=== PATIENT | female | born 1935 | race Caucasian/White ===

== ENCOUNTER 2024-12-30 14:04 | Inpatient (IN) | payer OTHER, SELFPAY ==
[2024-12-30] VITALS (7 sets, daily range): BP systolic 140–163; BP diastolic 77–96; BMI 19.6
[2024-12-30 08:02] LABS: % Basophils 0.4 % (0-2); % Eosinophils 0.1 % (0-6); % Immature Granulocytes 0.4 % (0-0.5); % Lymphocytes 15.6 % (20.5-51.1); % Monocytes 7.9 % (1.7-9.3); % Neutrophils 75.6 % (42.2-75.2); Absolute Lymphocytes 1.2 10^3/uL (1.2-3.4); Absolute Monocytes 0.6 10^3/uL (0.1-0.6); Absolute Neutrophils 5.7 10^3/uL (1.4-6.5); Hematocrit 27.8 % (37.0-47.0); Hemoglobin 8.5 g/dL (12.0-16.0); Mean Corp Hgb Conc. 30.6 g/dL (33.0-37.0); Mean Corpuscular Hgb 23.8 pg (27.0-31.0); Mean Corpuscular Volume 77.9 fL (81.0-99.0); Mean Platelet Volume 9.6 fL (7.4-10.4); Nucleated Red Blood Cells % 0 %; Platelet Count 291 10^3/uL (130-400); Red Blood Cell Count 3.57 10^6/uL (4.20-5.40); Red Cell Dist. Width 15.2 % (11.5-14.5); White Blood Cell Count 7.5 10^3/uL (4.8-10.8)
[2024-12-30 08:14] LABS: ALT (SGPT) 45 U/L (0-35); AST (SGOT) 52 U/L (14-36); Albumin 4.1 g/dl (3.5-5.0); Alkaline Phosphatase 123 U/L (38-126); Blood Urea Nitrogen 19 mg/dl (7-17); Calcium 8.8 mg/dl (8.4-10.2); Carbon Dioxide 25 mmol/L (22-30); Chloride 100 mmol/L (98-107); Glucose 231 mg/dl (70-99); Potassium 4.3 mmol/L (3.5-5.1); Sodium 137 mmol/L (135-145); Total Bilirubin 0.7 mg/dl (0.2-1.3); Total Protein 7.4 g/dl (6.3-8.2); eGFR > 60.00
[2024-12-30 08:24] LABS: NT-proBNP 16800 pg/ml; Troponin I 0.022 ng/ml
--- NOTE | 2024-12-30 10:55 | ED.GENMED ---
History of Present Illness
General
Chief Complaint: Chest Pain
Time Seen by Provider: 12/30/24 10:55
History of Present Illness
History of Present Illness:
TIME OF INITIAL ENCOUNTER: 11 AM
HPI: Patient presents with chest pressure that started last night and lasted until she got here to the ER about 5 hours ago. She has been having intermittent shortness of breath as well. She denies history of congestive heart failure. She used to
live in [place] and received care at [facility] however currently lives in [place]. Family reports no increased weight. She does take Lasix for swollen legs but not for CHF.
EXAM:
GENERAL: Appears generally weak and debilitated
HEENT: Moist oral mucosa
CARDIOVASCULAR: 2 out of 6 systolic murmur in the left upper sternal border, normal heart rate, regular rhythm, No chest wall tenderness, frequent ectopy noted
PULMONARY: No respiratory distress, slightly increased work of breathing, some bibasilar rales
ABDOMEN: Soft with no peritoneal signs, no tenderness
BACK: Thoracic kyphosis
NEUROLOGIC: Generally weak strength all extremities, no coordination deficits
PSYCHIATRIC: Appropriate mental status, normal insight and judgement
EXTREMITIES: Nontender, 2+ bilateral edema, moves all extremities equally
SKIN: No rash, no lesions
NUMBER AND COMPLEXITY OF PROBLEMS ADDRESSED AT THE ENCOUNTER
� Chronic conditions affecting care: IDDM, high blood pressure, high cholesterol
� Acute Exacerbation and/or Progression of Chronic Illness: This is an acute problem
� Differential Diagnosis includes: CHF, ACS, noncardiac chest wall pain, doubt PE as she has abnormal lung sounds
AMOUNT AND/OR COMPLEXITY OF DATA TO BE REVIEWED AND ANALYZED
� I performed an independent evaluation of and my interpretation is:
EKG: Sinus 90, left axis deviation, frequent PVCs, nonspecific ST abnormality
CT:
X-rays: Chest x-ray suggest central vascular congestion
Laboratory Studies: White count 7.5, hemoglobin 8.5 with no old to compare, BNP 16,800, troponin 0.022
Other:
� Review of other/old records: No old records available for review
� Clinical information was obtained by an independent historian: I spoke to daughter at bedside
� Prescriptions/Medications Considered but not given:
� Further testing considered but not performed:
RISK OF COMPLICATIONS AND/OR MORBIDITY OR MORTALITY OF PATIENT MANAGEMENT
� Social determinants of health affecting care: Lives at home
� Discussion with other providers: Dr. Irvin for admission
� Escalation of care including admission/observation vs risk of discharge considered: Troponins have been flat. However BNP is markedly elevated and exam and chest x-ray suggestive of heart failure. She has no history of heart
failure. Given her advanced age we will plan keeping in the hospital.
ANY OTHER UPDATES:
Phy Exam
Physical Exam
Physical Exam:
See HPI
Scores
Heart Score for Chest Pain Patients
STEMI patient?: Not applicable
Course
Orders/Labs/Results
Orders:
Orders
12/30/24 07:20
Electrocardiogram (*1) Urgent
Reason for Study: Chest Pain
EKG- Treatment ONCE
12/30/24 07:38
BNP [NT-proBNP] Urgent
Complete Blood Count/With Diff Urgent
Comprehensive Metabolic Panel Urgent
Folate Urgent
Comment: ADD
Iron Urgent
Comment: ADD
Total Iron Binding Urgent
Comment: ADD
Troponin I Urgent
Vitamin B12 Urgent
Comment: ADD
12/30/24 10:57
CR Chest - 2 Views Urgent
Comment:
Reason For Exam: sob, BNP 16,800
12/30/24 11:46
Troponin I Urgent
12/30/24 12:19
Furosemide [Lasix] 40 mg IV NOW STA
12/30/24 13:21
Add On- LAB Stat
Tests Added?: iron, b12, TIBC,folate
12/30/24 13:24
Admit/Transfer Patient As Directed
Co-Sign Provider:
Level of Care: Inpatient admission
Assign to:: Telemetry
Physician / Group: luis f
Diagnosis: new onset CHF
Reason for Telemetry: Acute Heart Failure
Date to Stop Telemetry: 01/02/25
Time to Stop Telemetry: 11:00
Reason for Hospitalization: new onset CHF
Expected length of stay greater than two midnights?: Yes
ELOS- Estimated Length of Stay in days: 3
I certify the patient meets the requirements for IP care: Yes
PRN Pain Medication Management As Directed
May give lesser potent ordered pain med per pt: Yes
preference::
Protocol:: Medication orders for pain may be administered in a
manner that supports deferring to patient preference
when the pt is:
- Requesting an ordered lesser potent pain medication.
Least to most potent pain medications are defined
as: acetaminophen < NSAID < tramadol < opioids
(morphine, oxycodone, hydromorphone).
- Requesting a lesser dose of the same medication IF
ORDERED.
- Requesting a less intrusive route of administration
if both routes are prescribed by the provider (PO <
IV).
12/30/24 13:26
Code Status As Directed
Resuscitation Status: Full Code
12/30/24 14:06
COVID-19 Antigen Stat
Source: Nasal Swab
Influenza A+B Rapid Molecular Stat
MIRLANDE Source: Nasal Swab
Specimen Description:
01/02/25 11:00
DC Protocol for Telemetry ONCE
Abnormal Lab Results
12/30/24
07:38
RBC 3.57 L 10^6/uL
(4.20-5.40)
Hgb 8.5 L g/dL
(12.0-16.0)
Hct 27.8 L %
(37.0-47.0)
MCV 77.9 L fL
(81.0-99.0)
MCH 23.8 L pg
(27.0-31.0)
MCHC 30.6 L g/dL
(33.0-37.0)
RDW 15.2 H %
(11.5-14.5)
Neutrophils % 75.6 H %
(42.2-75.2)
Lymphocytes % 15.6 L %
(20.5-51.1)
BUN 19 H mg/dl
(7-17)
Glucose 231 H mg/dl
(70-99)
AST 52 H U/L
(14-36)
ALT 45 H U/L
(0-35)
12/30/24 07:38
12/30/24 07:38
Vital Signs
Initial and Last Documented VS:
Initial Vital Signs
Temp Pulse Resp BP Pulse Ox
37.1 C 88 16 144/91 98
12/30/24 07:16 12/30/24 07:16 12/30/24 07:16 12/30/24 07:16 12/30/24 07:16
Last Documented Vital Signs
Temp Pulse Resp BP Pulse Ox
37.1 C 101 25 163/77 98
12/30/24 07:16 12/30/24 14:02 12/30/24 13:30 12/30/24 14:02 12/30/24 07:16
*Critical Care Note
Total Time (30-74mins, 75-104mins- exclusive of procedures): Not Applicable
ED Attending Note
-
Portions of this chart may have been created with voice recognition software.� Occasional wrong word or��sound alike� substitutions may have occurred due to the inherent limitations of voice recognition software.
Discharge Plan
Departure
Patient Disposition: Admit
Date of Disposition: 12/30/24
Time of Disposition: 12:20
Presentation/result/management discussed w/ accepting MD/DO: Hospitalist
Discharge Problem:
Congestive heart failure
Interventions
Interventions:
*Risk Screen - Suicide Last Done: 12/30/24 07:16
*Neglect/Abuse Screening Last Done: 12/30/24 07:16
--- NOTE | 2024-12-30 12:57 | HPS.HSE ---
Family Physician
-
Family Physician: Michael Morejon
Chief Complaint
-
sob
LE edema
History of Present Illness
89-year-old with past medical history for type 2 diabetes, hypertension, hyperlipidemia, heart murmur, hernia, prolapsed bladder presented to us with short of breath associated with chest heaviness for past few days. Patient stated orthopnea.
Denies short of breath with exertion. Patient stated midsternal chest heaviness which is nonradiating and nonexertional. Patient stated some dry cough. Patient denied headache, dizzy or syncope. Patient denied fever, chills. Patient denied
abdominal pain, nausea, vomiting or diarrhea. Patient denied dysuria,hematuria. patient was noted to have left LE wound. she also has bruising on her leg and LE.
Chest x-ray with pulmonary edema, elevated BNP. Patient received a dose of Lasix in ER admitting for further management
Medical History
Past Medical History
Past Medical History: Reports Other
Additional Past Medical History:
Heart murmur
Hyperlipidemia
Hypertension
Hernia
Post prolapsed bladder
Past Surgical History: Reports Other
Additional Past Surgical History:
Bladder pessary
Left hip surgery
Social History
Tobacco: Non-smoker
Alcohol: None
Living: Alone
Family History
Family History: Not pertinent
Allergies / Home Medications
Allergies reflects when Allergies were last updated in [employer].
Home Medications with original date entered in [employer]
Allergy/Medication List:
Allergies
Allergy/AdvReac Type Severity Reaction Status Date / Time
Sulfa (Sulfonamide Allergy Unknown Unknown Verified 12/30/24 07:16
Antibiotics)
Home Medications
dapagliflozin propanediol 10 mg tablet (Farxiga) 10 mg PO DAILY 12/30/24
enalapril maleate 10 mg tablet 10 mg PO DAILY 12/30/24
furosemide 20 mg tablet (Lasix) 20 mg PO DAILY 12/30/24
gabapentin 100 mg capsule 100 mg PO DAILY 12/30/24
gabapentin 100 mg tablet 200 mg PO HS 12/30/24
glimepiride 4 mg tablet 4 mg PO DAILY 12/30/24
insulin glargine 100 unit/mL (3 mL) subcutaneous pen (Lantus Solostar U-100 Insulin) 10 unit SC DAILY 12/30/24
lovastatin 40 mg tablet 40 mg PO QPM 12/30/24
meloxicam 7.5 mg tablet 7.5 mg PO DAILY 12/30/24
metformin 500 mg tablet 500 mg PO BID 12/30/24
therapeutic multivitamin 1 tab PO DAILY 12/30/24
Review of Systems
-
Constitutional: Reports No Symptoms
EENT: Reports No Symptoms
Respiratory: Reports No Symptoms and Trouble Breathing
Cardiac: Reports Chest Pain
Abdomen/GI: Reports No Symptoms
: Reports No Symptoms
Musculoskeletal: Reports Edema (Bilateral lower extremities edema)
Skin: Reports No Symptoms and Other (Left camara wound, lower extremity and UE extremity bruises)
Neurological: Reports No Symptoms
Endocrine: Reports No Symptoms
Hematologic/Lymphatic: Reports No Symptoms
Psych: Reports No Symptoms
Physical Exam
Vital Signs
Vital Signs
Temp Pulse Resp BP Pulse Ox
98.7 F 88 16 144/91 98
12/30/24 07:16 12/30/24 07:16 12/30/24 07:16 12/30/24 07:16 12/30/24 07:16
Physical Exam
General: Well Developed, Well Nourished and No Apparent Distress
HEENT: NormoCephalic, Moist mucous membranes and Atraumatic
Respiratory: Rales
Cardiac: S1/S2, Regular Rhythm and Murmur; No Rub
GI: Soft, Non Tender, Non Distended and Normal Bowel Sounds; No Organomegaly
Rectal: Deferred by Provider
Musculoskeletal: No Clubbing, No Cyanosis and No Edema
Skin: Rash and Other (Bruises, left camara wound)
Neuro: AO x 3 and Nonfocal/grossly intact
Psych: Calm
Laboratory Results
-
12/30/24 07:38
12/30/24 07:38
Laboratory Results
Total Bilirubin 0.7 mg/dl (0.2-1.3) 12/30/24 07:38
AST 52 U/L (14-36) H 12/30/24 07:38
ALT 45 U/L (0-35) H 12/30/24 07:38
Alkaline Phosphatase 123 U/L (38-126) 12/30/24 07:38
Troponin I 0.020 ng/ml 12/30/24 11:46
Data Reviewed
-
Diagnostic Radiology: Report Reviewed by me
Lab Data: Labs Reviewed by me
Impression/Plan
-
# Chest pain and short of breath likely from known new onset CHF
-BNP 16, 800
-Chest x-ray with mild cardiomegaly with central pulmonary vascular distention
-IV Lasix continued
-Strict JOSHUA
-Daily weight
-Fluid restriction
-Continue to trend Trope
-Obtain echocardiogram
-cardiology consult
# Anemia likely chronic
-Will obtain iron panel
-Patient denied bleeding
# Hepatic congestion
-AST 52, ALT 45
Denies abdominal pain
-Continue monitor
# Type 2 diabetes
-Sliding scale
-Lantus 5 units at bedtime
-Farxiga continued
-hold glimepiride, metformin
# Peripheral neuropathy
-Gabapentin continued
# Hypertension
-Enalapril continue with hold parameters
#left LE wound
-wound care consulted
# Hyperlipidemia
Statin continued
# DVT prophylaxis
-Lovenox
# CODE STATUS
Full code-
[2024-12-30] MEDS: LASIX 40 MG IV ×2 (14:02→21:43)
--- NOTE | 2024-12-30 14:29 | CON.CAR ---
Consultation
Consultation Request
Date/Time Consultation Requested: 12/30/2024
Date/Time Consultation Performed: 12/30/2024
Requesting Provider: Sammi Roth NP
Performing Provider: Dr. Patel
Reason for Consultation: CHF
Medical History
-
Chief Complaint: SOB
History of Present Illness:
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 The patient states that she has a
chronic heart murmur and lower extremity swelling and a heart murmur for which she takes Lasix. 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
Past Medical History
Past Medical History: HTN, Hypercholesterolemia and IDDM
Past Surgical History: Orthopedic (Left hip) and Urological (Bladder pessary)
Social History
Tobacco: Non-Smoker
Alcohol: None
Employment: Retired
Family History
Family History: Reviewed & Not Pertinent
Allergies / Home Medications
Allergy/AdvReac Type Severity Reaction Status Date / Time
Sulfa (Sulfonamide Allergy Unknown Unknown Verified 12/30/24 07:16
Antibiotics)
�Medication �Instructions �Recorded �Confirmed �Type
dapagliflozin propanediol 10 mg 10 mg PO DAILY 12/30/24 12/30/24 History
tablet (Farxiga)
enalapril maleate 10 mg tablet 10 mg PO DAILY 12/30/24 12/30/24 History
furosemide 20 mg tablet (Lasix) 20 mg PO DAILY 12/30/24 12/30/24 History
gabapentin 100 mg capsule 100 mg PO DAILY 12/30/24 12/30/24 History
gabapentin 100 mg tablet 200 mg PO HS 12/30/24 12/30/24 History
glimepiride 4 mg tablet 4 mg PO DAILY 12/30/24 12/30/24 History
insulin glargine 100 unit/mL (3 10 unit SC DAILY 12/30/24 12/30/24 History
mL) subcutaneous pen (Lantus
Solostar U-100 Insulin)
lovastatin 40 mg tablet 40 mg PO QPM 12/30/24 12/30/24 History
meloxicam 7.5 mg tablet 7.5 mg PO DAILY 12/30/24 12/30/24 History
metformin 500 mg tablet 500 mg PO BID 12/30/24 12/30/24 History
therapeutic multivitamin 1 tab PO DAILY 12/30/24 12/30/24 History
Review of Systems
-
All other systems: Negative unless noted
Musculoskeletal: Joint Pain
Physical Exam
Vital Signs
Temp Pulse Resp BP Pulse Ox
98.7 F 101 25 163/77 98
12/30/24 07:16 12/30/24 14:02 12/30/24 13:30 12/30/24 14:02 12/30/24 07:16
Lab Results
12/30/24 07:38
12/30/24 07:38
Troponin I 0.020 ng/ml 12/30/24 11:46
Lqu-L-Hvjgwdhzupx Pept 35512 pg/ml 12/30/24 07:38
Physical Exam
General: No Apparent Distress and Comfortable
HEENT: Normocephalic
Respiratory: Rhonchi
Cardiac: S1/S2, Regular Rhythm, Murmur (3/6 systolic) and Peripheral Edema (2+ with mild erythema)
Breast: Deferred by me
GI: Soft and Non Tender
Rectal: Deferred by Provider
Musculoskeletal: Edema (2+ with mild erythema)
Skin: Warm
Neuro: AO x 3
Psych: Calm
Impression / Plan
-
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 The patient states that she has a
chronic heart murmur and lower extremity swelling and a heart murmur for which she takes Lasix. 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
Her cardiac BNP was elevated at 16,800 and she was found to have a hemoglobin of 8.5. She takes Lasix 20 mg daily at home. She has a 3/6 systolic murmur on examination.
Acute CHF (type unknown):
-The patient is clearly volume overloaded on examination and has a notable murmur.
-Recommend diuresis with Lasix 40 mg IV twice daily.
-Monitor daily weights and I/Os.
-monitoring analyst.
-Echocardiogram on Wednesday.
Heart murmur:
-3/6 systolic murmur.
-Echocardiogram Wednesday.
-Diuresis with Lasix as above.
Hypertension:
-Monitor blood pressure with diuresis.
-Continue enalapril.
Hyperlipidemia:
-On statin at home.
Diabetes:
-Check hemoglobin A1c
-Management as per primary team.
Data Reviewed
-
EKG: Tracing Personally Visualized and interpreted (Sinus rhythm with occasional PACs and PVCs, nonspecific ST/T abnormality)
Labs: Labs Reviewed by me
[2024-12-30 14:33] LABS: Iron 50 ug/dl (37-170)
[2024-12-30 14:40] LABS: COVID-19 Antigen Negative (Negative)
--- NOTE | 2024-12-30 14:50 | W.PN.UPDATE ---
Update Note
Progress Note Update
Attending addendum
Patient seen independently
89-year-old woman with past medical history of:
type 2 diabetes,
hypertension,
hyperlipidemia,
heart murmur,
hernia,
prolapsed bladder
comes in with short of breath associated with chest heaviness for past few days. C/o orthopnea, but denies short of breath with exertion. Midsternal chest heaviness is nonradiating and nonexertional. + dry cough. She denied headache, dizzy or
syncope, fever, chills, abdominal pain, nausea, vomiting or diarrhea, dysuria,hematuria. She has a left LE wound and bruising on her leg and LE. Chest x-ray in ED showed with pulmonary edema, elevated BNP. Patient received a dose of Lasix in ER.
CXR:
1. Mild cardiomegaly.
2. Elevated pulmonary venous pressures with central pulmonary vascular distention.
3. Mild elevation of the right hemidiaphragm.
4. Mild scarring/subsegmental atelectasis in the mid and lower lungs.
5. Moderate to large paraesophageal hiatal hernia.
6. 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
7. Moderate left convex curvature of the lower thoracic spine.
Past Medical History
Heart murmur
Hyperlipidemia
Hypertension
Hernia
Post prolapsed bladder
Bladder pessary
Left hip surgery
Physical Exam
General: Well Developed, Well Nourished and No Apparent Distress
HEENT: NormoCephalic, Moist mucous membranes and Atraumatic
Respiratory: Rales
Cardiac: S1/S2, Regular Rhythm and Murmur; No Rub
GI: Soft, Non Tender, Non Distended and Normal Bowel Sounds; No Organomegaly
Psych: Calm
Impression/Plan
1. Chest pain and short of breath likely from known new onset CHF -BNP 16, 800
-IV Lasix
-Strict JOSHUA
-Daily weight
-Fluid restriction
-trend Trope
-echocardiogram
-cardiology consult
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
Anemia likely chronic
Hepatic congestion
Type 2 diabetes
Peripheral neuropathy
Hypertension
Left LE wound
Hyperlipidemia
DVT prophylaxis -Lovenox
CODE STATUS Full code
[2024-12-30 15:07] LABS: Folate > 20.0 ng/ml (2.76-20); Vitamin B12 421 pg/ml (239-931)
[2024-12-30 15:19] LABS: Percent Saturation 12 % (20-50); Total Iron Binding Capacity 391 ug/dl (265-497)
--- NOTE | 2024-12-30 18:00 | PTCARENOTE ---
Pt recieved from ER. pt transfered to bed. vss afebrile no co pain. pt incon of large amount of urine. pt cleansed and external urinary device applied. pt oriented to unit. pt called in her diner and breakfast
[2024-12-30 18:35] LABS: Glucose - Point of Care 251 mg/dl (70-99)
--- NOTE | 2024-12-30 20:30 | PTCARENOTE ---
Assumed care of patient from previous RN. Patient recently arrived from ED. Patient is settled in room, alert and oriented, [place]. No complaints at this time. VSS. Satting well on room air. Patient stating she feels she needs to have a BM. Placed on
bedpan without relief. Patient stood at bedside, steady on feet - patient states she uses a walker at baseline independently to ambulate. Standing scale weight obtained and patient placed on BSC - had large BM. Dinner arrived late to floor, patient
ate late dinner and AccuCheck obtained for bedtime was high at 319. ROXY Sanchez notified, one time dose 4 units NovoLog ordered and provided to patient. Call rosas in reach, patient understands use, will continue to monitor.
[2024-12-30] MEDS: NOVOLOG FLEXPEN-LOW RESISTANCE SC (20:40)
[2024-12-30] MEDS: NEURONTIN 200 MG PO (21:43)
[2024-12-30] MEDS: LIPITOR 10 MG PO (21:45)
[2024-12-30 22:16] LABS: Glucose - Point of Care 319 mg/dl (70-99)
[2024-12-30 23:20] LABS: Troponin I 0.028 ng/ml
[2024-12-30] MEDS: NOVOLOG FLEXPEN 4 UNITS SC (23:25)
[2024-12-30] MEDS: LOVENOX 40 MG SC (23:45)
[2024-12-31] VITALS (7 sets, daily range): BP systolic 88–136; BP diastolic 51–75; PULSE 70; O2SAT 98; BMI 18.6
[2024-12-31 04:30] LABS: % Basophils 0.4 % (0-2); % Immature Granulocytes 0.4 % (0-0.5); % Lymphocytes 18.7 % (20.5-51.1); % Monocytes 9.5 % (1.7-9.3); Absolute Lymphocytes 1.4 10^3/uL (1.2-3.4); Absolute Monocytes 0.7 10^3/uL (0.1-0.6); Absolute Neutrophils 5.2 10^3/uL (1.4-6.5); Hemoglobin 9.5 g/dL (12.0-16.0); Mean Corp Hgb Conc. 31.7 g/dL (33.0-37.0); Mean Corpuscular Hgb 24.1 pg (27.0-31.0); Mean Corpuscular Volume 76.1 fL (81.0-99.0); Mean Platelet Volume 9.8 fL (7.4-10.4); Nucleated Red Blood Cells % 0 %; Platelet Count 289 10^3/uL (130-400); Red Blood Cell Count 3.94 10^6/uL (4.20-5.40); White Blood Cell Count 7.3 10^3/uL (4.8-10.8)
[2024-12-31 04:59] LABS: ALT (SGPT) 36 U/L (0-35); AST (SGOT) 32 U/L (14-36); Alkaline Phosphatase 129 U/L (38-126); Blood Urea Nitrogen 23 mg/dl (7-17); Calcium 8.8 mg/dl (8.4-10.2); Carbon Dioxide 30 mmol/L (22-30); Chloride 97 mmol/L (98-107); Direct Bilirubin 0.5 mg/dl (0.0-0.4); Estimated Creatinine Clearance 29 ml/min; Glucose 146 mg/dl (70-99); HDL Cholesterol 60 mg/dl; LDL Cholesterol, Calculated 42 mg/dl; Magnesium 1.6 mg/dl (1.6-2.3); Potassium 3.4 mmol/L (3.5-5.1); Sodium 138 mmol/L (135-145); Total Bilirubin 0.6 mg/dl (0.2-1.3); Total Cholesterol 116 mg/dl (50-199); Total Protein 7.4 g/dl (6.3-8.2); Triglyceride 73 mg/dl (10-149); Very Low Density Lipoprotein 14 mg/dl (0-30); eGFR 54.53
[2024-12-31 05:03] LABS: Troponin I 0.034 ng/ml
[2024-12-31 08:07] LABS: Glucose - Point of Care 215 mg/dl (70-99)
[2024-12-31 08:41] LABS: Glycohemoglobin (HgbA1c) 11.8 % (4.0-5.6)
[2024-12-31] MEDS: NOVOLOG FLEXPEN-LOW RESISTANCE 2 UNITS SC ×2 (09:59→18:07)
[2024-12-31] MEDS: LANTUS 0.05 UNITS SC (10:05)
[2024-12-31] MEDS: NEURONTIN 100 MG PO (10:07)
[2024-12-31] MEDS: VASOTEC 10 MG PO (10:07)
[2024-12-31] MEDS: MOBIC 7.5 MG PO (10:07)
[2024-12-31] MEDS: FARXIGA 10 MG PO (10:07)
[2024-12-31] MEDS: LASIX 40 MG IV ×2 (10:08→16:57)
[2024-12-31 10:46] LABS: Troponin I 0.032 ng/ml
[2024-12-31] MEDS: AMARYL 4 MG PO (11:13)
[2024-12-31] MEDS: GLUCOPHAGE 500 MG PO ×2 (11:13→21:07)
[2024-12-31] MEDS: MAGNESIUM SULFATE 102 GRAMS IV (11:13)
[2024-12-31] MEDS: KCL 40 MEQ PO (11:13)
[2024-12-31] MEDS: TOPROL XL 25 MG PO (11:14)
--- NOTE | 2024-12-31 11:36 | W.PN.CD ---
Today's Communication / Plan
-
-Continue diuresis with Lasix 40 mg IV twice daily.
-Echocardiogram tomorrow.
-Will start Toprol-XL 25 mg daily.
-Diabetes poorly controlled with a hemoglobin A1c of 11.8%.
Impression / Plan
-
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 The patient states that she has a
chronic heart murmur and lower extremity swelling and a heart murmur for which she takes Lasix. 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
Her cardiac BNP was elevated at 16,800 and she was found to have a hemoglobin of 8.5. She takes Lasix 20 mg daily at home. She has a 3/6 systolic murmur on examination.
Acute CHF (type unknown):
-The patient is volume overloaded on examination and has a notable murmur.
-Cardiac BNP 16,800.
-Continue diuresis with Lasix 40 mg IV twice daily.
-Monitor daily weights and I/Os.
-electronic device monitor.
-Echocardiogram tomorrow.
Heart murmur:
-3/6 systolic murmur.
-Echocardiogram tomorrow.
-Continue diuresis with Lasix.
PVCs/mild sinus tachycardia:
-Will start Toprol-XL 25 mg daily.
Hypertension:
-Mildly elevated yesterday
-Continue current dose of enalapril.
-Continue Lasix as above.
-Will start Toprol-XL as above.
Hyperlipidemia:
-Continue atorvastatin.
Diabetes:
-Poorly controlled; hemoglobin A1c 11.8.
-Continue management as per primary team.
Physical Exam
Vital Signs/Labs
Vital Signs
Temp Pulse Resp BP Pulse Ox
99.1 F 100 16 136/75 95
12/31/24 07:30 12/31/24 07:30 12/31/24 07:30 12/31/24 07:30 12/31/24 07:30
12/30/24 12/31/24 01/01/25
06:59 06:59 06:59
Actual Weight 44.588 kg
12/31/24 04:16
12/31/24 04:16
Magnesium 1.6 mg/dl (1.6-2.3) 12/31/24 04:16
Triglycerides 73 mg/dl (10-149) 12/31/24 04:16
LDL Cholesterol, Calc 42 mg/dl 12/31/24 04:16
VLDL Cholesterol, Calc 14 mg/dl (0-30) 12/31/24 04:16
HDL Cholesterol 60 mg/dl 12/31/24 04:16
12/30/24
07:38
Cbs-K-Ydjueheckei Pept [id number]
LAB Results
12/30/24 12/30/24 12/30/24
07:38 11:46 22:41
Troponin I 0.022 0.020 0.028
12/31/24 12/31/24
04:16 09:49
Troponin I 0.034 0.032
Physical Exam
Constitutional: No acute distress and Comfortable
EENT: Anicteric
Cardiovascular: Rhythm & rate is regular (Frequent PVCs), Pedal edema present (Trace-1+), Systolic murmur present (3/6) and S1S2 is normal
Respiratory: Respiratory effort normal and Rhonchi Present
GI: Soft and Non tender
Neuro/Psych: AO x 3
Other: Skin (Warm, dry, intact)
Data Reviewed
-
Date of Service: December 31, 2024
EKG: Tracing Personally Visualized and interpreted (Telemetry: Sinus rhythm with frequent PVCs)
Labs: Labs Reviewed by me
[2024-12-31 11:52] LABS: Glucose - Point of Care 253 mg/dl (70-99)
[2024-12-31] MEDS: NOVOLOG FLEXPEN-LOW RESISTANCE 3 UNITS SC (13:12)
--- NOTE | 2024-12-31 14:53 | W.PN.HOSP.TC ---
Today's Communication/Plan
-
Diuresis
Echo
Watch sugars
Assessment / Plan
Assessment / Plan
89-year-old female presented with shortness of breath
Awake and alert
Cardiovascular system S1-S2 appreciated
Rales bilaterally
Abdomen soft and nontender
Lower extremity edema
Redness and a wound on the left calf
# Acute CHF
proBNP 16,800
Continue Lasix 40 mg IV twice daily
Telemonitoring
Intake output charting /daily weights/CHF education
Patient seems to be on Lasix 20 mg daily as outpatient
Continue Lisinopril, Metoprolol started.
Cardiology evaluation
Echo Wednesday
# Hypokalemia-replace
# Anemia- OP GI eval and work up with PCP discussed with daughter
# Left lower extremity cellulitis with an infected wound-add antibiotics. Pulses palpable. Wound care consultation
# Hypertension
-Continue enalapril, metoprolol started
# Diabetes-continue metformin 500 mg BID/Lantus insulin 5 units HS (Instead of 10 PHARMACY GRADUATE INTERN started 1 week ago) /Glimepiride 4 mg OD/Farxiga 10 mg OD/Accu-Cheks&SSI
Hemoglobin A1c 11.8 indicates poor control - Daughter updated.
# Diabetic neuropathy-continue gabapentin
# Hyperlipidemia-continue atorvastatin
# Slightly elevated transaminases and alk gwac-gaojui-stunej secondary to hepatic congestion
# DVT prophylaxis-Lovenox
# Full code
Discussed with nursing
Spoken to daughter and updated.
Anticipated Discharge: 24 - 48 hours
Subjective/Interval History
-
Date of Service: December 31, 2024
Objective Data
-
Labs:
Laboratory Results
12/31/24
04:16
WBC 7.3
Hgb 9.5 L
Hct 30.0 L
Plt Count 289
Sodium 138
Potassium 3.4 L
Chloride 97 L
Carbon Dioxide 30
BUN 23 H
Creatinine 1.0
Glucose 146 H
Calcium 8.8
Total Bilirubin 0.6
AST 32
ALT 36 H
Alkaline Phosphatase 129 H
Vital Signs:
Vital Signs
Temp Pulse Resp BP Pulse Ox
97.4 F 69 16 124/68 100
12/31/24 11:30 12/31/24 11:30 12/31/24 11:30 12/31/24 11:30 12/31/24 11:30
I&O
12/30/24 12/31/24 01/01/25
06:59 06:59 06:59
Intake Total 80 / 80
Output Total 2250 / 2250
Balance -2169 / -2169
[2024-12-31] MEDS: LOVENOX 40 MG SC (16:57)
[2024-12-31] MEDS: LIPITOR 10 MG PO (16:58)
[2024-12-31 17:06] LABS: Glucose - Point of Care 234 mg/dl (70-99)
[2024-12-31] MEDS: VIBRAMYCIN 100 MG PO (21:07)
[2024-12-31] MEDS: NEURONTIN 200 MG PO (21:08)
[2024-12-31 21:26] LABS: Glucose - Point of Care 276 mg/dl (70-99)
[2025-01-01] VITALS (8 sets, daily range): BP systolic 78–108; BP diastolic 44–76; BMI 19.6
[2025-01-01 06:27] LABS: % Basophils 0.4 % (0-2); % Eosinophils 0.1 % (0-6); % Immature Granulocytes 0.3 % (0-0.5); % Lymphocytes 23.3 % (20.5-51.1); % Monocytes 9.9 % (1.7-9.3); Absolute Lymphocytes 1.6 10^3/uL (1.2-3.4); Absolute Monocytes 0.7 10^3/uL (0.1-0.6); Absolute Neutrophils 4.5 10^3/uL (1.4-6.5); Hematocrit 27.1 % (37.0-47.0); Hemoglobin 8.5 g/dL (12.0-16.0); Mean Corp Hgb Conc. 31.4 g/dL (33.0-37.0); Mean Corpuscular Hgb 24.1 pg (27.0-31.0); Mean Corpuscular Volume 76.8 fL (81.0-99.0); Mean Platelet Volume 10.3 fL (7.4-10.4); Nucleated Red Blood Cells % 0 %; Platelet Count 280 10^3/uL (130-400); Red Blood Cell Count 3.53 10^6/uL (4.20-5.40); Red Cell Dist. Width 15.2 % (11.5-14.5); White Blood Cell Count 6.9 10^3/uL (4.8-10.8)
[2025-01-01 06:50] LABS: Blood Urea Nitrogen 38 mg/dl (7-17); Calcium 8.4 mg/dl (8.4-10.2); Carbon Dioxide 30 mmol/L (22-30); Chloride 92 mmol/L (98-107); Estimated Creatinine Clearance 21 ml/min; Glucose 158 mg/dl (70-99); Potassium 4.2 mmol/L (3.5-5.1); Sodium 132 mmol/L (135-145)
[2025-01-01 07:51] LABS: Glucose - Point of Care 230 mg/dl (70-99)
--- NOTE | 2025-01-01 08:04 | W.PN.CD ---
Today's Communication / Plan
-
ALEJANDRA after diuresis: hold lasix and ACEi today
if Cr improved tomorrow, transition to lasix 40mg PO daily
Echocardiogram today
Impression / Plan
-
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 The patient states that she has a
chronic heart murmur and lower extremity swelling and a heart murmur for which she takes Lasix. 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
Her cardiac BNP was elevated at 16,800 and she was found to have a hemoglobin of 8.5. She takes Lasix 20 mg daily at home. She has a 3/6 systolic murmur on examination.
Acute CHF (type unknown):
-ALEJANDRA after diuresis: hold lasix today
-if Cr improved tomorrow, transition to lasix 40mg PO daily
-Echocardiogram today
ALEJANDRA
-stop IV lasix
-hold enalapril
Heart murmur:
-3/6 systolic murmur.
-Echocardiogram
PVCs/triplets:
-no sxs
-started Toprol-XL 25 mg daily this admission
Hypertension:
-improved s/p diuresis
-hold enalapril given ALEJANDRA; cont Toprol XL
Hyperlipidemia:
-Continue atorvastatin.
Diabetes:
-Poorly controlled; hemoglobin A1c 11.8.
-Continue management as per primary team.
Physical Exam
Vital Signs/Labs
Vital Signs
Temp Pulse Resp BP Pulse Ox
98.4 F 60 20 108/76 96
01/01/25 03:25 01/01/25 07:51 01/01/25 07:51 02/03/25 03:25 01/01/25 07:51
12/31/24 01/01/25 01/02/25
06:59 06:59 06:59
Actual Weight 44.588 kg
01/01/25 05:40
01/01/25 05:40
Magnesium 2.0 mg/dl (1.6-2.3) 01/01/25 05:40
Triglycerides 73 mg/dl (10-149) 12/31/24 04:16
LDL Cholesterol, Calc 42 mg/dl 12/31/24 04:16
VLDL Cholesterol, Calc 14 mg/dl (0-30) 12/31/24 04:16
HDL Cholesterol 60 mg/dl 12/31/24 04:16
12/30/24
07:38
Sbi-F-Nryivbuobur Pept 50101
LAB Results
12/30/24 12/30/24 12/30/24
07:38 11:46 22:41
Troponin I 0.022 0.020 0.028
12/31/24 12/31/24
04:16 09:49
Troponin I 0.034 0.032
Physical Exam
Constitutional: No acute distress
EENT: Moist mucous membranes
Cardiovascular: Rhythm & rate is regular, JVD pressure is normal, Pedal edema present (trace) and Systolic murmur present
Respiratory: Respiratory effort normal and Lungs clear to auscul.
Neuro/Psych: AO x 3
Data Reviewed
-
Date of Service: January 01, 2025
EKG: Other (Tele: SR with PVC's, triplets)
Labs: Labs Reviewed by me
--- NOTE | 2025-01-01 08:36 | WOUNDNOTE ---
L 2ND TOE (DORSAL)
--- NOTE | 2025-01-01 08:38 | WOUNDNOTE ---
[facility] RN note: Patient admitted with CHF. Patient lives alone.
See H&P for complete history.
PMH: DM, HTN, heart murmur, hernia, prolapsed bladder, LLE wound, hip surgery, neuropathy.
Wound Location and type/assessment: Patient admitted with: L dorsal 2nd toe dry abrasion d/t hammer toe, neuropathy, LLE deep dermal skin tear from trauma. Patient stated she just started seeing a farmhand for her L 2nd toe wound. Heels slow to
alex red. +Pedal pulses.
Appetite: good. Patient very thin.
Pressure redistribution devices in place: [employer] Accumax. Patient turns self in bed.
Plan: LLE dressing changed. Rani care given. Protective heel foam dressings changed. Heels off bed with air chair cushion. Instructed patient pressure injury prevention measures.
Will confirm orders with Dr. Jara and discussed with WESLEY Porter.
Care plan to be updated and will follow as needed.
Note to case management requested for discharge: VN if goes home.
Recommend follow up at [facility].
--- NOTE | 2025-01-01 08:43 | WOUNDNOTE ---
[facility] RN note: Patient admitted with CHF. Patient lives alone.
See H&P for complete history.
PMH: DM, HTN, heart murmur, hernia, prolapsed bladder, LLE wound, hip surgery, neuropathy.
Wound Location and type/assessment: Patient admitted with: L dorsal 2nd toe dry abrasion d/t hammer toe, neuropathy, LLE deep dermal skin tear from trauma. Patient stated she just started seeing a fundraising specialist for her L 2nd toe wound. Heels slow to
alex red. +Pedal pulses. MASD perineum, labia.
Appetite: good. Patient very thin.
Pressure redistribution devices in place: [employer] Accumax. Patient turns self in bed.
Plan: LLE dressing changed. Rani care given. Protective heel foam dressings changed. Heels off bed with air chair cushion. Instructed patient pressure injury prevention measures.
Will confirm orders with Dr. Jara and discussed with WESLEY Porter and SHAWNA Marquis.
Care plan to be updated and will follow as needed.
Note to case management requested for discharge: VN if goes home.
Recommend follow up at [facility].
[2025-01-01] MEDS: LANTUS 0.05 UNITS SC ×2 (08:59→21:48)
[2025-01-01] MEDS: LASIX IV (09:00)
[2025-01-01] MEDS: TOPROL XL 25 MG PO (09:00)
[2025-01-01] MEDS: AMARYL 4 MG PO (09:00)
[2025-01-01] MEDS: MOBIC 7.5 MG PO (09:01)
[2025-01-01] MEDS: FEOSOL 325 MG PO (09:01)
[2025-01-01] MEDS: GLUCOPHAGE 500 MG PO ×2 (09:01→21:49)
[2025-01-01] MEDS: VIBRAMYCIN 100 MG PO ×2 (09:01→21:49)
[2025-01-01] MEDS: VASOTEC PO (09:01)
[2025-01-01] MEDS: NEURONTIN 100 MG PO (09:01)
[2025-01-01] MEDS: FARXIGA 10 MG PO (09:01)
[2025-01-01] MEDS: NOVOLOG FLEXPEN-LOW RESISTANCE 2 UNITS SC (09:02)
[2025-01-01 11:59] LABS: Glucose - Point of Care 281 mg/dl (70-99)
[2025-01-01] MEDS: NOVOLOG FLEXPEN-LOW RESISTANCE 3 UNITS SC (14:28)
[2025-01-01 14:39] LABS: ALT (SGPT) 25 U/L (0-35); AST (SGOT) 21 U/L (14-36); Albumin 3.6 g/dl (3.5-5.0); Alkaline Phosphatase 107 U/L (38-126); Direct Bilirubin 0.3 mg/dl (0.0-0.4); Total Bilirubin 0.6 mg/dl (0.2-1.3); Total Protein 6.8 g/dl (6.3-8.2)
--- NOTE | 2025-01-01 15:29 | W.PN.HOSP.TC ---
Today's Communication/Plan
-
If creat imptoves SNF tomorrow
Assessment / Plan
Assessment / Plan
89-year-old female presented with shortness of breath
Awake and alert
Cardiovascular system S1-S2 appreciated
Rales bilaterally
Abdomen soft and nontender
Lower extremity edema
Redness and a wound on the left calf, edema better
# Acute CHF
proBNP 16,800
Lasix 40 mg IV twice daily, placed on hold
Creatinine up. Likely over diuresed
Telemonitoring
Intake output charting /daily weights/CHF education
Patient seems to be on Lasix 20 mg daily as outpatient
Hold lisinopril, Metoprolol to be continued for now
Cardiology evaluation
Echo done results pending
# Hypotension-likely prerenal from overdiuresis. Will give a dose of midodrine and watch
# Hypokalemia-replaced
# Hyponatremia likely hypovolemic
# Acute kidney injury-hold Mobic, lisinopril, Lasix
# Anemia- OP GI eval and work up with PCP discussed with daughter
# Left lower extremity cellulitis with an infected wound-add antibiotics. Pulses palpable. Wound care consultation
# Hypertension -hold enalapril, metoprolol started this admission. Continue for now
# Diabetes-continue metformin 500 mg BID/Lantus insulin 5 units BID (Instead of 10 HS PELTS SKINNER started 1 week ago) /Glimepiride 4 mg OD/Farxiga 10 mg OD/Accu-Cheks&SSI
Hemoglobin A1c 11.8 indicates poor control - Daughter updated.
# Diabetic neuropathy-continue gabapentin
# Hyperlipidemia-continue atorvastatin
# Slightly elevated transaminases and alk [id number]-vxhyyh secondary to hepatic congestion- Improved.
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
# Severe discogenic DJD lumbar spine
# DVT prophylaxis-Lovenox
# Full code
Discussed with nursing
Spoken to daughter and updated yesterday.
Anticipated Discharge: Within 24 hours
Subjective/Interval History
-
Date of Service: January 01, 2025
Objective Data
-
Labs:
Laboratory Results
01/01/25
05:40
WBC 6.9
Hgb 8.5 L
Hct 27.1 L
Plt Count 280
Sodium 132 L
Potassium 4.2
Chloride 92 L
Carbon Dioxide 30
BUN 38 H
Creatinine 1.3 H
Glucose 158 H
Calcium 8.4
Total Bilirubin 0.6
AST 21
ALT 25
Alkaline Phosphatase 107
Vital Signs:
Vital Signs
Temp Pulse Resp BP Pulse Ox
97.4 F 75 20 100/48 96
01/01/25 11:00 01/01/25 11:00 01/01/25 11:00 01/01/25 12:09 01/01/25 11:00
I&O
12/31/24 01/01/25 01/02/25
06:59 06:59 06:59
Intake Total 80 / 80 650 / 650
Output Total 2250 / 2250 500 / 500
Balance -2170 / -2170 150 / 150
[2025-01-01] MEDS: ProAmatine 5 MG PO (16:02)
[2025-01-01] MEDS: PROTONIX 40 MG PO (16:02)
--- NOTE | 2025-01-01 16:31 | PTCARENOTE ---
Pt sitting up in chair notified by PCT of 1500 BP being low. Manual BP taken, 78/48. Pt is asymptomatic. Put back into bed with assist x2. notified, midodrine given. Repeat BP 96/51.
[2025-01-01 16:54] LABS: Glucose - Point of Care 92 mg/dl (70-99)
--- NOTE | 2025-01-01 17:01 | CM ---
Alert awake oriented patient who lives with her dgt Court in a 1 story home with 2 steps to enter and bed bathroom on first floor. She is independent in all activities of daily living.Offered VN she requested VN Savannah Martin liaison notified.
No adaptive devices
VN current / no SNF
Pharmacy [facility]
PCP Page
PLAN Home with VN
[2025-01-01] MEDS: NOVOLOG FLEXPEN-LOW RESISTANCE SC (17:18)
[2025-01-01] MEDS: LIPITOR 10 MG PO (17:51)
[2025-01-01] MEDS: LOVENOX 40 MG SC (17:51)
[2025-01-01 21:43] LABS: Glucose - Point of Care 247 mg/dl (70-99)
[2025-01-01] MEDS: ANTIFUNGAL CLEAR 1 APPLIC TOPICAL (21:48)
[2025-01-01] MEDS: NEURONTIN 200 MG PO (21:49)
[2025-01-02] VITALS (7 sets, daily range): BP systolic 101–131; BP diastolic 57–77; PULSE 70; O2SAT 98; BMI 19.3
[2025-01-02 06:03] LABS: % Basophils 0.6 % (0-2); % Eosinophils 0.5 % (0-6); % Immature Granulocytes 0.2 % (0-0.5); % Lymphocytes 27.8 % (20.5-51.1); % Monocytes 11.7 % (1.7-9.3); % Neutrophils 59.2 % (42.2-75.2); Absolute Lymphocytes 1.8 10^3/uL (1.2-3.4); Absolute Monocytes 0.8 10^3/uL (0.1-0.6); Absolute Neutrophils 3.8 10^3/uL (1.4-6.5); Hematocrit 26.9 % (37.0-47.0); Hemoglobin 8.2 g/dL (12.0-16.0); Mean Corp Hgb Conc. 30.5 g/dL (33.0-37.0); Mean Corpuscular Hgb 23.8 pg (27.0-31.0); Mean Platelet Volume 9.9 fL (7.4-10.4); Nucleated Red Blood Cells % 0 %; Platelet Count 282 10^3/uL (130-400); Red Blood Cell Count 3.45 10^6/uL (4.20-5.40); Red Cell Dist. Width 15.1 % (11.5-14.5); White Blood Cell Count 6.4 10^3/uL (4.8-10.8)
[2025-01-02 06:16] LABS: Blood Urea Nitrogen 50 mg/dl (7-17); Calcium 8.5 mg/dl (8.4-10.2); Carbon Dioxide 31 mmol/L (22-30); Chloride 95 mmol/L (98-107); Estimated Creatinine Clearance 23 ml/min; Glucose 51 mg/dl (70-99); Sodium 132 mmol/L (135-145)
--- NOTE | 2025-01-02 06:23 | PTCARENOTE ---
Blood sugar 51, orange juice given will recheck sugar at 0635. pt AAOX3
[2025-01-02 06:39] LABS: Glucose - Point of Care 85 mg/dl (70-99)
--- NOTE | 2025-01-02 06:41 | PTCARENOTE ---
0635 Blood Glucose 85
[2025-01-02] MEDS: NOVOLOG FLEXPEN-LOW RESISTANCE SC ×2 (07:46→16:31)
[2025-01-02 08:00] LABS: Glucose - Point of Care 132 mg/dl (70-99)
[2025-01-02] MEDS: GLUCOPHAGE 500 MG PO ×2 (08:01→21:55)
[2025-01-02] MEDS: LANTUS 0.05 UNITS SC (08:01)
[2025-01-02] MEDS: VIBRAMYCIN 100 MG PO ×2 (08:01→21:55)
[2025-01-02] MEDS: PROTONIX 40 MG PO (08:01)
[2025-01-02] MEDS: TOPROL XL 25 MG PO (08:02)
[2025-01-02] MEDS: AMARYL 4 MG PO (08:02)
[2025-01-02] MEDS: FARXIGA 10 MG PO (08:02)
[2025-01-02] MEDS: NEURONTIN 100 MG PO (08:02)
[2025-01-02] MEDS: FEOSOL 325 MG PO (08:02)
[2025-01-02] MEDS: ANTIFUNGAL CLEAR 1 APPLIC TOPICAL ×2 (08:02→21:55)
--- NOTE | 2025-01-02 08:58 | W.PN.CD ---
Today's Communication / Plan
-
continue to monitor renal function
consider adding back DARRYL vs ARB
She is typically on Lasix 20mg daily hopefully can resume tomorrow
Impression / Plan
-
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 The patient states that she has a
chronic heart murmur and lower extremity swelling and a heart murmur for which she takes Lasix. 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
Her cardiac BNP was elevated at 16,800 and she was found to have a hemoglobin of 8.5. She takes Lasix 20 mg daily at home. She has a 3/6 systolic murmur on examination.
Acute HFmrEF:
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
-optimize GDMT when able
-OP evaluation for CAD with stress to allow for renal recovery given ALEJANDRA
-on Farxiga
-Will hold on MRA/DARRYL/ARB/ARNI given bump in Cr and relative Hypotension, but can likely be added as op
--ALEJANDRA after diuresis: hold lasix today, continues to lose weight without diuresis.
ALEJANDRA
-stop IV lasix
-hold enalapril
Moderate MR
-monitor overtime
MIld AR:
-monitor over time.
PVCs/triplets:
-no sxs
-started Toprol-XL 25 mg daily this admission
Hypertension:
-improved s/p diuresis
-hold enalapril given ALEJANDRA; cont Toprol XL
Hyperlipidemia:
-Continue atorvastatin.
Diabetes:
-Poorly controlled; hemoglobin A1c 11.8.
-Continue management as per primary team.
Subjective:
She is feeling better, sob improved, no cp
TTE: 01/01/25:
CONCLUSIONS
Left ventricle is mildly dilated. Mild/moderately reduced left ventricular
systolic function. Estimated LVEF 40-45%.
Basal to mid inferolateral hypokinesis.
Stage II diastolic dysfunction suggestive of abnormal relaxation and increased
filling pressures.
Moderate mitral regurgitation.
Mild aortic regurgitation.
Mild/moderate tricuspid regurgitation. PASP 40 mmHg.
No prior study available for comparison.
Physical Exam
Vital Signs/Labs
Vital Signs
Temp Pulse Resp BP Pulse Ox
97.6 F 75 16 111/64 98
01/02/25 08:00 01/02/25 08:02 01/02/25 07:24 01/02/25 08:02 01/02/25 07:24
01/01/25 01/02/25 01/03/25
06:59 06:59 06:59
Actual Weight 47.083 kg 46.312 kg
01/02/25 05:25
01/02/25 05:25
Magnesium 2.0 mg/dl (1.6-2.3) 01/01/25 05:40
Triglycerides 73 mg/dl (10-149) 12/31/24 04:16
LDL Cholesterol, Calc 42 mg/dl 12/31/24 04:16
VLDL Cholesterol, Calc 14 mg/dl (0-30) 12/31/24 04:16
HDL Cholesterol 60 mg/dl 12/31/24 04:16
12/30/24
07:38
Ona-B-Kzjzkxijicd Pept [id number]
LAB Results
12/30/24 12/30/24 12/31/24
11:46 22:41 04:16
Troponin I 0.020 0.028 0.034
12/31/24
09:49
Troponin I 0.032
Physical Exam
Constitutional: No acute distress
Cardiovascular: Rhythm & rate is regular, Pedal edema is absent, JVD pressure is normal, Systolic murmur absent and Diastolic murmur absent
Respiratory: Respiratory effort normal, Lungs clear to auscul., Wheeze Absent, Crackles Absent and Rhonchi Absent
Neuro/Psych: AO x 3
Data Reviewed
-
Date of Service: January 02, 2025
EKG: Other (tele sinus with pvcs)
--- NOTE | 2025-01-02 10:51 | VNURNOTE ---
Atomizer Assembler met with patient to discuss [facility] nurse/therapy, visits, schedule and homebound status. Patient is agreeable and understands that visits at home will be 2-3 x per week to assess and teach medical management.
[facility] brochure provided with contact information. Patient is aware that [facility] will contact them for start of care in 1-2 days after discharge from .
[facility] referral completed in [facility].
[2025-01-02 11:26] LABS: Glucose - Point of Care 159 mg/dl (70-99)
--- NOTE | 2025-01-02 12:56 | W.PN.HOSP.TC ---
Today's Communication/Plan
-
patient did not want to go to rehab initially but now she wants to go to rehab. Case management to arrange. Patient might be able to go tomorrow as long as her creatinine is stable.
Change Lantus to daily
Follow creatinine
Hold Lasix
Assessment / Plan
Assessment / Plan
89-year-old female presented with shortness of breath
Awake and alert
Cardiovascular system S1-S2 appreciated
Rales bilaterally
Abdomen soft and nontender
Lower extremity edema
Redness and a wound on the left calf, edema better
# Acute CHF
proBNP 16,800
Lasix 40 mg IV twice daily, placed on hold
Creatinine up. Likely over diuresed
Telemonitoring
Intake output charting /daily weights/CHF education
Patient on Lasix 20 mg daily as outpatient
Hold lisinopril, Metoprolol to be continued for now
Cardiology evaluation
Echo done results pending
# Hypotension-likely prerenal from overdiuresis. Will give a dose of midodrine and watch
# Hypokalemia-replaced
# Hyponatremia likely hypovolemic
# Acute kidney injury-hold Mobic, lisinopril, Lasix
# Anemia- OP GI eval and work up with PCP discussed with daughter
# Left lower extremity cellulitis with an infected wound-add antibiotics. Pulses palpable. Wound care consultation
# Hypertension -hold enalapril, metoprolol started this admission. Continue for now
# Diabetes-continue metformin 500 mg BID/Lantus insulin 5 units daily (Instead of 10 HS ENVIRONMENTAL WEB CRAWLER started 1 week ago) /Glimepiride 4 mg OD/Farxiga 10 mg OD/Accu-Cheks&SSI
Hemoglobin A1c 11.8 indicates poor control - Daughter updated.
# Diabetic neuropathy-continue gabapentin
# Hyperlipidemia-continue atorvastatin
# Slightly elevated transaminases and alk goxv-mvdvss-xhlgeo secondary to hepatic congestion- Improved.
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
# Severe discogenic DJD lumbar spine
# DVT prophylaxis-Lovenox
# Full code
Discussed with nursing
Spoken to daughter and updated patient did not want to go to rehab initially but now she wants to go to rehab. Case management to arrange. Patient might be able to go tomorrow as long as her creatinine is stable.
Anticipated Discharge: Within 24 hours
Subjective/Interval History
-
Date of Service: January 02, 2025
Objective Data
-
Labs:
Laboratory Results
01/02/25
05:25
WBC 6.4
Hgb 8.2 L
Hct 26.9 L
Plt Count 282
Sodium 132 L
Potassium 4.0
Chloride 95 L
Carbon Dioxide 31 H
BUN 50 H
Creatinine 1.3 H
Glucose 51 L*
Calcium 8.5
Vital Signs:
Vital Signs
Temp Pulse Resp BP Pulse Ox
97.6 F 75 19 101/58 97
01/02/25 10:34 01/02/25 10:34 01/02/25 10:34 01/02/25 10:34 01/02/25 10:34
I&O
01/01/25 01/02/25 01/03/25
06:59 06:59 06:59
Intake Total 650 / 650 1480 / 1480
Output Total 500 / 500
Balance 150 / 150 1480 / 1480
[2025-01-02] MEDS: NOVOLOG FLEXPEN-LOW RESISTANCE 1 UNITS SC (13:01)
[2025-01-02 16:30] LABS: Glucose - Point of Care 113 mg/dl (70-99)
--- NOTE | 2025-01-02 16:48 | CM ---
PT indicated SNF.
Spoke with pt and family at bedside.
Pt has [employer] . Reviewed SNF accepted by [employer].
Family picked [facility] and no others.
Referral placed for [facility] .
Will need auth
PLAN To SNf after SNF located and auth obtained.l
[2025-01-02] MEDS: LOVENOX 30 MG SC (17:16)
[2025-01-02] MEDS: LIPITOR 10 MG PO (17:17)
[2025-01-02 21:52] LABS: Glucose - Point of Care 106 mg/dl (70-99)
[2025-01-02] MEDS: NEURONTIN 200 MG PO (21:55)
[2025-01-03] MEDS: MELATONIN 3 MG PO (00:43)
[2025-01-03 03:55] VITALS: BP 127/59
[2025-01-03 05:06] LABS: Glucose - Point of Care 71 mg/dl (70-99)
[2025-01-03 06:00] VITALS: BMI 19.5
[2025-01-03 06:44] LABS: % Basophils 0.6 % (0-2); % Eosinophils 0.8 % (0-6); % Immature Granulocytes 0.4 % (0-0.5); % Lymphocytes 30.8 % (20.5-51.1); % Monocytes 11.6 % (1.7-9.3); % Neutrophils 55.8 % (42.2-75.2); Absolute Lymphocytes 1.5 10^3/uL (1.2-3.4); Absolute Monocytes 0.6 10^3/uL (0.1-0.6); Absolute Neutrophils 2.7 10^3/uL (1.4-6.5); Hematocrit 27.6 % (37.0-47.0); Hemoglobin 8.4 g/dL (12.0-16.0); Mean Corp Hgb Conc. 30.4 g/dL (33.0-37.0); Mean Corpuscular Hgb 23.8 pg (27.0-31.0); Mean Corpuscular Volume 78.2 fL (81.0-99.0); Nucleated Red Blood Cells % 0 %; Platelet Count 292 10^3/uL (130-400); Red Blood Cell Count 3.53 10^6/uL (4.20-5.40); Red Cell Dist. Width 15.1 % (11.5-14.5); White Blood Cell Count 4.8 10^3/uL (4.8-10.8)
[2025-01-03 07:01] VITALS: BP 121/58
[2025-01-03 07:11] LABS: Blood Urea Nitrogen 41 mg/dl (7-17); Calcium 8.8 mg/dl (8.4-10.2); Carbon Dioxide 28 mmol/L (22-30); Chloride 93 mmol/L (98-107); Estimated Creatinine Clearance 29 ml/min; Glucose 87 mg/dl (70-99); Sodium 130 mmol/L (135-145); eGFR 54.53
[2025-01-03 07:18] LABS: Potassium 4.1 mmol/L (3.5-5.1)
[2025-01-03 07:58] LABS: Glucose - Point of Care 85 mg/dl (70-99)
--- NOTE | 2025-01-03 08:02 | W.PN.CD ---
Today's Communication / Plan
-
-Echocardiogram yesterday revealed an LVEF of 40-45% with basal to mid inferolateral hypokinesis and moderate mitral regurgitation; patient likely has underlying CAD, given risk factors and uncontrolled diabetes.
-Conservative cardiac management overall; patient does not want any aggressive measures (invasive angiography could lead to worsening renal dysfunction).
-Will place on aspirin.
-No MRA/ACEi/ARB/ARNI given bump in Cr and hypotension; can reevaluate as outpatient.
-Will place on Lasix 20 mg (a higher dose will likely precipitate worsening renal dysfunction and hypotension).
-Creatinine now normalized with discontinuation of IV Lasix and enalapril.
-Outpatient follow-up with cardiology.
Impression / Plan
-
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 The patient states that she has a
chronic heart murmur and lower extremity swelling and a heart murmur for which she takes Lasix. 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
Her cardiac BNP was elevated at 16,800 and she was found to have a hemoglobin of 8.5. She takes Lasix 20 mg daily at home. She has a 3/6 systolic murmur on examination.
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
-Echocardiogram yesterday revealed an LVEF of 40-45% with basal to mid inferolateral hypokinesis and moderate mitral regurgitation; patient likely has underlying CAD, given risk factors and uncontrolled diabetes.
-Conservative cardiac management overall; patient does not want any aggressive measures (invasive angiography could lead to worsening renal dysfunction).
-No MRA/ACEi/ARB/ARNI given bump in Cr and ypotension; can reevaluate as outpatient.
-Will place on Lasix 20 mg (a higher dose will likely precipitate worsening renal dysfunction and hypotension).
-Continue Farxiga.
-Will place on aspirin.
ALEJANDRA:
-Creatinine now normalized with discontinuation of IV Lasix and enalapril.
Moderate MR:
-Conservative management.
MIld AR:
-Conservative management.
PVCs/triplets:
-Relatively stable; continue Toprol-XL 25 mg daily.
Hypertension:
-Blood pressure was low yesterday;. IV Lasix discontinued.
Hyperlipidemia:
-Continue atorvastatin.
Diabetes:
-Poorly controlled; hemoglobin A1c 11.8.
-Continue management as per primary team.
Subjective:
No cardiac complaints this a.m. Patient is ready to be discharged to SNF.
TTE: 01/01/25:
CONCLUSIONS
Left ventricle is mildly dilated. Mild/moderately reduced left ventricular
systolic function. Estimated LVEF 40-45%.
Basal to mid inferolateral hypokinesis.
Stage II diastolic dysfunction suggestive of abnormal relaxation and increased
filling pressures.
Moderate mitral regurgitation.
Mild aortic regurgitation.
Mild/moderate tricuspid regurgitation. PASP 40 mmHg.
No prior study available for comparison.
Physical Exam
Vital Signs/Labs
Vital Signs
Temp Pulse Resp BP Pulse Ox
97 F 61 18 127/59 98
01/03/25 03:55 01/03/25 03:55 01/03/25 03:55 01/03/25 03:55 01/03/25 03:55
01/02/25 01/03/25 01/04/25
06:59 06:59 06:59
Actual Weight 46.312 kg 46.675 kg
01/03/25 05:51
01/03/25 05:51
Magnesium 2.0 mg/dl (1.6-2.3) 01/01/25 05:40
Triglycerides 73 mg/dl (10-149) 12/31/24 04:16
LDL Cholesterol, Calc 42 mg/dl 12/31/24 04:16
VLDL Cholesterol, Calc 14 mg/dl (0-30) 12/31/24 04:16
HDL Cholesterol 60 mg/dl 12/31/24 04:16
12/30/24
07:38
Ppt-W-Ipkzorytwip Pept [id number]
LAB Results
12/31/24
09:49
Troponin I 0.032
Physical Exam
Constitutional: No acute distress and Comfortable
EENT: Anicteric
Cardiovascular: Rhythm & rate is regular, Pedal edema is absent, Systolic murmur present (/) and S1S2 is normal
Respiratory: Respiratory effort normal and Lungs clear to auscul.
GI: Soft
Neuro/Psych: AO x 3
Other: Skin (Warm, dry)
Data Reviewed
-
Date of Service: January 03, 2025
EKG: Tracing Personally Visualized and interpreted (Telemetry: Sinus rhythm, PVCs)
Echo: Report Reviewed by me (EF 40-45%, moderate MR, mild AR)
Medical Tests (PFT, Pathology etc): Discussed with Patient
Labs: Labs Reviewed by me
[2025-01-03] MEDS: NOVOLOG FLEXPEN-LOW RESISTANCE SC (09:02)
[2025-01-03] MEDS: AMARYL 4 MG PO (09:05)
[2025-01-03] MEDS: FARXIGA 10 MG PO (09:05)
[2025-01-03] MEDS: FEOSOL 325 MG PO (09:05)
[2025-01-03] MEDS: ASPIRIN 325 MG PO (09:05)
[2025-01-03] MEDS: PROTONIX 40 MG PO (09:05)
[2025-01-03] MEDS: NEURONTIN 100 MG PO (09:05)
[2025-01-03] MEDS: VIBRAMYCIN 100 MG PO ×2 (09:05→21:35)
[2025-01-03] MEDS: LASIX 20 MG PO (09:05)
[2025-01-03] MEDS: GLUCOPHAGE 500 MG PO ×2 (09:09→21:35)
[2025-01-03] MEDS: TOPROL XL PO (09:09)
[2025-01-03] MEDS: ANTIFUNGAL CLEAR 1 APPLIC TOPICAL ×2 (09:09→21:35)
[2025-01-03] MEDS: LANTUS 0.05 UNITS SC (09:42)
[2025-01-03 11:29] VITALS: BP 115/58
[2025-01-03 12:02] LABS: Glucose - Point of Care 152 mg/dl (70-99)
--- NOTE | 2025-01-03 12:12 | W.PN.HOSP.TC ---
Today's Communication/Plan
-
Trend BMP
Monitor sodium closely
Lasix has been restarted per cardiology
SNF on discharge
Assessment / Plan
Assessment / Plan
89-year-old female presented with shortness of breath
Awake and alert
Cardiovascular system S1-S2 appreciated
Rales bilaterally
Abdomen soft and nontender
Lower extremity edema
Redness and a wound on the left calf, edema better
#Acute HFmrEF
proBNP 16,800
Lasix 40 mg IV twice daily, placed on hold
Creatinine up. Likely over diuresed
Telemonitoring
Intake output charting /daily weights/CHF education
Patient on Lasix 20 mg daily as outpatient which has been restarted per cardiology.
Hold lisinopril, Metoprolol to be continued for now
Cardiology evaluation
Echo EF of 40 to 45% with hypokinesis of the inferior lateral wall and mitral regurgitation.
# Hypotension-likely prerenal from overdiuresis. Blood pressure stabilized.
# Hypokalemia-replaced
# Hyponatremia likely hypervolemic. Sodium at 130. Monitor closely.
# Acute kidney injury-hold Mobic, lisinopril. Creatinine down trended.
# Anemia- OP GI eval and work up with PCP discussed with daughter
# Left lower extremity cellulitis with an infected wound-add antibiotics. Pulses palpable. Wound care consultation. Continue with doxycycline.
# Hypertension -hold enalapril, metoprolol started this admission. Continue for now
# Diabetes-continue metformin 500 mg BID/Lantus insulin 5 units daily (Instead of 10 HS CHANGE MANAGEMENT COORDINATOR started 1 week ago) /Glimepiride 4 mg OD/Farxiga 10 mg OD/Accu-Cheks&SSI
Hemoglobin A1c 11.8 indicates poor control - Daughter updated.
# Diabetic neuropathy-continue gabapentin
# Hyperlipidemia-continue atorvastatin
# Slightly elevated transaminases and alk yovw-wmlzxn-vcsoaq secondary to hepatic congestion- Improved.
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
# Severe discogenic DJD lumbar spine
# DVT prophylaxis-Lovenox
# Full code
PT/OT. Plan for rehab.
Anticipated Discharge: 24 - 48 hours
Subjective/Interval History
-
Date of Service: January 03, 2025
Denies chest pain
Denies shortness of breath
Objective Data
-
Labs:
Laboratory Results
01/03/25
05:51
WBC 4.8
Hgb 8.4 L
Hct 27.6 L
Plt Count 292
Sodium 130 L
Potassium 4.1
Chloride 93 L
Carbon Dioxide 28
BUN 41 H
Creatinine 1.0
Glucose 87
Calcium 8.8
Vital Signs:
Vital Signs
Temp Pulse Resp BP Pulse Ox
97.6 F 65 18 115/58 100
01/03/25 11:29 01/03/25 11:29 01/03/25 11:29 01/03/25 11:29 01/03/25 11:29
I&O
01/02/25 01/03/25 01/04/25
06:59 06:59 06:59
Intake Total 1480 / 1480 1440 / 1440
Balance 1480 / 1480 1440 / 1440
[2025-01-03] MEDS: NOVOLOG FLEXPEN-LOW RESISTANCE 1 UNITS SC ×2 (13:21→17:18)
[2025-01-03 15:10] VITALS: BP 98/51
[2025-01-03 16:29] LABS: Glucose - Point of Care 193 mg/dl (70-99)
[2025-01-03] MEDS: LIPITOR 10 MG PO (17:18)
[2025-01-03] MEDS: LOVENOX 30 MG SC (17:18)
--- NOTE | 2025-01-03 17:43 | CM ---
PT indicated SNF.
Spoke with Terrance at [facility]. Pt has a bed tomorrow after auth
Pt has [employer] .[facility]clinical faxed . Ref # [id number].
[facility] [phone]
fax [phone]
PLAN To [facility] after auth
[2025-01-03 21:26] LABS: Glucose - Point of Care 256 mg/dl (70-99)
[2025-01-03] MEDS: NEURONTIN 200 MG PO (21:36)
[2025-01-03 23:26] VITALS: BP 114/54
[2025-01-04 05:45] LABS: % Basophils 0.7 % (0-2); % Eosinophils 0.3 % (0-6); % Immature Granulocytes 0.4 % (0-0.5); % Lymphocytes 24.3 % (20.5-51.1); % Monocytes 9.8 % (1.7-9.3); % Neutrophils 64.5 % (42.2-75.2); Absolute Basophils 0.1 10^3/uL (0-0.2); Absolute Lymphocytes 1.7 10^3/uL (1.2-3.4); Absolute Monocytes 0.7 10^3/uL (0.1-0.6); Absolute Neutrophils 4.5 10^3/uL (1.4-6.5); Hematocrit 27.9 % (37.0-47.0); Hemoglobin 8.9 g/dL (12.0-16.0); Mean Corp Hgb Conc. 31.9 g/dL (33.0-37.0); Mean Corpuscular Hgb 24.1 pg (27.0-31.0); Mean Corpuscular Volume 75.4 fL (81.0-99.0); Mean Platelet Volume 9.8 fL (7.4-10.4); Nucleated Red Blood Cells % 0 %; Platelet Count 312 10^3/uL (130-400); White Blood Cell Count 6.9 10^3/uL (4.8-10.8)
[2025-01-04 06:00] VITALS: BMI 19.1
[2025-01-04 06:13] LABS: Blood Urea Nitrogen 38 mg/dl (7-17); Calcium 8.6 mg/dl (8.4-10.2); Carbon Dioxide 25 mmol/L (22-30); Chloride 95 mmol/L (98-107); Estimated Creatinine Clearance 32 ml/min; Glucose 79 mg/dl (70-99); Potassium 4.2 mmol/L (3.5-5.1); Sodium 133 mmol/L (135-145); eGFR > 60.00
[2025-01-04 07:05] VITALS: BP 127/76
[2025-01-04 07:44] LABS: Glucose - Point of Care 66 mg/dl (70-99)
[2025-01-04] MEDS: NOVOLOG FLEXPEN-LOW RESISTANCE SC ×2 (07:54→08:55)
[2025-01-04 08:09] LABS: Glucose - Point of Care 67 mg/dl (70-99)
[2025-01-04 08:54] LABS: Glucose - Point of Care 116 mg/dl (70-99)
[2025-01-04] MEDS: AMARYL 4 MG PO (08:54)
[2025-01-04] MEDS: LANTUS SC (08:54)
[2025-01-04] MEDS: LOW STRENGTH ASPIRIN 81 MG PO (08:54)
[2025-01-04] MEDS: TOPROL XL 25 MG PO (08:54)
[2025-01-04] MEDS: FEOSOL 325 MG PO (08:54)
[2025-01-04] MEDS: NOVOLOG FLEXPEN-LOW RESISTANCE 1 UNITS SC (08:55)
[2025-01-04] MEDS: PROTONIX 40 MG PO (08:55)
[2025-01-04] MEDS: NEURONTIN 100 MG PO (08:55)
[2025-01-04] MEDS: FARXIGA 10 MG PO (08:55)
[2025-01-04] MEDS: VIBRAMYCIN 100 MG PO (08:55)
[2025-01-04] MEDS: GLUCOPHAGE 500 MG PO (08:55)
[2025-01-04] MEDS: LASIX 20 MG PO (08:55)
[2025-01-04] MEDS: ANTIFUNGAL CLEAR 1 APPLIC TOPICAL (08:56)
--- NOTE | 2025-01-04 10:25 | CM ---
Juwan Snow from [facility] approved auth for skilled SNF Ref # [id number] from 01/04/25 to 01/08/25 .
Above info given to Terrance at [facility].
IMM review .
Contact dgt of al which she agreed with ellie today.
[facility]
report [phone]
fax [phone]
PLAN To [facility]
--- NOTE | 2025-01-04 10:34 | W.PN.HOSP.TC ---
Today's Communication/Plan
-
P.o. Lasix
P.o. antibiotic
DC to SNF
Outpatient cardiology follow-up
Assessment / Plan
Assessment / Plan
89-year-old female presented with shortness of breath
Awake and alert
Cardiovascular system S1-S2 appreciated
Rales bilaterally
Abdomen soft and nontender
Lower extremity edema
Redness and a wound on the left calf, edema better
#Acute HFmrEF
proBNP 16,800
Lasix 40 mg IV twice daily, transition to p.o.
Creatinine up. Likely over diuresed
Telemonitoring
Intake output charting /daily weights/CHF education
Patient on Lasix 20 mg daily as outpatient which has been restarted per cardiology.
Hold lisinopril, Metoprolol to be continued for now
Cardiology evaluation. Can follow-up with cardiology about restarting DARRYL or ARB as outpatient if creatinine continues to remain stable.
Echo EF of 40 to 45% with hypokinesis of the inferior lateral wall and mitral regurgitation.
# Hypotension-likely prerenal from overdiuresis. Blood pressure stabilized.
# Hypokalemia-replaced
# Hyponatremia likely hypervolemic. Sodium improved to 133.
# Acute kidney injury-DC Mobic, lisinopril. Creatinine down trended.
# Anemia- OP GI eval and work up with PCP discussed with daughter
# Left lower extremity cellulitis with an infected wound-add antibiotics. Pulses palpable. Wound care consultation. Continue with doxycycline. Complete 7-day course. Improving.
# Hypertension -hold enalapril, metoprolol started this admission. Continue for now
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
Hemoglobin A1c 11.8 indicates poor control - Daughter updated.
# Diabetic neuropathy-continue gabapentin
# Hyperlipidemia-continue atorvastatin
# Slightly elevated transaminases and alk [id number] secondary to hepatic congestion- Improved.
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
# Severe discogenic DJD lumbar spine
# DVT prophylaxis-Lovenox
# Full code
PT/OT. Plan for rehab. DC to SNF today.
More than 30 minutes spent in discharge including
Final examination of the patient
Summarizing hospital stay
Instructions for continuing care to all relevant caregivers
Preparation of discharge records, prescriptions, and referral forms
Total time spent (in minutes): 50
Anticipated Discharge: Today
Subjective/Interval History
-
Date of Service: January 04, 2025
Denies any chest pain or shortness of breath
Tolerating diet
Objective Data
-
Labs:
Laboratory Results
01/04/25
05:11
WBC 6.9
Hgb 8.9 L
Hct 27.9 L
Plt Count 312
Sodium 133 L
Potassium 4.2
Chloride 95 L
Carbon Dioxide 25
BUN 38 H
Creatinine 0.9
Glucose 79
Calcium 8.6
Vital Signs:
Vital Signs
Temp Pulse Resp BP Pulse Ox
97.4 F 79 17 127/76 97
01/04/25 07:05 01/04/25 07:05 01/04/25 07:05 01/04/25 07:05 01/04/25 07:05
I&O
01/03/25 01/04/25 01/05/25
06:59 06:59 06:59
Intake Total 1440 / 1440 540 / 540
Balance 1440 / 1440 540 / 540
--- NOTE | 2025-01-04 10:41 | W.DCSUMMARY ---
Discharge Summary
Discharge Data
Date of Admission: 12/30/24
Date of Discharge: 01/04/25
-
Pending Results: No
Hospital Course
89-year-old female past medical history of anemia, hypertension, uncontrolled diabetes, neuropathy, hyperlipidemia, paraesophageal hernia, presenting with complaints of shortness of breath. Patient was found to have lower extremity edema. Patient
was eval by cardiology. Patient was also found to be anemic and received total of 2 units of PRBC. Patient was found to be in acute heart failure exacerbation. Echocardiogram showed EF of 40 to 45%. Basal to mid inferior lateral hypokinesis.
Stage II diastolic dysfunction. Moderate mitral regurgitation. Mild aortic regurgitation. Moderate tricuspid regurgitation. IV Lasix was started. Patient with significant urinary output. Bump in creatinine noted. IV Lasix was discontinued.
Patient also with left lower extremity cellulitis and was started on doxycycline to transition to p.o. on discharge. Patient was also started on metoprolol and aspirin per cardiology. Patient was eval by PT and OT and be discharged to skilled
nursing facility. Patient and patient daughter recommended follow-up outpatient with gastroenterology for anemia.
Discharge Plan
-
Patient Disposition: Longterm/SNF
Discharge Diagnosis/Procedures: Acute HFmrEF
Hypotension
Hypokalemia
Hyponatremia likely due to hypervolemia
Acute kidney injury
Anemia
Left lower extremity cellulitis
Mild transaminitis secondary hepatic congestion
Condition: Fair
Diet: 2 Gram Sodium, Diabetic, Carb Controlled and Restrict fluids to 48 oz
Activity: With assistance and As tolerated
Driving Restrictions: Not until seen by your Dr
Blood Work: CBC and CMP in 1 week with primary doctor
Activity Restrictions/Additional Instructions:
Recommend to follow-up with gastroenterology for anemia.
Wound Care Instructions
LLE wound-clean with saline or soap and water, honey gel to yellow fibrin, adaptic, silicone border foam, change daily and prn drainage (add alginate prior to foam as needed for large amount of drainage).
Rani/labia MASD-antifungal ointment twice a day.
Pressure redistributing chair cushion (i.e. Air chair cushion).
Elevate heels off bed with pillow/s.
Follow up with senior software project manager.
Follow up at wound care center call for an appointment.
Instructions: *PCP/Other Director Special Education Heart Failure Instructions
Referrals:
Mark Hilliard MD [Active] - None
Joanie Denny CRNP [Specified Professional Personl] - 01/19/25 2:20 pm
Michael Morejon DO [Family Provider] - in less than 1 week
Prescriptions:
New
ferrous sulfate [FeroSul] 325 mg (65 mg iron) Tablet
325 mg PO DAILY Qty: 30 0RF
doxycycline hyclate 100 mg Capsule
100 mg PO Q12 3 Days Qty: 6 0RF
pantoprazole 40 mg Tablet,Delayed Release (Dr/Ec)
40 mg PO DAILY 30 Days Qty: 30 0RF
aspirin 81 mg Tablet,Chewable
81 mg PO DAILY Qty: 30 0RF
metoprolol succinate 25 mg Tablet Extended Release 24 Hr
25 mg PO DAILY 30 Days Qty: 30 0RF
Continued
metformin 500 mg Tablet
500 mg PO BID
lovastatin 40 mg Tablet
40 mg PO QPM
therapeutic multivitamin Tablet
1 tab PO DAILY
glimepiride 4 mg Tablet
4 mg PO DAILY
furosemide [Lasix] 20 mg Tablet
20 mg PO DAILY
gabapentin 100 mg Capsule
100 mg PO DAILY
gabapentin 100 mg Tablet
200 mg PO HS
dapagliflozin propanediol [Farxiga] 10 mg Tablet
10 mg PO DAILY
Changed
insulin glargine [Lantus Solostar U-100 Insulin] 100 unit/mL (3 mL) Insulin Pen
5 unit SC DAILY Qty: 0 0RF
Discontinued
enalapril maleate 10 mg Tablet
10 mg PO DAILY
meloxicam [Mobic] 7.5 mg Tablet
7.5 mg PO DAILY
Discharge Orders:
Discharge Patient (As Directed); Ordered 01/04/25
Ordered By: Bernardo Post
Discharge Date and Time
Print Language: UPPER SORBIAN
[2025-01-04] MEDS: DULCOLAX 10 MG PO (10:55)
[2025-01-04] MEDS: LANTUS 0.05 UNITS SC (11:26)
[2025-01-04 11:43] LABS: Glucose - Point of Care 201 mg/dl (70-99)
[2025-01-04] MEDS: NOVOLOG FLEXPEN-LOW RESISTANCE 2 UNITS SC (11:54)
== END 2025-01-04 13:50 | DRG 291 ==
LOC: 3 WEST ACU 14:04
PROVIDERS: Hospitalist; Nurse Practitioner Gerontology; Registered Nurse; ADMITTING PHYSICIAN Internal Medicine; ATTENDING PHYSICIAN Hospitalist; CONSULT PHYSICIAN Internal Medicine; EMERGENCY PHYSICIAN Emergency Medicine; FAMILY PHYSICIAN Family Medicine
DX: I11.0 Hypertensive heart disease with heart failure (principal); I50.21 Acute systolic (congestive) heart failure; E87.1 Hypo-osmolality and hyponatremia; N17.9 Acute kidney failure, unspecified; L03.116 Cellulitis of left lower limb; D64.9 Anemia, unspecified; K76.1 Chronic passive congestion of liver; E11.40 Type 2 diabetes mellitus with diabetic neuropathy, unspecified; I95.9 Hypotension, unspecified; E87.6 Hypokalemia; E78.00 Pure hypercholesterolemia, unspecified; Z11.52 Encounter for screening for COVID-19
CPT/HCPCS: 71046; 80048; 80053; 80061; 82248; 82607; 82746; 82962; 83036; 83540; 83550; 83735; 83880; 84443; 84484; 85025; 87502; 87811; 93005; 93306; 96374; 97163; 97166; 97530; 99285

== ENCOUNTER → 2025-01-11 10:00 | Outpatient (REF) | payer OTHER, SELFPAY ==
[2025-01-11 12:11] LABS: % Basophils 0.6 % (0-2); % Eosinophils 0.7 % (0-6); % Immature Granulocytes 0.4 % (0-0.5); % Lymphocytes 17.3 % (20.5-51.1); % Monocytes 6.3 % (1.7-9.3); % Neutrophils 74.7 % (42.2-75.2); Absolute Eosinophils 0.1 10^3/uL (0-0.7); Absolute Lymphocytes 1.2 10^3/uL (1.2-3.4); Absolute Monocytes 0.4 10^3/uL (0.1-0.6); Absolute Neutrophils 5.1 10^3/uL (1.4-6.5); Hematocrit 27.2 % (37.0-47.0); Hemoglobin 8.2 g/dL (12.0-16.0); Mean Corp Hgb Conc. 30.1 g/dL (33.0-37.0); Mean Corpuscular Volume 79.5 fL (81.0-99.0); Mean Platelet Volume 10.7 fL (7.4-10.4); Nucleated Red Blood Cells % 0 %; Platelet Count 297 10^3/uL (130-400); Red Blood Cell Count 3.42 10^6/uL (4.20-5.40); Red Cell Dist. Width 15.8 % (11.5-14.5); White Blood Cell Count 6.9 10^3/uL (4.8-10.8)
[2025-01-11 12:17] LABS: ALT (SGPT) 13 U/L (0-35); AST (SGOT) 17 U/L (14-36); Albumin 3.2 g/dl (3.5-5.0); Alkaline Phosphatase 97 U/L (38-126); Blood Urea Nitrogen 30 mg/dl (7-17); Calcium 8.6 mg/dl (8.4-10.2); Carbon Dioxide 28 mmol/L (22-30); Chloride 102 mmol/L (98-107); Glucose 227 mg/dl (70-99); Potassium 4.2 mmol/L (3.5-5.1); Sodium 138 mmol/L (135-145); Total Bilirubin 0.2 mg/dl (0.2-1.3); Total Protein 6.2 g/dl (6.3-8.2); Uric Acid 5.6 mg/dl (2.5-6.2); eGFR > 60.00
== END ==
LOC: OLABN 10:00
PROVIDERS: ATTENDING PHYSICIAN Student in an Organized Health Care Education/Training Program
DX: E87.6 Hypokalemia (principal); M10.9 Gout, unspecified; D64.9 Anemia, unspecified
CPT/HCPCS: 36415; 80053; 84550; 85025

== ENCOUNTER 2025-01-31 11:53 | Emergency (ER) | payer OTHER, SELFPAY ==
[2025-01-31] VITALS (10 sets, daily range): BP systolic 113–151; BP diastolic 64–86; BMI 22.3
[2025-01-31 12:12] LABS: % Basophils 0.6 % (0-2); % Eosinophils 0.2 % (0-6); % Immature Granulocytes 0.5 % (0-0.5); % Lymphocytes 12.4 % (20.5-51.1); % Monocytes 5.7 % (1.7-9.3); % Neutrophils 80.6 % (42.2-75.2); Absolute Basophils 0.1 10^3/uL (0-0.2); Absolute Lymphocytes 1.1 10^3/uL (1.2-3.4); Absolute Monocytes 0.5 10^3/uL (0.1-0.6); Hemoglobin 8.8 g/dL (12.0-16.0); Mean Corp Hgb Conc. 30.3 g/dL (33.0-37.0); Mean Corpuscular Hgb 24.5 pg (27.0-31.0); Mean Corpuscular Volume 80.8 fL (81.0-99.0); Mean Platelet Volume 9.8 fL (7.4-10.4); Nucleated Red Blood Cells % 0 %; Platelet Count 234 10^3/uL (130-400); Red Blood Cell Count 3.59 10^6/uL (4.20-5.40); White Blood Cell Count 8.7 10^3/uL (4.8-10.8)
[2025-01-31 12:16] LABS: Glucose - Point of Care 69 mg/dl (70-99)
--- NOTE | 2025-01-31 12:23 | EDRN ---
Pt given orange juice and a box lunch, daughter at bedside.
[2025-01-31 12:24] LABS: ALT (SGPT) 23 U/L (0-35); AST (SGOT) 29 U/L (14-36); Albumin 3.6 g/dl (3.5-5.0); Alkaline Phosphatase 85 U/L (38-126); Blood Urea Nitrogen 35 mg/dl (7-17); Calcium 9.2 mg/dl (8.4-10.2); Carbon Dioxide 26 mmol/L (22-30); Chloride 107 mmol/L (98-107); Estimated Creatinine Clearance 26 ml/min; Glucose 69 mg/dl (70-99); Potassium 4.2 mmol/L (3.5-5.1); Sodium 141 mmol/L (135-145); Total Bilirubin 0.3 mg/dl (0.2-1.3); Total Protein 6.8 g/dl (6.3-8.2); eGFR 48.63
--- NOTE | 2025-01-31 13:10 | PHANOTE ---
rec note- spoke to daughter who has multiple medication list that do not match are records, called snf at [phone] she was recently discharges from to get medication list that daughter claims she continue at home, which has meds that
we discontinue here before she went to snf, ecw has discharge list from our [facility] plus new start valsartan 40mg daily.
--- NOTE | 2025-01-31 13:13 | ED.GENMED ---
History of Present Illness
General
Chief Complaint: Blood Sugar Problem
Source: patient
Exam Limitations: none
Time Seen by Provider: 01/31/25 12:27
History of Present Illness
History of Present Illness:
89-year-old female now insulin dependent DM presents from a [facility] with chief complaint of weakness and dizziness. Her blood sugar was checked and found to be in the low 40s. She had oral glucose tablets and ate a cupcake and the sugar
increased to 83. Was brought here after. Still notes some fatigue. No chest pain or SOB. No other complaints.
Phy Exam
Physical Exam
Physical Exam:
General: Well appearing female NAD
HEENT: NC/AT
Heart: RRR, no murmurs
Lungs: CTA bilaterally
Abd: soft, nontender
Ext: no cyanosis
Skin: warm, no rash
Course
Orders/Labs/Results
Orders:
Orders
01/31/25 12:05
Complete Blood Count/With Diff Urgent
Comprehensive Metabolic Panel Urgent
Abnormal Lab Results
01/31/25 01/31/25 01/31/25
12:05 12:13 13:51
RBC 3.59 L 10^6/uL
(4.20-5.40)
Hgb 8.8 L g/dL
(12.0-16.0)
Hct 29.0 L %
(37.0-47.0)
MCV 80.8 L fL
(81.0-99.0)
MCH 24.5 L pg
(27.0-31.0)
MCHC 30.3 L g/dL
(33.0-37.0)
RDW 18.0 H %
(11.5-14.5)
Absolute Neuts (auto) 7.0 H 10^3/uL
(1.4-6.5)
Absolute Lymphs (auto) 1.1 L 10^3/uL
(1.2-3.4)
Neutrophils % 80.6 H %
(42.2-75.2)
Lymphocytes % 12.4 L %
(20.5-51.1)
BUN 35 H mg/dl
(7-17)
Creatinine 1.1 H mg/dL
(0.6-1.0)
Glucose 69 L mg/dl
(70-99)
POC Glucose 69 L mg/dl 123 H mg/dl
(70-99) (70-99)
01/31/25 12:05
01/31/25 12:05
Vital Signs
Initial and Last Documented VS:
Initial Vital Signs
Pulse Resp BP Pulse Ox
62 20 123/70 98
01/31/25 11:55 01/31/25 11:55 01/31/25 11:55 01/31/25 11:55
Last Documented Vital Signs
Temp Pulse Resp BP Pulse Ox
97.8 F 65 16 135/79 96
01/31/25 12:01 01/31/25 14:00 01/31/25 14:00 01/31/25 14:00 01/31/25 14:00
MDM/Problems Addressed
Differential Diagnosis Includes:
After speaking with the patient and daughter. Daughter states that her insulin long-acting dose in the morning was recently increased from 10 units to 13 units. She was discharged at 5 units. She is on metformin and glyburide this dose has not
changed. She took both of these this morning.
Most recent blood sugar checks 69 but has recently eaten lunch will recheck.
Consider decreasing Lantus dose in the morning to prevent hypoglycemic episodes in the future.
*Critical Care Note
Total Time (30-74mins, 75-104mins- exclusive of procedures): Not Applicable
Update Note
Update Note:
Patient ate lunch blood sugar now 123 feeling better. Advised patient to take 8 units of Lantus insulin in the morning instead of her 13. She will follow-up with family doctor for recheck. No indication. Daughter agrees with plan
ED Attending Note
-
Portions of this chart may have been created with voice recognition software.� Occasional wrong word or��sound alike� substitutions may have occurred due to the inherent limitations of voice recognition software.
Discharge Plan
Departure
Patient Disposition: Home (Routine Discharge)
Date of Disposition: 01/31/25
Time of Disposition: 15:37
Patient with high blood pressure during this ER visit?: No
Discharge Problem:
Hypoglycemia
Prescriptions:
No Action
metformin 500 mg Tablet
500 mg PO BID
therapeutic multivitamin Tablet
1 tab PO DAILY
glimepiride 4 mg Tablet
4 mg PO DAILY
furosemide [Lasix] 20 mg Tablet
20 mg PO DAILY
gabapentin 100 mg Capsule
100 mg PO DAILY
gabapentin 100 mg Tablet
200 mg PO HS
dapagliflozin propanediol [Farxiga] 10 mg Tablet
10 mg PO DAILY
ferrous sulfate [FeroSul] 325 mg (65 mg iron) Tablet
325 mg PO DAILY Qty: 30 0RF
pantoprazole 40 mg Tablet,Delayed Release (Dr/Ec)
40 mg PO DAILY 30 Days Qty: 30 0RF
aspirin 81 mg Tablet,Chewable
81 mg PO DAILY Qty: 30 0RF
metoprolol succinate 25 mg Tablet Extended Release 24 Hr
25 mg PO DAILY 30 Days Qty: 30 0RF
insulin glargine [Lantus Solostar U-100 Insulin] 100 unit/mL (3 mL) insulin pen
13 unit SC DAILY
clindamycin HCl 300 mg Capsule
300 mg PO BID
Rx Instructions:
start 01/30/25 for 7 days
valsartan 40 mg Tablet
40 mg PO BID
rosuvastatin [Crestor] 5 mg Tablet
5 mg PO DAILY
melatonin 5 mg Tablet
5 mg PO HS
Referrals:
Michael Moerjon DO [Family Provider] -
Activity Restrictions/Additional Instructions:
Decrease morning insulin dose to 8 units instead of 13. Please follow-up with family doctor. Continue to monitor your blood sugar. Return if needed otherwise
Interventions
Interventions:
*Risk Screen - Suicide Last Done: 01/31/25 11:57
*General Assessment Last Done: 01/31/25 11:57
*Neglect/Abuse Screening Last Done: 01/31/25 11:57
*ED- Fall Risk Assessment Last Done: 01/31/25 11:57
*ED COVID-19 Vaccine History Last Done: 01/31/25 11:57
ED- Neurological Assessment Last Done: 01/31/25 11:59
Discharge Date and Time
Print Language: PORTUGUESE
[2025-01-31 13:54] LABS: Glucose - Point of Care 123 mg/dl (70-99)
== END 2025-01-31 15:46 | disposition home or self-care (01) ==
LOC: EMR 11:53
PROVIDERS: EMERGENCY PHYSICIAN Emergency Medicine; FAMILY PHYSICIAN Family Medicine
DX: E11.649 Type 2 diabetes mellitus with hypoglycemia without coma (principal); Z79.4 Long term (current) use of insulin
CPT/HCPCS: 99283; 80053; 82962; 85025

== ENCOUNTER 2025-03-08 19:44 | Inpatient (IN) | payer OTHER, SELFPAY ==
[2025-03-08] VITALS (17 sets, daily range): BP systolic 74–124; BP diastolic 46–72; BMI 20.4; BMI 19.4
[2025-03-08 14:39] LABS: Glucose - Point of Care 347 mg/dl (70-99)
[2025-03-08 15:32] LABS: ALT (SGPT) 35 U/L (0-35); AST (SGOT) 40 U/L (14-36); Albumin 3.7 g/dl (3.5-5.0); Alkaline Phosphatase 155 U/L (38-126); Blood Urea Nitrogen 111 mg/dl (7-17); Calcium 9.9 mg/dl (8.4-10.2); Carbon Dioxide 20 mmol/L (22-30); Chloride 98 mmol/L (98-107); Estimated Creatinine Clearance 12 ml/min; Glucose 352 mg/dl (70-99); Potassium 5.8 mmol/L (3.5-5.1); Sodium 132 mmol/L (135-145); Total Bilirubin 0.7 mg/dl (0.2-1.3); Total Protein 6.9 g/dl (6.3-8.2); eGFR 20.07
[2025-03-08 16:17] LABS: Troponin I 0.013 ng/ml
[2025-03-08 16:32] LABS: % Basophils 0.7 % (0-2); % Eosinophils 0.1 % (0-6); % Immature Granulocytes 1.8 % (0-0.5); % Monocytes 5.5 % (1.7-9.3); % Neutrophils 83.9 % (42.2-75.2); Absolute Basophils 0.1 10^3/uL (0-0.2); Absolute Immature Granulocytes 0.3 10^3/uL (0-0.05); Absolute Lymphocytes 1.2 10^3/uL (1.2-3.4); Absolute Monocytes 0.8 10^3/uL (0.1-0.6); Absolute Neutrophils 12.7 10^3/uL (1.4-6.5); Hematocrit 37.3 % (37.0-47.0); Hemoglobin 11.8 g/dL (12.0-16.0); Mean Corp Hgb Conc. 31.6 g/dL (33.0-37.0); Mean Corpuscular Hgb 24.5 pg (27.0-31.0); Mean Corpuscular Volume 77.4 fL (81.0-99.0); Mean Platelet Volume 9.2 fL (7.4-10.4); Nucleated Red Blood Cells % 0.2 %; Platelet Count 224 10^3/uL (130-400); Red Blood Cell Count 4.82 10^6/uL (4.20-5.40); Red Cell Dist. Width 20.4 % (11.5-14.5); White Blood Cell Count 15.2 10^3/uL (4.8-10.8)
[2025-03-08] MEDS: NSS 250 IV (16:37)
--- NOTE | 2025-03-08 16:41 | ED.GENMED ---
History of Present Illness
General
Chief Complaint: Weakness
Source: patient, records and family
Exam Limitations: none
Time Seen by Provider: 03/08/25 16:22
Nursing documentation reviewed up to this point in time: agreed with
History of Present Illness
History of Present Illness:
89-year-old female with past medical history of hypertension, hyperlipidemia, GERD, diabetes, CHF who presents to the emergency department with her daughter for evaluation of change in mental status. Daughter reports that patient normally is awake
and alert; she lives independently and ambulates with a rollator. Patient has had gradual worsening of mentation over the past week. The past few days she has been essentially bedbound and lethargic, confused. Brought to the ER for evaluation at
the instruction of PCP. Patient cannot meaningfully participate in history as she is confused/disoriented. Daughter has not noted any coughing, fevers, vomiting. Patient has chronic loose stools. she has chronic swelling in the legs recently
has had some redness of the right leg. She had a minor fall last week in the tub no serious injuries apparent. Only recent medication adjustments are some adjustments to insulin dosing�dosing was decreased due to hypoglycemia about 2 weeks ago.
Review of Systems
Review of Systems
Unable to obtain full review of systems at this time due to: other (Change in mental status)
All Other Systems: Not applicable
Phy Exam
Physical Exam
Physical Exam:
General: Patient is very lethargic but arousable to physical touch; she is oriented x 2
Head: Normocephalic, atraumatic
Eyes: Conjunctiva normal, pupils equal round and reactive to light bilaterally
Throat: Airway intact, handling secretions
Neck: Trachea midline, no JVD
Lungs: Clear to auscultation bilaterally, no wheezing, rales, rhonchi
Heart: Regular rate and rhythm, no murmurs, gallops, or rubs
Abd: Soft, non distended, no apparent tenderness
Back: No signs of trauma to the back or flank and no apparent tenderness in the thoracic or lumbar spine
Neuro: Lethargic but cranial nerves grossly intact, moving all extremities equally with no focal deficit
Skin: Patient has unstageable sacral wound with some surrounding erythema; she has minor shallow ulcerations on bilateral legs most notably left anterior camara and right lateral calf; skin of her right lower extremity is erythematous, warm to the
touch and she has edema in the right leg
Extremities: Patient has bilateral lower extremity edema somewhat worse on the right with skin changes as above; extremities are warm and well-perfused; extremities are atraumatic and she allows for passive range of motion and all large joints
without apparent pain
Scores
Heart Failure Risk
Heart Failure Risk Score: Not Applicable
Heart Score for Chest Pain Patients
STEMI patient?: Not applicable
Withdrawal Assessment of Alcohol
Withdrawal Assessment Completed?: Not applicable
Sepsis
Sepsis Screening
Sepsis Assessment: Severe Sepsis
Sepsis Screening: ARF-Creatinine >2.0
Sepsis Screen
Sepsis Screen: Severe Sepsis
Date: 03/08/25
Time: 18:02
Course
Orders/Labs/Results
Orders:
Orders
03/08/25 14:41
Electrocardiogram (*1) Urgent
Reason for Study: Fatigue / Weakness
CT Head W/o Iv Contrast Urgent
Comment:
Reason For Exam: weakness
EKG- Treatment ONCE
03/08/25 15:06
Comprehensive Metabolic Panel Urgent
Creatine Phosphokinase Urgent
Comment: ADD ON
03/08/25 15:08
Electrocardiogram (*1) Urgent
Reason for Study: Fatigue / Weakness
EKG- Treatment ONCE
03/08/25 15:46
Complete Blood Count/With Diff Urgent
Troponin I Urgent
03/08/25 16:22
Add On- LAB Urgent
Tests Added?: CPK
03/08/25 16:23
CR Chest Portable - 1 View Urgent
Comment:
Reason For Exam: weakness
Reason Study Needs to be Portable: Unable to Transport
03/08/25 16:24
0.9% Sodium Chloride 250 ml [Nss] 250 ml IV BOLUS
03/08/25 16:38
US Periph Venous LOWER Ext RT Urgent
Comment:
Reason For Exam: RLE redness, swelling
03/08/25 16:40
Piperacillin/Tazo 3.375 Gram [Zosyn] 3.375 gram in 50 ml IV NOW
03/08/25 16:41
Vancomycin 1 Gram/200 ml [Vancocin] 1 gram in 200 ml IV NOW
03/08/25 16:48
Lactate Level [Lactic Acid] Urgent
Urinalysis Reflex To Culture Urgent
Date Specimen was Collected: 03/08/25
Time Specimen was Collected: 16:47
Urine Microscopic Reflex Cult Urgent
Blood Culture Q30M
MIRLANDE Source: Blood/Venous
Specimen Description:
Blood Culture Q30M
MIRLANDE Source: Blood/Venous
Specimen Description:
Urine Culture Urgent
MIRLANDE Source: U
Specimen Description:
Date Specimen was Collected: 03/08/25
Time Specimen was Collected: 16:47
Abnormal Lab Results
03/08/25 03/08/25 03/08/25
14:37 15:06 15:46
WBC 15.2 H 10^3/uL
(4.8-10.8)
Hgb 11.8 L g/dL
(12.0-16.0)
MCV 77.4 L fL
(81.0-99.0)
MCH 24.5 L pg
(27.0-31.0)
MCHC 31.6 L g/dL
(33.0-37.0)
RDW 20.4 H %
(11.5-14.5)
Abs Immat Gran (auto) 0.3 H 10^3/uL
(0-0.05)
Absolute Neuts (auto) 12.7 H 10^3/uL
(1.4-6.5)
Absolute Monos (auto) 0.8 H 10^3/uL
(0.1-0.6)
Immature Gran % 1.8 H %
(0-0.5)
Neutrophils % 83.9 H %
(42.2-75.2)
Lymphocytes % 8.0 L %
(20.5-51.1)
Sodium 132 L mmol/L
(135-145)
Potassium 5.8 H mmol/L
(3.5-5.1)
Carbon Dioxide 20 L mmol/L
(22-30)
BUN 111 H* mg/dl
(7-17)
Creatinine 2.3 H mg/dL
(0.6-1.0)
Glucose 352 H mg/dl
(70-99)
AST 40 H U/L
(14-36)
Alkaline Phosphatase 155 H U/L
(38-126)
Creatine Kinase 350 H U/L
(30-135)
Ur Occult Blood Reflex
Urine Nitrite (Reflex)
Leukocyte Esterase Rfl
Urine RBC
Urine WBC (Reflex)
Urine Bacteria (Reflex)
Urine Glucose
Urine Albumin (Reflex)
POC Glucose 347 H mg/dl
(70-99)
03/08/25
16:48
WBC
Hgb
MCV
MCH
MCHC
RDW
Abs Immat Gran (auto)
Absolute Neuts (auto)
Absolute Monos (auto)
Immature Gran %
Neutrophils %
Lymphocytes %
Sodium
Potassium
Carbon Dioxide
BUN
Creatinine
Glucose
AST
Alkaline Phosphatase
Creatine Kinase
Ur Occult Blood Reflex 4+ A
(Negative)
Urine Nitrite (Reflex) Positive A
(Negative)
Leukocyte Esterase Rfl 3+ A
(Negative)
Urine RBC 3-6 A /HPF
(0-2)
Urine WBC (Reflex) >100 A /HPF
(0-5)
Urine Bacteria (Reflex) Many A
(Negative)
Urine Glucose 4+ A
(Negative)
Urine Albumin (Reflex) 1+ A
(Neg - Trace)
POC Glucose
03/08/25 15:46
03/08/25 15:06
Vital Signs
Initial and Last Documented VS:
Initial Vital Signs
Temp Pulse Resp BP Pulse Ox
36.7 C 81 16 119/72 98
03/08/25 14:36 03/08/25 14:36 03/08/25 14:36 03/08/25 14:36 03/08/25 14:36
Last Documented Vital Signs
Temp Pulse Resp BP Pulse Ox
36.7 C 69 15 113/63 97
03/08/25 14:36 03/08/25 17:45 03/08/25 17:45 03/08/25 17:00 03/08/25 17:45
MDM/Problems Addressed
Differential Diagnosis Includes:
Differential diagnosis for lethargy is wide and includes but not limited to: Infection such as UTI, pneumonia, viral syndrome; hypoglycemia; anemia; uremia/electrolyte derangement/dehydration, stroke, brain bleed
MDM/Problems Addressed:
89-year-old female presents for evaluation of change in mental status as described above. Vitals and exam as above. Lab work sent in triage including a CBC which shows leukocytosis to 15. CMP shows acute kidney injury with a BUN of 111 and a
creatinine of 2.3; mild hyperkalemia with a potassium of 5.8. Hyperglycemic with a glucose of 352. Troponin undetectable. Added CPK given report of fall last week. Added urinalysis. CT head in triage negative. Chest x-ray reviewed by me no
acute disease. Added right lower extremity ultrasound to rule out DVT. Plan to provide IV fluids. Cover with antibiotics�at the very least she appears to have a right lower extremity cellulitis which may have triggered off this clinical picture
likely combination of infection and uremia are primary causes of mental status change. Anticipate admission.
Urinalysis is positive for infection. Antibiotics were already given as above. Will admit for continued management�case discussed with hospitalist, ultrasound pending to rule out DVT.
Chronic conditions affecting care:
CHF
*Radiology
Radiology exam reviewed: preliminary read by ED provider and radiology read reviewed
*Pulse Oximetry
Patient hypoxic: no
*EKG
Interpreted by ED Provider?: Yes
Heart Rate: 79
Rate: normal
Rhythm: sinus
[place]: left axis deviation
Interval: normal interval
QRS Pattern: wide non-specific and left vent hypertrophy
Ischemia: other (Lateral T wave abnormalities)
*Critical Care Note
Total Time (30-74mins, 75-104mins- exclusive of procedures): Not Applicable
Data Reviewed
Review of Other/Old Records Reveals: Labs and Records
Source: patient, records and family
Patient Management
Discussion with other providers: Hospitalist (Discussed with hospitalist)
Escalation/DeEscalation of care consider admission/obs:
Admission indicated
ED Attending Note
-
Portions of this chart may have been created with voice recognition software.� Occasional wrong word or��sound alike� substitutions may have occurred due to the inherent limitations of voice recognition software.
Discharge Plan
Departure
Patient Disposition: Admit
Date of Disposition: 03/08/25
Time of Disposition: 18:03
Admit to doctor: Gavino
Presentation/result/management discussed w/ accepting MD/DO: Hospitalist
Discharge Problem:
Acute UTI, ALEJANDRA (acute kidney injury), Sepsis, Cellulitis, Hyperkalemia
Prescriptions:
No Action
metformin 500 mg Tablet
500 mg PO BID
therapeutic multivitamin Tablet
1 tab PO DAILY
furosemide [Lasix] 20 mg Tablet
20 mg PO DAILY
gabapentin 100 mg Capsule
100 mg PO DAILY
gabapentin 100 mg Tablet
200 mg PO HS
dapagliflozin propanediol [Farxiga] 10 mg Tablet
10 mg PO DAILY
aspirin 81 mg Tablet,Chewable
81 mg PO DAILY Qty: 30 0RF
metoprolol succinate 25 mg Tablet Extended Release 24 Hr
25 mg PO DAILY 30 Days Qty: 30 0RF
insulin glargine [Lantus Solostar U-100 Insulin] 100 unit/mL (3 mL) insulin pen
8 unit SC DAILY
valsartan 40 mg Tablet
40 mg PO BID
melatonin 5 mg Tablet
5 mg PO HSPRN PRN (Reason: sleep)
acetaminophen [Tylenol] 325 mg Tablet
650 mg PO Q6HPRN PRN (Reason: mild pain)
lovastatin 40 mg Tablet
40 mg PO QPM
ferrous sulfate [FeroSul] 325 mg (65 mg iron) tablet
325 mg PO NOON
Referrals:
Michael Morejon DO [Family Provider] -
Interventions
Interventions:
*Risk Screen - Suicide Last Done: 03/08/25 14:40
*General Assessment Last Done: 03/08/25 15:29
*Neglect/Abuse Screening Last Done: 03/08/25 14:40
*ED- Fall Risk Assessment Last Done: 03/08/25 15:29
*ED COVID-19 Vaccine History Last Done: 03/08/25 15:29
ED- Cardiac Assessment Last Done: 03/08/25 15:29
ED- Neurological Assessment Last Done: 03/08/25 15:29
ED- Pulmonary Assessment Last Done: 03/08/25 15:29
Discharge Date and Time
Print Language: LATVIAN
[2025-03-08 16:57] LABS: Creatine Phosphokinase 350 U/L (30-135)
[2025-03-08] MEDS: ZOSYN 50 IV (17:09)
[2025-03-08 17:14] LABS: Urine Albumin 1+ (Neg - Trace); Urine Bilirubin Negative (Negative); Urine Character Cloudy (Clear); Urine Color Yellow; Urine Glucose 4+ (Negative); Urine Ketone Negative (Negative); Urine Leukocyte 3+ (Negative); Urine Nitrite Positive (Negative); Urine Occult Blood 4+ (Negative); Urine Urobilinogen Negative (Neg - 1+)
[2025-03-08 17:23] LABS: Urine Squamous Cell 0-2 /LPF (Few); Urine White Cell >100 /HPF (0-5)
[2025-03-08 17:24] LABS: Urine Bacteria Many (Negative)
[2025-03-08 17:26] LABS: Lactic Acid 1.1 mmol/L (0.7-2.0)
[2025-03-08] MEDS: VANCOCIN 200 IV (17:32)
--- NOTE | 2025-03-08 18:08 | HPS.HSE ---
Family Physician
-
Family Physician: Michael Morejon
Chief Complaint
-
lethargic
History of Present Illness
89-year-old female with past medical history of hypertension, hyperlipidemia, GERD, diabetes, CHF who presents to the emergency department with her daughter for evaluation of change in mental status for past four days. Daughter reports that
patient normally is awake and alert; she lives independently and ambulates with a rollator. Patient has had gradual worsening of mentation for past four days. The past few days she has been essentially bedbound and lethargic, confused. as per
daughter for past two days, she said her chest hurts and indigestion. when the the daughter take her to the bathroom, she was saying her body hurts. denied fever, chills. she was not noted in respiratory distress. patient has chronic diarrhea. she
was drinking and taking her pills but was not eating food enough.
at present patient is lethargic and not able to provide meaningful story. positive UA. patient received a dose of Zosyn, vanco. blood culture sent from ER. admitting for further management.
Medical History
Past Medical History
Past Medical History: Reports Other
Additional Past Medical History:
Heart murmur
Hyperlipidemia
Hypertension
Hernia
Post prolapsed bladder
Past Surgical History: Reports Other
Additional Past Surgical History:
Bladder pessary
Left hip surgery
Social History
Tobacco: Non-smoker
Alcohol: None
Drug: None
Personal: Single
Living: Alone
Family History
Family History: Not pertinent
Allergies / Home Medications
Allergies reflects when Allergies were last updated in [facility].
Home Medications with original date entered in [facility]
Allergy/Medication List:
Allergies
Allergy/AdvReac Type Severity Reaction Status Date / Time
Sulfa (Sulfonamide Allergy Unknown Unknown Verified 03/08/25 14:40
Antibiotics)
Home Medications
dapagliflozin propanediol 10 mg tablet (Farxiga) 10 mg PO DAILY heart failure/diabetes 12/30/24
furosemide 20 mg tablet (Lasix) 20 mg PO DAILY Fluid Retention/Swelling 12/30/24
gabapentin 100 mg capsule 100 mg PO DAILY Pain 12/30/24
gabapentin 100 mg tablet 200 mg PO HS Pain 12/30/24
metformin 500 mg tablet 500 mg PO BID Diabetes 12/30/24
therapeutic multivitamin 1 tab PO DAILY Supplement 12/30/24
aspirin 81 mg chewable tablet 81 mg PO DAILY Heart disease/condition #30 tabs 01/04/25
metoprolol succinate 25 mg tablet,extended release 24 hr 25 mg PO DAILY 30 days #30 tabs 01/04/25
insulin glargine 100 unit/mL (3 mL) subcutaneous pen (Lantus Solostar U-100 Insulin) 8 unit SC DAILY Diabetes 01/31/25
melatonin 5 mg tablet 5 mg PO HSPRN PRN sleep 01/31/25
valsartan 40 mg tablet 40 mg PO BID 01/31/25
acetaminophen 325 mg tablet (Tylenol) 650 mg PO Q6HPRN PRN mild pain 03/08/25
ferrous sulfate 325 mg (65 mg iron) tablet (FeroSul) 325 mg PO NOON 03/08/25
lovastatin 40 mg tablet 40 mg PO QPM 03/08/25
Review of Systems
-
Unable to obtain full review of systems at this time due to: Acuity
Physical Exam
Vital Signs
Vital Signs
Temp Pulse Resp BP Pulse Ox
98.0 F 69 15 113/63 97
03/08/25 14:36 03/08/25 17:45 03/08/25 17:45 03/08/25 17:00 03/08/25 17:45
Physical Exam
General: Well Developed, Well Nourished and No Apparent Distress
HEENT: NormoCephalic, Moist mucous membranes and Atraumatic
Respiratory: Clear
Cardiac: S1/S2 and Regular Rhythm; No Murmur or Rub
GI: Soft, Non Tender, Non Distended and Normal Bowel Sounds; No Organomegaly
Rectal: Deferred by Provider
Musculoskeletal: No Clubbing, No Cyanosis and No Edema
Skin: Other (b/l Le redness and swollen)
Neuro: AO x 3 and Nonfocal/grossly intact
Psych: Calm
Laboratory Results
-
03/08/25 15:46
03/08/25 15:06
Laboratory Results
Lactic Acid 1.1 mmol/L (0.7-2.0) 03/08/25 16:48
Total Bilirubin 0.7 mg/dl (0.2-1.3) 03/08/25 15:06
AST 40 U/L (14-36) H 03/08/25 15:06
ALT 35 U/L (0-35) 03/08/25 15:06
Alkaline Phosphatase 155 U/L (38-126) H 03/08/25 15:06
Troponin I 0.013 ng/ml 03/08/25 15:46
Data Reviewed
-
Lab Data: Labs Reviewed by me
Impression/Plan
-
# Encephalopathy secondary to urinary tract infection
# Right lower extremity cellulitis
- Vanco and cefepime continued
- Right lower extremities ultrasound pending
- CT head with no acute finding
- Chest x-ray with no acute findings
- WBC 15.0
- Blood and urine culture sent from ER
-hold all oral Meds, until patient is fully awake
-speech consulted
-PT/OT consulted
# Anemia iron def
- Hemoglobin stable
- No active bleeding
- Continue to monitor
-on ferrous sulfate as outpatient.
# Pseudohyponatremia
# Hyperkalemia
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
- Sodium 132, potassium 5.8, creatinine 2.3
- Patient received fluids in ER
- BMP in a.m.
# Type 2 diabetes with hyperglycemia
- Blood sugar elevated in 300s
-sliding scale
# Elevated CPK
- Received fluids in ER
- Monitor CPK in a.m.
#HFmrEF
-not in acute exacerbation
-Intake output charting /daily weights
-Echo EF of 40 to 45% with hypokinesis of the inferior lateral wall and mitral regurgitation.
-hold diuretics
# Hypertension -hold enalapril, metoprolol as patient is lethargic
# Diabetic neuropathy-hold gabapentin
# Hyperlipidemia-hold atorvastatin
# Severe discogenic DJD lumbar spine
# DVT prophylaxis-heparin sq
# Full code
[2025-03-08 18:18] LABS: Glucose - Point of Care 333 mg/dl (70-99)
--- NOTE | 2025-03-08 18:22 | EDRN ---
Patient extremely lethargic and difficult to arouse. Will briefly open eyes chcf to verbal and tactile stimulation. patient failed swallow study. MD MCDOWELL and admissions DISPATCHER ELECTRIC POWER at bedside to reassess. Ultrasound at bedside.
--- NOTE | 2025-03-08 18:28 | W.PN.UPDATE ---
Update Note
Progress Note Update
This is an addendum to H&P written by SCRAP KETTLE TENDER Sammi Roth
I saw and examined the patient.
The SCRAP KETTLE TENDER's note was reviewed and I agree with the note.
Comment:
Ms. Court Wagner is a 89 yo woman with hx essential HTN, HLD, GERD, DM CHF who presents to the ER by daughter for lethargy over past several days. Patient normally lives independently but over past few days has been with daughter given her
somnolence and weakness.
Triage VS: T 36.7, P 81, RR 16, BP 119/72, SpO2 98%
On exam patient is somnolent but wakes up to sternal rub and able to tell me she is in [facility]. Lung clear; Cv: S1, S2, RRR; abdomen benign. RLE is more swollen than left with erythema extending along foot up to camara
LABS: Na 132, K+ 5.8, CO2 20, BUN 111, Cr 2.3, Glucose 352, lactate 1.1, T. Bili 0.7, AST 40, ALT 35, Alk Phos 155, Trop 0.013
UA with > 100 WBC
MAR: IV Vanc/Zosyn
Sepsis 2/2 RLE Cellulitis, possible UTI
-admit to telemetry
-F/U urine and blood cultures
-IV Vanc/Cefepime
-F/U LE US, renal US
Acute renal failure
Metabolic Acidosis
Hyperkalemia
-patient with minimal PO intake per daughter
-give additional IVF, sodium bicarb overnight
-repeat labs at 9PM to monitor K
-renal consult if no improvement with IVF
-add on urine studies
-renal US
-hold SECURITY RESEARCHER Valsartan
TME 2/2 sepsis and acute renal failure
-treatment as above
-NPO until ST Eval
-hold SECURITY RESEARCHER Gabapentin given renal failure and sedation
-PT/OT
Essential HTN
-SECURITY RESEARCHER Metoprolol
IDDM
Hyperglyemia
-8 units insulin now
-1/2 dose SECURITY RESEARCHER lantus - 4 units daily
-hold SECURITY RESEARCHER Farxiga and Metformin
-ISS low
DVT PPx Hep subQ
76 minute spent on patient care
[2025-03-08] MEDS: NSS 500 IV ×2 (19:15→20:44)
[2025-03-08] MEDS: NOVOLIN R 0.08 UNITS SC (19:17)
[2025-03-08 19:20] LABS: Glucose - Point of Care 347 mg/dl (70-99)
[2025-03-08] MEDS: SODIUM BICARBONATE 1150 MEQ IV (19:23)
[2025-03-08 19:25] LABS: Urine Sodium 57 mmol/L (30-90)
[2025-03-08 20:37] LABS: Glucose - Point of Care 256 mg/dl (70-99)
[2025-03-08] MEDS: FLUSH (NSS) 1 FLUSH IV (20:45)
--- NOTE | 2025-03-08 22:02 | PHA.VAN.IN ---
Assessment
- Assessment
Renal Function: Appears elevated from baseline (01/31/25 BASELINE SCR: 1.1)
Concomitant Antimicrobials: CEFEPIME
- Previous Dosing Experience
Previous Regimen: NONE
Plan
- Plan
Initial / Loading Dose: 1GM
Maintenance Regimen: DOSING BY RANDOM LEVELS
Monitoring: RANDOM VANCOMYCIN LEVEL 03/09/25 AM
Pharmacokinetics Vancomycin I
- -
Patient Age: 89
Patient Sex: Female
Vancomycin Day #: 1
Indication: Skin And Soft Tissue (CELLULITIS; SEPSIS;UTI)
Requesting Provider: YAKELIN
Height / Weight:
Height 5 ft
Actual Weight 47.3 kg
- Vital Signs / Lab Results
Temp Pulse Resp BP Pulse Ox
98.0 F 69 20 81/46 96
03/08/25 14:36 03/08/25 20:36 03/08/25 20:36 03/08/25 20:36 03/08/25 20:00
Lab Results - Hematology
03/08/25 03/08/25
15:06 15:46
WBC Cancelled 15.2 H
Lab Results - Chemistry
03/08/25
15:06
BUN 111 H*
Creatinine 2.3 H
Estimated Creat Clear 12
Albumin 3.7
03/08/25
16:48
Lactic Acid 1.1
Lab Results - Urine
03/08/25
16:48
Urine Nitrite (Reflex) Positive A
Leukocyte Esterase Rfl 3+ A
Urine WBC (Reflex) >100 A
Ur Squamous Epith Cells 0-2
Urine Bacteria (Reflex) Many A
[2025-03-08] MEDS: MAXIPIME 1000 MG IV (23:34)
[2025-03-08] MEDS: STERILE WATER FOR INJECTION 10 ML IV (23:34)
[2025-03-08] MEDS: HEPARIN 5000 UNITS SC (23:34)
--- NOTE | 2025-03-08 23:42 | PTCARENOTE ---
Patient transported to IMU by stretcher, received report over the phone and at the bedside. Pt arousable to verbal and opens eyes to name, otherwise pt is extremely lethargic and minimally responsive. Pt NSR on the monitor. BP extremely hypotensive
70/44 MAP 53. This RN spoke to Dr. Mancia over the phone, order for another 500ml NSS bolus infused. Pts BP did not respond. ROXY Treviño made aware and ordered levo gtt to maintain a MAP >65. Pt hypothermic with a rectal temperature of 95.0. Vaibhav
chonggelsa ordered and applied and warm blankets. Pt on RA SpO2 97%. Pt has multiple pressure injuries, wounds, and skin tears. Wound care consult ordered. After pt was settled this RN spoke to daughter Court who states that she found her 'lying in
the bathtub'. Pt daughter also states that this is not her baseline. Pt incontinent of urine. Bladder scanned pt for 360ml urine. IVF infusing.
--- NOTE | 2025-03-08 23:53 | W.PN.UPDATE ---
Update Note
Progress Note Update
SBP 80's. Will give another 500cc bolus (1.75 L total now). If patient remains hypotensive post bolus, will need to start pressors - discussing with overnight DINING ROOM HOST
[2025-03-09] VITALS (72 sets, daily range): BP systolic 70–135; BP diastolic 44–79; PULSE 84–85; O2SAT 94–95; BMI 19.5
[2025-03-09] MEDS: NSS 500 IV (00:06)
[2025-03-09] MEDS: LEVOPHED 250 IV (00:16)
[2025-03-09 00:21] LABS: Blood Urea Nitrogen 100 mg/dl (7-17); Calcium 8.9 mg/dl (8.4-10.2); Carbon Dioxide 29 mmol/L (22-30); Chloride 101 mmol/L (98-107); Estimated Creatinine Clearance 13 ml/min; Glucose 106 mg/dl (70-99); Sodium 135 mmol/L (135-145); eGFR 22.38
[2025-03-09 02:23] LABS: Glucose - Point of Care 92 mg/dl (70-99)
[2025-03-09 05:00] LABS: Hematocrit 30.3 % (37.0-47.0); Hemoglobin 9.6 g/dL (12.0-16.0); Mean Corp Hgb Conc. 31.7 g/dL (33.0-37.0); Mean Corpuscular Hgb 24.6 pg (27.0-31.0); Mean Corpuscular Volume 77.5 fL (81.0-99.0); Mean Platelet Volume 9.8 fL (7.4-10.4); Platelet Count 216 10^3/uL (130-400); Red Blood Cell Count 3.91 10^6/uL (4.20-5.40); Red Cell Dist. Width 19.9 % (11.5-14.5); White Blood Cell Count 12.9 10^3/uL (4.8-10.8)
[2025-03-09 05:35] LABS: Vancomycin Random 14.7 ug/ml
[2025-03-09 05:47] LABS: ALT (SGPT) 26 U/L (0-35); AST (SGOT) 28 U/L (14-36); Albumin 2.7 g/dl (3.5-5.0); Alkaline Phosphatase 123 U/L (38-126); Blood Urea Nitrogen 89 mg/dl (7-17); Calcium 8.7 mg/dl (8.4-10.2); Carbon Dioxide 31 mmol/L (22-30); Chloride 100 mmol/L (98-107); Creatine Phosphokinase 191 U/L (30-135); Estimated Creatinine Clearance 15 ml/min; Glucose 107 mg/dl (70-99); Potassium 3.9 mmol/L (3.5-5.1); Sodium 135 mmol/L (135-145); Total Bilirubin 0.4 mg/dl (0.2-1.3); Total Protein 5.4 g/dl (6.3-8.2); eGFR 25.24
[2025-03-09] MEDS: NSS 1000 IV ×2 (06:08→17:24)
[2025-03-09 06:18] LABS: Glucose - Point of Care 116 mg/dl (70-99)
[2025-03-09] MEDS: TOPROL XL PO (08:46)
[2025-03-09] MEDS: HEPARIN 5000 UNITS SC ×2 (08:46→20:39)
--- NOTE | 2025-03-09 09:13 | W.CON.NEPH ---
Consultation
-
Date/Time Consultation Requested: 03/09/2025 8 AM
Date/Time Consultation Performed: 03/09/2025 9 AM
Requesting Provider: Dr. Mancia
Performing Provider: Dr. Germain
Reason for Consultation: ALEJANDRA
Medical History
-
Chief Complaint: ALEJANDRA
History of Present Illness:
This is a 89-year-old female who lives by herself but does have regular contact with her daughter. She has diabetes which is typically controlled on insulin therapy, hypertension controlled on multidrug regimen, hyperlipidemia controlled with
statin therapy. For several days at least 3 possibly more patient has been otherwise fairly immobile and confused. Reportedly the daughter found the patient in the tub. She was brought to the emergency room where she was clearly confused. She
was hypotensive requiring initiation of Levophed. Initial blood work had shown ALEJANDRA with a creatinine of 2.3 from baseline of 0.8, hyperkalemia, hyponatremia as well as significant azotemia at 111. She was felt to be septic likely from either
cellulitis and/or urinary tract infection. We are asked to assist in management of her renal issues
Past Medical History
Heart murmur
Hyperlipidemia
Hypertension
Hernia
Post prolapsed bladder
Diabetes mellitus type 2
Bladder pessary
Left hip surgery
Social History
Tobacco: Non-Smoker
Alcohol: None
Family History
Family History: Not Pertinent
Allergies / Home Medications
Allergy/AdvReac Type Severity Reaction Status Date / Time
Sulfa (Sulfonamide Allergy Unknown Verified 03/08/25 18:49
Antibiotics)
�Medication �Instructions �Recorded �Confirmed �Type
dapagliflozin propanediol 10 mg 10 mg PO DAILY heart 12/30/24 03/08/25 History
tablet (Farxiga) failure/diabetes
furosemide 20 mg tablet (Lasix) 20 mg PO DAILY Fluid 12/30/24 03/08/25 History
Retention/Swelling
gabapentin 100 mg capsule 100 mg PO DAILY Pain 12/30/24 03/08/25 History
gabapentin 100 mg tablet 200 mg PO HS Pain 12/30/24 03/08/25 History
metformin 500 mg tablet 500 mg PO BID Diabetes 12/30/24 03/08/25 History
therapeutic multivitamin 1 tab PO DAILY Supplement 12/30/24 03/08/25 History
aspirin 81 mg chewable tablet 81 mg PO DAILY Heart 01/04/25 03/08/25 Rx
disease/condition #30 tabs
metoprolol succinate 25 mg 25 mg PO DAILY 30 days #30 tabs 01/04/25 03/08/25 Rx
tablet,extended release 24 hr
insulin glargine 100 unit/mL (3 8 unit SC DAILY Diabetes 01/31/25 03/08/25 History
mL) subcutaneous pen (Lantus
Solostar U-100 Insulin)
melatonin 5 mg tablet 5 mg PO HSPRN PRN sleep 01/31/25 03/08/25 History
valsartan 40 mg tablet 40 mg PO BID Blood Pressure 01/31/25 03/08/25 History
acetaminophen 325 mg tablet 650 mg PO Q6HPRN PRN mild pain 03/08/25 03/08/25 History
(Tylenol)
ferrous sulfate 325 mg (65 mg 325 mg PO NOON Supplement 03/08/25 03/08/25 History
iron) tablet (FeroSul)
lovastatin 40 mg tablet 40 mg PO QPM High Cholesterol 03/08/25 03/08/25 History
Review of Systems
-
Unable to obtained given confusion
Physical Exam
Vital Signs
Vital Signs
Temp Pulse Resp BP Pulse Ox
98.9 F 92 24 130/65 95
03/09/25 08:00 03/09/25 08:30 03/09/25 08:30 03/09/25 08:30 03/09/25 08:30
Lab Results
WBC 12.9 10^3/uL (4.8-10.8) H 03/09/25 04:40
RBC 3.91 10^6/uL (4.20-5.40) L 03/09/25 04:40
Hgb 9.6 g/dL (12.0-16.0) L 03/09/25 04:40
Hct 30.3 % (37.0-47.0) L 03/09/25 04:40
Plt Count 216 10^3/uL (130-400) 03/09/25 04:40
Sodium 135 mmol/L (135-145) 03/09/25 04:40
Potassium 3.9 mmol/L (3.5-5.1) 03/09/25 04:40
Chloride 100 mmol/L (98-107) 03/09/25 04:40
Carbon Dioxide 31 mmol/L (22-30) H 03/09/25 04:40
BUN 89 mg/dl (7-17) H 03/09/25 04:40
Creatinine 1.9 mg/dL (0.6-1.0) H 03/09/25 04:40
eGFR 25.24 03/09/25 04:40
Glucose 107 mg/dl (70-99) H 03/09/25 04:40
Calcium 8.7 mg/dl (8.4-10.2) 03/09/25 04:40
Albumin 2.7 g/dl (3.5-5.0) L 03/09/25 04:40
Laboratory Tests
01/11/25 03/08/25
05:20 16:48
Creatinine 0.8
Urine Creatinine 28.100
Urine Sodium 57
Physical Exam
Patient is awake alert oriented and in no distress. Mood and affect were unable to be assessed, insight and judgment were poor. Pupils are equal round and reactive to light, extraocular movements are intact, sclera were anicteric. Hearing was
normal, ears and nose are intact. Oropharynx was dry. Neck was supple with trachea midline and no thyromegaly. Heart was regular rate and rhythm without rubs. Lower extremities with 1+ right lower leg edema. Lungs were clear to auscultation
bilaterally and with normal excursion. Abdomen was soft, nontender, with normal active bowel sounds, and no hepatosplenomegaly. Skin was with the right lower leg rash and with normal turgor.
Data Reviewed
-
Radiology: Image Personally Visualized and interpreted (Chest x-ray on 03/08/2025 by my reading no acute disease)
Ultrasound: Report Reviewed by me (Renal ultrasound 03/08/25 symmetric kidneys, no hydronephrosis)
Labs: Labs Reviewed by me
Old Records: Reviewed
Assessment/Plan
-
Assessment
ALEJANDRA
Cellulitis
UTI
Hypotension
Sepsis
Diabetes mellitus type 2
azotemia
Hyperkalemia
.
Plan
Continue antibiotics for cellulitis/UTI
Follow creatinine
Continue saline at 100 cc/h given body weight
Wean Levophed as required
Bladder scan, may likely require Torrez catheter
Critical care time spent 31 minutes
--- NOTE | 2025-03-09 09:27 | W.PN.HOSP.TC ---
Addendum entered and electronically signed by Alberto Matos MD 03/09/25 13:03:
left second toe pressure injury stage 1, POA
Original Note:
Today's Communication/Plan
-
see plan
Assessment / Plan
Assessment / Plan
Gen: NAD, AAOx3.
Eyes: EOMI, PERRLA, no scleral icterus.
Neck: supple.
CV: RRR, +S1/S2, no m/r/g.
Resp: CTAB, no rales, wheezes, or rhonchi.
Abd: +BS, soft, NT, ND
Skin: No rashes.
Neuro: CN 2-12 intact, non-focal.
Psych: Normal mood and affect.
RLE U/S: No evidence of deep venous thrombosis of the right lower extremity.
Renal U/S: Small likely simple right renal cyst. No findings to suggest renal collecting system dilatation bilaterally. Confirmation of bilateral ureteral jets. Small volume layering urinary bladder debris.
Septic shock due to RLE Cellulitis, possible UTI:
-Acute metabolic encephalopathy due to sepsis and acute kidney injury
-cont IV Vanc/Cefepime
-cont Levophed (wean as tolerated, currently at 2)
-IVFs as per renal (discussed with Dr. Germain)
-follow Cxs
ALEJANDRA:
-with metabolic acidosis, hyperkalemia, and mild rhabdomyolysis
-K an HCO3- now normal after IVFs with HCO3-
-Cr improving
Other problems:
Essential HTN: cont BB (will need to hold if Levophed is not weaned off soon)
DM2: cont Lantus/SSI/accuchecks
FULL/Heparin
Total critical care time spent = 42 minutes
Anticipated Discharge: > 48 hours
Subjective/Interval History
-
Date of Service: March 09, 2025
Objective Data
-
Labs:
Laboratory Results
03/08/25 03/08/25 03/08/25
21:21 23:07 23:41
WBC
Hgb
Hct
Plt Count
Sodium Cancelled Cancelled 135
Potassium Cancelled Cancelled 4.0 D
Chloride Cancelled Cancelled 101
Carbon Dioxide Cancelled Cancelled 29
BUN Cancelled Cancelled 100 H
Creatinine Cancelled Cancelled 2.1 H
Glucose Cancelled Cancelled 106 H
Calcium Cancelled Cancelled 8.9
Total Bilirubin
AST
ALT
Alkaline Phosphatase
03/09/25
04:40
WBC 12.9 H
Hgb 9.6 L
Hct 30.3 L
Plt Count 216
Sodium 135
Potassium 3.9
Chloride 100
Carbon Dioxide 31 H
BUN 89 H
Creatinine 1.9 H
Glucose 107 H
Calcium 8.7
Total Bilirubin 0.4
AST 28
ALT 26
Alkaline Phosphatase 123
Vital Signs:
Vital Signs
Temp Pulse Resp BP Pulse Ox
98.9 F 92 24 130/65 95
03/09/25 08:00 03/09/25 08:30 03/09/25 08:30 03/09/25 08:30 03/09/25 08:30
I&O
03/08/25 03/09/25 03/10/25
06:59 06:59 06:59
Intake Total 1150 / 1150
Output Total 700 / 700
Balance 450 / 450
[2025-03-09] MEDS: LANTUS 0.04 UNITS SC (09:46)
--- NOTE | 2025-03-09 09:58 | PHA.VAN.FU ---
Vancomycin Assessment / Plan
- Assessment
Renal Function: SCR Decreasing (2.1->1.9)
WBC's are: Trending Down (15.2->12.9)
In the past 24 hrs, patient has been: Afebrile
Concomitant Antimicrobials: Cefipime
- Assessment - Therapeutic Drug Monitoring
Random Level: 14.7 ~11hrs after 1000mg loading dose 03/08/25 1732
- Dosing Plan
Dosing by Level: Re-dose today
Dosing Comments: Vanco 500mg x1
- Monitoring Plan
Random Level: 03/10 0600
- Follow Up
Pharmacy will continue to follow.
Vancomycin Follow UP
- -
Patient Age: 89
Patient Sex: Female
Vancomycin Day #: 2
Indication: Skin And Soft Tissue (CELLULITIS; SEPSIS;UTI)
Requesting Provider: YAKELIN
Pertinent Antimicrobial Allergies:
Sulfonamide Antibiotics - Unknown manifestations
Height / Weight:
Height 5 ft
Actual Weight 45.4 kg
Pertinent Past Medical History: T2DM
- Vital Signs / Lab Results
Temp Pulse Resp BP Pulse Ox
98.7 F 92 24 130/65 94
03/09/25 09:51 03/09/25 08:30 03/09/25 08:30 03/09/25 08:30 03/09/25 09:50
Lab Results - Hematology
03/08/25 03/08/25 03/09/25
15:06 15:46 04:40
WBC Cancelled 15.2 H 12.9 H
Lab Results - Chemistry
03/08/25 03/08/25 03/08/25
15:06 21:21 23:07
BUN 111 H* Cancelled Cancelled
Creatinine 2.3 H Cancelled Cancelled
Estimated Creat Clear 12 Cancelled Cancelled
Albumin 3.7
03/08/25 03/09/25
23:41 04:40
BUN 100 H 89 H
Creatinine 2.1 H 1.9 H
Estimated Creat Clear 13 15
Albumin 2.7 L
03/08/25
16:48
Lactic Acid 1.1
Lab Results - Urine
03/08/25
16:48
Urine Nitrite (Reflex) Positive A
Leukocyte Esterase Rfl 3+ A
Ur Squamous Epith Cells 0-2
Therapeutic Drug Monitoring
Random Vancomycin 14.7 ug/ml 03/09/25 04:40
[2025-03-09 10:18] LABS: Glycohemoglobin (HgbA1c) 10.1 % (4.0-5.6)
[2025-03-09 12:18] LABS: Glucose - Point of Care 113 mg/dl (70-99)
--- NOTE | 2025-03-09 12:49 | PN.CDI ---
CDI
- -
CDI:
Physician Documentation Request
Admit Date: 03/08/25 19:44
Dear Doctor Shawna,
Please review the following and provide your response in the progress notes.
Clinical Indicators:
Pt admitted with Sepsis 2/2 UTI/RLE cellulitis
Documented per nursing wound care assessment 03/08, ' present on admission left second toe pressure injury stage 1 ...silicone border placed...present on admission right heel stage 1 pressure injury ...silicone border placed ...'
Physician documentation of the type and location of wounds is required for compliant documentation. Based on the above clinical findings and your assessment, please provide the following in your progress note:
1. Location of the ulcer/wound, including laterality.( for EACH wounds )
2. Type (etiology) of ulcer/wound:
- Pressure (decubitus) ulcer
- Non-pressure ulcer
- Other ( please specify)
Use of terms such as suspected, likely, concern for, or probable (associated with a specific diagnosis that is being evaluated, monitored, or treated as if it exists) are acceptable and can be coded in the inpatient setting, when documented at the
time of discharge.
Thank you,
Mallika Johnston RN
CDI Specialist
[facility]
Please use your independent medical judgment in providing your response.
*Source: National Pressure Ulcer Advisory Panel (NPUAP)
[2025-03-09] MEDS: STERILE WATER FOR INJECTION 10 ML IV ×2 (12:51→23:21)
[2025-03-09] MEDS: MAXIPIME 1000 MG IV ×2 (12:51→23:21)
[2025-03-09] MEDS: VANCOCIN HCL 500 MG 100 IV (12:51)
--- NOTE | 2025-03-09 15:52 | CM ---
Patient with Dx Septic shock due to RLE Cellulitis, possible UTI. Room air. Receiving IVF, IV Abx. NPO. Seen by wound care nurse. Per nursing; lethargic. PT/OT recommend skilled rehab.
Met with patient and spoke with daughter Court;
Patient provided some information however was drowsy and kept falling asleep- IA completed with daughter.
the patient was residing alone in a 1 story house with 2 BRITTON.
The patient was independent in ADLs and ambulation using her rollator.
She fell at home last 03/02 and cut her arms from watch she was wearing.
The daughter shares that the patient has been declining since Nov 2023 when she had a hip fracture.
Dtr says the patient has been sleepy since 03/05.
DME - rollator, quad cane, shower chair
VN -recent [facility]
SNF - [facility]
PCP - Michael Morejon
Pharmacy - [facility]
Daughter is adamant that patient will not go to SNF for rehab.
Daughter plans on taking the patient to her house to stay with her permanently. Dtr and son in law live in 1 story house with no steps.
Plan offer VN when closer to d/c.
Plan home to daughter's house.
--- NOTE | 2025-03-09 16:29 | WOUNDNOTE ---
RIGHT POSTERIOR LEG
--- NOTE | 2025-03-09 16:29 | WOUNDNOTE ---
RIGHT LEG BLISTER
--- NOTE | 2025-03-09 16:30 | WOUNDNOTE ---
LEFT POSTERIOR LEG WOUND
--- NOTE | 2025-03-09 16:33 | WOUNDNOTE ---
LEFT SECOND TOE
--- NOTE | 2025-03-09 16:34 | WOUNDNOTE ---
LEFT MEDIAL LEG
--- NOTE | 2025-03-09 16:45 | WOUNDNOTE ---
[facility] RN note: Patient admitted with sepsis
See H&P for complete history.
PMH: Per physician note, hypertension, hyperlipidemia, GERD, diabetes, CHF
Wound Location and type/assessment: Patient admitted s/p fall into tub. Please see worklist and pictures for full descriptions and measurements. Patient's daughter noticed a change of mental status a few days prior to fall. She thinks patient was
in tub from 8pm and found around 4:40 pm the next day. The patient was fully clothed at time of fall into shower. Per daughter patient reported discomfort to sacral area prior to fall due to frequent urinary incontinence. At time of assessment,
sacral wound appears with some dark, ecchymotic areas as well as well as some areas of MASD. This assembly instructions writer informed daughter that darkened areas may worsen as wound appears to be evolving. The patient also has an infected appearing wound to left
second toe. Per daughter, patient sees recording clerk for this wound. At time of assessment the wound had purulent drainage which the daughter said was new. Patient also has full thickness wounds to left lateral leg, left posterior thigh, and right
posterior leg. Daughter has been applying Honey gel to these wounds. Patient has stage 1 PI to heels. Skin tears to left arm. She turns in bed with assistance. A pickens is in place for moisture management.
Appetite: Per daughter, appetite has been poor for many months. BMI is 19.
Pressure redistribution devices in place: Patient is on a Centrella Max Air with turning schedule. Heels off-loaded with pillows under calves.
Plan: Casie ordered to clean left second toe. TT regarding toe and a podiatry consult was ordered. Sacral wound care was completed as ordered with Xeroform and silicone foam. Honey gel is appropriate to use to on all full thickness leg
wounds. Left arm skin tears were cleaned and a xeroform and dry dressing was applied. Will confirm orders with hospitalist and update nurse. Updated care plan and will follow as needed.
Note to case management of equipment requested for discharge:
Recommend follow up at wound care center upon discharge.
--- NOTE | 2025-03-09 16:47 | W.PN.UPDATE ---
Update Note
Progress Note Update
left second toe has an open wound with purulent drainage. Consulted podiatry. already on abx. weaning down pressors
[2025-03-09 18:03] LABS: Glucose - Point of Care 100 mg/dl (70-99)
--- NOTE | 2025-03-09 18:31 | PTCARENOTE ---
Assumed care of pt this am and she is lethargic but arouses to voice and tactile. She answers to her name and can tell me she is at [facility]. She follows commands and can lift each extremity off bed. NSR, pulse ox > thanm92% throughout
the day. Received pt with Levophed infusing at 3mcg and weaned off by 1030 am. Pt did get OOb with 2 assist and BTB with 2 Assist but needed constant cues to perform task. Incontinent of urine upon standing and bladder scan > 488. Torrez catheter
placed per verbal order from Leisure Studies Professor. Torrez placed without difficulty. 2 daughters are at bedside and pt does recognize each daughter but pt unable to remain awake for any length of time. When pt was alert, ice chips given and pt tolerated with
no signs of aspiration. Diet ordered and family instructed to feed only if pt is alert and to notify staff . Pt with multiple wounds and WOC RN provided follow up care and instruction. Pt tolerating turns and has verbalized no complaints of pain
--- NOTE | 2025-03-09 18:53 | W.CS.POD ---
Consult Summary - Podiatry
-
89 yo female who has been admitted with septic shock and hypotension and mental status changes , as per her daughter patient lives alone , has h/o Diabetes and sees a barn hand in [place]. Her daughter states that she had this hammer toe to LT
2nd toe for very long time and she has been putting Medihoney and shoe modification. Currently she is improved from her septic symptoms.
Rt lower leg with superficial bruises noted, resolving redness, LT 2nd toe dorsal aspect with small dry wound, no active drainage noted.
Reviewed PMH, meds and allergies
B/L pedalpulses are palpable both Dp and PT
Rt lower leg with resolving erythema, no open ulcerations, presence of superficial bruises , mild edema to both lower legs
LT 2nd dorsal toe with small superficial ulceration, no active purulence, no expose bone, no local erythema noted
Xrays negative for any bone changes
A/p: Rt lower leg cellultis - resolving
LT 2nd toe diabetic ulcer
Plan: PT evaluated
Cont IV abx for RT lower leg cellultis
LT 2nd toe - will order mupirocin oint and leave it open to air
No surgical intervention by podiatry
PT can follow up with her barn hand after discharge
[2025-03-09] MEDS: LIPITOR 10 MG PO (19:20)
[2025-03-09] MEDS: BACTROBAN 2% OINTMENT 1 APPLIC TOPICAL (20:38)
[2025-03-09] MEDS: DAKIN'S SOLUTION 0.125% 1/4 STRENGTH 30 ML TOPICAL (20:39)
[2025-03-09 21:53] LABS: Glucose - Point of Care 239 mg/dl (70-99)
[2025-03-10] VITALS (48 sets, daily range): BP systolic 93–146; BP diastolic 50–99; BMI 19.8
--- NOTE | 2025-03-10 | PTCARENOTE ---
Pt received at beginning of shift resting in bed with family at bedside. Denies pain or discomfort. VSS. Hypothermic 92. Vaibhav hugger placed back on pt with 97 degree goal. Vaibhav hugger then off at approx 2230 with temp 97.4 orally. POX RA 95%. SR/PVC
on CM rate 70's. IVF's infusing as ordered. Transported to xr for left foot xr. Back to room and made comfortable. Torrez draining yellow urine. Rest of assessment as documented. Maintained on Q2hr turns. Call rosas remains within reach. Will continue
to monitor.
[2025-03-10 04:12] LABS: Hematocrit 27.6 % (37.0-47.0); Hemoglobin 8.7 g/dL (12.0-16.0); Mean Corp Hgb Conc. 31.5 g/dL (33.0-37.0); Mean Corpuscular Hgb 24.9 pg (27.0-31.0); Mean Corpuscular Volume 79.1 fL (81.0-99.0); Mean Platelet Volume 9.6 fL (7.4-10.4); Platelet Count 188 10^3/uL (130-400); Red Blood Cell Count 3.49 10^6/uL (4.20-5.40); Red Cell Dist. Width 20.1 % (11.5-14.5); White Blood Cell Count 8.1 10^3/uL (4.8-10.8)
[2025-03-10 04:37] LABS: ALT (SGPT) 25 U/L (0-35); AST (SGOT) 30 U/L (14-36); Albumin 2.6 g/dl (3.5-5.0); Alkaline Phosphatase 118 U/L (38-126); Blood Urea Nitrogen 62 mg/dl (7-17); Carbon Dioxide 27 mmol/L (22-30); Chloride 104 mmol/L (98-107); Estimated Creatinine Clearance 22 ml/min; Glucose 136 mg/dl (70-99); Potassium 3.6 mmol/L (3.5-5.1); Sodium 140 mmol/L (135-145); Total Bilirubin 0.5 mg/dl (0.2-1.3); Total Protein 5.5 g/dl (6.3-8.2)
[2025-03-10 04:39] LABS: Vancomycin Random 13.7 ug/ml
[2025-03-10] MEDS: NSS 1000 IV (05:04)
[2025-03-10] MEDS: NOVOLOG FLEXPEN-LOW RESISTANCE SC (09:02)
[2025-03-10] MEDS: BACTROBAN 2% OINTMENT 1 APPLIC TOPICAL ×2 (09:02→19:35)
[2025-03-10] MEDS: HEPARIN 5000 UNITS SC ×2 (09:03→19:35)
[2025-03-10] MEDS: TOPROL XL 25 MG PO (09:03)
[2025-03-10] MEDS: DAKIN'S SOLUTION 0.125% 1/4 STRENGTH 30 ML TOPICAL ×2 (09:04→19:36)
--- NOTE | 2025-03-10 09:04 | PHA.VAN.FU ---
Vancomycin Assessment / Plan
- Assessment
Renal Function: SCR Decreasing
WBC's are: Trending Down
In the past 24 hrs, patient has been: Hypothermic
Concomitant Antimicrobials: CEFEPIME
- Assessment - Therapeutic Drug Monitoring
Random Level: 13.7 DRAWN ~15 HRS AFTER PREVIOUS DOSE 03/09 VANCO 500MG @1251
- Dosing Plan
Dosing by Level: Re-dose today (VANCO 750MG X1)
- Monitoring Plan
Random Level: 03/11 @0600
- Follow Up
Pharmacy will continue to follow.
Vancomycin Follow UP
- -
Patient Age: 89
Patient Sex: Female
Vancomycin Day #: 3
Indication: Skin And Soft Tissue (CELLULITIS; SEPSIS;UTI)
Requesting Provider: YAKELIN
Pertinent Antimicrobial Allergies:
Sulfonamide Antibiotics - Unknown manifestations
Height / Weight:
Height 5 ft
Actual Weight 46 kg
Pertinent Past Medical History: T2DM
- Vital Signs / Lab Results
Temp Pulse Resp BP Pulse Ox
94.5 F L 77 14 121/72 99
03/10/25 07:00 03/10/25 04:30 03/10/25 04:30 03/10/25 04:30 03/10/25 03:45
Lab Results - Hematology
03/08/25 03/08/25 03/09/25
15:06 15:46 04:40
WBC Cancelled 15.2 H 12.9 H
03/10/25
03:50
WBC 8.1
Lab Results - Chemistry
03/08/25 03/08/25 03/08/25
15:06 21:21 23:07
BUN 111 H* Cancelled Cancelled
Creatinine 2.3 H Cancelled Cancelled
Estimated Creat Clear 12 Cancelled Cancelled
Albumin 3.7
03/08/25 03/09/25 03/10/25
23:41 04:40 03:50
BUN 100 H 89 H 62 H
Creatinine 2.1 H 1.9 H 1.3 H
Estimated Creat Clear 13 15 22
Albumin 2.7 L 2.6 L
03/08/25
16:48
Lactic Acid 1.1
Microbiology Results
03/08/25 16:48 Urine Culture - Final
Urine Escherichia coli
03/09/25 04:40 MRSA Screen - Final
Nose No Methicillin Resistant Staphylococcus aureus isolated.
03/08/25 16:48 Blood Culture - Preliminary
Blood/Venous No Growth in 24 hours- Final report to follow
03/08/25 16:48 Blood Culture - Preliminary
Blood/Venous No Growth in 24 hours- Final report to follow
Therapeutic Drug Monitoring
Random Vancomycin 13.7 ug/ml 03/10/25 03:50
[2025-03-10] MEDS: LANTUS 0.04 UNITS SC (09:06)
[2025-03-10 09:12] LABS: Glucose - Point of Care 126 mg/dl (70-99)
[2025-03-10] MEDS: VANCOCIN 150 IV (09:25)
--- NOTE | 2025-03-10 10:51 | W.PN.HOSP.TC ---
Today's Communication/Plan
-
IV AB
IVF
Torrez
PT OT
Follow labs
Assessment / Plan
Assessment / Plan
89-year-old with septic shock
Left X Ray- No acute osseous abnormality, specifically no radiographic evidence of acute osteomyelitis.Moderate degenerative changes of the first metatarsophalangeal joint.
CVS: S1-S2 normal, SM at apex
Chest: CTA B/L
Abdomen: Soft, NT / Bowel sounds present
Extremities: Skin- Redness right calf, ulcers right calf, left second toe
Stage 3 Sacral decub with DTI also
# Septic shock likely secondary to right lower extremity cellulitis, possible UTI
TME secondary to sepsis and ALEJANDRA
Continue IV vancomycin and cefepime
Urine Cx with E Coli
Off Pressors
Follow cultures
Podiatry consulted for purulent drainage from the toe- NO surgical intervention
# Acute kidney injury with metabolic acidosis, hypokalemia and mild rhabdomyolysis
Creatinine improving with IV fluids with bicarb
Hold metformin, Lasix, Farxiga and valsartan
Torrez in place
Nephrology consulted
# Anemia--check iron studies. Outpatient GI workup was recommended in December 2024
# Chronic HFMrEF-hold valsartan, Lasix. Beta-blockers as tolerated. Hold Farxiga
Echo 01/01/2025-LV mildly dilated. Mild to moderate reduced LV systolic function. EF 40 to 45%. Basal to mid inferolateral hypokinesis. Stage II diastolic dysfunction suggestive of abnormal relaxation and increased filling pressures. Moderate MR.
Mild AI. Mild to moderate TR. PASP 40 mmHg.
# Essential hypertension beta-marisela as tolerated. Hold valsartan.
# Hyperlipidemia-continue statin
# Diabetes-HBA1C 10.1
Hold metformin and Farxiga
Lantus 8 units as outpatient, sliding scale and Accu-Cheks
On 4 Units now
# Diabetic neuropathy-Neurontin as tolerated
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
# Severe discogenic DJD lumbar spine
# Hypoalbuminemia
# DVT Prophylaxis- SC Heparin
# Full CODE
D/W RN at bed side
D/W Renal
Anticipated Discharge: 24 - 48 hours
Subjective/Interval History
-
Date of Service: March 10, 2025
Objective Data
-
Labs:
Laboratory Results
03/10/25
03:50
WBC 8.1
Hgb 8.7 L
Hct 27.6 L
Plt Count 188
Sodium 140
Potassium 3.6
Chloride 104
Carbon Dioxide 27
BUN 62 H
Creatinine 1.3 H
Glucose 136 H
Calcium 8.0 L
Total Bilirubin 0.5
AST 30
ALT 25
Alkaline Phosphatase 118
Vital Signs:
Vital Signs
Temp Pulse Resp BP Pulse Ox
97.6 F 92 18 139/81 95
03/10/25 09:06 03/10/25 10:00 03/10/25 10:00 03/10/25 10:00 03/10/25 10:05
I&O
03/09/25 03/10/25 03/11/25
06:59 06:59 06:59
Intake Total 1150 / 1150 2490 / 2490
Output Total 700 / 700 1350 / 1350
Balance 450 / 450 1140 / 1140
[2025-03-10 11:20] LABS: Iron 30 ug/dl (37-170)
[2025-03-10 11:29] LABS: Percent Saturation 10 % (20-50); Total Iron Binding Capacity 282 ug/dl (265-497)
[2025-03-10] MEDS: MAXIPIME 1000 MG IV (11:42)
[2025-03-10] MEDS: STERILE WATER FOR INJECTION 10 ML IV (11:43)
--- NOTE | 2025-03-10 11:47 | W.PN.NEPH.PH ---
Today's Communication / Plan
-
Flomax
Assessment/Plan
-
Assessment
ALEJANDRA
Cellulitis
UTI
Hypotension
Sepsis
Diabetes mellitus type 2
azotemia
Hyperkalemia
.
Plan
Continue antibiotics for cellulitis/UTI
Follow BMP
IV fluids
Maintain Torrez
Start Flomax possible voiding trial tomorrow
-
-
Date of Service: March 10, 2025
CC / HPI / ROS
-
Chief Complaint:
ALEJANDRA
History of Present Illness:
ALEJANDRA/Cr down to 1.3
[address] for retention
Hemoglobin lower at 8.7
BP stable
Review of Systems:
No chest pain or shortness of breath
Labs
-
Labs:
WBC 8.1 10^3/uL (4.8-10.8) 03/10/25 03:50
RBC 3.49 10^6/uL (4.20-5.40) L 03/10/25 03:50
Hgb 8.7 g/dL (12.0-16.0) L 03/10/25 03:50
Hct 27.6 % (37.0-47.0) L 03/10/25 03:50
Plt Count 188 10^3/uL (130-400) 03/10/25 03:50
Sodium 140 mmol/L (135-145) 03/10/25 03:50
Potassium 3.6 mmol/L (3.5-5.1) 03/10/25 03:50
Chloride 104 mmol/L (98-107) 03/10/25 03:50
Carbon Dioxide 27 mmol/L (22-30) 03/10/25 03:50
BUN 62 mg/dl (7-17) H 03/10/25 03:50
Creatinine 1.3 mg/dL (0.6-1.0) H 03/10/25 03:50
eGFR 39.80 03/10/25 03:50
Glucose 136 mg/dl (70-99) H 03/10/25 03:50
Calcium 8.0 mg/dl (8.4-10.2) L 03/10/25 03:50
Albumin 2.6 g/dl (3.5-5.0) L 03/10/25 03:50
Physical Exam
-
Vital Signs:
Vital Signs
Temp Pulse Resp BP Pulse Ox
97.6 F 92 18 139/81 95
03/10/25 09:06 03/10/25 10:00 03/10/25 10:00 03/10/25 10:00 03/10/25 10:05
Cardiovascular:: Regular rate and rhythm
Respiratory:: Bilateral: Coarse
Lung Excursion:: Normal
Abdomen:: Nontender and Soft
Bowel Sounds:: Normal
Extremity Edema:: None: Bilateral:
[2025-03-10 12:28] LABS: Glucose - Point of Care 389 mg/dl (70-99)
[2025-03-10] MEDS: NOVOLOG FLEXPEN-LOW RESISTANCE 5 UNITS SC (12:40)
[2025-03-10] MEDS: FLOMAX 0.4 MG PO (12:40)
[2025-03-10] MEDS: NOVOLOG FLEXPEN-LOW RESISTANCE 4 UNITS SC (16:45)
[2025-03-10 16:56] LABS: Glucose - Point of Care 339 mg/dl (70-99)
[2025-03-10] MEDS: LIPITOR 10 MG PO (18:27)
--- NOTE | 2025-03-10 18:39 | PTCARENOTE ---
Temp in AM ~ 94.5; Vaibhav alicea placed on Pt for a couple hours. Rechecked Pt to have temp of 97.6. Vaibhav alicea removed. Pt much more alert as day progressed. Appetite and mentation greatly improved. Will continue to monitor and assess.
--- NOTE | 2025-03-10 20:17 | PTCARENOTE ---
Pt resting comfortably on assessment. AAOX3. Admits to pain to bottom. On assessment sacral dressing with drainage. Dressing changed and pt place on right side lying position. Currently resting more comfortably. Call rosas remains within reach. Will
continue to monitor.
[2025-03-10 21:47] LABS: Glucose - Point of Care 343 mg/dl (70-99)
[2025-03-11] VITALS (17 sets, daily range): BP systolic 113–158; BP diastolic 65–101; BMI 19.7
[2025-03-11] MEDS: MAXIPIME 1000 MG IV (00:04)
[2025-03-11] MEDS: STERILE WATER FOR INJECTION 10 ML IV ×2 (00:05→12:17)
[2025-03-11 03:53] LABS: Hematocrit 26.4 % (37.0-47.0); Hemoglobin 8.2 g/dL (12.0-16.0); Mean Corp Hgb Conc. 31.1 g/dL (33.0-37.0); Mean Corpuscular Hgb 24.6 pg (27.0-31.0); Mean Corpuscular Volume 79.3 fL (81.0-99.0); Mean Platelet Volume 9.8 fL (7.4-10.4); Platelet Count 182 10^3/uL (130-400); Red Blood Cell Count 3.33 10^6/uL (4.20-5.40); Red Cell Dist. Width 19.8 % (11.5-14.5); White Blood Cell Count 7.5 10^3/uL (4.8-10.8)
[2025-03-11 04:13] LABS: ALT (SGPT) 23 U/L (0-35); AST (SGOT) 26 U/L (14-36); Albumin 2.5 g/dl (3.5-5.0); Alkaline Phosphatase 117 U/L (38-126); Blood Urea Nitrogen 40 mg/dl (7-17); Carbon Dioxide 27 mmol/L (22-30); Chloride 106 mmol/L (98-107); Estimated Creatinine Clearance 26 ml/min; Glucose 235 mg/dl (70-99); Potassium 3.7 mmol/L (3.5-5.1); Sodium 140 mmol/L (135-145); Total Bilirubin 0.5 mg/dl (0.2-1.3); Total Protein 5.3 g/dl (6.3-8.2); eGFR 48.63
[2025-03-11 04:16] LABS: Vancomycin Random 16.9 ug/ml
[2025-03-11] MEDS: TYLENOL 1000 MG PO (05:17)
--- NOTE | 2025-03-11 08:16 | PHA.VAN.FU ---
Vancomycin Assessment / Plan
- Assessment
Renal Function: SCR Decreasing
WBC's are: Stable
In the past 24 hrs, patient has been: Afebrile
Concomitant Antimicrobials: CEFEPIME
- Assessment - Therapeutic Drug Monitoring
Random Level: 16.9 DRAWN ~18 HR AFTER PREVIOUS DOSE 03/10 @0925 VANCO 750MG
- Dosing Plan
Dosing by Level: Re-dose today (VANCO 750MG X1, CONSIDER SCHEDULING DOSE SCR CONTINUES TO TREND DOWN)
- Follow Up
Pharmacy will continue to follow.
Vancomycin Follow UP
- -
Patient Age: 89
Patient Sex: Female
Vancomycin Day #: 4
Indication: Skin And Soft Tissue (CELLULITIS; SEPSIS;UTI)
Requesting Provider: YAKELIN
Pertinent Antimicrobial Allergies:
Sulfonamide Antibiotics - Unknown manifestations
Height / Weight:
Height 5 ft
Actual Weight 45.7 kg
Pertinent Past Medical History: T2DM
- Vital Signs / Lab Results
Temp Pulse Resp BP Pulse Ox
97.7 F 89 18 151/80 96
03/11/25 03:00 03/11/25 07:00 03/11/25 07:00 03/11/25 05:00 03/11/25 07:00
Lab Results - Hematology
03/08/25 03/08/25 03/09/25
15:06 15:46 04:40
WBC Cancelled 15.2 H 12.9 H
03/10/25 03/11/25
03:50 03:13
WBC 8.1 7.5
Lab Results - Chemistry
03/08/25 03/08/25 03/08/25
15:06 21:21 23:07
BUN 111 H* Cancelled Cancelled
Creatinine 2.3 H Cancelled Cancelled
Estimated Creat Clear 12 Cancelled Cancelled
Albumin 3.7
03/08/25 03/09/25 03/10/25
23:41 04:40 03:50
BUN 100 H 89 H 62 H
Creatinine 2.1 H 1.9 H 1.3 H
Estimated Creat Clear 13 15 22
Albumin 2.7 L 2.6 L
03/11/25
03:13
BUN 40 H
Creatinine 1.1 H
Estimated Creat Clear 26
Albumin 2.5 L
03/08/25
16:48
Lactic Acid 1.1
Microbiology Results
03/08/25 16:48 Blood Culture - Preliminary
Blood/Venous No Growth in 48 hours- Final report to follow
03/08/25 16:48 Blood Culture - Preliminary
Blood/Venous No Growth in 48 hours- Final report to follow
03/08/25 16:48 Urine Culture - Final
Urine Escherichia coli
03/09/25 04:40 MRSA Screen - Final
Nose No Methicillin Resistant Staphylococcus aureus isolated.
Therapeutic Drug Monitoring
Random Vancomycin 16.9 ug/ml 03/11/25 03:13
[2025-03-11] MEDS: VANCOCIN 150 IV (08:31)
[2025-03-11] MEDS: TOPROL XL 25 MG PO (09:03)
[2025-03-11] MEDS: DAKIN'S SOLUTION 0.125% 1/4 STRENGTH 473 ML TOPICAL (09:04)
[2025-03-11] MEDS: FLOMAX 0.4 MG PO (09:04)
[2025-03-11] MEDS: HEPARIN 5000 UNITS SC ×2 (09:04→20:10)
[2025-03-11] MEDS: BACTROBAN 2% OINTMENT 1 APPLIC TOPICAL ×2 (09:05→20:12)
[2025-03-11] MEDS: LANTUS 0.04 UNITS SC ×2 (09:08→10:34)
[2025-03-11] MEDS: NOVOLOG FLEXPEN-LOW RESISTANCE 2 UNITS SC ×3 (09:08→17:13)
[2025-03-11 09:19] LABS: Glucose - Point of Care 208 mg/dl (70-99)
--- NOTE | 2025-03-11 09:52 | W.PN.NEPH.PH ---
Today's Communication / Plan
-
voiding trial
Assessment/Plan
-
Assessment
ALEJANDRA
Cellulitis
UTI
Hypotension
Sepsis
Diabetes mellitus type 2
azotemia
Hyperkalemia
.
Plan
Continue antibiotics for cellulitis/UTI
Follow BMP
no IVF
continue flomax
voiding trial
-
-
Date of Service: March 11, 2025
CC / HPI / ROS
-
Chief Complaint:
ALEJANDRA
History of Present Illness:
ALEJANDRA/Cr down to 1.1
[address] for retention
Hemoglobin lower at 8.2
BP stable
Review of Systems:
No chest pain or shortness of breath
Labs
-
Labs:
WBC 7.5 10^3/uL (4.8-10.8) 03/11/25 03:13
RBC 3.33 10^6/uL (4.20-5.40) L 03/11/25 03:13
Hgb 8.2 g/dL (12.0-16.0) L 03/11/25 03:13
Hct 26.4 % (37.0-47.0) L 03/11/25 03:13
Plt Count 182 10^3/uL (130-400) 03/11/25 03:13
Sodium 140 mmol/L (135-145) 03/11/25 03:13
Potassium 3.7 mmol/L (3.5-5.1) 03/11/25 03:13
Chloride 106 mmol/L (98-107) 03/11/25 03:13
Carbon Dioxide 27 mmol/L (22-30) 03/11/25 03:13
BUN 40 mg/dl (7-17) H 03/11/25 03:13
Creatinine 1.1 mg/dL (0.6-1.0) H 03/11/25 03:13
eGFR 48.63 03/11/25 03:13
Glucose 235 mg/dl (70-99) H 03/11/25 03:13
Calcium 8.0 mg/dl (8.4-10.2) L 03/11/25 03:13
Albumin 2.5 g/dl (3.5-5.0) L 03/11/25 03:13
Physical Exam
-
Vital Signs:
Vital Signs
Temp Pulse Resp BP Pulse Ox
97.7 F 89 18 151/80 96
03/11/25 03:00 03/11/25 07:00 03/11/25 07:00 03/11/25 05:00 03/11/25 07:00
Cardiovascular:: Regular rate and rhythm
Respiratory:: Bilateral: CTA
Lung Excursion:: Normal
Abdomen:: Nontender and Soft
Bowel Sounds:: Normal
Extremity Edema:: +1: Bilateral:
--- NOTE | 2025-03-11 10:02 | W.PN.HOSP.TC ---
Today's Communication/Plan
-
transfer to tele
Stop vancomycin and cefepime and change antibiotics to ceftriaxone
Restart metformin
Increase Lantus
Torrez removed
Follow labs
IV iron
Assessment / Plan
Assessment / Plan
89-year-old with septic shock
Left X Ray- No acute osseous abnormality, specifically no radiographic evidence of acute osteomyelitis.Moderate degenerative changes of the first metatarsophalangeal joint.
CVS: S1-S2 normal, SM at apex
Chest: CTA B/L
Abdomen: Soft, NT / Bowel sounds present
Extremities: Skin- Redness right calf, ulcers right calf, left second toe
Stage 3 Sacral decub with DTI also
# Septic shock likely secondary to right lower extremity cellulitis, possible UTI
TME secondary to sepsis and ALEJANDRA
Stop cefepime and vancomycin and change antibiotics to ceftriaxone
Urine Cx with E Coli
Off Pressors
Follow cultures
Podiatry consulted for purulent drainage from the toe- NO surgical intervention toe ulcer mostly looks dry
# Acute kidney injury with metabolic acidosis, hypokalemia and mild rhabdomyolysis
Creatinine improving with IV fluids with bicarb
Hold Lasix, Farxiga and valsartan
Torrez in place-can be removed today
Nephrology consulted and following
# Anemia-iron deficiency. Start IV iron outpatient GI workup was recommended in December 2024
# Chronic HFMrEF-hold valsartan, Lasix. Beta-blockers as tolerated. Hold Farxiga
Echo 01/01/2025-LV mildly dilated. Mild to moderate reduced LV systolic function. EF 40 to 45%. Basal to mid inferolateral hypokinesis. Stage II diastolic dysfunction suggestive of abnormal relaxation and increased filling pressures. Moderate MR.
Mild AI. Mild to moderate TR. PASP 40 mmHg.
# Essential hypertension beta-marisela as tolerated. Hold valsartan.
# Hyperlipidemia-continue statin
# Diabetes-HBA1C 10.1
Hold Farxiga
Lantus 8 units as outpatient, sliding scale and Accu-Cheks
Increased Lantus to 8 units with additional 4 units this morning. Metformin restarted
# Diabetic neuropathy-Neurontin as tolerated
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
# Severe discogenic DJD lumbar spine
# Hypoalbuminemia
# DVT Prophylaxis- SC Heparin
# Full CODE
D/W RN at bed side
D/W Renal
Called daughter Court and updated. She does not want mom to go to rehab she wants to take mom home when she is ready.
Anticipated Discharge: 24 - 48 hours
Subjective/Interval History
-
Date of Service: March 11, 2025
Objective Data
-
Labs:
Laboratory Results
03/11/25
03:13
WBC 7.5
Hgb 8.2 L
Hct 26.4 L
Plt Count 182
Sodium 140
Potassium 3.7
Chloride 106
Carbon Dioxide 27
BUN 40 H
Creatinine 1.1 H
Glucose 235 H
Calcium 8.0 L
Total Bilirubin 0.5
AST 26
ALT 23
Alkaline Phosphatase 117
Vital Signs:
Vital Signs
Temp Pulse Resp BP Pulse Ox
97.7 F 89 18 151/80 96
03/11/25 03:00 03/11/25 07:00 03/11/25 07:00 03/11/25 05:00 03/11/25 07:00
I&O
03/10/25 03/11/25 03/12/25
06:59 06:59 06:59
Intake Total 2490 / 2490 200 / 200
Output Total 1350 / 1350 1150 / 1150
Balance 1140 / 1140 -950 / -950
[2025-03-11] MEDS: GLUCOPHAGE 500 MG PO ×2 (10:34→17:05)
[2025-03-11] MEDS: STERILE WATER FOR INJECTION IV ×2 (12:17→20:52)
[2025-03-11] MEDS: ROCEPHIN 1000 MG IV (12:18)
[2025-03-11 13:12] LABS: Glucose - Point of Care 218 mg/dl (70-99)
[2025-03-11] MEDS: FERRLECIT 110 MG IV (13:33)
[2025-03-11] MEDS: ROXICODONE 5 MG PO (17:05)
[2025-03-11] MEDS: LIPITOR 10 MG PO (17:05)
[2025-03-11 17:13] LABS: Glucose - Point of Care 203 mg/dl (70-99)
[2025-03-11] MEDS: NEURONTIN 200 MG PO (20:10)
[2025-03-11] MEDS: PEPCID 10 MG PO (20:10)
[2025-03-11] MEDS: DAKIN'S SOLUTION 0.125% 1/4 STRENGTH 1 ML TOPICAL (20:11)
[2025-03-11 22:09] LABS: Glucose - Point of Care 84 mg/dl (70-99)
[2025-03-12] VITALS (17 sets, daily range): BP systolic 101–146; BP diastolic 57–85; PULSE 72–87; O2SAT 97
[2025-03-12 04:39] LABS: Glucose - Point of Care 80 mg/dl (70-99)
[2025-03-12 05:04] LABS: Hematocrit 25.3 % (37.0-47.0); Hemoglobin 8.1 g/dL (12.0-16.0); Mean Corpuscular Hgb 25.5 pg (27.0-31.0); Mean Corpuscular Volume 79.6 fL (81.0-99.0); Mean Platelet Volume 9.6 fL (7.4-10.4); Platelet Count 168 10^3/uL (130-400); Red Blood Cell Count 3.18 10^6/uL (4.20-5.40); Red Cell Dist. Width 19.8 % (11.5-14.5); White Blood Cell Count 7.7 10^3/uL (4.8-10.8)
[2025-03-12 05:35] LABS: Blood Urea Nitrogen 26 mg/dl (7-17); Carbon Dioxide 29 mmol/L (22-30); Chloride 107 mmol/L (98-107); Estimated Creatinine Clearance 28 ml/min; Glucose 48 mg/dl (70-99); Potassium 3.4 mmol/L (3.5-5.1); Sodium 140 mmol/L (135-145); eGFR 54.53
[2025-03-12 05:49] LABS: Glucose - Point of Care 51 mg/dl (70-99)
[2025-03-12] MEDS: DEXTROSE 50% SYRINGE 12.5 GRAMS IV (05:56)
[2025-03-12 06:05] LABS: Glucose - Point of Care 60 mg/dl (70-99)
[2025-03-12 06:27] LABS: Glucose - Point of Care 156 mg/dl (70-99)
[2025-03-12 08:26] LABS: Glucose - Point of Care 119 mg/dl (70-99)
[2025-03-12] MEDS: NOVOLOG FLEXPEN-LOW RESISTANCE SC (08:46)
[2025-03-12] MEDS: KCL 20 MEQ PO (08:47)
[2025-03-12] MEDS: HEPARIN 5000 UNITS SC ×2 (08:48→20:08)
[2025-03-12] MEDS: TOPROL XL 25 MG PO (08:48)
[2025-03-12] MEDS: FLOMAX 0.4 MG PO (08:48)
[2025-03-12] MEDS: NEURONTIN 100 MG PO (08:48)
[2025-03-12] MEDS: BACTROBAN 2% OINTMENT 1 APPLIC TOPICAL ×2 (08:49→20:08)
[2025-03-12] MEDS: DAKIN'S SOLUTION 0.125% 1/4 STRENGTH 473 ML TOPICAL (08:49)
--- NOTE | 2025-03-12 08:49 | W.PN.HOSP.TC ---
Today's Communication/Plan
-
Encourage out of bed
Elijah bandage to right lower extremity
Restart Lasix when okay with nephrology
Hold valsartan as blood pressure still on the low side
Decrease the dose of Lantus insulin
If continues to improve plan for discharge tomorrow
Assessment / Plan
Assessment / Plan
89-year-old with septic shock
Left X Ray- No acute osseous abnormality, specifically no radiographic evidence of acute osteomyelitis.Moderate degenerative changes of the first metatarsophalangeal joint.
CVS: S1-S2 normal, SM at apex
Chest: CTA B/L
Abdomen: Soft, NT / Bowel sounds present
Extremities: Skin- Redness right calf better, ulcers right calf, left second toe
Stage 3 Sacral decub with DTI also
# Septic shock likely secondary to right lower extremity cellulitis, possible UTI
TME secondary to sepsis and ALEJANDRA- back to baseline
Cefepime and vancomycin changed to ceftriaxone
Urine Cx with E Coli
Off Pressors
Follow cultures
Podiatry consulted for purulent drainage from the toe- NO surgical intervention toe ulcer mostly looks dry
# Acute kidney injury with metabolic acidosis, hypokalemia and mild rhabdomyolysis
Creatinine improving
Hold Lasix, Farxiga and valsartan
Torrez removed
Mild retention and incontinence noted
Creatinine improved
Restart Lasix if okay with nephrology
Nephrology consulted and following
# Anemia-iron deficiency. continue IV iron outpatient GI workup was recommended in December 2024
# Chronic HFMrEF-hold valsartan, Lasix. Beta-blockers as tolerated. Hold Farxiga
Echo 01/01/2025-LV mildly dilated. Mild to moderate reduced LV systolic function. EF 40 to 45%. Basal to mid inferolateral hypokinesis. Stage II diastolic dysfunction suggestive of abnormal relaxation and increased filling pressures. Moderate MR.
Mild AI. Mild to moderate TR. PASP 40 mmHg.
# Essential hypertension beta-marisela as tolerated. Hold valsartan.
# Hyperlipidemia-continue statin
# Diabetes-HBA1C 10.1
Hold Farxiga
Overnight hypoglycemia noted
Lantus 8 units as outpatient, sliding scale and Accu-Cheks
Decreased Lantus to 5 units , Metformin to be continued
# Diabetic neuropathy-Neurontin as tolerated
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
# Severe discogenic DJD lumbar spine
# Hypoalbuminemia
# DVT Prophylaxis- SC Heparin
# Full CODE
D/W RN at bed side
03/11/2025-called daughter Court and updated. She does not want mom to go to rehab she wants to take mom home when she is ready.
Anticipated Discharge: Within 24 hours
Subjective/Interval History
-
Date of Service: March 12, 2025
Objective Data
-
Labs:
Laboratory Results
03/12/25
04:52
WBC 7.7
Hgb 8.1 L
Hct 25.3 L
Plt Count 168
Sodium 140
Potassium 3.4 L
Chloride 107
Carbon Dioxide 29
BUN 26 H
Creatinine 1.0
Glucose 48 L*
Calcium 8.0 L
Vital Signs:
Vital Signs
Temp Pulse Resp BP Pulse Ox
98.4 F 73 15 101/57 96
03/12/25 07:57 03/12/25 06:00 03/12/25 06:00 03/12/25 06:00 03/12/25 06:00
I&O
03/11/25 03/12/25 03/13/25
06:59 06:59 06:59
Intake Total 200 / 200
Output Total 2049 / 2049 700 / 700
Balance -1850 / -1850 -700 / -700
--- NOTE | 2025-03-12 09:45 | PTCARENOTE ---
Patient ordered 40meq of Kdur as a one-time dose for K+ 3.[address] Jara. Patient requested tabs be split in half. She was able to take the first half without difficultly but proceeded to go into a harsh coughing episode with the second half. She
was able to get the second half down after a few minutes and with applesauce to assist. Dr Jara on unit and made aware; ok to hold the second 20meq tablet at this time. MAR cell edited to reflect 20meq given. Patient able to take rest of
scheduled morning meds without difficulty; she did request they be put whole in applesauce.
[2025-03-12] MEDS: LANTUS 0.05 UNITS SC (10:18)
[2025-03-12] MEDS: GLUCOPHAGE 500 MG PO ×2 (10:18→17:55)
--- NOTE | 2025-03-12 10:36 | W.PN.NEPH.PH ---
Today's Communication / Plan
-
Tolerating voiding trial creatinine 1. Will sign off
Assessment/Plan
-
Assessment
ALEJANDRA
Cellulitis
UTI
Hypotension
Sepsis
Diabetes mellitus type 2
azotemia
Hyperkalemia
.
Plan
Continue antibiotics for cellulitis/UTI
Follow BMP
no IVF
continue flomax
voiding trial tolerating.
Creatinine is 1. Will sign off please call if needed
-
-
Date of Service: March 12, 2025
CC / HPI / ROS
-
Chief Complaint:
ALEJANDRA
History of Present Illness:
ALEJANDRA/Cr down to 1.1
[address] catheter in place for retention
Hemoglobin lower at 8.2
BP stable
Review of Systems:
No chest pain or shortness of breath
Labs
-
Labs:
WBC 7.7 10^3/uL (4.8-10.8) 03/12/25 04:52
RBC 3.18 10^6/uL (4.20-5.40) L 03/12/25 04:52
Hgb 8.1 g/dL (12.0-16.0) L 03/12/25 04:52
Hct 25.3 % (37.0-47.0) L 03/12/25 04:52
Plt Count 168 10^3/uL (130-400) 03/12/25 04:52
Sodium 140 mmol/L (135-145) 03/12/25 04:52
Potassium 3.4 mmol/L (3.5-5.1) L 03/12/25 04:52
Chloride 107 mmol/L (98-107) 03/12/25 04:52
Carbon Dioxide 29 mmol/L (22-30) 03/12/25 04:52
BUN 26 mg/dl (7-17) H 03/12/25 04:52
Creatinine 1.0 mg/dL (0.6-1.0) 03/12/25 04:52
eGFR 54.53 03/12/25 04:52
Glucose 48 mg/dl (70-99) L* 03/12/25 04:52
Calcium 8.0 mg/dl (8.4-10.2) L 03/12/25 04:52
Albumin 2.5 g/dl (3.5-5.0) L 03/11/25 03:13
Physical Exam
-
Vital Signs:
Vital Signs
Temp Pulse Resp BP Pulse Ox
98.2 F 82 21 126/68 97
03/12/25 09:00 03/12/25 08:00 03/12/25 08:00 03/12/25 08:00 03/12/25 08:00
Cardiovascular:: Regular rate and rhythm
Respiratory:: Bilateral: CTA
Lung Excursion:: Normal
Abdomen:: Nontender and Soft
Bowel Sounds:: Normal
Extremity Edema:: +1: Bilateral:
[2025-03-12 10:48] LABS: Glucose - Point of Care 253 mg/dl (70-99)
--- NOTE | 2025-03-12 10:48 | VNURNOTE ---
Addendum entered by Elsy Dhaliwal RN 03/12/25 11:45:
Clinicals, Rx faxed to Michael at [facility]. They can deliver to home next day. Daughter Court called and updated.
Original Note:
Home Health Liaison spoke with patient's daughter Court to discuss [facility] VN nurse/therapy, visits, schedule and homebound status. She still plans on taking patient home to daughter's house. Daughter is familiar with [facility] services and
agreeable and understands that visits at home will be 2-3 x per week to assess and teach medical management. Daughter has learned wound care before and is willing to learn again when VN unavailable. Offered hospital bed set up, daughter declined
stating she is bringing patient's bed to her house. There will be a first floor set up. Daughter did request a wc. D[facility] for [facility] of care in 1-2 days after discharge from .
[facility] completed in [facility].
--- NOTE | 2025-03-12 11:40 | W.PN.UPDATE ---
Update Note
Progress Note Update
Patient is in need of a wheelchair due to ambulatory dysfunction. Patient is unable to self propel. A walker has been considered but is clinically ineffective due to patient's condition. pt and family want her to go home and not to rehab.
[2025-03-12 12:19] LABS: Vitamin D, 25-OH*** 15.2 ng/mL (30-80)
[2025-03-12] MEDS: ROCEPHIN 1000 MG IV (12:24)
[2025-03-12] MEDS: STERILE WATER FOR INJECTION 10 ML IV (12:25)
[2025-03-12] MEDS: NOVOLOG FLEXPEN-LOW RESISTANCE 1 UNITS SC (12:25)
[2025-03-12 12:35] LABS: Glucose - Point of Care 198 mg/dl (70-99)
[2025-03-12] MEDS: FERRLECIT 110 MG IV (15:21)
[2025-03-12 17:05] LABS: Glucose - Point of Care 277 mg/dl (70-99)
--- NOTE | 2025-03-12 17:25 | CM ---
Patient with Dx Septic shock due to RLE Cellulitis, possible UTI. Room air. Receiving IV Iron, IV Abx. Seen by wound care nurse. Per nursing; forgetful. PT recommends skilled rehab v home PT. OT recommends skilled rehab.
Patient accepted by MG Saldivar and she ordered w/c for patient through [facility].
Spoke with daughter Court;
she feels she can manage caring for her mother at home without additional help of a hired caregiver.
Provided update that MD mentions possible d/c tomorrow.
Daughter is aware that [facility] is setup and w/c has been ordered.
Daughter will be able to provide transport home when discharged.
Plan home with VN, with w/c ordered, to daughter's house.
[2025-03-12] MEDS: NOVOLOG FLEXPEN-LOW RESISTANCE 3 UNITS SC (17:54)
[2025-03-12] MEDS: LIPITOR 10 MG PO (17:55)
[2025-03-12] MEDS: PEPCID 10 MG PO (20:08)
[2025-03-12] MEDS: NEURONTIN 200 MG PO (20:08)
[2025-03-12] MEDS: DAKIN'S SOLUTION 0.125% 1/4 STRENGTH 10 ML TOPICAL (20:08)
[2025-03-12 21:15] LABS: Glucose - Point of Care 225 mg/dl (70-99)
--- NOTE | 2025-03-12 22:49 | PTCARENOTE ---
Caring for patient overnight. aaox2, forgetful at times. NSR on monitor, remains on RA. Incontinent. Bed alarm on. VSS. Compression on RLE. Accu check 225 at night. Will recheck at 0300. No other issues at this time. Will monitor.
[2025-03-12] MEDS: TYLENOL 650 MG PO (23:30)
[2025-03-13] VITALS (10 sets, daily range): BP systolic 117–148; BP diastolic 61–105; BMI 20.5
[2025-03-13 03:44] LABS: Glucose - Point of Care 142 mg/dl (70-99)
[2025-03-13 04:09] LABS: Hematocrit 26.3 % (37.0-47.0); Hemoglobin 8.2 g/dL (12.0-16.0); Mean Corp Hgb Conc. 31.2 g/dL (33.0-37.0); Mean Corpuscular Hgb 24.9 pg (27.0-31.0); Mean Corpuscular Volume 79.9 fL (81.0-99.0); Mean Platelet Volume 9.3 fL (7.4-10.4); Platelet Count 188 10^3/uL (130-400); Red Blood Cell Count 3.29 10^6/uL (4.20-5.40); Red Cell Dist. Width 19.3 % (11.5-14.5); White Blood Cell Count 6.8 10^3/uL (4.8-10.8)
[2025-03-13 05:03] LABS: Blood Urea Nitrogen 22 mg/dl (7-17); Calcium 8.2 mg/dl (8.4-10.2); Carbon Dioxide 26 mmol/L (22-30); Chloride 105 mmol/L (98-107); Estimated Creatinine Clearance 32 ml/min; Glucose 146 mg/dl (70-99); Potassium 4.2 mmol/L (3.5-5.1); Sodium 135 mmol/L (135-145); eGFR > 60.00
[2025-03-13] MEDS: DAKIN'S SOLUTION 0.125% 1/4 STRENGTH 473 ML TOPICAL (08:58)
[2025-03-13] MEDS: NOVOLOG FLEXPEN-LOW RESISTANCE SC (08:58)
[2025-03-13] MEDS: BACTROBAN 2% OINTMENT 1 APPLIC TOPICAL (08:59)
[2025-03-13] MEDS: GLUCOPHAGE 500 MG PO ×2 (09:00→17:16)
[2025-03-13] MEDS: NEURONTIN 100 MG PO (09:00)
[2025-03-13] MEDS: FLOMAX 0.4 MG PO (09:00)
[2025-03-13] MEDS: TOPROL XL 25 MG PO (09:00)
[2025-03-13] MEDS: LASIX 20 MG PO (09:00)
[2025-03-13] MEDS: HEPARIN 5000 UNITS SC (09:00)
[2025-03-13] MEDS: LANTUS 0.06 UNITS SC (09:02)
[2025-03-13 09:09] LABS: Glucose - Point of Care 115 mg/dl (70-99)
--- NOTE | 2025-03-13 10:02 | W.PN.HOSP.TC ---
Addendum entered and electronically signed by Josefa Jara MD 03/13/25 10:21:
Spoke to patient's daughter and updated regarding med changes, mild we will normotension, need to offload her back and also encourage out of bed as much as possible. She wants to take the patient home and has made arrangements.
Also discussed about med changes anemia and further workup for anemia is desired as outpatient.
More than 30 minutes spent in discharge including
Final examination of the patient
Summarizing hospital stay
Instructions for continuing care to all relevant caregivers
Preparation of discharge records, prescriptions, and referral forms
Total time spent (in minutes): 40 min
Original Note:
Today's Communication/Plan
-
Case management arranging wheelchair for the patient
Lasix restarted
Assessment / Plan
Assessment / Plan
89-year-old with septic shock
Left X Ray- No acute osseous abnormality, specifically no radiographic evidence of acute osteomyelitis.Moderate degenerative changes of the first metatarsophalangeal joint.
CVS: S1-S2 normal, SM at apex
Chest: CTA B/L
Abdomen: Soft, NT / Bowel sounds present
Extremities: Skin- Redness right calf better, ulcers right calf, left second toe
Stage 3 Sacral decub with DTI also
# Septic shock likely secondary to right lower extremity cellulitis, possible UTI
TME secondary to sepsis and ALEJANDRA- back to baseline
Cefepime and vancomycin changed to ceftriaxone, change to Feftin at discharge
Urine Cx with E Coli-Banuelos sensitive.
Off Pressors
Podiatry consulted for drainage from the toe- NO surgical intervention toe ulcer mostly looks dry
# Acute kidney injury with metabolic acidosis, hypokalemia and mild rhabdomyolysis
Creatinine improved
Restart Lasix 20 Q48H, Farxiga and valsartan ( 40 daily)
Torrez removed
Mild retention and incontinence noted, less than 300 mL with normal creatinine
Creatinine improved
# Anemia-iron deficiency. continue IV iron outpatient GI workup was recommended in December 2024. Will recommend outpatient GI workup again
# Chronic HFMrEF-hold valsartan, Lasix. Beta-blockers as tolerated. Hold Farxiga
Echo 01/01/2025-LV mildly dilated. Mild to moderate reduced LV systolic function. EF 40 to 45%. Basal to mid inferolateral hypokinesis. Stage II diastolic dysfunction suggestive of abnormal relaxation and increased filling pressures. Moderate MR.
Mild AI. Mild to moderate TR. PASP 40 mmHg.
# Essential hypertension beta-marisela as tolerated. Hold valsartan.
# Hyperlipidemia-continue statin
# Diabetes-HBA1C 10.1
Restart Farxiga in 1 week
Overnight hypoglycemia noted
Lantus 8 units as outpatient, sliding scale and Accu-Cheks
Decreased Lantus to 5 units , Metformin to be continued
7 units of Lantus at discharge
# Diabetic neuropathy-Neurontin as tolerated
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
# Severe discogenic DJD lumbar spine
# Hypoalbuminemia
# DVT Prophylaxis- SC Heparin
# Full CODE
D/W RN at bed side
03/11/2025-called daughter Court and updated. She does not want mom to go to rehab she wants to take mom home when she is ready.
Called daughter Court again today and left message for call back
Anticipated Discharge: Today
Subjective/Interval History
-
Date of Service: March 13, 2025
Objective Data
-
Labs:
Laboratory Results
03/13/25
03:54
WBC 6.8
Hgb 8.2 L
Hct 26.3 L
Plt Count 188
Sodium 135
Potassium 4.2
Chloride 105
Carbon Dioxide 26
BUN 22 H
Creatinine 0.9
Glucose 146 H
Calcium 8.2 L
Vital Signs:
Vital Signs
Temp Pulse Resp BP Pulse Ox
97.4 F 75 13 134/72 98
03/13/25 07:30 03/13/25 06:00 03/13/25 06:00 03/13/25 06:00 03/12/25 22:05
I&O
03/12/25 03/13/25 03/14/25
06:59 06:59 06:59
Output Total 700 / 700
Balance -700 / -700
--- NOTE | 2025-03-13 10:22 | W.DS.TRANS ---
Addendum entered and electronically signed by Josefa Jara MD 03/13/25 14:52:
Dictation- [id number]
Original Note:
DC Summary - Administration Specialist
-
Discharge Instructions:
Discharge Diagnosis/Procedures Septic shock secondary to cellulitis and UTI
Acute kidney injury
Anemia
Chronic heart failure
Hypertension
Hyperlipidemia
Diabetes
Diabetic neuropathy
Paraesophageal hernia
Vitamin D Defeciency
Diet Restrict fluids to 64 oz,2 Gram Sodium,Diabetic,
Carb Controlled
Activity As tolerated,With assistance
Driving Restrictions No driving
Blood Work BMP 6 days, CBC 6 days
Other Services VN,PT,OT
Specialty Instructions Weigh Daily
Instructions:
Stand-Alone Forms:
Changes to Home Medications: Yes
Discharge Medications:
DC Medications w/original date entered in [facility]
dapagliflozin propanediol 10 mg tablet (Farxiga) 10 mg PO DAILY heart failure/diabetes 12/30/24
gabapentin 100 mg capsule 100 mg PO DAILY Pain 12/30/24
gabapentin 100 mg tablet 200 mg PO HS Pain 12/30/24
metformin 500 mg tablet 500 mg PO BID Diabetes 12/30/24
therapeutic multivitamin 1 tab PO DAILY Supplement 12/30/24
aspirin 81 mg chewable tablet 81 mg PO DAILY Heart disease/condition #30 tabs 01/04/25
melatonin 5 mg tablet 5 mg PO HSPRN PRN sleep 01/31/25
acetaminophen 325 mg tablet (Tylenol) 650 mg PO Q6HPRN PRN mild pain 03/08/25
ferrous sulfate 325 mg (65 mg iron) tablet (FeroSul) 325 mg PO NOON Supplement 03/08/25
lovastatin 40 mg tablet 40 mg PO QPM High Cholesterol 03/08/25
cefuroxime axetil 500 mg tablet 500 mg PO BID uti #6 tabs 03/13/25
cholecalciferol (vitamin D3) 50 mcg (2,000 unit) capsule (Vitamin D3) 50 mcg PO DAILY Defeciency #30 caps 03/13/25
famotidine 20 mg tablet 20 mg PO HS Gastrointestinal issue #30 tabs 03/13/25
furosemide 20 mg tablet (Lasix) 20 mg PO Q48H Fluid Retention/Swelling #0 tabs 03/13/25
insulin glargine 100 unit/mL (3 mL) subcutaneous pen (Lantus Solostar U-100 Insulin) 7 unit (0.07 mL) SC DAILY Diabetes #0 mL 03/13/25
metoprolol succinate 25 mg tablet,extended release 24 hr 25 mg PO DAILY Heart disease/condition 30 days #30 tabs 03/13/25
mupirocin 2 % topical ointment 1 applic topical BID Skin issues #15 grams 03/13/25
tamsulosin 0.4 mg capsule 0.4 mg PO HS Urinary issue #30 caps 03/13/25
valsartan 40 mg tablet 40 mg PO HS Blood Pressure #0 tabs 03/13/25
Miralax 17 g PO daily
Colace 100 mg PO BID
Home Medication Changes
Valsartan decreased to daily
Flomax, mupirocin are new
Lantus dose decreased
Lasix changed to every other day
Pepcid is new
Ceftin, vitamin D are new
Colace, Miralax new
Pending Results: No
[2025-03-13] MEDS: DRISDOL (VITAMIN D2) 50000 UNITS PO (10:52)
--- NOTE | 2025-03-13 10:54 | VNURNOTE ---
[facility] liaison confirmed with Michael at [facility] that wc to be delivered to daughter's home today.
[2025-03-13] MEDS: STERILE WATER FOR INJECTION 10 ML IV (11:19)
[2025-03-13] MEDS: ROCEPHIN 1000 MG IV (11:19)
--- NOTE | 2025-03-13 11:41 | PTCARENOTE ---
Patient incontinent saturated covidian pad; PVR 414. TT sent to Dr Jara; she consulted urology. Also reviewed with her note from PT yesterday; forwarded it to DAVID Norton as per Dr Jara request.
[2025-03-13] MEDS: NOVOLOG FLEXPEN-LOW RESISTANCE 1 UNITS SC ×2 (12:06→17:16)
[2025-03-13 12:15] LABS: Glucose - Point of Care 199 mg/dl (70-99)
--- NOTE | 2025-03-13 12:21 | PTCARENOTE ---
Patient incontinent of large amount of urine on covidian and on floor, then voided 200ml in commode. PVR 229. Per Dr Jara patient is to see urology before discharge; she entered order and contact physician.
--- NOTE | 2025-03-13 15:18 | PTCARENOTE ---
Addendum entered by Sugey Toure RN 03/13/25 16:27:
Received TT from Dr Mike that he will be here after 16:00; Dr Jara updated.
Original Note:
TT sent to Dr Mike to see when he will round on patient; TT still says 'delivered.' Dr Jara made aware patient not seen yet; instructed to wait.
[2025-03-13] MEDS: FERRLECIT 110 MG IV (15:22)
--- NOTE | 2025-03-13 16:23 | CM ---
Patient with Dx Septic shock due to RLE Cellulitis, UTI. Room air. Seen by wound care nurse. Per nursing; forgetful. PT recommends skilled rehab v home PT. OT recommends skilled rehab.
Met with patient and spoke with daughter Court; both agree to d/c home today with VN. Daughter is aware of w/c delivery today. IMM completed. Daughter will provide transport home today.
Plan home today with VN, with w/c.
--- NOTE | 2025-03-13 17:10 | PTCARENOTE ---
Patient seen by Dr Mike; Dr Jara notified and ok to discharge. This nurse contacted daughter who will be in to transport home.
[2025-03-13] MEDS: LIPITOR 10 MG PO (17:16)
[2025-03-13 17:25] LABS: Glucose - Point of Care 173 mg/dl (70-99)
--- NOTE | 2025-03-13 17:45 | W.PN.URO.CBU ---
Today's Communication / Plan
-
at risk for uti but if place pickens also at risk woll observe
Assessment / Plan
-
pt at risk for uti
Diagnosis
-
Date of Service: March 13, 2025
-
Patient Diagnosis:
partial retention
Post Op Day:
Subjective
-
asx does have chronic incontinence recent retention void 200 cc has 200cc pvr feels baseline
Objective
-
Vital Signs
Temp Pulse Resp BP Pulse Ox
97.6 F 69 15 130/72 95
03/13/25 15:45 03/13/25 16:00 03/13/25 16:00 03/13/25 16:00 03/13/25 08:51
Intake and Output
03/12/25 03/13/25 03/14/25
06:59 06:59 06:59
Output Total 700 / 700 200 / 200
Balance -700 / -700 -200 / -200
Output:
Urine, [place] 300 / 300
Urine, Voided 400 / 400 200 / 200
Other:
Number of approximated SMALL 1
amounts of urine
Number of approximated MODERATE 1
amounts of urine
How many times incontinent 1 1
SMALL amount urine
How many times incontinent 1
MODERATE amount urine
How many times incontinent 1
SATURATED amount urine
Laboratory Results
03/13/25 03:54
03/13/25 03:54
Review of Systems
-
: Incontinence
Physical Exam
-
General - well developed, well nourished, no acute distress
Chest - clear bilaterally
Abdomen - soft, non-tender, positive bowel sounds, no CVAT, no incisional pain or distention
Genitalia - normal
Rectal - normal
Skin - warm & dry with no rash
Neuro - AOx3, no motor deficits
Extremities - no clubbing, no cyanosis, no edema
Incision - clean, dry
Dressing - clean, dry, intact
Care Review
Data Reviewed
Discussed with: Hospitalist and Nursing
== END 2025-03-13 18:46 | disposition home health service (06) | DRG 871 ==
LOC: IMU 19:44
PROVIDERS: Internal Medicine; Registered Nurse; ADMITTING PHYSICIAN Student in an Organized Health Care Education/Training Program; ATTENDING PHYSICIAN Hospitalist; CONSULT PHYSICIAN Podiatrist Foot & Ankle Surgery; EMERGENCY PHYSICIAN Emergency Medicine; FAMILY PHYSICIAN Family Medicine; OTHER PHYSICIAN Specialist
DX: A41.9 Sepsis, unspecified organism (principal); G93.41 Metabolic encephalopathy; L89.153 Pressure ulcer of sacral region, stage 3; R65.21 Severe sepsis with septic shock; L03.115 Cellulitis of right lower limb; N39.0 Urinary tract infection, site not specified; N17.9 Acute kidney failure, unspecified; I13.0 Hypertensive heart and chronic kidney disease with heart failure and stage 1 through stage 4 chronic kidney disease, or unspecified chronic kidney disease; I50.20 Unspecified systolic (congestive) heart failure; E87.20 Acidosis, unspecified; M62.82 Rhabdomyolysis; D50.9 Iron deficiency anemia, unspecified; E87.5 Hyperkalemia; N18.32 Chronic kidney disease, stage 3b; E11.22 Type 2 diabetes mellitus with diabetic chronic kidney disease; E11.65 Type 2 diabetes mellitus with hyperglycemia; M47.816 Spondylosis without myelopathy or radiculopathy, lumbar region; L89.891 Pressure ulcer of other site, stage 1; E78.00 Pure hypercholesterolemia, unspecified; K44.9 Diaphragmatic hernia without obstruction or gangrene; E55.9 Vitamin D deficiency, unspecified; E11.621 Type 2 diabetes mellitus with foot ulcer
CPT/HCPCS: 70450; 71045; 72220; 73620; 76770; 80048; 80053; 80202; 81003; 81015; 82306; 82550; 82570; 82728; 82962; 83036; 83540; 83550; 83605; 84300; 84484; 85025; 85027; 87040; 87070; 87077; 87086; 87186; 93005; 93971; 96365; 96367; 97163; 97167; 97530; 97535; 99285; J2916

== ENCOUNTER → 2025-03-27 08:08 | Outpatient (REF) | payer OTHER, SELFPAY | LOC: WOUND 08:08 | PROVIDERS: ATTENDING PHYSICIAN Surgery; FAMILY PHYSICIAN Family Medicine | DX: L89.152 Pressure ulcer of sacral region, stage 2 (principal); L97.212 Non-pressure chronic ulcer of right calf with fat layer exposed; L97.222 Non-pressure chronic ulcer of left calf with fat layer exposed; S41.112A Laceration without foreign body of left upper arm, initial encounter; I87.2 Venous insufficiency (chronic) (peripheral); I73.9 Peripheral vascular disease, unspecified; E11.65 Type 2 diabetes mellitus with hyperglycemia; Z79.4 Long term (current) use of insulin; I50.9 Heart failure, unspecified; X58.XXXA Exposure to other specified factors, initial encounter | CPT/HCPCS: 11042; 99204 ==

== ENCOUNTER → 2025-04-03 11:04 | Outpatient (REF) | payer OTHER, SELFPAY | LOC: WOUND 11:04 | PROVIDERS: ATTENDING PHYSICIAN Surgery; FAMILY PHYSICIAN Family Medicine | DX: L89.152 Pressure ulcer of sacral region, stage 2 (principal); L97.212 Non-pressure chronic ulcer of right calf with fat layer exposed; S41.112A Laceration without foreign body of left upper arm, initial encounter; I87.2 Venous insufficiency (chronic) (peripheral); I73.9 Peripheral vascular disease, unspecified; E11.65 Type 2 diabetes mellitus with hyperglycemia; Z79.4 Long term (current) use of insulin; I50.9 Heart failure, unspecified | CPT/HCPCS: 11042 ==

== ENCOUNTER → 2025-04-06 09:25 | Outpatient (REF) | payer OTHER, SELFPAY | LOC: HWRCS 09:25 | PROVIDERS: ATTENDING PHYSICIAN Internal Medicine; FAMILY PHYSICIAN Family Medicine | DX: I50.21 Acute systolic (congestive) heart failure (principal) | CPT/HCPCS: 93306 ==

== ENCOUNTER → 2025-04-10 09:13 | Outpatient (REF) | payer OTHER, SELFPAY | LOC: RAD 09:13 | PROVIDERS: ATTENDING PHYSICIAN Surgery; FAMILY PHYSICIAN Family Medicine | DX: L89.152 Pressure ulcer of sacral region, stage 2 (principal); I73.9 Peripheral vascular disease, unspecified | CPT/HCPCS: 93922 ==

== ENCOUNTER → 2025-04-10 10:43 | Outpatient (REF) | payer OTHER, SELFPAY | LOC: WOUND 10:43 | PROVIDERS: ATTENDING PHYSICIAN Surgery; FAMILY PHYSICIAN Family Medicine | DX: L89.152 Pressure ulcer of sacral region, stage 2 (principal); L97.212 Non-pressure chronic ulcer of right calf with fat layer exposed; S41.112A Laceration without foreign body of left upper arm, initial encounter; I87.2 Venous insufficiency (chronic) (peripheral); I73.9 Peripheral vascular disease, unspecified; E11.65 Type 2 diabetes mellitus with hyperglycemia; I50.9 Heart failure, unspecified; Z79.4 Long term (current) use of insulin; X58.XXXA Exposure to other specified factors, initial encounter | CPT/HCPCS: 11042; 97597 ==

== ENCOUNTER → 2025-04-17 08:44 | Outpatient (REF) | payer OTHER, SELFPAY | LOC: RST 08:44 | PROVIDERS: ATTENDING PHYSICIAN Family Medicine | DX: R13.10 Dysphagia, unspecified (principal) | CPT/HCPCS: 74230; 92611 ==

== ENCOUNTER → 2025-04-17 10:10 | Outpatient (REF) | payer OTHER, SELFPAY | LOC: WOUND 10:10 | PROVIDERS: ATTENDING PHYSICIAN Surgery; FAMILY PHYSICIAN Family Medicine | DX: L89.152 Pressure ulcer of sacral region, stage 2 (principal); L97.212 Non-pressure chronic ulcer of right calf with fat layer exposed; S41.112A Laceration without foreign body of left upper arm, initial encounter; I87.2 Venous insufficiency (chronic) (peripheral); I73.9 Peripheral vascular disease, unspecified; E11.65 Type 2 diabetes mellitus with hyperglycemia; Z79.4 Long term (current) use of insulin; I50.9 Heart failure, unspecified | CPT/HCPCS: 11042 ==

== ENCOUNTER → 2025-04-27 10:03 | Outpatient (REF) | payer OTHER, SELFPAY | LOC: WOUND 10:03 | PROVIDERS: ATTENDING PHYSICIAN Surgery; FAMILY PHYSICIAN Family Medicine | DX: L89.152 Pressure ulcer of sacral region, stage 2 (principal); L97.212 Non-pressure chronic ulcer of right calf with fat layer exposed; S41.112A Laceration without foreign body of left upper arm, initial encounter; I87.2 Venous insufficiency (chronic) (peripheral); I73.9 Peripheral vascular disease, unspecified; E11.65 Type 2 diabetes mellitus with hyperglycemia; Z79.4 Long term (current) use of insulin; I50.9 Heart failure, unspecified | CPT/HCPCS: 11042 ==

== ENCOUNTER → 2025-05-11 10:32 | Outpatient (REF) | payer OTHER, SELFPAY | LOC: WOUND 10:32 | PROVIDERS: ATTENDING PHYSICIAN Surgery; FAMILY PHYSICIAN Family Medicine | DX: L97.212 Non-pressure chronic ulcer of right calf with fat layer exposed (principal); I87.2 Venous insufficiency (chronic) (peripheral); I73.9 Peripheral vascular disease, unspecified; E11.65 Type 2 diabetes mellitus with hyperglycemia; I50.9 Heart failure, unspecified; Z79.4 Long term (current) use of insulin | CPT/HCPCS: 11042 ==

== ENCOUNTER → 2025-06-04 10:28 | Outpatient (REF) | payer OTHER, SELFPAY | LOC: WOUND 10:28 | PROVIDERS: ATTENDING PHYSICIAN Surgery; FAMILY PHYSICIAN Family Medicine | DX: L97.212 Non-pressure chronic ulcer of right calf with fat layer exposed (principal); I87.2 Venous insufficiency (chronic) (peripheral); I73.9 Peripheral vascular disease, unspecified; E11.65 Type 2 diabetes mellitus with hyperglycemia; Z79.4 Long term (current) use of insulin; I50.9 Heart failure, unspecified | CPT/HCPCS: 99213 ==

== ENCOUNTER 2025-08-24 13:28 | Inpatient (IN) | payer OTHER, SELFPAY ==
[2025-08-24] VITALS (29 sets, daily range): BP systolic 80–138; BP diastolic 47–98; BMI 21.3; BMI 18.3; BMI 21.2
[2025-08-24 09:37] LABS: Glucose - Point of Care 171 mg/dl (70-99)
--- NOTE | 2025-08-24 09:44 | ED.GENMED ---
History of Present Illness
<ROXY Castle - Last Filed: 08/24/25 16:37>
General
Chief Complaint: Change in Mental Status
Source: ambulance crew
Exam Limitations: none
Time Seen by Provider: 08/24/25 09:37
Nursing documentation reviewed up to this point in time: agreed with
History of Present Illness
History of Present Illness:
Patient is a 89-year-old female past medical history of diabetes, anemia CHF chronic kidney failure recently started on insulin 2 weeks ago, heart failure, hypertension hyperlipidemia brought by EMS for evaluation. Patient was found by daughter
unresponsive today. Medics arrived blood sugar was 223. They gave 250 cc of D10 patient however did not become more alert and she was found to be hypotensive of blood pressure' in the 40s.' She was given a 250 cc bolus of fluids.
Patient presents here tired she did open her eyes upon command and was able to state her name.
Patient's blood sugar 117. She is found to be hypothermic however with a temperature 93 rectally
Daughter at bedside reports patient was recently placed on a new insulin this week and within the past week it has also been raised from 3 units 3 times daily to 5 units 3 times daily she is unaware of the name of the insulin at this time. She does
report however that patient has been very weak for the past 7 days and that she was recently endocrinology and they were told that she was anemic.
Phy Exam
<ROXY Castle - Last Filed: 08/24/25 16:37>
General Physical Exam
General Presentation: no apparent distress
General age: appears stated age
General Skin: warm and dry
General Habitus: elderly
General Mental: alert (able to state name )
General Hydration: dry mucous membranes
Cardiovascular Exam
Cardiovascular Exam: regular rate/rhythm, no murmur and normal peripheral pulses
Pulmonary Exam
Pulmonary Exam: lungs clear and no respiratory distress
Neurological Exam
Neurological Exam: alert
Musculoskeletal Exam
Musculoskeletal Exam: full ROM
Skin Exam
Skin Exam: normal color and warm/dry
Psychiatric Exam
Psychiatric Exam: normal mood/affect
Course
<ROXY Castle - Last Filed: 08/24/25 16:37>
Orders/Labs/Results
Orders:
Orders
08/24/25 Breakfast
2000 calorie (17 carb) Diabetic
At Your Request: Full Participation
Does patient need a safe tray?: No
08/24/25 09:38
Cardiac Monitoring- Treatment ONCE
IV Insert/Care/Rem.- Treatment PRN
08/24/25 09:39
Electrocardiogram (*1) Stat
Reason for Study: Abdominal Pain
EKG- Treatment ONCE
08/24/25 10:00
Dextrose 5%/0.9%Sodchl 1000 ml [D5/0.9% Sodium Chloride] 1,000 ml IV 250 mls/hr
08/24/25 10:37
Urinalysis Reflex To Culture Urgent
Date Specimen was Collected: 08/24/25
Time Specimen was Collected: 10:36
Urine Microscopic Reflex Cult Urgent
Urine Culture Urgent
MIRLANDE Source: U
Specimen Description:
Date Specimen was Collected: 08/24/25
Time Specimen was Collected: 10:36
08/24/25 11:04
Complete Blood Count/With Diff Urgent
Comprehensive Metabolic Panel Urgent
TSH Reflex To Free T4 Urgent
08/24/25 11:12
CefTRIAXone [Rocephin] 1,000 mg IV NOW STA
08/24/25 11:43
DIETARY IP CONSULT Routine
Reason for Consult: change in mental status
Speech Screening from Naya Routine
08/24/25 12:57
Admit/Transfer Patient As Directed
Co-Sign Provider:
Level of Care: Inpatient admission
Assign to:: ICU
Physician / Group: paulette mon
Diagnosis: septic shock
Reason for Hospitalization: septic shock
Expected length of stay greater than two midnights?: Yes
ELOS- Estimated Length of Stay in days: 3
I certify the patient meets the requirements for IP care: Yes
PRN Pain Medication Management As Directed
May give lesser potent ordered pain med per pt: Yes
preference::
Protocol:: Medication orders for pain may be administered in a
manner that supports deferring to patient preference
when the pt is:
- Requesting an ordered lesser potent pain medication.
Least to most potent pain medications are defined
as: acetaminophen < NSAID < tramadol < opioids
(morphine, oxycodone, hydromorphone).
- Requesting a lesser dose of the same medication IF
ORDERED.
- Requesting a less intrusive route of administration
if both routes are prescribed by the provider (PO <
IV).
08/24/25 12:58
Code Status As Directed
Resuscitation Status: Full Code
08/24/25 13:17
Blood Culture Q30M
MIRLANDE Source: Blood/Venous
Specimen Description:
Blood Culture Q30M
MIRLANDE Source: Blood/Venous
Specimen Description:
08/24/25 13:30
NORepinephrine 4 MG/250 ML [Levophed] 4 mg in 250 ml IV PER PROTOCOL
Initial dose in mcg/min, then titrate:: 2
Titrate to keep:: SBP > 90 mmHg
Titrate by mcg/min:: 1-2 mcg/min
Frequency of titrations (minutes):: 5
Maximum dose in ICU in mcg/min:: 30
Maximum dose in IMU in mcg/min:: 8
Maximum dose in IVU in mcg/min:: 4
Begin to taper infusion when:: Remained at goal for 4hrs
Taper by mcg/min:: 1-2 mcg/min
Frequency of taper (minutes) if patient maintains goal:: 30
Taper to off?: Yes
If infusion off & no longer maintaining goal:: Contact Provider
08/24/25 14:16
Acetaminophen [Tylenol/Feverall] 650 mg RECTAL Q4HPRN PRN
Acetaminophen [Tylenol] 650 mg PO Q4HPRN PRN
CefTRIAXone [Rocephin] 1,000 mg IV Q24H
Dextrose 50%-Water [Dextrose 50% Syringe] 12.5 grams IV [id number] PRN
Glucagon [GlucaGen] 1 mg IM PRN PRN
Lactated Ringers [Lr] 1,000 ml IV 80 mls/hr
08/24/25 14:16
SENIOR EXECUTIVE COMPENSATION ANALYST Oncology Consult Routine
Consulting Provider: Lore Willard
Was physician already notified: Yes
Car Inspector Consult Routine
Consulting Provider: Dejuan Nava
Was physician already notified: Yes
Activity As Directed
Activity Level: As Tolerated
Bedside Glucose Monitoring As Directed
Frequency: AC&HS
Additional Instructions:: Change to q6h if pt on TPN, tube feeding or not eating
Intake/ Output As Directed
Frequency: Per unit guidelines
Vital Signs As Directed
Frequency: Per unit guidelines
Weight As Directed
Frequency: Daily
Ot Eval And Treat Routine
Pt Eval And Treat Routine
Activity Level: As Tolerated
DX Deep Vein Thrombosis Video Routine
08/24/25 15:01
Lactic Acid Q4H
Comment: repeat q4 hours x 4 or until less than 2 mmol/L
08/24/25 16:30
Insulin Aspart Corrective Low [Novolog Flexpen-Low Resistance] See Protocol SC AC
08/24/25 18:00
lovastatin 40 mg PO QPM
08/24/25 20:00
Heparin 5,000 units SC Q12
08/24/25 22:00
Famotidine [Pepcid] 10 mg PO HS
Tamsulosin [Flomax] 0.4 mg PO HS
gabapentin 200 mg PO HS
08/25/25 06:00
Complete Blood Count/No Diff IN AM
Glycohemoglobin (HgbA1c) IN AM
08/25/25 08:00
Aspirin Chewable [Low Strength Aspirin] 81 mg PO DAILY
Gabapentin [Neurontin] 100 mg PO DAILY
08/25/25 12:00
Ferrous Sulfate [Feosol] 325 mg PO NOON
08/26/25 06:00
Complete Blood Count/No Diff IN AM
08/27/25 06:00
Complete Blood Count/No Diff IN AM
08/28/25 06:00
Complete Blood Count/No Diff IN AM
Abnormal Lab Results
08/24/25 08/24/25 08/24/25
:36 10:22 10:37
WBC
RBC
Hgb
Hct
MCH
MCHC
RDW
Abs Immat Gran (auto)
Absolute Neuts (auto)
Absolute Lymphs (auto)
Immature Gran %
Neutrophils %
Lymphocytes %
Sodium
Chloride
Carbon Dioxide
BUN
Creatinine
Glucose
Calcium
Total Bilirubin
Total Protein
Albumin
Ur Occult Blood Reflex 4+ A
(Negative)
Urine Nitrite (Reflex) Positive A
(Negative)
Leukocyte Esterase Rfl 3+ A
(Negative)
Urine WBC (Reflex) 60-70 A /HPF
(0-5)
Urine Bacteria (Reflex) Few A
(Negative)
Urine Glucose 2+ A
(Negative)
Urine Albumin (Reflex) 3+ A
(Neg - Trace)
POC Glucose 171 H mg/dl 134 H mg/dl
(70-99) (70-99)
08/24/25 08/24/25 08/24/25
11:04 11:27 12:36
WBC 12.9 H 10^3/uL
(4.8-10.8)
RBC 3.04 L 10^6/uL
(4.20-5.40)
Hgb 8.1 L g/dL
(12.0-16.0)
Hct 25.3 L %
(37.0-47.0)
MCH 26.6 L pg
(27.0-31.0)
MCHC 32.0 L g/dL
(33.0-37.0)
RDW 16.0 H %
(11.5-14.5)
Abs Immat Gran (auto) 0.1 H 10^3/uL
(0-0.05)
Absolute Neuts (auto) 11.5 H 10^3/uL
(1.4-6.5)
Absolute Lymphs (auto) 0.8 L 10^3/uL
(1.2-3.4)
Immature Gran % 0.7 H %
(0-0.5)
Neutrophils % 89.2 H %
(42.2-75.2)
Lymphocytes % 6.4 L %
(20.5-51.1)
Sodium 134 L mmol/L
(135-145)
Chloride 110 H mmol/L
(98-107)
Carbon Dioxide 18 L mmol/L
(22-30)
BUN 54 H mg/dl
(7-17)
Creatinine 1.6 H mg/dL
(0.6-1.0)
Glucose 118 H mg/dl
(70-99)
Calcium 7.7 L mg/dl
(8.4-10.2)
Total Bilirubin < 0.1 L mg/dl
(0.2-1.3)
Total Protein 5.5 L g/dl
(6.3-8.2)
Albumin 2.7 L g/dl
(3.5-5.0)
Ur Occult Blood Reflex
Urine Nitrite (Reflex)
Leukocyte Esterase Rfl
Urine WBC (Reflex)
Urine Bacteria (Reflex)
Urine Glucose
Urine Albumin (Reflex)
POC Glucose 144 H mg/dl 238 H mg/dl
(70-99) (70-99)
08/24/25 11:04
08/24/25 11:04
Vital Signs
Initial and Last Documented VS:
Initial Vital Signs
Temp Pulse Resp BP Pulse Ox
93.3 F L 66 18 93/57 98
08/24/25 09:43 08/24/25 09:43 08/24/25 09:43 08/24/25 09:43 08/24/25 09:43
Last Documented Vital Signs
Temp Pulse Resp BP Pulse Ox
97.7 F 72 19 99/53 97
08/24/25 15:47 08/24/25 14:31 08/24/25 14:31 08/24/25 14:00 08/24/25 14:31
Supervisor [employer] consulted with Physician
Supervisor [employer] consulted with physician?: Yes (Sotero )
Buraklt;Hasmukh Harley, DO - Last Filed: 08/24/25 09:57>
Orders/Labs/Results
Orders:
Orders
08/24/25 Breakfast
2000 calorie (17 carb) Diabetic
At Your Request: Full Participation
Does patient need a safe tray?: No
08/24/25 09:38
Cardiac Monitoring- Treatment ONCE
IV Insert/Care/Rem.- Treatment PRN
08/24/25 09:39
Electrocardiogram (*1) Stat
Reason for Study: Abdominal Pain
EKG- Treatment ONCE
08/24/25 10:00
Dextrose 5%/0.9%Sodchl 1000 ml [D5/0.9% Sodium Chloride] 1,000 ml IV 250 mls/hr
08/24/25 10:37
Urinalysis Reflex To Culture Urgent
Date Specimen was Collected: 08/24/25
Time Specimen was Collected: 10:36
Urine Microscopic Reflex Cult Urgent
Urine Culture Urgent
MIRLANDE Source: U
Specimen Description:
Date Specimen was Collected: 08/24/25
Time Specimen was Collected: 10:36
08/24/25 11:04
Complete Blood Count/With Diff Urgent
Comprehensive Metabolic Panel Urgent
TSH Reflex To Free T4 Urgent
08/24/25 11:12
CefTRIAXone [Rocephin] 1,000 mg IV NOW STA
08/24/25 11:43
DIETARY IP CONSULT Routine
Reason for Consult: change in mental status
Speech Screening from Naya Routine
08/24/25 12:57
Admit/Transfer Patient As Directed
Co-Sign Provider:
Level of Care: Inpatient admission
Assign to:: ICU
Physician / Group: paulette mon
Diagnosis: septic shock
Reason for Hospitalization: septic shock
Expected length of stay greater than two midnights?: Yes
ELOS- Estimated Length of Stay in days: 3
I certify the patient meets the requirements for IP care: Yes
PRN Pain Medication Management As Directed
May give lesser potent ordered pain med per pt: Yes
preference::
Protocol:: Medication orders for pain may be administered in a
manner that supports deferring to patient preference
when the pt is:
- Requesting an ordered lesser potent pain medication.
Least to most potent pain medications are defined
as: acetaminophen < NSAID < tramadol < opioids
(morphine, oxycodone, hydromorphone).
- Requesting a lesser dose of the same medication IF
ORDERED.
- Requesting a less intrusive route of administration
if both routes are prescribed by the provider (PO <
IV).
08/24/25 12:58
Code Status As Directed
Resuscitation Status: Full Code
08/24/25 13:17
Blood Culture Q30M
MIRLANDE Source: Blood/Venous
Specimen Description:
Blood Culture Q30M
MIRLANDE Source: Blood/Venous
Specimen Description:
08/24/25 13:30
NORepinephrine 4 MG/250 ML [Levophed] 4 mg in 250 ml IV PER PROTOCOL
Initial dose in mcg/min, then titrate:: 2
Titrate to keep:: SBP > 90 mmHg
Titrate by mcg/min:: 1-2 mcg/min
Frequency of titrations (minutes):: 5
Maximum dose in ICU in mcg/min:: 30
Maximum dose in IMU in mcg/min:: 8
Maximum dose in IVU in mcg/min:: 4
Begin to taper infusion when:: Remained at goal for 4hrs
Taper by mcg/min:: 1-2 mcg/min
Frequency of taper (minutes) if patient maintains goal:: 30
Taper to off?: Yes
If infusion off & no longer maintaining goal:: Contact Provider
08/24/25 14:16
Acetaminophen [Tylenol/Feverall] 650 mg RECTAL Q4HPRN PRN
Acetaminophen [Tylenol] 650 mg PO Q4HPRN PRN
CefTRIAXone [Rocephin] 1,000 mg IV Q24H
Dextrose 50%-Water [Dextrose 50% Syringe] 12.5 grams IV [id number] PRN
Glucagon [GlucaGen] 1 mg IM PRN PRN
Lactated Ringers [Lr] 1,000 ml IV 80 mls/hr
08/24/25 14:16
SENIOR EXECUTIVE COMPENSATION ANALYST Oncology Consult Routine
Consulting Provider: Lore Willard
Was physician already notified: Yes
Car Inspector Consult Routine
Consulting Provider: Dejuan Nava
Was physician already notified: Yes
Activity As Directed
Activity Level: As Tolerated
Bedside Glucose Monitoring As Directed
Frequency: AC&HS
Additional Instructions:: Change to q6h if pt on TPN, tube feeding or not eating
Intake/ Output As Directed
Frequency: Per unit guidelines
Vital Signs As Directed
Frequency: Per unit guidelines
Weight As Directed
Frequency: Daily
Ot Eval And Treat Routine
Pt Eval And Treat Routine
Activity Level: As Tolerated
DX Deep Vein Thrombosis Video Routine
08/24/25 15:01
Lactic Acid Q4H
Comment: repeat q4 hours x 4 or until less than 2 mmol/L
08/24/25 16:30
Insulin Aspart Corrective Low [Novolog Flexpen-Low Resistance] See Protocol SC AC
08/24/25 18:00
lovastatin 40 mg PO QPM
08/24/25 20:00
Heparin 5,000 units SC Q12
08/24/25 22:00
Famotidine [Pepcid] 10 mg PO HS
Tamsulosin [Flomax] 0.4 mg PO HS
gabapentin 200 mg PO HS
08/25/25 06:00
Complete Blood Count/No Diff IN AM
Glycohemoglobin (HgbA1c) IN AM
08/25/25 08:00
Aspirin Chewable [Low Strength Aspirin] 81 mg PO DAILY
Gabapentin [Neurontin] 100 mg PO DAILY
08/25/25 12:00
Ferrous Sulfate [Feosol] 325 mg PO NOON
08/26/25 06:00
Complete Blood Count/No Diff IN AM
08/27/25 06:00
Complete Blood Count/No Diff IN AM
08/28/25 06:00
Complete Blood Count/No Diff IN AM
Abnormal Lab Results
08/24/25 08/24/25 08/24/25
09:36 10:22 10:37
WBC
RBC
Hgb
Hct
MCH
MCHC
RDW
Abs Immat Gran (auto)
Absolute Neuts (auto)
Absolute Lymphs (auto)
Immature Gran %
Neutrophils %
Lymphocytes %
Sodium
Chloride
Carbon Dioxide
BUN
Creatinine
Glucose
Calcium
Total Bilirubin
Total Protein
Albumin
Ur Occult Blood Reflex 4+ A
(Negative)
Urine Nitrite (Reflex) Positive A
(Negative)
Leukocyte Esterase Rfl 3+ A
(Negative)
Urine WBC (Reflex) 60-70 A /HPF
(0-5)
Urine Bacteria (Reflex) Few A
(Negative)
Urine Glucose 2+ A
(Negative)
Urine Albumin (Reflex) 3+ A
(Neg - Trace)
POC Glucose 171 H mg/dl 134 H mg/dl
(70-99) (70-99)
08/24/25 08/24/25 08/24/25
11:04 11:27 12:36
WBC 12.9 H 10^3/uL
(4.8-10.8)
RBC 3.04 L 10^6/uL
(4.20-5.40)
Hgb 8.1 L g/dL
(12.0-16.0)
Hct 25.3 L %
(37.0-47.0)
MCH 26.6 L pg
(27.0-31.0)
MCHC 32.0 L g/dL
(33.0-37.0)
RDW 16.0 H %
(11.5-14.5)
Abs Immat Gran (auto) 0.1 H 10^3/uL
(0-0.05)
Absolute Neuts (auto) 11.5 H 10^3/uL
(1.4-6.5)
Absolute Lymphs (auto) 0.8 L 10^3/uL
(1.2-3.4)
Immature Gran % 0.7 H %
(0-0.5)
Neutrophils % 89.2 H %
(42.2-75.2)
Lymphocytes % 6.4 L %
(20.5-51.1)
Sodium 134 L mmol/L
(135-145)
Chloride 110 H mmol/L
(98-107)
Carbon Dioxide 18 L mmol/L
(22-30)
BUN 54 H mg/dl
(7-17)
Creatinine 1.6 H mg/dL
(0.6-1.0)
Glucose 118 H mg/dl
(70-99)
Calcium 7.7 L mg/dl
(8.4-10.2)
Total Bilirubin < 0.1 L mg/dl
(0.2-1.3)
Total Protein 5.5 L g/dl
(6.3-8.2)
Albumin 2.7 L g/dl
(3.5-5.0)
Ur Occult Blood Reflex
Urine Nitrite (Reflex)
Leukocyte Esterase Rfl
Urine WBC (Reflex)
Urine Bacteria (Reflex)
Urine Glucose
Urine Albumin (Reflex)
POC Glucose 144 H mg/dl 238 H mg/dl
(70-99) (70-99)
08/24/25 11:04
08/24/25 11:04
Vital Signs
Initial and Last Documented VS:
Initial Vital Signs
Temp Pulse Resp BP Pulse Ox
93.3 F L 66 18 93/57 98
08/24/25 09:43 08/24/25 09:43 08/24/25 09:43 08/24/25 09:43 08/24/25 09:43
Last Documented Vital Signs
Temp Pulse Resp BP Pulse Ox
97.7 F 72 19 99/53 97
08/24/25 15:47 08/24/25 14:31 08/24/25 14:31 08/24/25 14:00 08/24/25 14:31
<ROXY Castle - Last Filed: 08/24/25 16:37>
MDM/Problems Addressed
Differential Diagnosis Includes:
not limited to: hypoglycemia, hypotension , infection
MDM/Problems Addressed:
As documented patient is an 89-year-old female found unresponsive at home. Patient was recently started on insulin a week ago and within this past week her insulin was increased. Patient was found to be hypoglycemic with blood sugar in the 20s and
hypotensive as well. She was given D5 fluids prior to arrival. Patient arrived lethargic however able to state her name. Sugar has been in the 100s here. Blood pressure has been in the 80s. Case discussed with ED physician who evaluated
patient. D5 half-normal saline infusing. Patient was found to be hypothermic with a temperature of 93 and Vaibhav hugger was applied. Daughter reports for the past 1 week patient has been very weak and not herself. She was found to have a UTI here
and IV antibiotics initiated. White count was elevated at 12.9 hemoglobin baseline 8.1. As per daughter she does have chronic kidney disease creatinine today is 1.6 previously and Nette of 0.9.
Chronic conditions affecting care:
diabetic ,recently started on insulin and doses increased
<ROXY Castle - Last Filed: 08/24/25 16:37>
*Radiology
Radiology exam reviewed: radiology read reviewed
*Pulse Oximetry
SaO2: 95
Oxygen Mode of Delivery: Room air
Patient hypoxic: no
*EKG
Interpreted by ED Provider?: Yes
Interpretation: abnormal
Heart Rate: 69
Rate: normal
Rhythm: sinus
Ischemia: non-specific ST changes
*Critical Care Note
Total Time (30-74mins, 75-104mins- exclusive of procedures): Not Applicable
ED Attending Note
<ROXY Castle - Last Filed: 08/24/25 16:37>
-
Portions of this chart may have been created with voice recognition software.� Occasional wrong word or��sound alike� substitutions may have occurred due to the inherent limitations of voice recognition software.
<Hasmukh Harley DO - Last Filed: 08/24/25 09:57>
ED Attending Note
Patient seen and examined by attending physician: Yes
I performed the substantive portion of visit, reviewed & personally made and approve the management plan that is documented in note by myself or GAYATRI.: Yes
ED Attending Note:
I agree with Laura's note
Pt found unresponsive at home. Found hypoglycemic by medics. Mental status improved withi IV dextrose. Pt has recently had medication changes for diabetes.
General: Sleeping but arousable oriented to person and place
Vitals: unremarkable
Head: Atraumatic
Eyes: Pupils equal, EOMI
Throat: Airway intact, no exudates, dry mucosa
Neck: Trachea midline
Abd: Soft, Nontender, No pulsatile mass
Neuro: Nonfocal
Skin: Warm, dry, no rash
Extremities: pulses equal b/l, no edema
Patient presents with hyperglycemia. She is hypothermic as well likely due to the hypoglycemia. She was given second IV dextrose by medics. We moraima start D5 normal saline here. Check labs as well as urine for infection.
Discharge Plan
Departure
Patient Disposition: Admit
Date of Disposition: 08/24/25
Time of Disposition: 11:58
Admit to: Med/Surg
Admit to doctor: hospitalist
Presentation/result/management discussed w/ accepting MD/DO: Hospitalist
Patient with high blood pressure during this ER visit?: No
Condition: Fair
Covid-19: Not Applicable
Discharge Problem:
Hypoglycemia, Hypothermia, Anemia
Interventions
Interventions:
*General Assessment Last Done: 08/24/25 10:07
*Neglect/Abuse Screening Last Done: 08/24/25 10:07
*ED- Fall Risk Assessment Last Done: 08/24/25 09:43
*ED COVID-19 Vaccine History Last Done: 08/24/25 09:43
*Nursing Disposition Last Done: 08/24/25 14:29
ED- Pulmonary Assessment Last Done: 08/24/25 11:24
ED- Neurological Assessment Last Done: 08/24/25 11:14
ED- Cardiac Assessment Last Done: 08/24/25 11:24
ED Swallowing Screen Last Done: 08/24/25 11:42
Discharge Date and Time
Discharge Date/Time: 08/24/25 14:15
[2025-08-24] MEDS: D5/0.9% SODIUM CHLORIDE 1000 IV (09:51)
[2025-08-24 10:25] LABS: Glucose - Point of Care 134 mg/dl (70-99)
[2025-08-24 10:49] LABS: Urine Character Cloudy (Clear)
[2025-08-24 10:55] LABS: Urine Red Blood Cell 0-2 /HPF (0-2); Urine White Cell 60-70 /HPF (0-5)
[2025-08-24 11:11] LABS: Hematocrit 25.3 % (37.0-47.0); Hemoglobin 8.1 g/dL (12.0-16.0); Mean Corp Hgb Conc. 32.0 g/dL (33.0-37.0); Mean Corpuscular Volume 83.2 fL (81.0-99.0); Nucleated Red Blood Cells % 0 %; Platelet Count 342 10^3/uL (130-400); Red Cell Dist. Width 16.0 % (11.5-14.5)
[2025-08-24] MEDS: ROCEPHIN 1000 MG IV (11:17)
[2025-08-24 11:28] LABS: Glucose - Point of Care 144 mg/dl (70-99)
[2025-08-24 11:31] LABS: ALT (SGPT) 14 U/L (0-35); AST (SGOT) 17 U/L (14-36); Albumin 2.7 g/dl (3.5-5.0); Alkaline Phosphatase 66 U/L (38-126); Blood Urea Nitrogen 54 mg/dl (7-17); Calcium 7.7 mg/dl (8.4-10.2); Carbon Dioxide 18 mmol/L (22-30); Chloride 110 mmol/L (98-107); Estimated Creatinine Clearance 15 ml/min; Glucose 118 mg/dl (70-99); Potassium 5.0 mmol/L (3.5-5.1); Sodium 134 mmol/L (135-145); Total Protein 5.5 g/dl (6.3-8.2); eGFR 30.83
--- NOTE | 2025-08-24 12:21 | HPS.HSE ---
Addendum entered and electronically signed by ROXY Short 08/24/25 15:31:
Pessary removed by TOWEL ROLLING MACHINE OPERATOR. TOWEL ROLLING MACHINE OPERATOR Would like to do vaginal/speculum exam when she is more at her baseline. consider uro metal wire coating operator consult when she is more stable
Original Note:
Family Physician
-
Family Physician: NOT KNOW UNKNOWN - PT DOES
Chief Complaint
-
unresponsive.
History of Present Illness
89-year-old female past medical history of diabetes, anemia CHF chronic kidney failure recently started on insulin 2 weeks ago, heart failure, hypertension hyperlipidemia presented to us with lethargy. patient was found unresponsive at
home.patient was noted to have elevated blood sugar during her routine blood work as outpatient. Her steel plate printer increased her insulin from 3 units to 5 units yesterday and Lantus 11 units to 13 units. She usually does not take her regular
insulin at home and she is does not eat very well. she only takes her insulin, when she is eating regular food. Yesterday her daughter gave her increased dose of insulin 3 times a day as well as Lantus. patient ate 3 meals yesterday as well. As
per daughter, she is sleeping more than usual for past 1 week. She seemed more confused as well. Patient denies any headache, dizziness or syncope. Patient denies fever, chills, cough, congestion. Patient denies chest pain or short of breath.
Patient denies pain, nausea, vomiting. Patient denies dysuria, hematuria.
At home she was noted hypoglycemic, hypotensive. She was noted hypothermic here.
Admitting with septic shock likely secondary to UTI. Patient received a dose of ceftriaxone, D5 normal saline. Admitting for further management
Medical History
Past Medical History
Past Medical History: Reports Other
Additional Past Medical History:
Heart murmur
Hyperlipidemia
Hypertension
Hernia
Post prolapsed bladder
Past Surgical History: Reports Other
Additional Past Surgical History:
Bladder pessary
Left hip surgery
Social History
Tobacco: Non-smoker
Alcohol: None
Drug: None
Personal: Single
Living: With Family
Family History
Family History: Not pertinent
Allergies / Home Medications
Allergies reflects when Allergies were last updated in [facility].
Home Medications with original date entered in [facility]
Allergy/Medication List:
Allergies
Allergy/AdvReac Type Severity Reaction Status Date / Time
Sulfa (Sulfonamide Allergy Unknown Verified 03/08/25 18:49
Antibiotics)
Home Medications
gabapentin 100 mg capsule 100 mg PO DAILY Pain 12/30/24
gabapentin 100 mg tablet 200 mg PO HS Pain 12/30/24
therapeutic multivitamin 1 tab PO DAILY Supplement 12/30/24
aspirin 81 mg chewable tablet 81 mg PO DAILY Heart disease/condition #30 tabs 01/04/25
melatonin 5 mg tablet 5 mg PO HSPRN PRN sleep 01/31/25
acetaminophen 325 mg tablet (Tylenol) 650 mg PO Q6HPRN PRN mild pain 03/08/25
ferrous sulfate 325 mg (65 mg iron) tablet (FeroSul) 325 mg PO NOON Supplement 03/08/25
lovastatin 40 mg tablet 40 mg PO QPM High Cholesterol 03/08/25
cholecalciferol (vitamin D3) 50 mcg (2,000 unit) capsule (Vitamin D3) 50 mcg PO DAILY Defeciency #30 caps 03/13/25
famotidine 20 mg tablet 20 mg PO HS Gastrointestinal issue #30 tabs 03/13/25
furosemide 20 mg tablet (Lasix) 20 mg PO Q48H Fluid Retention/Swelling #0 tabs 03/13/25
metoprolol succinate 25 mg tablet,extended release 24 hr 25 mg PO DAILY Heart disease/condition 30 days #30 tabs 03/13/25
tamsulosin 0.4 mg capsule 0.4 mg PO HS Urinary issue #30 caps 03/13/25
valsartan 40 mg tablet 40 mg PO HS Blood Pressure #0 tabs 03/13/25
insulin glargine 100 unit/mL (3 mL) subcutaneous pen (Lantus Solostar U-100 Insulin) 13 unit SC HS Diabetes 08/24/25
insulin lispro 100 unit/mL subcutaneous pen (Humalog KwikPen (U-100) Insulin) 5 sliding scale dose SC AC 08/24/25
metformin 1,000 mg tablet 1,000 mg PO BID 08/24/25
Review of Systems
-
Constitutional: Reports No Symptoms
EENT: Reports No Symptoms
Respiratory: Reports No Symptoms
Cardiac: Reports No Symptoms
Abdomen/GI: Reports No Symptoms
: Reports No Symptoms
Musculoskeletal: Reports No Symptoms
Skin: Reports No Symptoms
Neurological: Reports No Symptoms
Endocrine: Reports No Symptoms
Hematologic/Lymphatic: Reports No Symptoms
Psych: Reports No Symptoms
Physical Exam
Vital Signs
Vital Signs
Temp Pulse Resp BP Pulse Ox
93.5 F L 65 17 86/51 95
08/24/25 11:13 08/24/25 11:13 08/24/25 11:13 08/24/25 11:13 08/24/25 12:06
Physical Exam
General: Well Developed, Well Nourished and No Apparent Distress
HEENT: NormoCephalic, Moist mucous membranes and Atraumatic
Respiratory: Clear
Cardiac: S1/S2 and Regular Rhythm; No Murmur or Rub
GI: Soft, Non Tender, Non Distended and Normal Bowel Sounds; No Organomegaly
Rectal: Deferred by Provider
Musculoskeletal: No Clubbing, No Cyanosis and No Edema
Skin: Rash and Other (wound on her secondary toe and noted redness on the saccrum. )
Neuro: Nonfocal/grossly intact
Laboratory Results
-
08/24/25 11:04
08/24/25 11:04
Laboratory Results
Total Bilirubin < 0.1 mg/dl (0.2-1.3) L 08/24/25 11:04
AST 17 U/L (14-36) 08/24/25 11:04
ALT 14 U/L (0-35) 08/24/25 11:04
Alkaline Phosphatase 66 U/L (38-126) 08/24/25 11:04
Data Reviewed
-
Lab Data: Labs Reviewed by me
Impression/Plan
-
# Unresponsive secondary to hypoglycemia
#type 2 Dm
- Blood sugar improved with fluids
-hold insulin
-sliding scale
-Hold metformin
-CHO diet
# Hypotension/hypothermia likely secondary to UTI
# Septic shock as evident by hypothermia/hypotension
-WBCs 12.9
- IV ceftriaxone continue
- Tylenol as needed for fever or pain
-obtain blood culture
-urine culture pending.
# Anemia of chronic disease
- Hemoglobin stable 8.1, no activity
- Continue to monitor
- Ferrous sulfate continue
# Acute kidney injury ckd stage 2b/metabolic acidosis likely dehydration
- Creatinine 1.6
- Fluids continued
- BMP in a.m.
#uterus pessary
-not checked in few years
-applied anthropologist consulted
# Chronic HFMrEF
Echo 01/01/2025-LV mildly dilated. Mild to moderate reduced LV systolic function. EF 40 to 45%. Basal to mid inferolateral hypokinesis. Stage II diastolic dysfunction suggestive of abnormal relaxation and increased filling pressures. Moderate MR.
Mild AI. Mild to moderate TR. PASP 40 mmHg.
-Hold Lasix
- Strict JOSHUA, daily weight
# Essential hypertension
- At present patient is hypotensive
- Hold metoprolol and valsartan
# Hyperlipidemia-continue statin
# Diabetic neuropathy-Neurontin as tolerated
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
# Severe discogenic DJD lumbar spine
# DVT Prophylaxis- SC Heparin
# Full CODE
[2025-08-24 12:39] LABS: Glucose - Point of Care 238 mg/dl (70-99)
--- NOTE | 2025-08-24 13:04 | W.PN.UPDATE ---
Update Note
Progress Note Update
I could not get any information due to lethargy
Information gathered by chart review and speaking with the ER staff.
This note serves as an addendum to the H&P by litigation coordinator GAYATRI�
Sammi YAKELIN�
HPI�
89F from Home wiht daughter , found unresponsive at home, BGs 20s , Sever hypotensive
Relevant VS
Temp Pulse Resp BP Pulse Ox
94.7 F L 72 27 94/57 98
08/24/25 12:35 08/24/25 12:30 08/24/25 12:30 08/24/25 12:20 08/24/25 12:20
Reviewed VS: Hypotensive. Hypothermic T @ 93
PE
Gen: lethargic , just able to sy her name , now improving wkefullness
Neck:
Lungs: CTA
Cor: RRR S1 S2
Abdomen:�soft and benign
ASSOCIATE PROGRAMMER: NFND
MS: B/L Brown edema
Relevant Data�
Abnormal Lab Results
08/24/25 08/24/25 08/24/25
09:36 10:22 10:37
WBC
RBC
Hgb
Hct
MCH
MCHC
RDW
Abs Immat Gran (auto)
Absolute Neuts (auto)
Absolute Lymphs (auto)
Immature Gran %
Neutrophils %
Lymphocytes %
Sodium
Chloride
Carbon Dioxide
BUN
Creatinine
Glucose
Calcium
Total Bilirubin
Total Protein
Albumin
Ur Occult Blood Reflex 4+ A
Urine Nitrite (Reflex) Positive A
Leukocyte Esterase Rfl 3+ A
Urine WBC (Reflex) 60-70 A
Urine Bacteria (Reflex) Few A
Urine Glucose 2+ A
Urine Albumin (Reflex) 3+ A
POC Glucose 171 H 134 H
08/24/25 08/24/25 08/24/25
11:04 11:27 12:36
WBC 12.9 H
RBC 3.04 L
Hgb 8.1 L
Hct 25.3 L
MCH 26.6 L
MCHC 32.0 L
RDW 16.0 H
Abs Immat Gran (auto) 0.1 H
Absolute Neuts (auto) 11.5 H
Absolute Lymphs (auto) 0.8 L
Immature Gran % 0.7 H
Neutrophils % 89.2 H
Lymphocytes % 6.4 L
Sodium 134 L
Chloride 110 H
Carbon Dioxide 18 L
BUN 54 H
Creatinine 1.6 H
Glucose 118 H
Calcium 7.7 L
Total Bilirubin < 0.1 L
Total Protein 5.5 L
Albumin 2.7 L
Ur Occult Blood Reflex
Urine Nitrite (Reflex)
Leukocyte Esterase Rfl
Urine WBC (Reflex)
Urine Bacteria (Reflex)
Urine Glucose
Urine Albumin (Reflex)
POC Glucose 144 H 238 H
EKG : SINUS RHYTHM WITH OCCASIONAL PREMATURE VENTRICULAR COMPLEXES
LOW VOLTAGE QRS
Poor R-wave progression ; consider anterior infarct, lead placement, or normal
variant
ABNORMAL ECG
WHEN COMPARED WITH ECG OF 08-Mar-2025 15:11,
PREMATURE VENTRICULAR COMPLEXES ARE NOW PRESENT
QRS VOLTAGE HAS DECREASED
NONSPECIFIC T WAVE ABNORMALITY, WORSE IN INFERIOR LEADS
T WAVE INVERSION NO LONGER EVIDENT IN LATERAL LEADS
01/01/2025 TTE
-LV mildly dilated.
- Mild to moderate reduced LV systolic function.
- EF 40 to 45%.
- Basal to mid inferolateral hypokinesis.
- Stage II diastolic dysfunction suggestive of abnormal relaxation and increased filling pressures.
- Moderate MR. Mild AI. Mild to moderate TR. PASP 40 mmHg.
Last hospitalist admission: DATE OF ADMISSION: 03/08/2025 -DATE OF DISCHARGE: 03/13/2025
DISCHARGE DIAGNOSES:
1. Septic shock secondary to cellulitis and urinary tract
infection.
2. Acute kidney injury.
3. Anemia.
4. Chronic heart failure.
5. Hypertension.
6. Hyperlipidemia.
7. Diabetes.
8. Diabetic neuropathy.
9. Paraesophageal hernia.
10. Vitamin D deficiency.
ASSESSMENT & PLAN
Present with symptomatic profound hypoglycemia
HX Diabetes-Last A1C 10.1
- Holding Farxiga in 1 week
- Hold Lantus
- Initiate ISS low
AMS - found unresponsive at home
- pw lethargy but able to say her name
- BGs 20s - symptomatic profound hypoglycemia
- recently started on insulin one week ago and within the past week insulin was increased
- D5 fluids prior to arrival. - --> BG was 100s
Sepsis with presumed shock - Hypotensive. Hypothermic T 93. WCC 12.9. Pending Lactate
UTI suggestive by significant abnormal UA
- s/p septic fluid NS volus 1 L
- Septic fluid - switch to LR IVF @ 80 /H
- agree with IV CFTZ
- strict IOs daily , daily wt
- f/u LA
ALEJANDRA due to to septic shock
- Fluid resuscitation with NS bolus f/ollow ny LR IVF
- trend Cr
- Daily IOs and daily wt
- Trend RFts
HX Pessary placement over 20 yrs by [facility] Ticket Seller for UVP
HX Frequent UTI
- GYNAE consult requested by Daughter at bed side
HX Chronic HFmEF
- B/L Brown edema
- hold valsartan, Lasix and Beta-blockers
- Hold Farxiga
- strict IOs daily , daily wt
Essential hypertension
- Holding beta-marisela and valsartan.
Hyperlipidemia
- c/w statin
HX Diabetic neuropathy-Neurontin as tolerated
HX Moderate to large paraesophageal hernia
HX Severe discogenic DJD lumbar spine
HX Hypoalbuminemia
Total Critical Care Time__45___ minutes.
I was immediately available to the patient and staff. I personally examined, reviewed labs, diagnostic images/reports, interpretations, treatment plans, discussed patient care with other providers and family or caregivers (if patient is unable to
make decisions), entered orders as appropriate and documented the medical record.
DVT Px: SQH
Code: Full code
ICU
[2025-08-24] MEDS: LEVOPHED 250 IV (13:35)
--- NOTE | 2025-08-24 14:11 | CON.INTV ---
Consultation
Consultation Request
Date/Time Consultation Requested: 08/24/25 13:00
Date/Time Consultation Performed: 08/24/25 13:30
Requesting Provider: Sammi Roth
Performing Provider: Lito Simmons DO (Resident); Dejuan Nava MD
Reason for Consultation: Septic Shock, ICU Management
Medical History
-
Chief Complaint: Altered Mental Status
History of Present Illness:
Court Wagner is an 89F w/ PMHx DM (recently started on AC lispro 2 weeks ago), anemia of chronic disease, CHF, CKD, HTN, and HLD who is presenting with altered mental status. Patient was found unresponsive this morning at home by her daughter.
Patient is currently somnolent and majority of the history is taken from the daughter. Daughter states that approximately 1 week ago she started to notice some personality changes in the patient. Patient did not appear ill, however she was 'not as
feisty' and seemed to be sleeping more often. Otherwise, last night the patient was in her usual state of health. This morning the patient did not wake up from bed, and the daughter tried to wake her but she could not. Upon EMS arrival, patient
was found to be hypoglycemic at 23 and hypotensive at 53 systolic. The daughter states that over the past couple of weeks the patient has not complained of headaches, dizziness, syncope, fevers, chills, cough, congestion, chest pain, SOB, abdominal
pain, nausea, vomiting, dysuria, or hematuria. She does note that the patient had been complaining of vaginal pain with wiping, and had noticed some blood on her pad on 1 occasion.
With regard to blood sugar control, daughter notes that the patient has been on Lantus for some time now, however 2 weeks she was started on 3 units of AC lispro 3 times a day and her Lantus was increased from 11 to 13 units nightly since her blood
sugars have been largely uncontrolled. Daughter notes that blood sugars tend to be worse at night reaching as high as 400, and right after meals reaching as high as 400. The patient wears a CGM, and the daughter has never noticed a blood sugar
below 86. 2 days ago, patient's AC lispro was changed by her furnace tender to 5 units at mealtime. Yesterday was the first day that she received 5 units on 3 different meals.
ED COURSE
BP on arrival 93/57, HR 66, RR 18, T93.3F, 98% R/A
Wound noted on the second toe of the right foot, redness on sacrum
WBC 12.9 K (PMN predominance), Hb 8.1
NA 134, K5, CL 110, CO2 18, BUN 54, creatinine 1.6 (baseline 0.9)
Ca 7.7, albumin 2.7
TSH normal, LFTs normal
UA 4+ blood, positive nitrates, LE 3+, 60-70 WBCs, few bacteria
BCx X2 pending, UCX pending
EKG SR with occasional PVCs, poor R wave progression, consider anterior infarct
In the ED, patient received a dose of Rocephin and was started on D5 normal saline
Past Medical History
Past Medical History: Other (DM (recently started on AC lispro 2 weeks ago), anemia of chronic disease, CHF, CKD, HTN, and HLD)
Past Surgical History: Other (Bladder pessary, left hip surgery)
Social History
Tobacco: Non-smoker
Alcohol: None
Drug: None
Living: With Family
Allergies / Home Medications
Allergies
Allergy/AdvReac Type Severity Reaction Status Date / Time
Sulfa (Sulfonamide Allergy Unknown Verified 03/08/25 18:49
Antibiotics)
Home Medications
�Medication �Instructions �Recorded �Confirmed �Last Taken �Type
gabapentin 100 mg capsule 100 mg PO DAILY Pain 12/30/24 08/24/25 08/23/25 History
gabapentin 100 mg tablet 200 mg PO HS Pain 12/30/24 08/24/25 08/23/25 History
therapeutic multivitamin 1 tab PO DAILY Supplement 12/30/24 08/24/25 08/23/25 History
aspirin 81 mg chewable tablet 81 mg PO DAILY Heart 0208/24/25 08/23/25 Rx
disease/condition #30 tabs
melatonin 5 mg tablet 5 mg PO HSPRN PRN sleep 01/31/25 08/24/25 Unknown History
acetaminophen 325 mg tablet 650 mg PO Q6HPRN PRN mild pain 03/08/25 08/24/25 08/23/25 History
(Tylenol)
ferrous sulfate 325 mg (65 mg 325 mg PO NOON Supplement 03/08/25 08/24/25 08/23/25 History
iron) tablet (FeroSul)
lovastatin 40 mg tablet 40 mg PO QPM High Cholesterol 03/08/25 08/24/25 08/23/25 History
cholecalciferol (vitamin D3) 50 50 mcg PO DAILY Defeciency #30 caps 03/13/25 08/24/25 08/23/25 Rx
mcg (2,000 unit) capsule (Vitamin
D3)
famotidine 20 mg tablet 20 mg PO HS Gastrointestinal issue 03/13/25 08/24/25 08/23/25 Rx
#30 tabs
furosemide 20 mg tablet (Lasix) 20 mg PO Q48H Fluid 03/13/25 08/24/25 03/07/25 Rx
Retention/Swelling #0 tabs
metoprolol succinate 25 mg 25 mg PO DAILY Heart 03/13/25 08/24/25 08/23/25 Rx
tablet,extended release 24 hr disease/condition 30 days #30 tabs
tamsulosin 0.4 mg capsule 0.4 mg PO HS Urinary issue #30 caps 03/13/25 08/24/25 08/23/25 Rx
valsartan 40 mg tablet 40 mg PO HS Blood Pressure #0 tabs 03/13/25 08/24/25 08/23/25 Rx
insulin glargine 100 unit/mL (3 13 unit SC HS Diabetes 08/24/25 08/24/25 08/23/25 History
mL) subcutaneous pen (Lantus
Solostar U-100 Insulin)
insulin lispro 100 unit/mL 5 sliding scale dose SC AC 08/24/25 08/24/25 08/23/25 History
subcutaneous pen (Humalog KwikPen
(U-100) Insulin)
metformin 1,000 mg tablet 1,000 mg PO BID 08/24/25 08/24/25 08/23/25 History
Review of Systems
-
Unable to Obtain full review of systems at this time due to: Acuity
History Source: Family
All other systems: Negative unless noted
Vitals / Labs / Diagnostic Testing
Vital Signs
Temp Pulse Resp BP Pulse Ox
95.9 F L 72 16 89/47 95
08/24/25 13:39 08/24/25 13:10 08/24/25 13:10 08/24/25 13:10 08/24/25 13:10
Lab Data
08/24/25 11:04
08/24/25 11:04
Diagnostic Testing:
Physical Exam
-
HEENT: Normocephalic, Anicteric and Other (Dry MM)
Cardiovascular: S1/S2, Regular Rhythm and Other (No lower extremity edema)
Respiratory: Non-Labored Respirations
Neurology: Other (Somnolent)
Assessment
-
Court Wagner is a 89F w/ PMHx of T2DM (recently started on AC lispro 2 weeks ago with interval increase in dosing), anemia of chronic disease, CHF, CKD, HTN, and HLD who is presenting with altered mental status and found to have a blood sugar of
23 and systolic blood pressure of 53 this morning by EMS in the field. Patient was started on D5 and given an additional 1L of LR w/ additional BP support with norepinephrine.
Assessment
Septic Shock 2/2 UTI vs. Skin Source vs. Pneumonia
Hypoglycemia
Altered Mental Status
Leukocytosis
Hypothermia
Acute Kidney Injury
Urinary Tract Infection
PLAN
Cardiovascular
Currently on 2U Levophed
Wean to MAP goal > 65
Given low weight, fluids already given are adequate for 30cc/kg resuscitation
Get serum lactate
Hold home BP meds (metoprolol and valsartan)
Hold home Lasix
Respiratory
Possible RLL pneumonia on imaging
Start Doxycycline 100mg IV q12h (would suit for double coverage with skin infections concerns)
Urine Legionella/Strep ordered
Sputum Cx ordered
GI
Patient more awake and alert in ICU
Would recommend swallow evaluation prior to initiation of diet
Renal/
Baseline Cr 0.9, 1.6 today
Repeat BMP @1800
Monitor I/Os
Agree with OFFICE COORDINATOR consult given history of bladder pessary and urine incontinence; could have infection from skin breakdown
ID
Doxycycline as above
Continue Rocephin
Monitor temps and WBCs
Get serum lactate
Heme
DVT prophylaxis SC Heparin
Monitor chronic anemia; transfuse for Hb < 7
Endocrine
Hold home insulin regimen/metformin
Start sliding scale insulin
[2025-08-24] MEDS: LR 1000 IV (14:30)
[2025-08-24] MEDS: D5/0.9% SODIUM CHLORIDE IV (14:34)
[2025-08-24 15:26] LABS: Magnesium 1.2 mg/dl (1.6-2.3)
[2025-08-24] MEDS: FLEXBUMIN 100 IV (15:41)
[2025-08-24 15:48] LABS: APTT 32.1 Sec (23.4-35.0); INR 1.05; PT 14.0 Sec (11.4-14.6)
[2025-08-24] MEDS: MAGNESIUM SULFATE 50 IV (16:17)
[2025-08-24] MEDS: VIBRAMYCIN 260 MG IV (16:41)
[2025-08-24 16:57] LABS: Glucose - Point of Care 177 mg/dl (70-99)
[2025-08-24] MEDS: NOVOLOG FLEXPEN-LOW RESISTANCE 1 UNITS SC (17:30)
--- NOTE | 2025-08-24 17:33 | W.PN.OBG.DWH ---
Today's Communication / Plan
-
pessary removed
anticipate vaginal exam when returns to baseline
barrier creams
recommend consult with urogyn
above reviewed with pt, daughter and Dr. Russell
full consult to follow
Assessment/Plan
-
sepsis
uti
cystocele
Objective Data
-
Laboratory Results
08/24/25 11:04
Vital Signs
Temp Pulse Resp BP Pulse Ox
97.7 F 88 21 121/98 75
08/24/25 15:47 08/24/25 17:15 08/24/25 17:15 08/24/25 16:15 08/24/25 16:45
pleasant elderly female
vulva bus atrophic
pessary with platform removed without difficulty
pessary cleaned and placed in specimen bag and labelled
[2025-08-24] MEDS: LIPITOR 10 MG PO (18:41)
[2025-08-24 19:07] LABS: Blood Urea Nitrogen 45 mg/dl (7-17); Calcium 7.7 mg/dl (8.4-10.2); Carbon Dioxide 18 mmol/L (22-30); Chloride 110 mmol/L (98-107); Estimated Creatinine Clearance 19 ml/min; Glucose 324 mg/dl (70-99); Potassium 5.0 mmol/L (3.5-5.1); Sodium 135 mmol/L (135-145); eGFR 36.19
[2025-08-24] MEDS: HEPARIN 5000 UNITS SC (19:53)
--- NOTE | 2025-08-24 20:00 | PTCARENOTE ---
Received pt. at 1900. Pt. currently in bed. Awake, alert, oriented to self and place. Denies pain/discomfort. Afebrile. Heart rhythm sinus. Blood pressure normotensive. Currently on room air. Lungs sound diminished. Incontinent of bowel and bladder.
Skin as documented. Discussed plan of care with patient. Vital signs stable at this time.
[2025-08-24 21:26] LABS: Glucose - Point of Care 350 mg/dl (70-99)
[2025-08-24] MEDS: TYLENOL 650 MG PO (21:37)
[2025-08-24] MEDS: NOVOLOG FLEXPEN 6 UNITS SC (21:37)
[2025-08-24] MEDS: NEURONTIN 200 MG PO (21:37)
[2025-08-24] MEDS: FLOMAX 0.4 MG PO (21:37)
[2025-08-24] MEDS: PEPCID 10 MG PO (21:38)
[2025-08-24] MEDS: MELATONIN 5 MG PO (22:36)
[2025-08-24] MEDS: CALCIUM GLUCONATE 100 IV (23:24)
[2025-08-24] MEDS: SODIUM BICARBONATE 1150 MEQ IV (23:40)
[2025-08-25] VITALS (27 sets, daily range): BP systolic 82–136; BP diastolic 47–90; PULSE 87–96; O2SAT 94; BMI 18.1
--- NOTE | 2025-08-25 | PTCARENOTE ---
Pt. assessment unchanged. IVF switched to bicarb gtt. Calcium repleted. PRN Tylenol given for pain, see MAR. Vital signs stable at this time.
[2025-08-25 00:53] LABS: Glucose - Point of Care 232 mg/dl (70-99)
--- NOTE | 2025-08-25 04:00 | PTCARENOTE ---
Pt. assessment remains unchanged. AM labs drawn. Vital signs stable at this time.
[2025-08-25 04:08] LABS: Hematocrit 23.5 % (37.0-47.0); Hemoglobin 7.8 g/dL (12.0-16.0); Mean Corp Hgb Conc. 33.2 g/dL (33.0-37.0); Mean Corpuscular Volume 83.6 fL (81.0-99.0); Platelet Count 325 10^3/uL (130-400); Red Cell Dist. Width 15.9 % (11.5-14.5)
[2025-08-25] MEDS: VIBRAMYCIN 260 MG IV ×2 (04:17→16:32)
[2025-08-25 04:29] LABS: ALT (SGPT) 13 U/L (0-35); AST (SGOT) 15 U/L (14-36); Albumin 2.9 g/dl (3.5-5.0); Alkaline Phosphatase 61 U/L (38-126); Blood Urea Nitrogen 43 mg/dl (7-17); Calcium 8.8 mg/dl (8.4-10.2); Carbon Dioxide 21 mmol/L (22-30); Chloride 114 mmol/L (98-107); Estimated Creatinine Clearance 20 ml/min; Glucose 82 mg/dl (70-99); Magnesium 1.9 mg/dl (1.6-2.3); Potassium 5.3 mmol/L (3.5-5.1); Sodium 139 mmol/L (135-145); Total Protein 5.3 g/dl (6.3-8.2); eGFR 39.55
[2025-08-25 04:56] LABS: Glucose - Point of Care 116 mg/dl (70-99)
[2025-08-25] MEDS: HEPARIN 5000 UNITS SC ×2 (07:54→20:12)
[2025-08-25] MEDS: LOW STRENGTH ASPIRIN 81 MG PO (07:56)
[2025-08-25] MEDS: NEURONTIN 100 MG PO (07:56)
[2025-08-25 08:15] LABS: Glucose - Point of Care 82 mg/dl (70-99)
[2025-08-25] MEDS: NOVOLOG FLEXPEN-LOW RESISTANCE SC ×2 (08:19→19:34)
--- NOTE | 2025-08-25 08:22 | W.PN.INTV ---
Today's Communication / Plan
Recommendations
Resume basal�bolus SQ insulin
Avoid hypoglycemia
Goal BG >100 and <180
Now normothermic; use Vaibhav hugger if needed
Continue antibiotics
Follow-up infectious workup
Consult urogynecology
If BP + blood glucose remained stable, then will transfer out of ICU to IMU. Pulmonary service will continue to briefly follow along.
Assessment
-
89-year-old F with PMHx of DM2, chronic HFmrEF, HTN, MR, AI, and PVD who p/w AMS, found unresponsive at home. Pt was in her usual state of health up until 1 week ago when she became less responsive and more sleepy. Her pre-meal insulin was changed
from 3 units to 5 units AC with her first dose being used yesterday. BG this AM was in mid-20s per CGM. Pt has been experiencing groin pain recently with blood seen upon wiping - she does have a pessary in place. Pt found to have abnormal
urinalysis and leukocytosis. Found to have hypothermia to 93.3F initially - vaibhav hugger placed. She is somnolent and responds to voice - she is ASA'CARSARMIUT. Given her low sugar, she was started on D5 NS, and also given ceftriaxone given abnormal
urinalysis. She initially required Levophed given hypotension and admitted to the ICU for further care. Director Surface Transportation services consulted for additional management/recommendations.
Impression:
#DM type II (uncontrolled) c/b hypoglycemia likely due to exogenous insulin
#Hypothermia likely due to above in the setting of sepsis - now normothermic
#Sepsis due to UTI; although she has retrocardiac opacity, she has no clinical symptoms consistent with pneumonia
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
#Complicated UTI
#ALEJANDRA
#Hypomagnesemia
#Chronic anemia
Plan:
- Now that BG is stable, ok to resume basal-bolus SQ insulin
- Continue to monitor BG AC, however if she is not consistently eating meals then would change to q4-6hr with goal BG >100 and <180mg/dL; HbA1c: 10.1 on 03/09/2025; 9.8 now
- Mental status now back to normal
- Avoid hypoglycemia
- Continue rocephin and continue doxy for empiric coverage
- Follow up infectious workup (blood cultures); Legionella + strep pneumoniae urine antigens negative; urine culture is negative; check sputum culture if she can produce a decent sample
- Trend WBC and monitor temperature curve
- Pessary removed by LACE WINDER
- Recommend consult with uro gynecology
- wound care consulted for left 2nd toe-digit and left forefoot wounds
- Renally dose all medications and avoid nephrotoxic agents
- Trend sCr and UOP
- Stop bicarb gtt, and check blood gas and trend serum HCO3
- Maintain normothermia, using Vaibhav hugger as needed
- Maintain SpO2 >90-94%
- Aspiration precautions, keeping HOB >30-45�
- prn nebulized bronchodilators - not currently bronchospastic
- Maintain MAP>65
- Replete electrolytes with K>4, Mg>2
- Trend H/H and transfuse if needed to keep Hb>7g/dL; keep plt>20k, unless there is concern for bleeding then keep plt>50k
- Encourage incentive spirometer use 10x per hour for at least 4 hrs a day
- stress ulcer ppx: N/A as not on pressors
- DVT ppx: HSQ
If BP + blood glucose remained stable, then will transfer out of ICU to IMU. Pulmonary service will continue to briefly follow along.
Total time spent today was 52 minutes for this encounter. Time includes reviewing laboratory test/imaging results, reviewing pertinent medical records, obtaining and reviewing medical history, performing an appropriate exam, ordering medications,
tests and procedures. Time also includes documentation of this encounter, coordinating patient care and communicating with other healthcare professionals. Total time does not include separately billed tests performed on this date of service.
Subjective Dataa
Subjective Data
Date of Service:
Date of Service: August 25, 2025
Chief Complaint: Director Surface Transportation Follow Up
Subjective:
Patient was seen and evaluated today at bedside. She is awake, alert. On room air breathing comfortably. Heart rate 91, BP 103/64 and saturating 94% on room air. Seems that her BP drops whenever she falls asleep. She has no complaints and she
says she feels better today, and that her appetite is back.
Review of Systems
General: Other (Negative unless mentioned above)
Objective Data
Data Reviewed
Vital Signs / I&O / Oxygen:
Vital Signs
Temp Pulse Resp BP Pulse Ox
96.8 F L 72 13 87/51 95
08/25/25 07:00 08/25/25 06:30 08/25/25 06:30 08/25/25 06:00 08/24/25 20:00
Intake and Output
08/24/25 08/25/25 08/26/25
06:59 06:59 06:59
Intake Total 1780 / 1860 240 / 240
Output Total 100 / 100
Balance 1780 / 1860 140 / 140
SaO2 95
Physical Exam
General: Respiratory Distress (negative), Comfortable, Chills (negative) and Sweats (negative)
HEENT: Normocephalic and Anicteric
Cardiovascular: S1-S2 and Peripheral Edema (trace LE edema b/l)
Respiratory: Wheeze (negative), Crackles (Bibasilar), Rhonchi (negative), Non-Labored Respirations and Stridor (negative)
GI: Soft, Non Distended, Non Tender and Normal Bowel Sounds
Neurology: Awake, Alert and Tremors (negative)
Skin: Warm, Dry, Bruising (Lower extremities predominantly in the anterior tibia region) and Other (Chronic wound on her left foot second digit on dorsal surface, as well as a dorsal surface of her forefoot region)
Labs/Micro/Reports
Lab Data
08/25/25 03:55
08/25/25 03:55
Laboratory Results
08/24/25
15:01
PT 14.0
INR 1.05
APTT 32.1
Microbiology
08/24/25 10:37 Urine Urine Culture - Final
08/24/25 10:37 Urine Legionella Urinary Antigen - Final
Negative for Legionella pneumophila Serogroup 1 antigen.
A negative result does not rule out the possiblity of
Legionella infection due to other serogroups or species of
Legionella. Clinical correlation is recommended.
08/24/25 10:37 Urine Streptococcus pneumoniae Antigen (M - Final
Negative for Streptococcus pneumoniae antigen.
A negative result does not exclude infection with
Streptococcus pneumoniae. Clinical correlation is
recommended.
--- NOTE | 2025-08-25 08:27 | W.PN.HOSP.TC ---
Today's Communication/Plan
-
See plan
Assessment / Plan
Assessment / Plan
Physical Exam
General: Not in acute distress
HEENT: Normocephalic
Cardiovascular: S1-S2. RRR.
Respiratory: Crackles bilaterally
GI: Soft, Non Distended, Non Tender and Normal Bowel Sounds
Extremities: Trace edema of the bilateral lower extremities
Neurology: Awake, Alert
Skin: Warm, Dry, Bruising (Lower extremities predominantly in the anterior tibia region) and Other (Chronic wound on her left foot second digit on dorsal surface, as well as a dorsal surface of her forefoot region)
Assessment/Plan
89-year-old female with past medical history of DM2, chronic HFmrEF, HTN, MR, AI, and PVD who presented with encephalopathy, found unresponsive at home. Patient was in her usual state of health up until 1 week prior to presentation, when she became
less responsive and more sleepy. Her pre-meal insulin was changed from 3 units to 5 units AC with her first dose being used on 08/23/25. Blood glucose on 08/24/25 morning was in mid-20s per CGM. Pt has been experiencing groin pain recently with
blood seen upon wiping - she does have a pessary in place. Patient was found to have abnormal urinalysis and leukocytosis. Found to have hypothermia to 93.3F initially - lakshmi hugger placed. She was somnolent and responds to voice . Given her low
sugar, she was started on D5 NS, and also given ceftriaxone given abnormal urinalysis. She initially required Levophed given hypotension and admitted to the ICU for further care.
#Sepsis due to UTI -- and possible pneumonia
#Complicated UTI
#Septic Shock
#History of UTI
-Initially needed Levophed, now weaned off
-Continue Rocephin and Doxycycline
-Follow up infectious workup (blood cultures) and if she can produce sample, then sputum culture as well
-Legionella + strep pneumoniae urine antigens negative
-Urine culture is negative
#Toxic Metabolic Encephalopathy Secondary to Infection and Hypoglycemia, as well as Hypothermia
-Now improved significantly after treatment
#Hypothermia -- suspected from exogenous Insulin and sepsis
-Was on Lakshmi Hugger
-Now resolved
#Acute Kidney Injury
#Metabolic Acidosis
-IV fluids were given -- need to be careful with more IV fluids given CHF
-Resolved with LR IV fluids and bicarb drip
-Monitor BMP
-Hold Valsartan and Lasix
#Chronic HFMrEF
-Echo 01/01/2025-LV mildly dilated. Mild to moderate reduced LV systolic function. EF 40 to 45%. Basal to mid inferolateral hypokinesis. Stage II diastolic dysfunction suggestive of abnormal relaxation and increased filling pressures. Moderate
MR. Mild AI. Mild to moderate TR. PASP 40 mmHg.
-Hold Lasix
-Strict I's and O's, Daily Weights
#Type II Diabetes Mellitus (uncontrolled) complicated by hypoglycemia likely due to exogenous insulin
#Hypoglycemia
-Resume subq Insulin now that glucose has improved
#Hard of Hearing
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
-Wound care consult
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
#Groin pain recently with blood seen on wiping
#History of Urinary Incontinence
-Pessary removed by LAYOUT TECHNICIAN; LAYOUT TECHNICIAN Would like to do vaginal/speculum exam when she is more at her baseline.
-Consultation with uro-gynecology outpatient
-Per unemployment benefits claims taker, patient was living in [facility] and was seen at [facility], where she was getting pessary cleaning every three months until the past two years. Despite pessary, patient continued to have urinary incontinence. She
was evaluated for [place] sling. She had consented to Botox, but had minimal improvement of her symptoms.
-Also per unemployment benefits claims taker, Daughter reports she is also incontinent of stool. She did have a urinary tract infection earlier this year.
-Urology following
#Hypomagnesemia
-Continue to monitor
#Chronic Anemia
#Essential hypertension
-Hold metoprolol and valsartan
#Hyperlipidemia
-Continue statin
#Diabetic neuropathy
-Neurontin as tolerated
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
-Continue Pepcid
#Severe discogenic DJD lumbar spine
DVT Prophylaxis: subq Heparin
Code Status: Full Code
Anticipated Discharge: > 48 hours
Subjective/Interval History
-
Date of Service: August 25, 2025
Patient was seen and examined. She was on Lakshmi Hugger. She was reporting chronic feet pain.
Objective Data
-
Labs:
Laboratory Results
08/25/25
03:55
WBC 7.4
Hgb 7.8 L
Hct 23.5 L
Plt Count 325
Sodium 139
Potassium 5.3 H
Chloride 114 H
Carbon Dioxide 21 L
BUN 43 H
Creatinine 1.3 H
Glucose 82
Calcium 8.8
Total Bilirubin < 0.1 L
AST 15
ALT 13
Alkaline Phosphatase 61
Vital Signs:
Vital Signs
Temp Pulse Resp BP Pulse Ox
95.5 F L 72 13 87/51 95
08/25/25 06:21 08/25/25 06:30 08/25/25 06:30 08/25/25 06:00 08/24/25 20:00
I&O
08/24/25 08/25/25 08/26/25
06:59 06:59 06:59
Intake Total 1779
Balance 1779
[2025-08-25 09:29] LABS: Glycohemoglobin (HgbA1c) 9.8 % (4.0-5.6)
--- NOTE | 2025-08-25 10:04 | PTCARENOTE ---
Complete assessment done and documented. Pt awake and alert, [place]HONE-PAI[place], follows simple commands. HR SR, BP stable at this time. IVF Bicarb 1 meq infusing at 80 ml/hr. Pt with multiple bruises on lower exts, feet elevated on pillow. Vaibhav huggar on
intermittently, keeping T greater that 97.0 R. Pt on R/A, lobes clear, O2 sat=95%. Pt with sm incontinent soft brown BM, pt put on commode and had sm amt of yellow urine, also some incontinent urine, Rani and sacral area excoriated from moisture.
Antifungal oint applied after cleaning areas. Pt sat up for breakfast, eating 100%.
--- NOTE | 2025-08-25 10:22 | CM ---
CM spoke with dtr/Court
Pt moved into her dtr's home earlier in the spring 2024 ([address] [place])
1SH with 1 small threshold step
Pt utilizes a WW for ambulation and dtr provides supervison due to fall risks
Dtr supervises all bathing and dressing tasks due to falls risks
Pt has a shower chair and commode
Pt utilizes a W/C while in the community and unable to self propel
Pt has a working dexcom and dtr administers and manages all medications and insulin
Pt is AxO an with occasional pleasant forgetfulness
Pt has hx with [facility], [facility], [facility], and outpt wound center (closed to service recently)
PCP- Michael Morejon/Eren
Rx- Patrice Willams
Per dtr, pt has new pt appt scheduled at local PCP office, [facility] within the next few months
PT/OT/wound consults placed and pending
CM will follow for dc planning
Admissions updated with new address with dtr's permission
[facility] info regarding home and community based services provided to dtr per her request
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
She will call [facility] to schedule intake
Discharge Disposition -home, follow for needs
[2025-08-25] MEDS: FLUSH (NSS) IV ×2 (12:15)
[2025-08-25] MEDS: FEOSOL 325 MG PO (13:00)
[2025-08-25] MEDS: STERILE WATER FOR INJECTION 10 ML IV (13:00)
[2025-08-25] MEDS: ROCEPHIN 1000 MG IV (13:00)
[2025-08-25 13:06] LABS: Blood Urea Nitrogen 37 mg/dl (7-17); Calcium 7.9 mg/dl (8.4-10.2); Carbon Dioxide 23 mmol/L (22-30); Chloride 109 mmol/L (98-107); Estimated Creatinine Clearance 22 ml/min; Glucose 315 mg/dl (70-99); Potassium 4.5 mmol/L (3.5-5.1); Sodium 136 mmol/L (135-145); eGFR 43.54
[2025-08-25] MEDS: NOVOLOG FLEXPEN-MODERATE RESISTANCE 7 UNITS SC ×2 (13:12→17:09)
[2025-08-25] MEDS: NOVOLIN N vial 0.12 UNITS SC (13:36)
--- NOTE | 2025-08-25 13:46 | PTCARENOTE ---
Accu check at 1218 was 342, accu check rechecked at [address] Nava was made aware. Insulin scale was increased from low dose to mod dose and given. Lantus was added to pt meds ac, and 12 units NPH given. BMP and venous Blood gas drawn.
Pt voided 200 ml urine blood tinged, and had a sm soft BM. Pt cleaned and more zinc oxide skin protectant applied. Pt then assisted OOB to chair with assistance and walker. Needs 1-2 person assist, tolerating OOB well eating lunch now.
[2025-08-25 13:47] LABS: Venous Blood Gas B.E. -2.9 mmol/L (-4 to +4); Venous Blood Gas O2 Sat % 97.8 %
--- NOTE | 2025-08-25 14:25 | W.PN.URO.CBU ---
Today's Communication / Plan
-
no gu changes
Assessment / Plan
-
complex uti in pt with iddm mixed tanmay on micro will defer to erich but suggest nhme po abd then suppression
Diagnosis
-
Date of Service: August 25, 2025
-
Patient Diagnosis:
complex uti prloapse but pvr is 268 sdespite potalpse and botox
Post Op Day:
Subjective
-
feelimg better
Objective
-
Vital Signs
Temp Pulse Resp BP Pulse Ox
97.2 F 92 21 101/49 97
08/25/25 12:00 08/25/25 13:30 08/25/25 13:30 08/25/25 12:40 08/25/25 13:30
Intake and Output
08/24/25 08/25/25 08/26/25
06:59 06:59 06:59
Intake Total 1780 / 1860 760 / 760
Output Total 300 / 300
Balance 1780 / 1860 460 / 460
Intake:
Oral fluids 300 / 300 440 / 440
IV fluids (Total) 1120 / 1200 320 / 320
Lr 1,000 ml @ 80 mls/hr IV . 640 / 640
[id number] WILLEM Rx#:[id number]
Sterile Water For Injection 480 / 560 320 / 320
1000 ml 1,000 ml @ 80 mls/hr IV
.[id number] WILLEM with Sodium
Bicarbonate 150 Meq Rx#:
[id number]
IV piggybacks 360 / 360
Output:
Urine, Voided 300 / 300
Other:
How many times incontinent 1
SMALL amount urine
How many times incontinent 1
MODERATE amount urine
How many times incontinent 1
SATURATED amount urine
Number of approximated MODERATE 1
amounts of urine
Number of approximated LARGE 1
amounts of urine
Laboratory Results
08/25/25 03:55
08/25/25 16:00
Review of Systems
-
: Incontinence
Physical Exam
-
General - well developed, well nourished, no acute distress
Chest - clear bilaterally
Abdomen - soft, non-tender, positive bowel sounds, no CVAT, no incisional pain or distention
Genitalia - normal
Rectal - norprolpase bladder
Skin - warm & dry with no rash
Neuro - AOx3, no motor deficits
Extremities - no clubbing, no cyanosis, no edema
Incision - clean, dry
Dressing - clean, dry, intact
Care Review
Data Reviewed
Discussed with: Nursing and Family
--- NOTE | 2025-08-25 14:31 | PTCARENOTE ---
Dr López in to see pt. Bladder scan done = 268. No pickens to placed at this time as per Dr Mike.
--- NOTE | 2025-08-25 16:49 | W.PN.OBG.DWH ---
Today's Communication / Plan
-
Continue vulvar care with topical zinc oxide
Keep pessary out
Urogyn evaluation as an outpatient to discuss alternative mgmt options for her incontinence/ pelvic floor issues.
Assessment/Plan
-
89yo with Urosepsis and Urinary/Fecal incontinence
-s/p Pessary removal yesterday. Happy that patient has not experienced vaginal bleeding.
-Changes to the labia likely related to chronic irritation and exposure to urine/fecal products. No concern for abscess in the area. Continue with barrier ointment and maintain good hygeine to the area.
-Given that she continue to have incontinence despite having the pessary in place and the fact that the patient does not seem able to maintain good pessary care, I do not think the device should be replaced. Rather I would recomend that she have a
d/w Urogyn as an outpatient to determine what better options are present to manage her symptoms- I called her daughter Court and discussed this with her
-Management of her Urosepsis and other medical conditions per [facility] team and Urology.
Subjective Data
-
Patient feeling better. Does not seem to notice a difference since pessary was removed. States she was never having any VB.
Objective Data
-
Laboratory Results
08/25/25 03:55
08/25/25 16:00
Vital Signs
Temp Pulse Resp BP Pulse Ox
97.2 F 90 21 127/80 96
08/25/25 12:00 08/25/25 16:19 08/25/25 16:19 08/25/25 16:19 08/25/25 16:19
Gen: nad, well appearing, thin
Pelvic: erythema along the entire length of the outer labia majora and slight ulceration along the medial aspect of the labia majora, with ttp. Patient not tolerant of me trying to spread the labia. Exam limited.
[2025-08-25 17:17] LABS: Glucose - Point of Care 305 mg/dl (70-99)
[2025-08-25] MEDS: LIPITOR 10 MG PO (17:19)
--- NOTE | 2025-08-25 17:25 | PTCARENOTE ---
Pt assisted back to bed with walker and 2 person assist, pt tolerated 4hrs in chair well. Pt cleaned for sm soft brown BM, and urine incontinence. Rani care done, zinc ointment applied for moisture excoriation. Pt turned and made comfortable, dinner
was called for before going back to bed. Accu check done was 305. BP has been stable while OOB and warming blanket remains off since the morning. Dr Nava updated, pt to receive his new dose of added lantus tonight, and pt to stay ICU status.
--- NOTE | 2025-08-25 18:18 | PTCARENOTE ---
Rani care done, pure wick placed to help decrease moisture and protect skin. New draw sheets applied. R temp dropping down again, 96.6. Vaibhav alicea paced over patient again.Tylenol 650 mg po given for pt c//o slight sore neck.
[2025-08-25] MEDS: TYLENOL 650 MG PO (18:25)
--- NOTE | 2025-08-25 20:00 | PTCARENOTE ---
Received pt resting in bed, AAOx2, unsure of time. HASTINGS, gen. weakness. WRANGELL B/L. Able to make needs known. SR on tele. BP 90-100s/40s-50s. No edema. Weak DPs. Hypothermic - lakshmi hugger in place. On RA. Lungs diminished. Spo2 97%. + bowel sounds. No
BM this shift. 2000cal diab diet. Incontinent bladder. Cleaned as needed. Pt. turning self in bed.
[2025-08-25] MEDS: NEURONTIN 200 MG PO (22:10)
[2025-08-25] MEDS: PEPCID 10 MG PO (22:10)
[2025-08-25] MEDS: FLOMAX 0.4 MG PO (22:10)
[2025-08-25 22:21] LABS: Glucose - Point of Care 44 mg/dl (70-99)
[2025-08-25 22:35] LABS: Glucose - Point of Care 60 mg/dl (70-99)
[2025-08-25 23:03] LABS: Glucose - Point of Care 120 mg/dl (70-99)
--- NOTE | 2025-08-25 23:20 | PTCARENOTE ---
Hypoglycemic on HS check (44). 4oz juice given, recheck = 60. Another 4oz juice given. Recheck = 120. Pt. asymptomatic throughout. ROXY Chang aware. HS lantus held. Will recheck Q2hx2 and 0300 per protocol. Otherwise, pt without changes. Bathed
with CHG. Now resting calmly.
[2025-08-26] VITALS (31 sets, daily range): BP systolic 96–159; BP diastolic 57–103; BMI 18.3
[2025-08-26 01:11] LABS: Glucose - Point of Care 89 mg/dl (70-99)
[2025-08-26 03:17] LABS: Glucose - Point of Care 99 mg/dl (70-99)
[2025-08-26] MEDS: VIBRAMYCIN 260 MG IV ×2 (03:47→16:22)
--- NOTE | 2025-08-26 03:52 | PTCARENOTE ---
Blood sugars remained stable on Q2H/0300 checks. Pt. sleeping without complaints when undisturbed. New INT Michelle W #20 placed. AM labs drawn. Vaibhav hugger on and off throughout the night to maintain temp >97 deg.
[2025-08-26 04:23] LABS: Blood Urea Nitrogen 36 mg/dl (7-17); Calcium 7.9 mg/dl (8.4-10.2); Carbon Dioxide 24 mmol/L (22-30); Chloride 113 mmol/L (98-107); Estimated Creatinine Clearance 22 ml/min; Glucose 83 mg/dl (70-99); Magnesium 1.5 mg/dl (1.6-2.3); Potassium 4.5 mmol/L (3.5-5.1); Sodium 138 mmol/L (135-145); eGFR 43.54
[2025-08-26 04:49] LABS: Hematocrit 21.0 % (37.0-47.0); Hemoglobin 6.7 g/dL (12.0-16.0); Mean Corp Hgb Conc. 31.9 g/dL (33.0-37.0); Mean Corpuscular Volume 82.7 fL (81.0-99.0); Nucleated Red Blood Cells % 0.3 %; Platelet Count 324 10^3/uL (130-400); Red Cell Dist. Width 15.9 % (11.5-14.5)
[2025-08-26] MEDS: MAGNESIUM SULFATE 50 IV (06:10)
--- NOTE | 2025-08-26 07:15 | PTCARENOTE ---
received patient from ocean transportation intermediary. patient is resting, is AAOx self and place, has had some confusion on time. She is extremely hard of hearing. She remains on room air, oxygen saturation 97%. sinus rhythm on monitor. patient is incontinent of
bowel and bladder. irving area skin is excoriated. Assessment as charted will review orders. bed alarm on.
[2025-08-26] MEDS: NEURONTIN 100 MG PO (07:37)
[2025-08-26] MEDS: LOW STRENGTH ASPIRIN 81 MG PO (07:37)
[2025-08-26] MEDS: HEPARIN 5000 UNITS SC (07:37)
[2025-08-26] MEDS: NOVOLOG FLEXPEN-MODERATE RESISTANCE 1 UNITS SC (07:59)
[2025-08-26 08:06] LABS: Glucose - Point of Care 184 mg/dl (70-99)
--- NOTE | 2025-08-26 08:27 | W.PN.INTV ---
Today's Communication / Plan
Recommendations
Continue basal�bolus SQ insulin, resuming lantus now that her BG are rising again
Avoid hypoglycemia
Goal BG >100 and <180
Now normothermic; use Vaibhav hugger if needed
Continue antibiotics
Follow-up infectious workup
Consult urogynecology - will be seen as an outpatient by Dr. Michael Sandoval
Patient is stable for transfer out of ICU to telemetry. No additional recommendations at this time. Local Combination Truck Driver/Pulmonary service will now sign off. Please reconsult if there are any additional questions/concerns, or if patient's respiratory
status deteriorates.
Assessment
-
89-year-old F with PMHx of DM2, chronic HFmrEF, HTN, MR, AI, and PVD who p/w AMS, found unresponsive at home. Pt was in her usual state of health up until 1 week ago when she became less responsive and more sleepy. Her pre-meal insulin was changed
from 3 units to 5 units AC with her first dose being used yesterday. BG this AM was in mid-20s per CGM. Pt has been experiencing groin pain recently with blood seen upon wiping - she does have a pessary in place. Pt found to have abnormal
urinalysis and leukocytosis. Found to have hypothermia to 93.3F initially - vaibhav hugger placed. She is somnolent and responds to voice - [place]. Given her low sugar, she was started on D5 NS, and also given ceftriaxone given abnormal
urinalysis. She initially required Levophed given hypotension and admitted to the ICU for further care. Local Combination Truck Driver services consulted for additional management/recommendations.
Impression:
#DM type II (uncontrolled) c/b hypoglycemia likely due to exogenous insulin
#Hypothermia likely due to above in the setting of sepsis - now normothermic
#Sepsis due to UTI; although she has retrocardiac opacity, she has no clinical symptoms consistent with pneumonia
#Chronic wound on left 2nd toe digit and left dorsal forefoot - not acutely infected
#Cystocele with pessary in place (was in place for 6 months as per Frame Sample And Pattern Supervisor)
#Hematuria vs vaginal bleeding (blood with small clots seen on pad)
#Acute anemia (suspected to be lab error vs dilutional given more than expected increase in Hb s/p transfusion)
#Complicated UTI
#ALEJANDRA
#Hypomagnesemia
#Chronic anemia
Plan:
- Now that BG is stable, ok to resume basal-bolus SQ insulin
- Continue to monitor BG AC, however if she is not consistently eating meals then would change to q4-6hr with goal BG >100 and <180mg/dL; HbA1c: 10.1 on 03/09/2025; 9.8 now
- Mental status now back to normal
- Avoid hypoglycemia
- Continue rocephin and doxy for empiric coverage
- Follow up infectious workup (blood cultures); Legionella + strep pneumoniae urine antigens negative; urine culture is negative; check sputum culture if she can produce a decent sample
- Trend WBC and monitor temperature curve
- Pessary removed by VOICE WRITING REPORTER
- Recommend consult with uro gynecology --> I reached out to Dr. Sandoval and he will arrange for outpatient follow up
- wound care consulted for left 2nd toe-digit and left forefoot wounds
- Renally dose all medications and avoid nephrotoxic agents
- Trend sCr and UOP
- Maintain normothermia, using Vaibhav hugger as needed
- Maintain SpO2 >90-94%
- Aspiration precautions, keeping HOB >30-45�
- prn nebulized bronchodilators - not currently bronchospastic
- Maintain MAP>65
- Replete electrolytes with K>4, Mg>2
- Trend H/H and transfuse if needed to keep Hb>7g/dL; keep plt>50k given blood with clots seen today on pad she is laying under - unclear if this is a urological etiology or gynecological
- She is s/p 1 U PRBC and her Hb improved from 6.7 to 9.4. Doubt the small amount of blood seen has caused her Hb to drop at all, and the 6.7 Hb value was likely an error
- Follow up TV US to eval for fibroids
- Follow up renal US as well
- Urology and Frame Sample And Pattern Supervisor both following - recs appreciated
- Encourage incentive spirometer use 10x per hour for at least 4 hrs a day
- stress ulcer ppx: N/A as not on pressors
- DVT ppx: SCDs for now given the bleeding seen this AM; if Hb remains stable by tomorrow with no evidence of bleeding, then would resume chemical DVT ppx
Patient is stable for transfer out of ICU to telemetry. No additional recommendations at this time. Local Combination Truck Driver/Pulmonary service will now sign off. Thank you for allowing us to be involved in the care of this patient. Please reconsult if there
are any additional questions/concerns, or if patient's respiratory status deteriorates.
Total time spent today was 37 minutes for this encounter. Time includes reviewing laboratory test/imaging results, reviewing pertinent medical records, obtaining and reviewing medical history, performing an appropriate exam, ordering medications,
tests and procedures. Time also includes documentation of this encounter, coordinating patient care and communicating with other healthcare professionals. Total time does not include separately billed tests performed on this date of service.
Subjective Dataa
Subjective Data
Date of Service:
Date of Service: August 26, 2025
Chief Complaint: Local Combination Truck Driver Follow Up and Pulmonary Follow Up
Subjective:
Pt seen today - more sleepy today but easily arousable to voice. HR 80, BP 118/76 with SpO2 95% on room air. She is having bloody discharge, suspected to be urine, as per RN. Unclear if she is having vaginal bleeding instead. Urology and Frame Sample And Pattern Supervisor both
notified and are aware. Pt has no lower abdominal pain, no vaginal discomfort, no SOB, chest pain, N/V/f/c.
Review of Systems
General: Other (negative unless mentioned above)
Objective Data
Data Reviewed
Vital Signs / I&O / Oxygen:
Vital Signs
Temp Pulse Resp BP Pulse Ox
97.9 F 87 18 115/67 97
08/26/25 09:41 08/26/25 09:41 08/26/25 09:41 08/26/25 09:41 08/26/25 09:41
Intake and Output
08/25/25 08/26/25 08/27/25
06:59 06:59 06:59
Intake Total 1780 / 1860 1700 / 1700 250 / 250
Output Total 600 / 600
Balance 1780 / 1860 1100 / 1100 250 / 250
SaO2 97
Physical Exam
General: Respiratory Distress (negative), Comfortable, Chills (negative) and Sweats (negative)
HEENT: Normocephalic and Anicteric
Cardiovascular: S1-S2 and Peripheral Edema (trace LE edema b/l)
Respiratory: Wheeze (negative), Crackles (Bibasilar), Rhonchi (negative), Non-Labored Respirations and Stridor (negative)
GI: Soft, Non Distended, Non Tender and Normal Bowel Sounds
Neurology: Tremors (negative) and Other (Drowsy today but easily arousable and answering my questions appropriately)
Skin: Warm, Dry, Bruising (Lower extremities predominantly in the anterior tibia region) and Other (Chronic wound on her left foot second digit on dorsal surface, as well as a dorsal surface of her forefoot region)
Labs/Micro/Reports
Lab Data
08/26/25 03:41
08/26/25 03:41
Microbiology
08/24/25 13:17 Blood/Venous Blood Culture - Preliminary
No Growth in 24 hours- Final report to follow
08/24/25 13:17 Blood/Venous Blood Culture - Preliminary
No Growth in 24 hours- Final report to follow
08/24/25 10:37 Urine Urine Culture - Final
08/24/25 10:37 Urine Legionella Urinary Antigen - Final
Negative for Legionella pneumophila Serogroup 1 antigen.
A negative result does not rule out the possiblity of
Legionella infection due to other serogroups or species of
Legionella. Clinical correlation is recommended.
08/24/25 10:37 Urine Streptococcus pneumoniae Antigen (M - Final
Negative for Streptococcus pneumoniae antigen.
A negative result does not exclude infection with
Streptococcus pneumoniae. Clinical correlation is
recommended.
--- NOTE | 2025-08-26 10:00 | PTCARENOTE ---
Patient completed unit of blood. Recheck at 1400.
--- NOTE | 2025-08-26 11:03 | W.PN.URO.CBU ---
Today's Communication / Plan
-
renal and bladder u/s ordewred plan per hospitalist
Assessment / Plan
-
complex uti in pt with iddm mixed tanmay on micro will defer to erich but suggest nhme po abd then suppression
Diagnosis
-
Date of Service: August 26, 2025
-
Patient Diagnosis:
Post Op Day:
Patient Diagnosis:
complex uti prloapse but pvr is 268 sdespite potalpse and botox
Post Op Day:
Subjective
-
improving ,min sxs
Objective
-
Vital Signs
Temp Pulse Resp BP Pulse Ox
97.9 F 87 18 115/67 97
08/26/25 09:41 08/26/25 09:41 08/26/25 09:41 08/26/25 09:41 08/26/25 09:41
Intake and Output
08/25/25 08/26/25 08/27/25
06:59 06:59 06:59
Intake Total 1780 / 1860 1700 / 1700 250 / 250
Output Total 600 / 600
Balance 1780 / 1860 1100 / 1100 250 / 250
Intake:
Oral fluids 300 / 300 1120 / 1120
IV fluids (Total) 1120 / 1200 320 / 320
Lr 1,000 ml @ 80 mls/hr IV . 640 / 640
[id number] WILLEM Rx#:[id number]
Sterile Water For Injection 480 / 560 320 / 320
1000 ml 1,000 ml @ 80 mls/hr IV
.[id number] WILLEM with Sodium
Bicarbonate 150 Meq Rx#:
[id number]
IV piggybacks 360 / 360 260 / 260
Blood Product Amount Infused ( 0 / 0 250 / 250
mL)
Packed Rbc Leukoreduced Unit 0 / 0 250 / 250
[id number]
Output:
Urine, Voided 600 / 600
Other:
How many times incontinent 1
SMALL amount urine
How many times incontinent 1
MODERATE amount urine
How many times incontinent 1
SATURATED amount urine
Number of approximated MODERATE 1
amounts of urine
Number of approximated LARGE 1
amounts of urine
Laboratory Results
08/26/25 03:41
08/26/25 03:41
Review of Systems
-
: Frequency
Physical Exam
-
General - well developed, well nourished, no acute distress
Chest - clear bilaterally
Abdomen - soft, non-tender, positive bowel sounds, no CVAT, no incisional pain or distention
Genitalia - normal
Rectal - normal
Skin - warm & dry with no rash
Neuro - AOx3, no motor deficits
Extremities - no clubbing, no cyanosis, no edema
Incision - clean, dry
Dressing - clean, dry, intact
Counseling
-
gu intervemtions
Care Review
Data Reviewed
Discussed with: Nursing
[2025-08-26 11:26] LABS: Glucose - Point of Care 332 mg/dl (70-99)
--- NOTE | 2025-08-26 11:29 | W.PN.HOSP.TC ---
Today's Communication/Plan
-
Discussed with line clearance foreman and ICU nurse and we all decided patient can be transferred to telemetry
Continue antibiotics
Blood clots in patient's bed trivedi -- vaginal or urinary source -- ultrasound studies pending -- rectal bleeding??
Recheck H&H this evening
Assessment / Plan
Assessment / Plan
Physical Exam
General: Not in acute distress
HEENT: Normocephalic
Cardiovascular: S1-S2. RRR.
Respiratory: Crackles bilaterally
GI: Soft, Non Distended, Non Tender and Normal Bowel Sounds
Extremities: Trace edema of the bilateral lower extremities
Neurology: Awake, Alert
Skin: Warm, Dry, Bruising (Lower extremities predominantly in the anterior tibia region) and Other (Chronic wound on her left foot second digit on dorsal surface, as well as a dorsal surface of her forefoot region)
Assessment/Plan
89-year-old female with past medical history of DM2, chronic HFmrEF, HTN, MR, AI, and PVD who presented with encephalopathy, found unresponsive at home. Patient was in her usual state of health up until 1 week prior to presentation, when she became
less responsive and more sleepy. Her pre-meal insulin was changed from 3 units to 5 units AC with her first dose being used on 08/23/25. Blood glucose on 08/24/25 morning was in mid-20s per CGM. Pt has been experiencing groin pain recently with
blood seen upon wiping - she does have a pessary in place. Patient was found to have abnormal urinalysis and leukocytosis. Found to have hypothermia to 93.3F initially - lakshmi hugger placed. She was somnolent and responds to voice . Given her low
sugar, she was started on D5 NS, and also given ceftriaxone given abnormal urinalysis. She initially required Levophed given hypotension and admitted to the ICU for further care.
#Sepsis due to UTI -- and possible pneumonia
#Complicated UTI
#Septic Shock
#History of UTI
-Initially needed Levophed, then weaned off
-Continue Rocephin and Doxycycline
-Follow up infectious workup (blood cultures) and if she can produce sample, then sputum culture as well
-Legionella + strep pneumoniae urine antigens negative
-Urine culture is negative
#Blood Clots with Hematuria/Vaginal Bleeding (Rectal Bleeding?) on 08/26/25
-It could be vaginal bleed (please see below) or hemorrhagic cystitis
-Per urology and COPY EDITOR, check renal/bladder ultrasound and pelvic/transvaginal ultrasound, respectively
#Acute Blood Loss Anemia 08/26/25 -- suspected secondary vaginal versus urinary versus rectal source
-Received 1 unit packed red blood cells transfusion for low Hgb: Hgb improved significantly from 6.7 to 9.4
#Cystocele with pessary in place (was in place for 6 months as per Bulldozer Mechanic)
#Groin pain recently with blood seen on wiping
#History of Urinary Incontinence
-Pessary removed by COPY EDITOR; COPY EDITOR Would like to do vaginal/speculum exam when she is more at her baseline.
-Consultation with uro-gynecology outpatient
-Per education reviewer, patient was living in [facility] and was seen at [facility], where she was getting pessary cleaning every three months until the past two years. Despite pessary, patient continued to have urinary incontinence. She
was evaluated for [place] sling. She had consented to Botox, but had minimal improvement of her symptoms.
-Also per education reviewer, Daughter reports she is also incontinent of stool. She did have a urinary tract infection earlier this year.
-Urology following
#Toxic Metabolic Encephalopathy Secondary to Infection and Hypoglycemia, as well as Hypothermia
-Now improved significantly after treatment
#Hypothermia -- suspected from exogenous Insulin and sepsis
-Was on Lakshmi Hugger
-Now resolved
#Acute Kidney Injury
#Metabolic Acidosis
-IV fluids were given -- need to be careful with more IV fluids given CHF
-Resolved with LR IV fluids and bicarb drip
-Monitor BMP
-Hold Valsartan and Lasix
#Chronic HFMrEF
-Echo 01/01/2025-LV mildly dilated. Mild to moderate reduced LV systolic function. EF 40 to 45%. Basal to mid inferolateral hypokinesis. Stage II diastolic dysfunction suggestive of abnormal relaxation and increased filling pressures. Moderate
MR. Mild AI. Mild to moderate TR. PASP 40 mmHg.
-Hold Lasix
-Strict I's and O's, Daily Weights
#Type II Diabetes Mellitus (uncontrolled) complicated by hypoglycemia likely due to exogenous insulin
#Hypoglycemia
-Resumed subq Insulin now that glucose has improved and even high into the 300s -- but keep in mind patient has had hypoglycemia
#Hard of Hearing
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
-Wound care consult
#Hypomagnesemia
-Replacements ordered
-Continue to monitor
#Chronic Anemia
#Essential hypertension
-Hold metoprolol and valsartan
#Hyperlipidemia
-Continue statin
#Diabetic neuropathy
-Neurontin as tolerated
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
-Continue Pepcid
#Severe discogenic DJD lumbar spine
DVT Prophylaxis: subq Heparin
Code Status: Full Code
Anticipated Discharge: > 48 hours
Subjective/Interval History
-
Date of Service: August 26, 2025
Patient was seen and examined. Per nurse, she was urinating dark red colored urine. Per nurse, her hypothermia resolved.
Objective Data
-
Labs:
Laboratory Results
08/26/25 08/26/25
03:41 14:00
WBC 6.0 Pending
Hgb 6.7 L* Pending
Hct 21.0 L Pending
Plt Count 324 Pending
Sodium 138
Potassium 4.5
Chloride 113 H
Carbon Dioxide 24
BUN 36 H
Creatinine 1.2 H
Glucose 83
Calcium 7.9 L
Vital Signs:
Vital Signs
Temp Pulse Resp BP Pulse Ox
97.9 F 80 17 107/65 94
08/26/25 09:41 08/26/25 11:00 08/26/25 11:00 08/26/25 11:00 08/26/25 11:00
I&O
08/25/25 08/26/25 08/27/25
06:59 06:59 06:59
Intake Total 1780 / 1860 1700 / 1700 250 / 250
Output Total 600 / 600
Balance 1780 / 1860 1100 / 1100 250 / 250
[2025-08-26] MEDS: NOVOLOG FLEXPEN-MODERATE RESISTANCE 7 UNITS SC (11:46)
[2025-08-26] MEDS: FLUSH (NSS) IV ×2 (11:48→12:51)
[2025-08-26] MEDS: ROCEPHIN 1000 MG IV (11:52)
[2025-08-26] MEDS: STERILE WATER FOR INJECTION 10 ML IV (11:52)
[2025-08-26] MEDS: FEOSOL 325 MG PO (11:52)
[2025-08-26 11:54] LABS: Glucose - Point of Care 324 mg/dl (70-99)
[2025-08-26] MEDS: LANTUS 0.1 UNITS SC (12:06)
[2025-08-26 14:28] LABS: Hematocrit 28.3 % (37.0-47.0); Hemoglobin 9.4 g/dL (12.0-16.0); Mean Corp Hgb Conc. 33.2 g/dL (33.0-37.0); Mean Corpuscular Volume 82.7 fL (81.0-99.0); Platelet Count 318 10^3/uL (130-400); Red Cell Dist. Width 15.2 % (11.5-14.5)
[2025-08-26] MEDS: NOVOLOG FLEXPEN-MODERATE RESISTANCE SC (16:44)
[2025-08-26 16:45] LABS: Glucose - Point of Care 144 mg/dl (70-99)
[2025-08-26] MEDS: LIPITOR 10 MG PO (17:30)
--- NOTE | 2025-08-26 18:28 | PTCARENOTE ---
notified Dr. Carpenter, Dr. Peralta and Dr. Mike that while patient was OOB in chair, she urinated and expressed multiple clots. Picture was texted to physicians. Vital signs have remained stable throughout the day. normotensive with sinus
rhythm on monitor. Patient did not express more pain than usual (has pain when wiping excoriated skin, and repeat hgb blood draw at 1400 was stable. Ultrasound has been ordered since this morning. call placed to Ultrasound department, they will
come up to floor. order changed to stat. OBGYN also added Pelvic ultrasound. special technical operations officer to come to bedside in about an hour tentatively.
--- NOTE | 2025-08-26 18:34 | W.PN.UPDATE ---
Update Note
Progress Note Update
Informed by nurse that patient with blood and small clots on pad. Unclear if this is vaginal or uterine source as patient is incontinent. She is to have a Renal/Bladder US, I also put in an order for a Pelvic US to hopefully be done at the same
time.
[2025-08-26] MEDS: TYLENOL 650 MG PO (19:52)
--- NOTE | 2025-08-26 19:52 | W.PN.UPDATE ---
Update Note
Progress Note Update
Holding subq Heparin given acute blood loss anemia.
--- NOTE | 2025-08-26 19:57 | PTCARENOTE ---
Ultrasound done at bedside as ordered. Tech reported nothing alarming on ultrasound. Dr Peralta, Dr Mederos and Dr Mike notified. Subq heparin placed on hold for now.
[2025-08-26 20:23] LABS: Hematocrit 29.6 % (37.0-47.0); Hemoglobin 9.9 g/dL (12.0-16.0)
[2025-08-26] MEDS: ZOFRAN 4 MG IV (20:36)
[2025-08-26] MEDS: MELATONIN 3 MG PO (20:36)
[2025-08-26 21:25] LABS: Glucose - Point of Care 191 mg/dl (70-99)
--- NOTE | 2025-08-26 21:43 | W.PN.UPDATE ---
Addendum entered and electronically signed by ROXY Chavez 08/27/25 06:51:
K level is 5.5 this am, one time order of Lokelma ordered and will repeat bmp in 4 hrs,
Original Note:
Update Note
Progress Note Update
-EKG with a-fib/hr 120s-140s. BP 131/79, Asymptomatic. Patient has no medical history of a-fib.
-Bmp, mag, cbc ordered.
-2.5mg of IV Lopressor given.
-Cardiology consult placed
[2025-08-26] MEDS: LOPRESSOR 2.5 MG IV (21:50)
[2025-08-26] MEDS: PEPCID 10 MG PO (21:51)
[2025-08-26] MEDS: FLOMAX 0.4 MG PO (21:51)
[2025-08-26] MEDS: NEURONTIN 200 MG PO (21:51)
[2025-08-26 22:55] LABS: Hematocrit 29.3 % (37.0-47.0); Hemoglobin 9.7 g/dL (12.0-16.0); Mean Corp Hgb Conc. 33.1 g/dL (33.0-37.0); Mean Corpuscular Volume 81.6 fL (81.0-99.0); Platelet Count 308 10^3/uL (130-400); Red Cell Dist. Width 15.4 % (11.5-14.5)
[2025-08-26 23:17] LABS: Calcium 8.2 mg/dl (8.4-10.2); Carbon Dioxide 22 mmol/L (22-30); Chloride 110 mmol/L (98-107); Estimated Creatinine Clearance 22 ml/min; Glucose 202 mg/dl (70-99); Magnesium 2.1 mg/dl (1.6-2.3); Potassium 5.3 mmol/L (3.5-5.1); Sodium 135 mmol/L (135-145); eGFR 43.54
[2025-08-26 23:27] LABS: Blood Urea Nitrogen 37 mg/dl (7-17)
--- NOTE | 2025-08-26 23:44 | PTCARENOTE ---
Addendum entered by Mariana Moraes RN 08/27/25 02:58:
Back into NSR, HR 70-80s ~0030. BP stable.
Original Note:
HR increased to 120s and sustained around 2114. BP stable. Pt asymptomatic. ROXY Meyer notified and came to bedside. EKG obtained- afib RVR. Order for 2.5mg lopressor. Labs ordered and drawn.
[2025-08-27] VITALS (11 sets, daily range): BP systolic 109–147; BP diastolic 70–90; PULSE 77; BMI 19.0
[2025-08-27] MEDS: TYLENOL 650 MG PO ×2 (01:50→19:57)
[2025-08-27] MEDS: LIDOCAINE 4% PATCH 1 PATCH TOPICAL (01:51)
[2025-08-27 04:35] LABS: Hematocrit 30.2 % (37.0-47.0); Hemoglobin 10.0 g/dL (12.0-16.0); Mean Corp Hgb Conc. 33.1 g/dL (33.0-37.0); Mean Corpuscular Volume 82.5 fL (81.0-99.0); Nucleated Red Blood Cells % 0 %; Platelet Count 295 10^3/uL (130-400); Red Cell Dist. Width 15.6 % (11.5-14.5)
--- NOTE | 2025-08-27 05:42 | PTCARENOTE ---
Urine overnight continues to be bloody. No clots noted overnight. Vitals stable, remains in NSR, HR 70s.
[2025-08-27 06:06] LABS: ALT (SGPT) 16 U/L (0-35); AST (SGOT) 20 U/L (14-36); Albumin 2.7 g/dl (3.5-5.0); Alkaline Phosphatase 71 U/L (38-126); Blood Urea Nitrogen 35 mg/dl (7-17); Calcium 8.2 mg/dl (8.4-10.2); Carbon Dioxide 22 mmol/L (22-30); Chloride 111 mmol/L (98-107); Estimated Creatinine Clearance 25 ml/min; Glucose 232 mg/dl (70-99); Magnesium 2.1 mg/dl (1.6-2.3); Potassium 5.5 mmol/L (3.5-5.1); Sodium 136 mmol/L (135-145); Total Protein 5.4 g/dl (6.3-8.2); eGFR 48.33
--- NOTE | 2025-08-27 06:20 | PTCARENOTE ---
K = 5.5. ROXY Meyer notified. Trista ordered. Repeat bmp at 1000.
[2025-08-27] MEDS: LOKELMA 5 GRAM PO (06:28)
--- NOTE | 2025-08-27 07:40 | W.PN.HOSP.TC ---
Today's Communication/Plan
-
see A/P
Assessment / Plan
Assessment / Plan
HPI: 89-year-old female with past medical history of DM2, chronic HFmrEF, HTN, MR, AI, and PVD who presented with encephalopathy, found unresponsive at home. Patient was in her usual state of health up until 1 week prior to presentation, when she
became less responsive and more sleepy. Her pre-meal insulin was changed from 3 units to 5 units AC with her first dose on 08/23/25. Blood glucose on 08/24/25 morning was in mid-20s. Pt has been experiencing groin pain recently with blood seen upon
wiping - she does have a pessary in place. Patient was found to have abnormal urinalysis and leukocytosis. Found to have hypothermia to 93.3F initially - lakshmi hugger placed. She was somnolent and responded to voice . Given her low sugar, she was
started on D5 NS, and also given ceftriaxone given abnormal urinalysis. She initially required Levophed given hypotension and admitted to the ICU for further care.
A/P:
# Septic Shock due to UTI and possible pneumonia
# Complicated UTI
Off Levophed
Continue Rocephin and Doxycycline
blood cultures negative, Legionella/Strep pneumoniae urine antigens negative, Urine culture with mixed tanmay
CXR 08/24 actually showed no evidence of pneumonia or congestive heart failure.
# Acute Blood Loss Anemia 08/26/25, suspected secondary vaginal versus urinary versus rectal source
# Blood Clots with Hematuria/Vaginal Bleeding (Rectal Bleeding?) on 08/26/25
s/p 1 unit PRBC transfusion
Monitor for further bleeding
Monitor Hgb, stable at 10 today
kidney US unrevealing, Pelvis US unrevealing
REAL ESTATE FINANCIAL ANALYST and Uro consulted
# Acute Metabolic Encephalopathy Secondary to Infection, Hypoglycemia, Hypothermia, resolved
# Hypothermia, suspected from exogenous Insulin and sepsis
s/p Lakshmi Hugger
Now resolved
# New onset A-fib, asymptomatic.
s/p 2.5 mg of IV Lopressor
Cardiology consult placed
# Chronic HFMrEF
Echo 01/01/2025: EF 40 to 45%. Basal to mid inferolateral hypokinesis. Stage II diastolic dysfunction. Moderate MR. Mild AI. Mild to moderate TR. PASP 40 mmHg.
Hold Lasix
Strict I's and O's, Daily Weights
# Type II Diabetes Mellitus (uncontrolled) complicated by hypoglycemia likely due to exogenous insulin
Resumed subq Insulin, currently on 8 units lantus daily
Sliding scare coverage
DM LIQUOR GALLERY OPERATOR CS for insulin management
# Acute Kidney Injury
# Metabolic Acidosis, resolved
s/p IVF
Hold Valsartan and Lasix
SCr 1.1 today which is at baseline
# Cystocele with pessary in place (was in place for 6 months as per Dip Painter)
# Groin pain recently with blood seen on wiping
# History of Urinary Incontinence
Pessary removed by REAL ESTATE FINANCIAL ANALYST; REAL ESTATE FINANCIAL ANALYST Would like to do vaginal/speculum exam when she is more at her baseline.
Per rehabilitation consultant, patient was living in [facility] and was seen at [facility], where she was getting pessary cleaning every three months until the past two years. Despite pessary, patient continued to have urinary incontinence. She was evaluated for [place] sling. She had consented to Botox, but had minimal improvement of her symptoms.
Also per rehabilitation consultant, daughter reports she is also incontinent of stool. She did have a urinary tract infection earlier this year.
# Hard of Hearing
# Chronic wound on left 2nd toe digit and left dorsal forefoot
Wound care consult
# Hypomagnesemia, resolved
# Essential hypertension
Hold metoprolol and valsartan
# Hyperlipidemia
Continue statin
# Diabetic neuropathy
Neurontin as tolerated
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
Continue Pepcid
# Severe discogenic DJD lumbar spine
DVT Prophylaxis: subq Heparin on hold, using SCD
Code Status: Full Code
Dispo: SNF
DW RN
updated daughter on the phone
total time 51 min
Anticipated Discharge: > 48 hours
Subjective/Interval History
-
Date of Service: August 27, 2025
Objective Data
-
Labs:
Laboratory Results
08/26/25 08/26/25 08/27/25
20:17 22:46 04:20
WBC 7.4 5.9
Hgb 9.9 L 9.7 L 10.0 L
Hct 29.6 L 29.3 L 30.2 L
Plt Count 308 295
Sodium 135 Cancelled
Potassium 5.3 H Cancelled
Chloride 110 H Cancelled
Carbon Dioxide 22 Cancelled
BUN 37 H Cancelled
Creatinine 1.2 H Cancelled
Glucose 202 H Cancelled
Calcium 8.2 L Cancelled
Total Bilirubin Cancelled
AST Cancelled
ALT Cancelled
Alkaline Phosphatase Cancelled
08/27/25 08/27/25
05:22 10:00
WBC
Hgb
Hct
Plt Count
Sodium 136 Pending
Potassium 5.5 H Pending
Chloride 111 H Pending
Carbon Dioxide 22 Pending
BUN 35 H Pending
Creatinine 1.1 H Pending
Glucose 232 H Pending
Calcium 8.2 L Pending
Total Bilirubin 0.2
AST 20
ALT 16
Alkaline Phosphatase 71
Vital Signs:
Vital Signs
Temp Pulse Resp BP Pulse Ox
36.8 C 69 13 139/84 96
08/27/25 07:33 08/27/25 06:00 08/27/25 06:00 08/27/25 04:00 08/27/25 04:20
I&O
08/26/25 08/27/25 08/28/25
06:59 06:59 06:59
Intake Total 1700 / 1700 730 / 730
Output Total 600 / 600
Balance 1100 / 1100 730 / 730
Review of Systems
-
History Source: Patient
All other systems: Reviewed and negative
Physical Exam
-
General: Well Developed, Well Nourished, No Apparent Distress, Comfortable and Conversant; Negative Respiratory Distress
HEENT: Normocephalic, Atraumatic, Nose Appears Normal, Ears Appear Normal and Hearing Impaired; Negative Oxygen
Respiratory: Clear to Auscultation and Non Labored Respirations; Negative Accessory Resp Muscle Use
Cardiac: Regular Rhythm and S1/S2
GI: Soft, Nontender, Nondistended and Normal Bowel Sounds
Skin: Warm and Dry
Neuro: Awake and Alert
Psych: Calm and Intact Judgement/Insight (somewhat)
Data Reviewed
-
Diagnostic Radiology: Report Reviewed by me
Labs: Labs Reviewed by me
[2025-08-27 07:47] LABS: Glucose - Point of Care 227 mg/dl (70-99)
[2025-08-27] MEDS: VITAMIN D3 (cholecalciferol) 50 MCG PO (07:57)
[2025-08-27] MEDS: LANTUS 0.08 UNITS SC (07:57)
[2025-08-27] MEDS: LOW STRENGTH ASPIRIN 81 MG PO (07:57)
[2025-08-27] MEDS: NOVOLOG FLEXPEN-MODERATE RESISTANCE 3 UNITS SC ×3 (07:57→16:36)
[2025-08-27] MEDS: VIBRAMYCIN 100 MG PO ×2 (07:57→19:42)
[2025-08-27] MEDS: THERAGRAN 1 TABLET PO (07:57)
[2025-08-27] MEDS: NEURONTIN 100 MG PO (07:58)
--- NOTE | 2025-08-27 08:04 | CON.CAR ---
Addendum entered and electronically signed by Darell Ernst MD 08/27/25 09:22:
I saw and evaluated the patient, and I provided the substantive portion of the medical decision making.
I reviewed and agree with the note by ROXY and it accurately reflects our care.
I personally performed the medical decision making of the this encounter and my assessment and plan is below:
89-year-old female with heart failure with mildly reduced ejection fraction (40%), suspected CAD, diabetes, hypertension, hyperlipidemia, and anemia who presents with complicated UTI. Course has been complicated by hematuria due to hemorrhagic
cystitis requiring 1 unit PRBCs and A-fib with RVR for which cardiology is consulted. For the atrial fibrillation, she was given 2.5 mg IV metoprolol and is now back in sinus rhythm. She was asymptomatic.
Physical exam: RRR, systolic murmur, rhonchorous lung sounds, trace pedal edema
Atrial fibrillation: Now back in sinus rhythm. She was asymptomatic with RVR. [id number] 7. Resume home metoprolol 25 mg daily. Hold off on anticoagulation for now given ongoing hematuria (urology expects this to improve as UTI resolves).
Remainder as per PATIENT RELATIONS COORDINATOR note.
Plan discussed with primary team, urology, and gynecology.
Original Note:
Consultation
Consultation Request
Date/Time Consultation Requested: 08/26/25 0121
Date/Time Consultation Performed: 08/27/25 0800
Requesting Provider: ROXY Gardiner
Performing Provider: Joanie RAMSEY for Dr. Ernst
Reason for Consultation: AFIB
Medical History
-
Chief Complaint: altered LOC
History of Present Illness:
89 y/o female (cardiology patient of Dr. 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
(walker assistance). She is here after daughter found her unresponsive. Per report, on arrival blood sugar in 20's, SBP's in 40s, and hypotensive around 93 degrees F. She was given fluids, dextrose, and Vaibhav hugger placed. She is being treated for
sepsis related to complicated UTI. Pessary was removed by gynecology. She has been getting IV abx. We are consulted due to AFIB with RVR noted overnight. She was given 2.5 IV lopressor. She reports no CP, SOB, or palpitations. She is back in SR. No
distress, eating breakfast at the time of my assessment.
Past Medical History
Past Medical History: Arrhythmias, CHF, HTN, Hypercholesterolemia and NIDDM
Social History
Living: With Family
Family History
Family History: Reviewed & Not Pertinent
Allergies / Home Medications
Allergy/AdvReac Type Severity Reaction Status Date / Time
Sulfa (Sulfonamide Allergy Unknown Verified 03/08/25 18:49
Antibiotics)
�Medication �Instructions �Recorded �Confirmed �Type
gabapentin 100 mg capsule 100 mg PO DAILY Pain 12/30/24 08/24/25 History
gabapentin 100 mg tablet 200 mg PO HS Pain 12/30/24 08/24/25 History
therapeutic multivitamin 1 tab PO DAILY Supplement 12/30/24 08/24/25 History
aspirin 81 mg chewable tablet 81 mg PO DAILY Heart 01/04/25 08/24/25 Rx
disease/condition #30 tabs
melatonin 5 mg tablet 5 mg PO HSPRN PRN sleep 01/31/25 08/24/25 History
acetaminophen 325 mg tablet 650 mg PO Q6HPRN PRN mild pain 03/08/25 08/24/25 History
(Tylenol)
ferrous sulfate 325 mg (65 mg 325 mg PO NOON Supplement 03/08/25 08/24/25 History
iron) tablet (FeroSul)
lovastatin 40 mg tablet 40 mg PO QPM High Cholesterol 03/08/25 08/24/25 History
cholecalciferol (vitamin D3) 50 50 mcg PO DAILY Defeciency #30 caps 03/13/25 08/24/25 Rx
mcg (2,000 unit) capsule (Vitamin
D3)
famotidine 20 mg tablet 20 mg PO HS Gastrointestinal issue 03/13/25 08/24/25 Rx
#30 tabs
furosemide 20 mg tablet (Lasix) 20 mg PO Q48H Fluid 03/13/25 08/24/25 Rx
Retention/Swelling #0 tabs
metoprolol succinate 25 mg 25 mg PO DAILY Heart 03/13/25 08/24/25 Rx
tablet,extended release 24 hr disease/condition 30 days #30 tabs
tamsulosin 0.4 mg capsule 0.4 mg PO HS Urinary issue #30 caps 03/13/25 08/24/25 Rx
valsartan 40 mg tablet 40 mg PO HS Blood Pressure #0 tabs 03/13/25 08/24/25 Rx
insulin glargine 100 unit/mL (3 13 unit SC HS Diabetes 08/24/25 08/24/25 History
mL) subcutaneous pen (Lantus
Solostar U-100 Insulin)
insulin lispro 100 unit/mL 5 sliding scale dose SC AC 08/24/25 08/24/25 History
subcutaneous pen (Humalog KwikPen
(U-100) Insulin)
metformin 1,000 mg tablet 1,000 mg PO BID Diabetes 08/24/25 08/24/25 History
Review of Systems
-
History Source: Patient and Other (and chart)
All other systems: Negative unless noted (as above in HPI)
Constitutional: Fatigue (and lethargy (what patient remembers from this event))
Neurological: Other (unresponsive )
Physical Exam
Vital Signs
Temp Pulse Resp BP Pulse Ox
98.3 F 69 13 139/84 96
08/27/25 07:33 08/27/25 06:00 08/27/25 06:00 08/27/25 04:00 08/27/25 04:20
Lab Results
08/27/25 04:20
Physical Exam
General: Well Developed, Well Nourished and No Apparent Distress
HEENT: Normocephalic and Anicteric
Respiratory: Other (coarse lung sounds)
Cardiac: Regular Rhythm
Musculoskeletal: Other (trace BLE edema)
Skin: Warm, Dry and Other (legs with scattered ecchymosis, chronic)
Neuro: AO x 3
Psych: Calm
Impression / Plan
-
Sepsis/complicated UTI:
-sepsis is threat to life
-improving
-on IV abx
-as noted urology, dials inspector (pessary removed), hospitalist, and intensivists all on the case
AFIB with RVR, new diagnosis, asymptomatic:
-Noted in the setting of acute illness. Back in SR.
-resume metoprolol
-[id number] score is at least 6 for age, female, hypertension, CHF, and DM (possibly 7 if CAD, which is suspected). Worsened anemia was noted this admission. Notes reviewed. HGB as low as 6.7 this admit, but some dilution/error was suspected. She
received 1 unit PRBC this admit. There was some bleeding yesterday (rectal versus dials inspector versus urologic), and heparin subq was held. Imaging done and unrevealing. Denies falls. Discuss with multidisciplinary team to see if/when patient okay for AC
from this perspective. In that situation, could start with IV heparin and monitor for bleeding (hgb, assessment), etc. Patient denies falls/bleeding prior to this. If OAC started, ASA could be stopped.
HFrEF: chronic, EF 40%
-does not appear volume overloaded to assessment, monitor volume
-resume metoprolol. Other GDMT limited (SGLT2I due to UTI's, ARB/ARNI/MRA with hyperkalemia at this time).
DMII on insulin:
-hypoglycemia on arrival
-management per primary
Hyperkalemia:
-being treated and monitored
Data Reviewed
-
EKG: Tracing Personally Visualized and interpreted (AFIB with RVR 125 BPM)
Radiology: Report Reviewed by me (CXR: Slightly diminished degree of inspiration compared to prior examination. No evidence of pneumonia or congestive heart failure.)
Medical Tests (Nuc Med, Echo etc): Report Reviewed by me (Echo 04/06/25: Mildly/Moderately reduced left ventricular systolic function. Global hypokinesis. Left ventricular ejection fraction is 40%. Stage I diastolic dysfunction suggestive of abnormal
relaxation. Mild aortic regurgitation. Moderate tricuspid regurgitation with moderate pulmonary hypertension.)
Labs: Labs Reviewed by me
Old Records: Reviewed (Dr. Patel OP note 08/15/25)
--- NOTE | 2025-08-27 08:23 | PN.DE.MGMTRT ---
Insulin Management
- -
08/27/2025: Diabetes Management Consult
89 year old female who presented with encephalopathy, found unresponsive at home, likely due to septic shock in setting of UTI
PMH: Chronic HFmrEF, HTN, HLD, MR, AI, Anemia, PVD, CKD and T2DM
Patient was noted to have elevated blood sugar during her routine blood work as outpatient. Her lime mixer tender increased her insulin from 3 units to 5 units with her first dose on 08/23/25 and Lantus 11 units to 13 units. Blood glucose on 08/24/25
morning was in mid-20s. She usually does not take her regular insulin at home and she is does not eat very well. she only takes her insulin, when she is eating regular food. Yesterday her daughter gave her increased dose of insulin 3 times a day
as well as Lantus. As per daughter, she has been sleeping more than usual for past 1 week and has seemed more confused.
Found to have hypoglycemia on admission and was started on D5 NS, and also given ceftriaxone given abnormal urinalysis.
Pt awake, alert, oriented, severely [place], sitting up in bed, offers no complaints. No family at bedside. States her Dtr manages all her diabetes care, including checking her blood sugar and administering her insulin. Per chart review, she takes
Lantus 13 units @ HS, Humalog 5 units AC and Metformin 1000mg BID
A1C 9.8%, Cr 1.1, eGFR 48.33. Current diabetes regimen includes: Lantus 8 units in AM and corrective insulin with meals.
Glucose has remained elevated, 08/26 premeal 144 to 332, HS 191 and FBG 227 POC today.
Will start AC NovoLog 3 units and increase Lantus to 10 units in AM. Cont corrective insulin with meals.
Will resume Metformin 1000mg BID, 1st dose in AM. Discussed with Nurse. Will cont to monitor
Diabetes History
- -
Type of Diabetes: 2 requiring insulin
Pre-Admission Diabetes Regimen
08/26/25 08/27/25 08/27/25
22:46 04:20 05:22
Creatinine 1.2 H Cancelled 1.1 H
Lab Results
Hemoglobin A1c 9.8 % (4.0-5.6) H 08/25/25 03:55
Insulin Pump Settings
IP Diabetes Regimen
08/26/25 08/26/25 08/26/25
11:10 11:42 16:44
Glucose
POC Glucose 332 H 324 H 144 H
08/26/25 08/26/25 08/27/25
21:13 22:46 04:20
Glucose 202 H Cancelled
POC Glucose 191 H
08/27/25 08/27/25
05:22 07:36
Glucose 232 H
POC Glucose 227 H
Patient Education
[2025-08-27 08:41] LABS: Glucose - Point of Care 345 mg/dl (70-99)
[2025-08-27] MEDS: TOPROL XL 25 MG PO (10:29)
[2025-08-27] MEDS: ROCEPHIN 1000 MG IV (11:20)
[2025-08-27] MEDS: STERILE WATER FOR INJECTION 10 ML IV (11:20)
[2025-08-27] MEDS: FLUSH (NSS) IV ×2 (11:21)
[2025-08-27] MEDS: FEOSOL 325 MG PO (11:21)
[2025-08-27] MEDS: NOVOLOG FLEXPEN 3 UNITS SC ×2 (12:06→16:36)
--- NOTE | 2025-08-27 12:10 | W.PN.URO.CBU ---
Today's Communication / Plan
-
no new gu changes
Assessment / Plan
-
complex uti in pt with iddm mixed tanmay on micro will defer to erich but suggest nhme po abd then suppressionhematuia prob rsut of complicated uti in pt on heparin drip can start if need be blood thinnes f afib but longe oe wats the less
cance of renewed hematuia
Diagnosis
-
Date of Service: August 27, 2025
-
Patient Diagnosis:
Post Op Day:
Patient Diagnosis:
Post Op Day:
Patient Diagnosis:
complex uti prloapse but pvr is 268 sdespite potalpse and botox
Post Op Day:
Subjective
-
hematuria resolved
Objective
-
Vital Signs
Temp Pulse Resp BP Pulse Ox
98.4 F 72 17 123/84 98
08/27/25 11:24 08/27/25 12:00 08/27/25 12:00 08/27/25 12:00 08/27/25 08:06
Intake and Output
08/26/25 08/27/25 08/28/25
06:59 06:59 06:59
Intake Total 1700 / 1700 730 / 730
Output Total 600 / 600
Balance 1100 / 1100 730 / 730
Intake:
Oral fluids 1120 / 1120 480 / 480
IV fluids (Total) 320 / 320
Sterile Water For Injection 320 / 320
1000 ml 1,000 ml @ 80 mls/hr IV
.[id number] WILLEM with Sodium
Bicarbonate 150 Meq Rx#:
[id number]
IV piggybacks 260 / 260
Blood Product Amount Infused ( 0 / 0 250 / 250
mL)
Packed Rbc Leukoreduced Unit 0 / 0 250 / 250
[id number]
Output:
Urine, Voided 600 / 600
Other:
How many times incontinent 1 2
SMALL amount urine
How many times incontinent 1 1
MODERATE amount urine
Number of approximated MODERATE 1
amounts of urine
Number of approximated LARGE 3
amounts of urine
Laboratory Results
08/27/25 04:20
Review of Systems
-
: Frequency
Physical Exam
-
General - well developed, well nourished, no acute distress
Chest - clear bilaterally
Abdomen - soft, non-tender, positive bowel sounds, no CVAT, no incisional pain or distention
Genitalia - normal
Rectal - normal
Skin - warm & dry with no rash
Neuro - AOx3, no motor deficits
Extremities - no clubbing, no cyanosis, no edema
Incision - clean, dry
Dressing - clean, dry, intact
Care Review
Data Reviewed
Discussed with: Cardiology
Ultrasound: Image Pers Reviewed
[2025-08-27 12:16] LABS: Glucose - Point of Care 247 mg/dl (70-99)
--- NOTE | 2025-08-27 12:33 | WOUNDNOTE ---
L 2ND TOE AND DORSAL FOOT
--- NOTE | 2025-08-27 12:34 | WOUNDNOTE ---
L 2ND TOE
--- NOTE | 2025-08-27 12:34 | WOUNDNOTE ---
L MEDIAL DORSAL FOOT
--- NOTE | 2025-08-27 12:40 | WOUNDNOTE ---
L POSTERIOR LOWER LEGS
--- NOTE | 2025-08-27 12:45 | WOUNDNOTE ---
MARIO RN note: Patient admitted with hypoglycemia, hypothermia and anemia.
See H&P for complete history. Lives with daughter.
PMH: DM type 2, HTN, UTI, bladder prolapse-Pessory ring, anemia, SELDOVIA, arthritis and lower leg neuropathy.
Wound Location and type/assessment: Patient known to service, last seen 03/09/25. Since then wounds on L leg have healed. Has scattered bruising on arms and legs. L medial foot and posterior lower legs with dark maroon linear borges, suspect from
compression stockings. Patient confirmed she uses compression stockings at home. L 2nd toe with stable old diabetic ulcer, intact scab. Skin tear to left arm near IV site, base red with bruising surrounding. She turns in bed with assistance. Sacrum
blanchable pink, mild MASD gluteal cleft, barrier cream in use. Heels are slow to alex red, foams in use. R ear with dried scab, patient states she picked at her ear and caused it to bleed.
Appetite: Set patient up for lunch, eager to eat. Encouraged protein in diet.
Pressure redistribution devices in place: Patient is on a [employer] Air bed with turning schedule. Heels off-loaded with air cushion on pillow under calves. Foams re applied to heels.
Plan: Sacral silicone foam changed. Skin prep applied to R ear rim and L 2nd toe. Small silicone foam applied to toe. Left arm skin tear applied Vaseline gauze and dry dressing. Will confirm orders with hospitalist and updated nurse. Updated care
plan and will follow as needed.
Note to case management of equipment requested for discharge: No changes.
Recommend follow up at wound care center upon discharge.
[2025-08-27 13:21] LABS: Blood Urea Nitrogen 34 mg/dl (7-17); Calcium 8.3 mg/dl (8.4-10.2); Carbon Dioxide 18 mmol/L (22-30); Chloride 111 mmol/L (98-107); Estimated Creatinine Clearance 27 ml/min; Glucose 261 mg/dl (70-99); Potassium 5.2 mmol/L (3.5-5.1); Sodium 134 mmol/L (135-145); eGFR 54.19
--- NOTE | 2025-08-27 13:34 | CM ---
Addendum entered by Iza Balderas 08/27/25 14:44:
Received preferences for SNF's: #1 [facility], #2 [facility], #3 [facility], #4 [facility]. Referrals forwarded.
Original Note:
IV/Rocephin. Discharge POC: Therapy recommendation for SNF. [employer] list explained and provided to patient and daughter. They will choose at least 4 preferences. Patient prefers not to go to SNF. She and daughter will discuss.
--- NOTE | 2025-08-27 15:39 | PTCARENOTE ---
Rec'd care of patient at 0700. Patient alert and oriented. Very KAKE. MAEx4. NSR with pvcs on tele. Trace edema in b/l LE. Palpable pulses. Metoprolol restarted by Cardiology. Pulse ox 98% on RA. Lung sounds coarse, diminished throughout. +BS.
Appetite good. +BM. Hematuria remains. Currently voiding via bsc. Peripheral sites capped. OOB to chair around 1245. Call rosas within reach; patient ringing appropriately.
--- NOTE | 2025-08-27 16:02 | W.PN.OBG.DWH ---
Today's Communication / Plan
-
No evidence of GAS STATION CLERK tract as source of bleeding
Continue with management of vulvitis
Agree with UroGYN consult for longer term managment of prolapse
Await HSV culture
Assessment/Plan
-
6-Pehtoyrj-ejopccgij with current management, continue with zinc oxide. Await HSV culture result
6-Nnkojqggd-me evidence of vaginal bleeding and ultrasound with thin endometrial echo rules out urterus as source of bleeding. Continue with Urology care. Await consult with UroGYN
Subjective Data
-
Patient without any specific GAS STATION CLERK concerns. Advised patient that ultrasound did not demonstrate any GAS STATION CLERK abnormlity. Per patient's nurse, no bleeding unless with urination
Objective Data
-
Laboratory Results
08/27/25 04:20
08/27/25 10:50
Vital Signs
Temp Pulse Resp BP Pulse Ox
98.4 F 71 15 139/84 98
08/27/25 11:24 08/27/25 16:00 08/27/25 16:00 08/27/25 16:00 08/27/25 08:06
Vulva-improved from last notes, still mildly reddened and possible vesicular lesions noted at lower margin of LEFT inner labia, swabbed for HSV
Vagina-clear, no blood
Cervix- no cervical motion tenderness
Uterus and adnexae-nonpalpable, no tenderness to bimanual exam
[2025-08-27 16:48] LABS: Glucose - Point of Care 208 mg/dl (70-99)
[2025-08-27] MEDS: LIPITOR 10 MG PO (17:09)
--- NOTE | 2025-08-27 17:14 | W.PN.UPDATE ---
Update Note
Progress Note Update
Spoke to daughter Ms Erickson via telephone about today's encounter. She asked about the prolapse issues, advised best to wait for Dr Sandoval
[2025-08-27 21:19] LABS: Glucose - Point of Care 160 mg/dl (70-99)
[2025-08-27] MEDS: MELATONIN 5 MG PO (22:12)
[2025-08-27] MEDS: PEPCID 10 MG PO (22:13)
[2025-08-27] MEDS: NEURONTIN 200 MG PO (22:13)
[2025-08-27] MEDS: FLOMAX 0.4 MG PO (22:13)
--- NOTE | 2025-08-27 22:59 | PTCARENOTE ---
Pt received start of shift, HR SR w/ PVCs on telemetry. RA POX 95%. Forgetful at times. Ambulating x1 assist to bedside commode. voiding dark/ayla urine. x1 small BM. Pt reports taking melatonin HS PRN at home - TT ENGINEERING TECH Hephziba. PRN HS order placed
and administered - see MAR
[2025-08-28] VITALS (7 sets, daily range): BP systolic 100–116; BP diastolic 64–76; BMI 19.0
[2025-08-28] MEDS: TYLENOL 650 MG PO (03:15)
[2025-08-28 04:45] LABS: Hematocrit 32.9 % (37.0-47.0); Hemoglobin 10.9 g/dL (12.0-16.0); Mean Corp Hgb Conc. 33.1 g/dL (33.0-37.0); Mean Corpuscular Volume 83.9 fL (81.0-99.0); Platelet Count 323 10^3/uL (130-400); Red Cell Dist. Width 15.6 % (11.5-14.5)
[2025-08-28 05:07] LABS: Blood Urea Nitrogen 40 mg/dl (7-17); Calcium 8.8 mg/dl (8.4-10.2); Carbon Dioxide 23 mmol/L (22-30); Chloride 108 mmol/L (98-107); Estimated Creatinine Clearance 23 ml/min; Glucose 158 mg/dl (70-99); Potassium 5.6 mmol/L (3.5-5.1); Sodium 135 mmol/L (135-145); eGFR 43.54
[2025-08-28] MEDS: LOKELMA 5 GRAM PO (06:15)
--- NOTE | 2025-08-28 07:45 | W.PN.HOSP.TC ---
Today's Communication/Plan
-
see A/P
Assessment / Plan
Assessment / Plan
HPI: 89-year-old female with past medical history of DM2, chronic HFmrEF, HTN, MR, AI, and PVD who presented with encephalopathy, found unresponsive at home. Patient was in her usual state of health up until 1 week prior to presentation, when she
became less responsive and more sleepy. Her pre-meal insulin was changed from 3 units to 5 units AC with her first dose on 08/23/25. Blood glucose on 08/24/25 morning was in mid-20s. Pt has been experiencing groin pain recently with blood seen upon
wiping - she does have a pessary in place. Patient was found to have abnormal urinalysis and leukocytosis. Found to have hypothermia to 93.3F initially - lakshmi hugger placed. She was somnolent and responded to voice . Given her low sugar, she was
started on D5 NS, and also given ceftriaxone given abnormal urinalysis. She initially required Levophed given hypotension and admitted to the ICU for further care.
A/P:
# Septic Shock due to UTI and possible pneumonia
# Complicated UTI
Off Levophed
Continue Rocephin and Doxycycline
blood cultures negative, Legionella/Strep pneumoniae urine antigens negative, Urine culture with mixed tanmay
CXR 08/24 actually showed no evidence of pneumonia or congestive heart failure.
# Acute Blood Loss Anemia, Blood Clots with Hematuria/Vaginal Bleeding/Rectal Bleeding? on 08/26/25
# Likely hemorrhagic cystitis per Uro
s/p 1 unit PRBC transfusion
Monitor for further bleeding
Monitor Hgb, stable at 10.9 today
kidney US unrevealing, Pelvis US unrevealing
BLASTING CONTRACT MINER and Uro on board
# Acute Metabolic Encephalopathy Secondary to Infection, Hypoglycemia, Hypothermia, resolved
# Hypothermia, suspected from exogenous Insulin and sepsis
s/p Lakshmi Hugger
Now resolved
# New onset A-fib, asymptomatic, converted following 2.5 mg of IV Lopressor
Resumed home metoprolol 25 mg daily.
Hold off on anticoagulation for now given ongoing hematuria (urology expects this to improve as UTI resolves).
Cardiology on board
# Chronic HFMrEF
Echo 01/01/2025: EF 40 to 45%. Basal to mid inferolateral hypokinesis. Stage II diastolic dysfunction. Moderate MR. Mild AI. Mild to moderate TR. PASP 40 mmHg.
Hold Lasix
Strict I's and O's, Daily Weights
# Type II Diabetes Mellitus (uncontrolled) complicated by hypoglycemia likely due to exogenous insulin
Resumed Insulin, now Lantus at 10 units daily, added aspart 3 units AC
Sliding scare coverage
DM PUBLIC SAFETY TELECOMMUNICATOR on board
# Acute Kidney Injury
# Metabolic Acidosis, resolved
s/p IVF
Hold Valsartan and Lasix
SCr 1.2 today which is at baseline
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
# Groin pain recently with blood seen on wiping
# History of Urinary Incontinence
Per miniature set designer, patient was living in [facility] and was seen at [facility], where she was getting pessary cleaning every three months until the past two years. Despite pessary, patient continued to have urinary incontinence. She was evaluated for [place] sling. She had consented to Botox, but had minimal improvement of her symptoms.
Pessary removed by BLASTING CONTRACT MINER
Per BLASTING CONTRACT MINER, prolapse issue can be followed up outpt with Dr Sandoval
# Hard of Hearing
# Chronic wound on left 2nd toe digit and left dorsal forefoot
Wound care consult
# Hypomagnesemia, resolved
# Essential hypertension
resumed metoprolol
POLISHING MACHINE OPERATOR valsartan on hold
# Hyperlipidemia
Continue statin
# Diabetic neuropathy
Neurontin as tolerated
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
Continue Pepcid
# Severe discogenic DJD lumbar spine
DVT Prophylaxis: subq Heparin on hold, using SCD
Code Status: Full Code
Dispo: SNF
Anticipated Discharge: 24 - 48 hours
Subjective/Interval History
-
Date of Service: August 28, 2025
Objective Data
-
Labs:
Laboratory Results
08/28/25
04:24
WBC 6.5
Hgb 10.9 L
Hct 32.9 L
Plt Count 323
Sodium 135
Potassium 5.6 H
Chloride 108 H
Carbon Dioxide 23
BUN 40 H
Creatinine 1.2 H
Glucose 158 H
Calcium 8.8
Vital Signs:
Vital Signs
Temp Pulse Resp BP Pulse Ox
36.4 C 72 16 102/69 95
08/28/25 03:13 08/28/25 06:00 08/28/25 06:00 08/28/25 04:00 08/27/25 20:38
I&O
08/27/25 08/28/25 08/29/25
06:59 06:59 06:59
Intake Total 730 / 730 780 / 780
Output Total 150 / 150
Balance 730 / 730 630 / 630
Review of Systems
-
History Source: Patient
All other systems: Reviewed and negative
Physical Exam
-
General: Well Developed, Well Nourished, No Apparent Distress, Comfortable and Conversant; Negative Respiratory Distress
HEENT: Normocephalic, Atraumatic, Nose Appears Normal, Ears Appear Normal and Hearing Impaired; Negative Oxygen
Respiratory: Clear to Auscultation and Non Labored Respirations; Negative Accessory Resp Muscle Use
Cardiac: Regular Rhythm and S1/S2
GI: Soft, Nontender, Nondistended and Normal Bowel Sounds
Skin: Warm and Dry
Neuro: Awake and Alert
Psych: Calm and Intact Judgement/Insight (somewhat)
Data Reviewed
-
Diagnostic Radiology: Report Reviewed by me
Labs: Labs Reviewed by me
[2025-08-28] MEDS: VITAMIN D3 (cholecalciferol) 50 MCG PO (08:05)
[2025-08-28] MEDS: VIBRAMYCIN 100 MG PO ×2 (08:05→20:33)
[2025-08-28] MEDS: NEURONTIN 100 MG PO (08:05)
[2025-08-28] MEDS: LANTUS 0.1 UNITS SC (08:05)
[2025-08-28] MEDS: TOPROL XL 25 MG PO (08:05)
[2025-08-28] MEDS: THERAGRAN 1 TABLET PO (08:05)
[2025-08-28] MEDS: LOW STRENGTH ASPIRIN 81 MG PO (08:06)
[2025-08-28 08:10] LABS: Glucose - Point of Care 154 mg/dl (70-99)
--- NOTE | 2025-08-28 08:52 | W.PN.CD ---
Today's Communication / Plan
-
If no recurrent hematuria today, start Eliquis 2.5 mg twice daily tonight and stop aspirin 81 mg
Continue metoprolol
Impression / Plan
-
89-year-old female with heart failure with mildly reduced ejection fraction (40%), suspected CAD, diabetes, hypertension, hyperlipidemia, and anemia who presents with complicated UTI. Course has been complicated by hematuria due to hemorrhagic
cystitis requiring 1 unit PRBCs and A-fib with RVR for which cardiology is consulted.
Director Of Knowledge Management: Amanda
Sepsis/complicated UTI:
-sepsis is threat to life
-improving
-on IV abx
-as noted urology, financial center manager (pessary removed), hospitalist, and intensivists all on the case
AFIB with RVR, new diagnosis, asymptomatic:
-Noted in the setting of acute illness. Back in SR.
-Continue home metoprolol succinate 25 mg daily
-[id number] score is at least 6 for age, female, hypertension, CHF, and DM (possibly 7 if CAD, which is suspected).
-Worsened anemia was noted this admission. Notes reviewed. HGB as low as 6.7 this admit, but some dilution/error was suspected. She received 1 unit PRBC this admit.
-If no recurrent hematuria today, will plan to start Eliquis 2.5 mg twice daily tonight, stop aspirin, and monitor
HFrEF: chronic, EF 40%
-does not appear volume overloaded to assessment, monitor volume
-resume metoprolol. Other GDMT limited (SGLT2I due to UTI's, ARB/ARNI/MRA with hyperkalemia at this time).
DMII on insulin:
-hypoglycemia on arrival
-management per primary
Hyperkalemia:
-being treated and monitored
Subjective: No complaints. RN reports no hematuria overnight.
Physical Exam
Vital Signs/Labs
Vital Signs
Temp Pulse Resp BP Pulse Ox
97.5 F 61 16 116/75 95
08/28/25 03:13 08/28/25 08:05 08/28/25 06:00 08/28/25 08:05 08/27/25 20:38
08/27/25 08/28/25 08/29/25
06:59 06:59 06:59
Actual Weight 97 lb 7.109 oz 97 lb 3.582 oz
08/28/25 04:24
08/28/25 04:24
PT 14.0 Sec (11.4-14.6) 08/24/25 15:01
INR 1.05 08/24/25 15:01
APTT 32.1 Sec (23.4-35.0) 08/24/25 15:01
Magnesium 2.1 mg/dl (1.6-2.3) 08/27/25 05:22
Physical Exam
Constitutional: No acute distress and Comfortable
Cardiovascular: Rhythm & rate is regular, Pedal edema is absent, S1S2 is normal and Murmur/rub/gallop absent
Respiratory: Respiratory effort normal and Lungs clear to auscul.
Data Reviewed
-
Date of Service: August 28, 2025
Medical Decision Making: Reviewed Test Results, Independent Historian Assessment, Test Interpretation and Review of Case with other Provider
EKG: Tracing Personally Visualized and interpreted
Echo: Report Reviewed by me
Labs: Labs Reviewed by me
[2025-08-28] MEDS: NOVOLOG FLEXPEN 3 UNITS SC (09:10)
[2025-08-28] MEDS: NOVOLOG FLEXPEN-MODERATE RESISTANCE 1 UNITS SC (09:11)
--- NOTE | 2025-08-28 09:19 | PN.DE.MGMTRT ---
Insulin Management
- -
08/28/2025: Diabetes Management Consult Follow up
89 year old female who presented with encephalopathy, found unresponsive at home, likely due to septic shock in setting of UTI
PMH: Chronic HFmrEF, HTN, HLD, MR, AI, Anemia, PVD, CKD and T2DM
Patient was noted to have elevated blood sugar during her routine blood work as outpatient. Her track liner operator increased her insulin from 3 units to 5 units with her first dose on 08/23/25 and Lantus 11 units to 13 units. Blood glucose on 08/24/25
morning was in mid-20s. She usually does not take her regular insulin at home and she is does not eat very well. she only takes her insulin, when she is eating regular food. Yesterday her daughter gave her increased dose of insulin 3 times a day
as well as Lantus. As per daughter, she has been sleeping more than usual for past 1 week and has seemed more confused.
Found to have hypoglycemia on admission and was started on D5 NS, and also given ceftriaxone given abnormal urinalysis.
Pt awake, alert, oriented, severely [place], sitting up in bed, offers no complaints. No family at bedside. States her Dtr manages all her diabetes care, including checking her blood sugar and administering her insulin. Per chart review, she takes
Lantus 13 units @ HS, Humalog 5 units AC and Metformin 1000mg BID
A1C 9.8%, Cr 1.2, eGFR 43.54.
Current diabetes regimen includes: Lantus 10 units in AM (home dose was HS) with 3 units novolog AC and low corrective insulin with meals.
Glucose has remained elevated, 08/27 premeal 208 to 247, HS 160 and FBG 154 POC today.
Will increase AC NovoLog from 3 units to 5 units with low corrective insulin AC and continue Lantus 10 units in AM, Metformin 1000mg BID, 1st dose resumed today.
Discussed with Nurse. Will cont to monitor
Diabetes History
- -
Type of Diabetes: 2 requiring insulin
Pre-Admission Diabetes Regimen
08/27/25 08/28/25
10:50 04:24
Creatinine 1.0 1.2 H
Lab Results
Hemoglobin A1c 9.8 % (4.0-5.6) H 08/25/25 03:55
Insulin Pump Settings
IP Diabetes Regimen
08/27/25 08/27/25 08/27/25
10:50 12:04 16:35
Glucose 261 H
POC Glucose 247 H 208 H
08/27/25 08/28/25 08/28/25
21:07 04:24 07:59
Glucose 158 H
POC Glucose 160 H 154 H
Meal type: Dinner
Meal type: Lunch
Meal type: Breakfast
Amount consumed: 95%
Amount consumed: 65%
Amount consumed: 90%
Patient Education
[2025-08-28] MEDS: GLUCOPHAGE 1000 MG PO ×2 (09:46→17:40)
[2025-08-28] MEDS: FEOSOL 325 MG PO (12:26)
[2025-08-28] MEDS: ROCEPHIN 1000 MG IV (12:26)
[2025-08-28] MEDS: STERILE WATER FOR INJECTION 10 ML IV (12:27)
[2025-08-28 12:28] LABS: Glucose - Point of Care 186 mg/dl (70-99)
[2025-08-28] MEDS: NOVOLOG FLEXPEN-LOW RESISTANCE 1 UNITS SC (13:19)
[2025-08-28] MEDS: NOVOLOG FLEXPEN 5 UNITS SC (13:19)
[2025-08-28] MEDS: FLUSH (NSS) IV ×2 (13:19)
--- NOTE | 2025-08-28 13:38 | W.PN.URO.CBU ---
Today's Communication / Plan
-
NO CHANGES
Assessment / Plan
-
complex uti in pt with iddm mixed tanmay on micro will defer to erich but suggest nhme po abd then suppressionhematuia prob rsut of complicated uti in pt on heparin drip can start if need be blood thinnes f afib but longe oe wats the less
cance of renewed hematuia
Diagnosis
-
Date of Service: August 28, 2025
-
Patient Diagnosis:
Post Op Day:
Patient Diagnosis:
Post Op Day:
Patient Diagnosis:
Post Op Day:
Patient Diagnosis:
complex uti prloapse but pvr is 268 sdespite potalpse and botox
Post Op Day:
Subjective
-
NO SXS HEMATURIA SUBSIDED
Objective
-
Vital Signs
Temp Pulse Resp BP Pulse Ox
97.7 F 61 16 116/75 95
08/28/25 11:24 08/28/25 08:05 08/28/25 06:00 08/28/25 08:05 08/27/25 20:38
Intake and Output
08/27/25 08/28/25 08/29/25
06:59 06:59 06:59
Intake Total 730 / 730 780 / 780
Output Total 150 / 150
Balance 730 / 730 630 / 630
Intake:
Oral fluids 480 / 480 780 / 780
Blood Product Amount Infused ( 250 / 250
mL)
Packed Rbc Leukoreduced Unit 250 / 250
[id number]
Output:
Urine, Voided 150 / 150
Other:
How many times incontinent 2
SMALL amount urine
How many times incontinent 1 1
MODERATE amount urine
How many times incontinent 1
SATURATED amount urine
Number of approximated SMALL 3
amounts of urine
Number of approximated MODERATE 1 1
amounts of urine
Number of approximated LARGE 3
amounts of urine
Laboratory Results
08/28/25 04:24
08/28/25 04:24
Review of Systems
-
: No Symptoms
Physical Exam
-
General - well developed, well nourished, no acute distress
Chest - clear bilaterally
Abdomen - soft, non-tender, positive bowel sounds, no CVAT, no incisional pain or distention
Genitalia - normal
Rectal - normal
Skin - warm & dry with no rash
Neuro - AOx3, no motor deficits
Extremities - no clubbing, no cyanosis, no edema
Incision - clean, dry
Dressing - clean, dry, intact
Counseling
-
NO INTRVENTIO
Care Review
Data Reviewed
Discussed with: Nursing
--- NOTE | 2025-08-28 14:48 | CM ---
Sepsis improving, IV/Rocephin, initiate Eliquis today. Discharge POC: SNF. Referrals previously forwarded. [facility] accepted. [facility] declined due to insurance, Awaiting response from [facility]. Will need AUTH.
--- NOTE | 2025-08-28 14:51 | PTCARENOTE ---
Assumed care of pt from night RN. AAOx3. HUGHES. Forgetful at times. NSR on tele. SpO2 98% on room air. VSS. Ambulating x1 assist with RW OOB to chair and bedside commode. Voiding clear ayla urine. Plan to start Eliquis tonight. Diabetes following and
adjusting insulin. Assessment documented. Report called to 3 west RN. Awaiting transport at this time for transfer.
[2025-08-28 16:34] LABS: Glucose - Point of Care 61 mg/dl (70-99)
[2025-08-28] MEDS: NOVOLOG FLEXPEN-LOW RESISTANCE SC (16:38)
[2025-08-28 16:58] LABS: Glucose - Point of Care 62 mg/dl (70-99)
[2025-08-28 17:13] LABS: Glucose - Point of Care 69 mg/dl (70-99)
[2025-08-28 17:37] LABS: Glucose - Point of Care 91 mg/dl (70-99)
[2025-08-28] MEDS: LIPITOR 10 MG PO (17:40)
[2025-08-28] MEDS: NOVOLOG FLEXPEN SC (17:44)
[2025-08-28 19:32] LABS: Glucose - Point of Care 167 mg/dl (70-99)
[2025-08-28] MEDS: ELIQUIS 2.5 MG PO (20:33)
[2025-08-28] MEDS: NEURONTIN 200 MG PO (21:15)
[2025-08-28] MEDS: PEPCID 10 MG PO (21:16)
[2025-08-28] MEDS: FLOMAX 0.4 MG PO (21:16)
[2025-08-28 21:31] LABS: Glucose - Point of Care 94 mg/dl (70-99)
--- NOTE | 2025-08-28 23:00 | W.PN.UPDATE ---
Update Note
Progress Note Update
Due to events happening on labor unit of high acuity today as well as several emergencies, I was unable to come see patient today.
Will see pt tomorrow given time of night now.
Several notations made regarding urogyn consult recommended. Consult ordered.
[2025-08-29] VITALS (7 sets, daily range): BP systolic 96–126; BP diastolic 53–78; PULSE 76; O2SAT 99; BMI 19.2
[2025-08-29 02:56] LABS: Glucose - Point of Care 74 mg/dl (70-99)
[2025-08-29 05:53] LABS: Hematocrit 31.2 % (37.0-47.0); Hemoglobin 10.1 g/dL (12.0-16.0); Mean Corp Hgb Conc. 32.4 g/dL (33.0-37.0); Mean Corpuscular Volume 85.0 fL (81.0-99.0); Platelet Count 310 10^3/uL (130-400); Red Cell Dist. Width 15.6 % (11.5-14.5)
[2025-08-29 07:51] LABS: Blood Urea Nitrogen 40 mg/dl (7-17); Calcium 8.4 mg/dl (8.4-10.2); Carbon Dioxide 24 mmol/L (22-30); Chloride 107 mmol/L (98-107); Estimated Creatinine Clearance 27 ml/min; Glucose 80 mg/dl (70-99); Potassium 5.5 mmol/L (3.5-5.1); Sodium 134 mmol/L (135-145); eGFR 54.19
[2025-08-29 07:59] LABS: Glucose - Point of Care 87 mg/dl (70-99)
[2025-08-29] MEDS: NOVOLOG FLEXPEN-LOW RESISTANCE SC ×3 (08:02→17:25)
--- NOTE | 2025-08-29 08:09 | PN.DE.MGMTRT ---
Insulin Management
- -
08/29/2025: Diabetes Management Consult Follow up
89 year old female who presented with encephalopathy, found unresponsive at home, likely due to septic shock in setting of UTI
PMH: Chronic HFmrEF, HTN, HLD, MR, AI, Anemia, PVD, CKD and T2DM
Patient was noted to have elevated blood sugar during her routine blood work as outpatient. Her window treatment installer increased her insulin from 3 units to 5 units with her first dose on 08/23/25 and Lantus 11 units to 13 units. Blood glucose on 08/24/25
morning was in mid-20s. She usually does not take her regular insulin at home and she is does not eat very well. she only takes her insulin, when she is eating regular food. Yesterday her daughter gave her increased dose of insulin 3 times a day
as well as Lantus. As per daughter, she has been sleeping more than usual for past 1 week and has seemed more confused.
Found to have hypoglycemia on admission and was started on D5 NS, and also given ceftriaxone given abnormal urinalysis.
Pt awake, alert, oriented, severely [place], sitting up in bed, offers no complaints. No family at bedside. States her Dtr manages all her diabetes care, including checking her blood sugar and administering her insulin. Per chart review, she takes
Lantus 13 units @ HS, Humalog 5 units AC and Metformin 1000mg BID
A1C 9.8%, Cr 1.2, eGFR 43.54.
Yesterday AC NovoLog increased to 5 units with low corrective insulin AC and continued Lantus 10 units in AM, Metformin 1000mg BID.
Glucose range yesterday 154, 186, 61 @ 4:32pm. Will decrease AM lantus to 8 units and novolog to 4 units AC with low corrective insulin. Will continue metformin 1000 mg BID.
Discussed with Nurse. Will cont to monitor
Diabetes History
- -
Type of Diabetes: 2 requiring insulin
Pre-Admission Diabetes Regimen
08/29/25 08/29/25
05:23 07:11
Creatinine Cancelled 1.0
Lab Results
Hemoglobin A1c 9.8 % (4.0-5.6) H 08/25/25 03:55
Insulin Pump Settings
IP Diabetes Regimen
08/28/25 08/28/25 08/28/25
07:59 12:16 16:32
Glucose
POC Glucose 154 H 186 H 61 L
08/28/25 08/28/25 08/28/25
16:57 17:11 17:35
Glucose
POC Glucose 62 L 69 L 91
08/28/25 08/28/25 08/29/25
19:30 21:29 02:55
Glucose
POC Glucose 167 H 94 74
08/29/25 08/29/25 08/29/25
05:23 07:11 07:58
Glucose Cancelled 80
POC Glucose 87
Meal type: Dinner
Amount consumed: 50%
Patient Education
[2025-08-29] MEDS: VITAMIN D3 (cholecalciferol) 50 MCG PO (08:54)
[2025-08-29] MEDS: VIBRAMYCIN 100 MG PO ×2 (08:54→20:10)
[2025-08-29] MEDS: THERAGRAN 1 TABLET PO (08:56)
[2025-08-29] MEDS: ELIQUIS 2.5 MG PO ×2 (08:56→20:10)
[2025-08-29] MEDS: NEURONTIN 100 MG PO (08:57)
[2025-08-29] MEDS: TOPROL XL PO (08:58)
[2025-08-29] MEDS: GLUCOPHAGE 1000 MG PO ×2 (08:58→18:00)
[2025-08-29] MEDS: LANTUS 0.08 UNITS SC (08:59)
[2025-08-29 10:22] LABS: Glucose - Point of Care 112 mg/dl (70-99)
[2025-08-29] MEDS: NOVOLOG FLEXPEN 4 UNITS SC ×3 (10:38→18:46)
--- NOTE | 2025-08-29 10:40 | PTCARENOTE ---
RN went into pt's room to administer breakfast Novolog. RN noticed new skin tear on pt's R upper lateral arm. Wound 2.5cmx1.5cm and open with scant amount of bleeding. Wound cleaned with sterile saline, oil emulsion dressing and silicone border
placed. Pt does not recall how skin tear occurred.
--- NOTE | 2025-08-29 11:32 | W.PN.HOSP.TC ---
Today's Communication/Plan
-
see A/P
Assessment / Plan
Assessment / Plan
HPI: 89-year-old female with past medical history of DM2, chronic HFmrEF, HTN, MR, AI, and PVD who presented with encephalopathy, found unresponsive at home. Patient was in her usual state of health up until 1 week prior to presentation, when she
became less responsive and more sleepy. Her pre-meal insulin was changed from 3 units to 5 units AC with her first dose on 08/23/25. Blood glucose on 08/24/25 morning was in mid-20s. Pt has been experiencing groin pain recently with blood seen upon
wiping - she does have a pessary in place. Patient was found to have abnormal urinalysis and leukocytosis. Found to have hypothermia to 93.3F initially - lakshmi hugger placed. She was somnolent and responded to voice . Given her low sugar, she was
started on D5 NS, and also given ceftriaxone given abnormal urinalysis. She initially required Levophed given hypotension and admitted to the ICU for further care.
A/P:
# Septic Shock due to UTI and possible pneumonia
Off Levophed
Continue Rocephin
Cont Doxycycline for 5 days total
blood cultures negative, Legionella/Strep pneumoniae urine antigens negative, Urine culture with mixed tanmay
CXR 08/24 actually showed no evidence of pneumonia or congestive heart failure.
# New diarrhea per RN
Given pt has been on Abx for several days, will need to check and r/o C diff
Also check stool culture, Norovirus
# Acute Blood Loss Anemia, Blood Clots with Hematuria/Vaginal Bleeding/Rectal Bleeding? on 08/26/25
# Likely hemorrhagic cystitis per Uro
s/p 1 unit PRBC transfusion
Monitor for further bleeding
Monitor Hgb, stable at 10.1 today
kidney US unrevealing, Pelvis US unrevealing
REGISTERED NURSE BONE MARROW TRANSPLANT and Uro on board
# Acute Metabolic Encephalopathy Secondary to Infection, Hypoglycemia, Hypothermia, resolved
# Hypothermia, suspected from exogenous Insulin and sepsis
s/p Lakshmi Hugger
Now resolved
# New onset A-fib, asymptomatic, converted following 2.5 mg of IV Lopressor
Resumed home metoprolol, decrease to 12.5 mg daily with hold parameter in setting of low blood pressure
with resolution of bleeding, pt was started with low dose Eliquis 2.5 mg BID
Cardiology on board
# Chronic HFMrEF
Echo 01/01/2025: EF 40 to 45%. Basal to mid inferolateral hypokinesis. Stage II diastolic dysfunction. Moderate MR. Mild AI. Mild to moderate TR. PASP 40 mmHg.
Hold Lasix
Strict I's and O's, Daily Weights
# Type II Diabetes Mellitus (uncontrolled) complicated by hypoglycemia likely due to exogenous insulin
Resumed Insulin, now Lantus at 10 units daily, added aspart 3 units AC
Sliding scare coverage
DM NEEDLE FELT MAKING MACHINE OPERATOR on board
# Acute Kidney Injury, resolved
# Metabolic Acidosis, resolved
s/p IVF
Hold Valsartan and Lasix
SCr at 1.0 today
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
# Groin pain recently with blood seen on wiping
# History of Urinary Incontinence
Per ob/gyn, patient was living in [facility] and was seen at [facility], where she was getting pessary cleaning every three months until the past two years. Despite pessary, patient continued to have urinary incontinence. She was evaluated for [place] sling. She had consented to Botox, but had minimal improvement of her symptoms.
Pessary removed by REGISTERED NURSE BONE MARROW TRANSPLANT
Per REGISTERED NURSE BONE MARROW TRANSPLANT, prolapse issue can be followed up outpt with Dr Sandoval
# Hard of Hearing
# Chronic wound on left 2nd toe digit and left dorsal forefoot
Wound care consult
# Hypomagnesemia, resolved
# Chronic mild hyperkalemia
monitor
# Essential hypertension
resumed metoprolol
RODDING MACHINE TENDER valsartan on hold
# Hyperlipidemia
Continue statin
# Diabetic neuropathy
Neurontin as tolerated
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
Continue Pepcid
# Severe discogenic DJD lumbar spine
DVT Prophylaxis: subq Heparin on hold, using SCD
Code Status: Full Code
Dispo: SNF
DW RN
Anticipated Discharge: Within 24 hours
Subjective/Interval History
-
Date of Service: August 29, 2025
Objective Data
-
Labs:
Laboratory Results
08/29/25 08/29/25
05:23 07:11
WBC 7.7
Hgb 10.1 L
Hct 31.2 L
Plt Count 310
Sodium Cancelled 134 L
Potassium Cancelled 5.5 H
Chloride Cancelled 107
Carbon Dioxide Cancelled 24
BUN Cancelled 40 H
Creatinine Cancelled 1.0
Glucose Cancelled 80
Calcium Cancelled 8.4
Vital Signs:
Vital Signs
Temp Pulse Resp BP Pulse Ox
36.8 C 83 19 96/53 95
08/29/25 11:00 08/29/25 11:00 08/29/25 11:00 08/29/25 11:00 08/29/25 11:00
I&O
08/28/25 08/29/25 08/30/25
06:59 06:59 06:59
Intake Total 780 / 780 480 / 480
Output Total 150 / 150
Balance 630 / 630 480 / 480
Review of Systems
-
History Source: Patient
All other systems: Reviewed and negative
Physical Exam
-
General: Well Developed, Well Nourished, No Apparent Distress, Comfortable and Conversant; Negative Respiratory Distress
HEENT: Normocephalic, Atraumatic, Nose Appears Normal, Ears Appear Normal and Hearing Impaired; Negative Oxygen
Respiratory: Clear to Auscultation and Non Labored Respirations; Negative Accessory Resp Muscle Use
Cardiac: Regular Rhythm and S1/S2
GI: Soft, Nontender, Nondistended and Normal Bowel Sounds
Skin: Warm and Dry
Neuro: Awake and Alert
Psych: Calm and Intact Judgement/Insight (somewhat)
Data Reviewed
-
Diagnostic Radiology: Report Reviewed by me
Labs: Labs Reviewed by me
--- NOTE | 2025-08-29 11:38 | W.PN.URO.CBU ---
Today's Communication / Plan
-
no gu intervention
Assessment / Plan
-
complex uti in pt with iddm mixed tanmay on micro improving follow up wit primary uro banking assistant
Diagnosis
-
Date of Service: August 29, 2025
-
Patient Diagnosis:
Post Op Day:
Patient Diagnosis:
Post Op Day:
Patient Diagnosis:
Post Op Day:
Patient Diagnosis:
Post Op Day:
Patient Diagnosis:
complex uti prloapse but pvr is 268 sdespite potalpse and botox
Post Op Day:
Subjective
-
no gu complaints
Objective
-
Vital Signs
Temp Pulse Resp BP Pulse Ox
98.2 F 83 19 96/53 95
08/29/25 11:00 08/29/25 11:00 08/29/25 11:00 08/29/25 11:00 08/29/25 11:00
Intake and Output
08/28/25 08/29/25 08/30/25
06:59 06:59 06:59
Intake Total 780 / 780 480 / 480
Output Total 150 / 150
Balance 630 / 630 480 / 480
Intake:
Oral fluids 780 / 780 480 / 480
Output:
Urine, Voided 150 / 150
Other:
How many times incontinent 1 2
MODERATE amount urine
How many times incontinent 1
SATURATED amount urine
Number of approximated SMALL 3 1
amounts of urine
Number of approximated MODERATE 1 1
amounts of urine
Number of approximated LARGE 3
amounts of urine
Number of unmeasured liquid
stools
Rectum 1
Laboratory Results
08/29/25 05:23
08/29/25 07:11
Review of Systems
-
: Frequency
Physical Exam
-
General - well developed, well nourished, no acute distress
Chest - clear bilaterally
Abdomen - soft, non-tender, positive bowel sounds, no CVAT, no incisional pain or distention
Genitalia - normal
Rectal - normal
Skin - warm & dry with no rash
Neuro - AOx3, no motor deficits
Extremities - no clubbing, no cyanosis, no edema
Incision - clean, dry
Dressing - clean, dry, intact
[2025-08-29] MEDS: ROCEPHIN 1000 MG IV (12:37)
[2025-08-29] MEDS: FEOSOL 325 MG PO (12:38)
[2025-08-29] MEDS: STERILE WATER FOR INJECTION 10 ML IV (12:38)
[2025-08-29] MEDS: FLUSH (NSS) IV ×2 (12:39)
[2025-08-29 13:36] LABS: Glucose - Point of Care 108 mg/dl (70-99)
--- NOTE | 2025-08-29 16:43 | CM ---
PT OT indicated SNF.
Spoke with patient in room and dgt Court. Reviewed that [facility] and [facility] are out of Network.
Terrance at [facility] said will need to talk tomorrow for bed availability.
[facility] have a bed.
[facility] dgt said she will decided between both SNF tomorrow.
Will need auth for SNF with [employer].
PLAN To SNF after located and SNF auth obtained
[2025-08-29 17:22] LABS: Glucose - Point of Care 121 mg/dl (70-99)
--- NOTE | 2025-08-29 17:28 | W.PN.OBG.DWH ---
Today's Communication / Plan
-
Await results of HSV culture
f/u outpatient with Urogyn for mgmt of incontinence and pelvic organ prolapse
patient and family to consider if they want to follow up outpatient with [facility] for endometrial biopsy.
Assessment/Plan
-
89yo with Urosepsis and Urinary/Fecal incontinence and anemia
-s/p Pessary removal on admission. I have previously discussed with patient and her daughter that I do not recommend replacement now. Rather she should f/u with Urogyn outpatient to discuss additional mgmt options.
-Changes to the labia likely related to chronic irritation and exposure to urine/fecal products. Continue with barrier ointment and maintain good hygiene to the area. In addition, HSV cultures pending to further evaluate ulcerations that were noted
on previous exam.
-Patient had an episode of significant blood/clots on her pad on 08/26. At the time Renal and Pelvic US were performed. Pelvic US showed thin EMS with trace fluid in endometrium. Pelvic exam done showed No blood in vagina and ultimately it was felt
that she is experiencing hematuria. However, given the finding of trace fluid on the US, I did discuss with Vegetable Picker Onc colleague regarding best course of action. Their response was trace fluid is likely due to cervical stenosis and in the absence of
PMB and a thin EMS, the concern for underlying malignancy is low. However, endometrial biopsy can be offered on a non urgent, outpatient basis if patient/family desires. I reviewed this conversation and options with the patient and her daughter
today. I also advised if at any point she were to start experiencing PMB then endometrial biopsy is definitely warranted.
-Management of her other medical conditions per Tree Surgeon team and Urology.
Subjective Data
-
patient feels well. Sitting in chair. Daughter in the room with her.
Objective Data
-
Laboratory Results
08/29/25 05:23
08/29/25 07:11
Vital Signs
Temp Pulse Resp BP Pulse Ox
97.5 F 93 17 112/70 97
08/29/25 15:00 08/29/25 15:00 08/29/25 15:00 08/29/25 15:00 08/29/25 15:00
HSV culture pending
Pelvic US 08/26: The uterus is anteverted and measures 5.6 x 2.3 x 3.6 cm (longitudinal x AP x transverse).
Probable small intramural fibroid measuring 1.0 cm. The endometrium is thin and measures up to 2 mm
in thickness. Minimal fluid in the endometrial canal.��
Gen: well appearing
Pelvic: deferred, patient sitting in the chair
[2025-08-29] MEDS: LIPITOR 10 MG PO (18:00)
--- NOTE | 2025-08-29 18:17 | W.PN.CD ---
Today's Communication / Plan
-
-Continue antibiotics and recommendations as per Urology, Gynecology (pessary removed), and Hospitalist.
-No recurrent hematuria; continue Eliquis 2.5 mg BID, aspirin discontinued.
-No further cardiac recommendations at this time; outpatient follow-up with Cardiology as scheduled.
Impression / Plan
-
89-year-old female with heart failure with mildly reduced ejection fraction (40%), suspected CAD, diabetes, hypertension, hyperlipidemia, and anemia who presents with complicated UTI. Course has been complicated by hematuria due to hemorrhagic
cystitis requiring 1 unit PRBCs and A-fib with RVR for which cardiology is consulted.
Roving Department End Finder: Amanda
Sepsis/complicated UTI:
-improving
-Continue antibiotics and recommendations as per Urology, Gynecology (pessary removed), and Hospitalist.
AFIB with RVR, new diagnosis, asymptomatic:
-Noted in the setting of acute illness. Back in SR.
-Continue home dose of metoprolol succinate 25 mg daily
-[id number] score is at least 6 for age, female, hypertension, CHF, and DM (possibly 7 if CAD, which is suspected).
-Worsened anemia was noted this admission. Notes reviewed. HGB as low as 6.7 this admit, but some dilution/error was suspected. She received 1 unit PRBC this admit.
-No recurrent hematuria; continue Eliquis 2.5 mg BID, aspirin discontinued.
HFrEF: chronic, EF 40%
- Fairly compensated on examination.
- Continue current dose of metoprolol succinate; unable to optimize with further GDMT (no SGLT2I due to UTI's, ARB/ARNI/MRA with hyperkalemia at this time).
DMII on insulin:
-hypoglycemia on arrival
-Continue management per primary
Hyperkalemia:
-being treated and monitored
Subjective: No major events overnight. No cardiac complaints today.
Physical Exam
Vital Signs/Labs
Vital Signs
Temp Pulse Resp BP Pulse Ox
97.5 F 93 17 112/70 97
08/29/25 15:00 08/29/25 15:00 08/29/25 15:00 08/29/25 15:00 08/29/25 15:00
08/28/25 08/29/25 08/30/25
06:59 06:59 06:59
Actual Weight 44.1 kg 44.565 kg
08/29/25 05:23
08/29/25 07:11
PT 14.0 Sec (11.4-14.6) 08/24/25 15:01
INR 1.05 08/24/25 15:01
APTT 32.1 Sec (23.4-35.0) 08/24/25 15:01
Magnesium 2.1 mg/dl (1.6-2.3) 08/27/25 05:22
Physical Exam
Constitutional: No acute distress and Comfortable
EENT: Anicteric
Cardiovascular: Rhythm & rate is regular, Pedal edema present (Trace), Systolic murmur present (Soft 2/6) and S1S2 is normal
Respiratory: Respiratory effort normal and Lungs clear to auscul.
GI: Soft
Neuro/Psych: AO x 3
Other: Skin (Warm, dry)
Data Reviewed
-
Date of Service: August 29, 2025
EKG: Tracing Personally Visualized and interpreted (Telemetry: Sinus rhythm)
Echo: Report Reviewed by me (04/06/2025: LVEF 40%, moderate TR.)
Medical Tests (PFT, Pathology etc): Discussed with Patient
Labs: Labs Reviewed by me
[2025-08-29] MEDS: PEPCID 10 MG PO (21:30)
[2025-08-29] MEDS: FLOMAX 0.4 MG PO (21:31)
[2025-08-29] MEDS: NEURONTIN 200 MG PO (21:31)
[2025-08-30 03:54] VITALS: BMI 19.2
[2025-08-30 07:19] LABS: Hematocrit 31.9 % (37.0-47.0); Hemoglobin 10.6 g/dL (12.0-16.0); Mean Corp Hgb Conc. 33.2 g/dL (33.0-37.0); Mean Corpuscular Volume 84.6 fL (81.0-99.0); Platelet Count 282 10^3/uL (130-400); Red Cell Dist. Width 15.6 % (11.5-14.5)
--- NOTE | 2025-08-30 07:26 | PN.DE.MGMTRT ---
Insulin Management
- -
08/30/2025: Diabetes Management Consult Follow up
89 year old female who presented with encephalopathy, found unresponsive at home, likely due to septic shock in setting of UTI
PMH: Chronic HFmrEF, HTN, HLD, MR, AI, Anemia, PVD, CKD and T2DM
Patient was noted to have elevated blood sugar during her routine blood work as outpatient. Her mail agent increased her insulin from 3 units to 5 units with her first dose on 08/23/25 and Lantus 11 units to 13 units. Blood glucose on 08/24/25
morning was in mid-20s. She usually does not take her regular insulin at home and she is does not eat very well. she only takes her insulin, when she is eating regular food. Yesterday her daughter gave her increased dose of insulin 3 times a day
as well as Lantus. As per daughter, she has been sleeping more than usual for past 1 week and has seemed more confused.
Found to have hypoglycemia on admission and was started on D5 NS, and also given ceftriaxone given abnormal urinalysis.
Pt awake, alert, oriented, severely [place], sitting up in bed, offers no complaints. No family at bedside. States her Dtr manages all her diabetes care, including checking her blood sugar and administering her insulin. Per chart review, she takes
Lantus 13 units @ HS, Humalog 5 units AC and Metformin 1000mg BID
A1C 9.8%, Cr 1.2, eGFR 43.54.
Yesterday AM lantus reduced to 8 units and AC novolog reduced to 4 units due to hypoglycemia, 61, the previous day. Glucose range yesterday 87 to 121. NO hs glucose obtained. AM glucose 33, repeated then [address] Pedersen has stopped
lantus and standing insulin; continued low corrective AC and metformin 1000 mg BID. Nurse clarified, metformin to continue at 1000 BID.
Patient A1C is 9.8%, most likely will require insulin be restarted, recommend 5 units lantus in AM with novolog 3 units AC. AC novolog should be held if patient does not eat meal.
Discussed with Nurse. Will cont to monitor
Diabetes History
- -
Type of Diabetes: 2 requiring insulin
Pre-Admission Diabetes Regimen
08/29/25
07:11
Creatinine 1.0
Lab Results
Hemoglobin A1c 9.8 % (4.0-5.6) H 08/25/25 03:55
Insulin Pump Settings
IP Diabetes Regimen
08/29/25 08/29/25 08/29/25
07:11 07:58 10:21
Glucose 80
POC Glucose 87 112 H
08/29/25 08/29/25
13:35 17:22
Glucose
POC Glucose 108 H 121 H
Meal type: Lunch
Meal type: Breakfast
Amount consumed: 45%
Amount consumed: 55%
Patient Education
[2025-08-30 07:36] VITALS: BP 131/74
[2025-08-30 07:47] LABS: Glucose - Point of Care 67 mg/dl (70-99)
[2025-08-30 08:11] LABS: Glucose - Point of Care 33 mg/dl (70-99)
[2025-08-30 08:14] LABS: Glucose - Point of Care 24 mg/dl (70-99)
[2025-08-30 08:15] LABS: Glucose - Point of Care 24 mg/dl (70-99)
[2025-08-30] MEDS: DEXTROSE 50% SYRINGE 12.5 GRAMS IV (08:20)
[2025-08-30 08:23] LABS: Blood Urea Nitrogen 41 mg/dl (7-17); Calcium 8.7 mg/dl (8.4-10.2); Carbon Dioxide 18 mmol/L (22-30); Chloride 110 mmol/L (98-107); Estimated Creatinine Clearance 25 ml/min; Glucose 31 mg/dl (70-99); Potassium 5.1 mmol/L (3.5-5.1); Sodium 135 mmol/L (135-145); eGFR 48.33
[2025-08-30 08:36] VITALS: BP 119/70
[2025-08-30 08:36] LABS: Glucose - Point of Care 132 mg/dl (70-99)
--- NOTE | 2025-08-30 08:41 | GLUCOSE ---
SITUATION:
BG 67 juice provided. Repeat BG 33 juice provided x2. Repeat BG 24 and checked with second glucometer. Pt awake and alert. IV dextrose given repeat BG 132.
BACKGROUND:
ASSESSMENT:
RECOMMENDATION:
--- NOTE | 2025-08-30 08:44 | PTCARENOTE ---
BG 24 (see glucose note) rectal temp 94.0 Dr Pedersen notified. Stevenson alicea ordered.
[2025-08-30] MEDS: NOVOLOG FLEXPEN-LOW RESISTANCE SC ×2 (08:50→18:27)
[2025-08-30] MEDS: NOVOLOG FLEXPEN SC (08:50)
[2025-08-30] MEDS: ELIQUIS 2.5 MG PO ×2 (08:56→20:08)
[2025-08-30] MEDS: NEURONTIN 100 MG PO (08:57)
[2025-08-30] MEDS: THERAGRAN 1 TABLET PO (09:04)
[2025-08-30] MEDS: TOPROL XL 12.5 MG PO (09:05)
[2025-08-30] MEDS: VIBRAMYCIN 100 MG PO (09:05)
[2025-08-30] MEDS: VITAMIN D3 (cholecalciferol) 50 MCG PO (09:09)
[2025-08-30] MEDS: LANTUS SC (09:17)
[2025-08-30] MEDS: GLUCOPHAGE 1000 MG PO ×2 (10:35→18:30)
--- NOTE | 2025-08-30 10:48 | W.PN.URO.CBU ---
Today's Communication / Plan
-
conyinue peesent care
Assessment / Plan
-
complex uti in pt with iddm mixed tanmay on micro improving follow up wit primary uro powertrain calibration engineer expect blood in urine with blood thinners
Diagnosis
-
Date of Service: August 30, 2025
-
Patient Diagnosis:
Post Op Day:
Patient Diagnosis:
Post Op Day:
Patient Diagnosis:
Post Op Day:
Patient Diagnosis:
Post Op Day:
Patient Diagnosis:
Post Op Day:
Patient Diagnosis:
complex uti prloapse but pvr is 268 sdespite potalpse and botox
Post Op Day:
Subjective
-
hematuria on eliquis
Objective
-
Vital Signs
Temp Pulse Resp BP Pulse Ox
94.9 F L 79 18 119/70 96
08/30/25 10:00 08/30/25 09:05 08/30/25 08:36 08/30/25 09:05 08/30/25 08:36
Intake and Output
08/29/25 08/30/25 08/31/25
06:59 06:59 06:59
Intake Total 480 / 480 960 / 960
Balance 480 / 480 960 / 960
Intake:
Oral fluids 480 / 480 960 / 960
Other:
How many times incontinent 2 1
MODERATE amount urine
How many times incontinent 1
SATURATED amount urine
Number of approximated SMALL 1
amounts of urine
Number of approximated MODERATE 1 3
amounts of urine
Number of approximated LARGE 2
amounts of urine
Number of unmeasured liquid
stools
Rectum 1
Laboratory Results
08/30/25 06:37
08/30/25 06:37
Review of Systems
-
: Bleeding
Physical Exam
-
General - well developed, well nourished, no acute distress
Chest - clear bilaterally
Abdomen - soft, non-tender, positive bowel sounds, no CVAT, no incisional pain or distention
Genitalia - normal
Rectal - normal
Skin - warm & dry with no rash
Neuro - AOx3, no motor deficits
Extremities - no clubbing, no cyanosis, no edema
Incision - clean, dry
Dressing - clean, dry, intact
Care Review
Data Reviewed
Discussed with: Nursing
--- NOTE | 2025-08-30 11:06 | W.PN.HOSP.TC ---
Today's Communication/Plan
-
see A/P
Assessment / Plan
Assessment / Plan
HPI: 89-year-old female with past medical history of DM2, chronic HFmrEF, HTN, MR, AI, and PVD who presented with encephalopathy, found unresponsive at home. Patient was in her usual state of health up until 1 week prior to presentation, when she
became less responsive and more sleepy. Her pre-meal insulin was changed from 3 units to 5 units AC with her first dose on 08/23/25. Blood glucose on 08/24/25 morning was in mid-20s. Pt has been experiencing groin pain recently with blood seen upon
wiping - she does have a pessary in place. Patient was found to have abnormal urinalysis and leukocytosis. Found to have hypothermia to 93.3F initially - lakshmi hugger placed. She was somnolent and responded to voice . Given her low sugar, she was
started on D5 NS, and also given ceftriaxone given abnormal urinalysis. She initially required Levophed given hypotension and admitted to the ICU for further care.
A/P:
# Septic Shock due to UTI and possible pneumonia
Off Levophed
Continue Rocephin
Cont Doxycycline for 5 days total
blood cultures negative, Legionella/Strep pneumoniae urine antigens negative, Urine culture with mixed tanmay
CXR 08/24 actually showed no evidence of pneumonia or congestive heart failure.
# Diarrhea, improved
C diff negative, Norovirus negative
Can follow stool culture
# Acute Blood Loss Anemia, Blood Clots with Hematuria/Vaginal Bleeding/Rectal Bleeding? on 08/26/25
# Likely hemorrhagic cystitis per Uro
s/p 1 unit PRBC transfusion
Monitor for further bleeding
Monitor Hgb, stable at 10.6 today
kidney US unrevealing, Pelvis US unrevealing
PRESS OPERATOR APPRENTICE and Uro on board
# Acute Metabolic Encephalopathy Secondary to Infection, Hypoglycemia, Hypothermia, resolved
# Hypothermia, suspected from hypoglycemia.
s/p Lakshmi Hugger
Now resolved
# New onset A-fib, asymptomatic, converted following 2.5 mg of IV Lopressor
Resumed home metoprolol, decreased to 12.5 mg daily with hold parameter in setting of low blood pressure
with resolution of bleeding, pt was started with low dose Eliquis 2.5 mg BID
Cardiology on board
# Chronic HFMrEF
Echo 01/01/2025: EF 40 to 45%. Basal to mid inferolateral hypokinesis. Stage II diastolic dysfunction. Moderate MR. Mild AI. Mild to moderate TR. PASP 40 mmHg.
Hold Lasix
Strict I's and O's, Daily Weights
# Type II Diabetes Mellitus (uncontrolled)
# hypoglycemia likely due to exogenous insulin
Developed hypoglycemia (with hypothermia) again on 08/30, STOP all insulin
cover with sliding scale only
OK with metformin
DM NURSING EXECUTIVE on board
# Acute Kidney Injury, resolved
# Metabolic Acidosis, resolved
s/p IVF
Hold Valsartan and Lasix
SCr at 1.1 today
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
# Groin pain recently with blood seen on wiping
# History of Urinary Incontinence
Per insurance defense paralegal, patient was living in [facility] and was seen at [facility], where she was getting pessary cleaning every three months until the past two years. Despite pessary, patient continued to have urinary incontinence. She was evaluated for [place] sling. She had consented to Botox, but had minimal improvement of her symptoms.
Pessary removed by PRESS OPERATOR APPRENTICE
Per PRESS OPERATOR APPRENTICE, prolapse issue can be followed up outpt with Dr Sandoval
# Hard of Hearing
# Chronic wound on left 2nd toe digit and left dorsal forefoot
Wound care consult
# Hypomagnesemia, resolved
# Chronic mild hyperkalemia
monitor
# Essential hypertension
resumed metoprolol
SYNCHRONOUS MOTOR ASSEMBLER valsartan on hold
# Hyperlipidemia
Continue statin
# Diabetic neuropathy
Neurontin as tolerated
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
Continue Pepcid
# Severe discogenic DJD lumbar spine
DVT Prophylaxis: low dose Eliquis
Code Status: Full Code
Dispo: SNF
DW RN and DM NURSING EXECUTIVE re hypoglycemia today
DW CM
DW daughter on the phone
total time 51 min
Anticipated Discharge: > 48 hours
Subjective/Interval History
-
Date of Service: August 30, 2025
Objective Data
-
Labs:
Laboratory Results
08/30/25
06:37
WBC 8.0
Hgb 10.6 L
Hct 31.9 L
Plt Count 282
Sodium 135
Potassium 5.1
Chloride 110 H
Carbon Dioxide 18 L
BUN 41 H
Creatinine 1.1 H
Glucose 31 L*
Calcium 8.7
Vital Signs:
Vital Signs
Temp Pulse Resp BP Pulse Ox
34.9 C L 79 18 119/70 96
08/30/25 10:00 08/30/25 09:05 08/30/25 08:36 08/30/25 09:05 08/30/25 08:36
I&O
08/29/25 08/30/25 08/31/25
06:59 06:59 06:59
Intake Total 480 / 480 960 / 960
Balance 480 / 480 960 / 960
Review of Systems
-
History Source: Patient
All other systems: Reviewed and negative
Physical Exam
-
General: Well Developed, Well Nourished, No Apparent Distress, Comfortable, Conversant and Appears Chronically Ill; Negative Respiratory Distress
HEENT: Normocephalic, Atraumatic, Nose Appears Normal, Ears Appear Normal and Hearing Impaired; Negative Oxygen
Respiratory: Clear to Auscultation and Non Labored Respirations; Negative Accessory Resp Muscle Use
Cardiac: Regular Rhythm and S1/S2
GI: Soft, Nontender, Nondistended and Normal Bowel Sounds
Skin: Warm and Dry
Neuro: Awake and Alert
Psych: Calm and Intact Judgement/Insight (somewhat)
Data Reviewed
-
Diagnostic Radiology: Report Reviewed by me
Labs: Labs Reviewed by me, Discussed with Nurse and Discussed with Family
--- NOTE | 2025-08-30 11:26 | CM ---
spoke with patient daughter Court
would like [facility] - called [facility] liaison regarding bed
will need authorization
patient not stable today for dc as glucose 31
PLAN: SNF, pending bed availability, when stable, will need ins auth
[2025-08-30 12:49] LABS: Glucose - Point of Care 211 mg/dl (70-99)
[2025-08-30] MEDS: STERILE WATER FOR INJECTION 10 ML IV (12:53)
[2025-08-30] MEDS: ROCEPHIN 1000 MG IV (12:53)
[2025-08-30] MEDS: FEOSOL 325 MG PO (12:53)
[2025-08-30] MEDS: FLUSH (NSS) 1 FLUSH IV ×2 (12:57→13:03)
[2025-08-30] MEDS: NOVOLOG FLEXPEN-LOW RESISTANCE 2 UNITS SC (13:22)
--- NOTE | 2025-08-30 14:18 | PN.CDI ---
CDI
- -
CDI:
Physician Documentation Request
Admit Date: 08/24/25 13:28
Dear Doctor Nuvia,
Clinical Indicators:
Patient admitted with sepsis.
08/24, 08/27, 08/29 RN skin/wound assessments: Sacrum Stage 1 Pressure Injury, POA
Treatment: Silicone Border Foam dressing
Physician documentation of the type and location of wounds is required for compliant documentation. Based on the above clinical findings and your assessment, please provide the following in your progress note:
1. Location of the ulcer/wound, including laterality.
2. Type (etiology) of ulcer/wound:
- Diabetic ulcer
- Arterial (ischemic) ulcer
- Traumatic wound
- Venous stasis ulcer
- Pressure (decubitus) ulcer
- Non-healing surgical wound
- Other
- Unable to determine
3. If a pressure ulcer, please also include the stage* of the ulcer:
- Stage 1 - Skin intact, non-blanchable redness
- Stage 2 - Partial thickness loss of dermis, includes intact or open blister
- Stage 3 - Full thickness tissue not including bone, tendon or muscle
- Stage 4 - Full thickness tissue loss, including exposed bone, tendon or muscle
- Unstageable - Full thickness loss in which the base of the ulcer is covered by slough (yellow, giraldo, north, green or brown) and/or eschar (giraldo, brown or black) in the wound bed.
- Unable to determine
Use of terms such as suspected, likely, concern for, or probable (associated with a specific diagnosis that is being evaluated, monitored, or treated as if it exists) are acceptable and can be coded in the inpatient setting, when documented at the
time of discharge.
Thank you,
LAURA Huang RN
CDI Specialist
available via tiger text
Please use your independent medical judgment in providing your response.
*Source: National Pressure Ulcer Advisory Panel (NPUAP)
--- NOTE | 2025-08-30 14:32 | PN.CDI ---
CDI
- -
CDI:
Physician Documentation Request
Admit Date: 08/24/25 13:28
Dear Doctor Nuvia,
Clinical Indicators:
Patient admitted with Sepsis.
08/26 Intelligence Group Supervisor consult, '...although she has retrocardiac opacity, she has no clinical symptoms consistent with pneumonia'
08/30 PN, 'Septic Shock due to UTI and possible pneumonia...CXR 08/24 actually showed no evidence of pneumonia'
Due to potentially conflicting documentation, please clarify the following:
Pneumonia was ruled out
Pneumonia is still a likely, suspected, probable diagnosis
Other, please specify
Use of terms such as suspected, likely, concern for, or probable (associated with a specific diagnosis that is being evaluated, monitored, or treated as if it exists) are acceptable and can be coded in the inpatient setting, when documented at the
time of discharge.
Thank you,
LAURA Huang RN
CDI Specialist
available via tiger text
Please use your independent medical judgment in providing your response.
[2025-08-30 15:41] VITALS: BP 120/65
--- NOTE | 2025-08-30 16:07 | WOUNDNOTE ---
[facility] RN NOTE: Patient visit requested today by Shonda OLSON for MASD to perineum related to frequent loose stool. Patient noted to have some open areas on labia related to frequent stooling. Patient reports feeling sore, although barrier cream is
already in use. Buttocks blanchable with some chronic discoloration. Will recommend Maximum Strength Desitin for patient. WESLEY Merchant given update. Will continue to follow as needed.
--- NOTE | 2025-08-30 16:11 | WOUNDNOTE ---
BUTTOCKS/SACRUM/LABIA
--- NOTE | 2025-08-30 16:57 | W.PN.OBG.DWH ---
Today's Communication / Plan
-
given multiple comorbidities. recommend if able, consult with Dr. Sandoval before discharge
Assessment/Plan
-
sepsis
h/o pessary
prolapse
x 11
Subjective Data
-
no complaints, daughter visiting, per RN bleeding noted when voiding
Objective Data
-
Laboratory Results
08/30/25 06:37
08/30/25 06:37
Vital Signs
Temp Pulse Resp BP Pulse Ox
97.6 F 78 20 120/65 97
08/30/25 15:41 08/30/25 15:41 08/30/25 15:41 08/30/25 15:41 08/30/25 15:41
HSV cx pending
[2025-08-30 18:26] LABS: Glucose - Point of Care 126 mg/dl (70-99)
[2025-08-30] MEDS: LIPITOR 10 MG PO (18:30)
[2025-08-30] MEDS: IMODIUM 2 MG PO (18:30)
[2025-08-30] MEDS: DESITIN MAXIMUM STRENGTH PASTE 1 APPLIC TOPICAL (20:04)
[2025-08-30 21:04] LABS: Glucose - Point of Care 130 mg/dl (70-99)
[2025-08-30 22:31] LABS: HSV 1 Subtype by PCR Detected; HSV 2 Subtype by PCR Not Detected
[2025-08-30] MEDS: FLOMAX 0.4 MG PO (22:35)
[2025-08-30] MEDS: PEPCID 10 MG PO (22:35)
[2025-08-30] MEDS: NEURONTIN 200 MG PO (22:35)
[2025-08-30 23:00] VITALS: BP 105/66
[2025-08-31] MEDS: MELATONIN 5 MG PO (00:32)
[2025-08-31 03:15] VITALS: BMI 19.6
[2025-08-31 06:24] LABS: Hematocrit 30.7 % (37.0-47.0); Hemoglobin 9.8 g/dL (12.0-16.0); Mean Corp Hgb Conc. 31.9 g/dL (33.0-37.0); Mean Corpuscular Volume 84.3 fL (81.0-99.0); Platelet Count 273 10^3/uL (130-400); Red Cell Dist. Width 15.7 % (11.5-14.5)
[2025-08-31 06:44] LABS: Blood Urea Nitrogen 40 mg/dl (7-17); Calcium 8.6 mg/dl (8.4-10.2); Carbon Dioxide 20 mmol/L (22-30); Chloride 108 mmol/L (98-107); Estimated Creatinine Clearance 25 ml/min; Glucose 97 mg/dl (70-99); Potassium 5.3 mmol/L (3.5-5.1); Sodium 133 mmol/L (135-145); eGFR 48.33
[2025-08-31 07:00] VITALS: BP 107/62
--- NOTE | 2025-08-31 07:25 | PN.DE.MGMTRT ---
Insulin Management
- -
08/31/2025: Diabetes Management Follow up
89 year old female who presented with encephalopathy, found unresponsive at home, likely due to septic shock in setting of UTI
PMH: Chronic HFmrEF, HTN, HLD, MR, AI, Anemia, PVD, CKD and T2DM
Patient was noted to have elevated blood sugar during her routine blood work as outpatient. Her contact officer increased her insulin from 3 units to 5 units with her first dose on 08/23/25 and Lantus 11 units to 13 units. Blood glucose on 08/24/25
morning was in mid-20s. She usually does not take her regular insulin at home and she is does not eat very well. she only takes her insulin, when she is eating regular food. Yesterday her daughter gave her increased dose of insulin 3 times a day as
well as Lantus. As per daughter, she has been sleeping more than usual for past 1 week and has seemed more confused.
Found to have hypoglycemia on admission and was started on D5 NS, and also given ceftriaxone given abnormal urinalysis. States her Dtr manages all her diabetes care, including checking her blood sugar and administering her insulin. Per chart
review, she takes Lantus 13 units @ HS, Humalog 5 units AC and Metformin 1000mg BID
A1C 9.8%, Cr 1.2, eGFR 43.54.
Pt awake, alert, oriented, severely [place], sitting up in bed, eating breakfast, offers no complaints. Son at bedside.
Yesterday AM Dr. Pedersen stopped Lantus and standing insulin due to hypoglycemia of 33, repeated-->24 treated then 132. Otherwise, Glucose range yesterday 126 to 211. HS glucose was 130. Will continue Metformin 1000 mg BID and low corrective AC
Patient A1C is 9.8%, most likely will require insulin to be restarted, recommend 5 units Lantus in AM with NovoLog 3 units AC. AC NovoLog should be held if patient does not eat meal.
Discussed with Nurse. Will cont to monitor
Diabetes History
- -
Type of Diabetes: 2 requiring insulin
Pre-Admission Diabetes Regimen
08/30/25 08/31/25
06:37 05:55
Creatinine 1.1 H 1.1 H
Lab Results
Hemoglobin A1c 9.8 % (4.0-5.6) H 08/25/25 03:55
Insulin Pump Settings
IP Diabetes Regimen
08/30/25 08/30/25 08/30/25
06:37 07:46 08:10
Glucose 31 L*
POC Glucose 67 L 33 L*
08/30/25 08/30/25 08/30/25
08:13 08:14 08:35
Glucose
POC Glucose 24 L* 24 L* 132 H
08/30/25 08/30/25 08/30/25
12:48 18:25 21:03
Glucose
POC Glucose 211 H 126 H 130 H
08/31/25
05:55
Glucose 97
POC Glucose
Patient Education
[2025-08-31 08:10] LABS: Glucose - Point of Care 87 mg/dl (70-99)
--- NOTE | 2025-08-31 09:52 | W.PN.URO.CBU ---
Today's Communication / Plan
-
no gu changes
Assessment / Plan
-
complex uti in pt with iddm mixed tanmay on micro improving follow up wit primary uro auto roller expect blood in urine with blood thinners
Diagnosis
-
Date of Service: August 31, 2025
-
Patient Diagnosis:
Post Op Day:
Patient Diagnosis:
Post Op Day:
Patient Diagnosis:
Post Op Day:
Patient Diagnosis:
Post Op Day:
Patient Diagnosis:
Post Op Day:
Patient Diagnosis:
Post Op Day:
Patient Diagnosis:
complex uti prloapse but pvr is 268 sdespite potalpse and botox
Post Op Day:
Subjective
-
asx told that hemturia persist no difficulty voiding
Objective
-
Vital Signs
Temp Pulse Resp BP Pulse Ox
96.4 F L 76 16 107/62 95
08/31/25 08:37 08/31/25 07:00 08/31/25 07:00 08/31/25 07:00 08/31/25 07:00
Intake and Output
08/30/25 08/31/25 09/01/25
06:59 06:59 06:59
Intake Total 960 / 960 480 / 480
Balance 960 / 960 480 / 480
Intake:
Oral fluids 960 / 960 480 / 480
Other:
How many times incontinent 1 4
MODERATE amount urine
How many times incontinent 1
SATURATED amount urine
Number of approximated MODERATE 3
amounts of urine
Number of approximated LARGE 2 3
amounts of urine
Number of unmeasured liquid
stools
Rectum 3
Laboratory Results
08/31/25 05:55
08/31/25 05:55
Review of Systems
-
: Dark Urine
Physical Exam
-
General - well developed, well nourished, no acute distress
Chest - clear bilaterally
Abdomen - soft, non-tender, positive bowel sounds, no CVAT, no incisional pain or distention
Genitalia - normal
Rectal - normal
Skin - warm & dry with no rash
Neuro - AOx3, no motor deficits
Extremities - no clubbing, no cyanosis, no edema
Incision - clean, dry
Dressing - clean, dry, intact
Counseling
-
no gu changes
[2025-08-31] MEDS: NOVOLOG FLEXPEN-LOW RESISTANCE SC (10:05)
[2025-08-31] MEDS: GLUCOPHAGE 1000 MG PO ×2 (10:05→18:16)
[2025-08-31] MEDS: ELIQUIS 2.5 MG PO ×2 (10:06→21:10)
[2025-08-31] MEDS: TOPROL XL 12.5 MG PO (10:06)
[2025-08-31] MEDS: NEURONTIN 100 MG PO (10:06)
[2025-08-31] MEDS: THERAGRAN 1 TABLET PO (10:06)
[2025-08-31] MEDS: VITAMIN D3 (cholecalciferol) 50 MCG PO (10:06)
[2025-08-31] MEDS: DESITIN MAXIMUM STRENGTH PASTE 1 APPLIC TOPICAL ×2 (10:07→21:13)
[2025-08-31 10:42] VITALS: BP 80/50; BP 95/57; PULSE 90; O2SAT 96
[2025-08-31 10:45] VITALS: BP 80/50; BP 95/57; PULSE 91; O2SAT 96
--- NOTE | 2025-08-31 11:12 | W.PN.HOSP.TC ---
Today's Communication/Plan
-
restart low dose Lantus at 3 units HS
Cont ISS coverage
follow BG
Assessment / Plan
Assessment / Plan
HPI: 89-year-old female with past medical history of DM2, chronic HFmrEF, HTN, MR, AI, and PVD who presented with encephalopathy, found unresponsive at home. Patient was in her usual state of health up until 1 week prior to presentation, when she
became less responsive and more sleepy. Her pre-meal insulin was changed from 3 units to 5 units AC with her first dose on 08/23/25. Blood glucose on 08/24/25 morning was in mid-20s. Pt has been experiencing groin pain recently with blood seen upon
wiping - she does have a pessary in place. Patient was found to have abnormal urinalysis and leukocytosis. Found to have hypothermia to 93.3F initially - lakshmi hugger placed. She was somnolent and responded to voice . Given her low sugar, she was
started on D5 NS, and also given ceftriaxone given abnormal urinalysis. She initially required Levophed given hypotension and admitted to the ICU for further care.
A/P:
# Septic Shock due to possible UTI and possible pneumonia
Pneumonia is a probable diagnosis
Off Levophed
blood cultures negative, Legionella/Strep pneumoniae urine antigens negative, Urine culture with mixed tanmay
CXR 08/24 actually showed no evidence of pneumonia or congestive heart failure.
s/p doxycycline for 5 days,
pt has received Rocephin for 7 days, which I feel is adequate for pt. Stop further Ceftriaxone
# Diarrhea, improved
C diff negative, Norovirus negative
Can follow stool culture
# Acute Blood Loss Anemia, Blood Clots with Hematuria/Vaginal Bleeding/Rectal Bleeding? on 08/26/25
# Likely hemorrhagic cystitis per Uro
s/p 1 unit PRBC transfusion
Monitor for further bleeding
Monitor Hgb, at 9.8 today
kidney US unrevealing, Pelvis US unrevealing
PEDIGREE RESEARCHER and Uro on board
d/w urogyn Dr Sandoval, he is away hence unable to see pt. Pt can follow up outpt.
# Acute Metabolic Encephalopathy Secondary to Infection, Hypoglycemia, Hypothermia, resolved
# Hypothermia, suspected from hypoglycemia.
TSH WNL at 2.22 on admission
Lakshmi Hugger for hypothermia
# New onset A-fib, asymptomatic, converted following 2.5 mg of IV Lopressor
Resumed home metoprolol, decreased to 12.5 mg daily with hold parameter in setting of low blood pressure
pt was started with low dose Eliquis 2.5 mg BID
Cardiology on board
# Chronic HFMrEF
Echo 01/01/2025: EF 40 to 45%. Basal to mid inferolateral hypokinesis. Stage II diastolic dysfunction. Moderate MR. Mild AI. Mild to moderate TR. PASP 40 mmHg.
Hold Lasix
Strict I's and O's, Daily Weights
# Type II Diabetes Mellitus (uncontrolled)
# hypoglycemia likely due to exogenous insulin
Insulin was restarted at lower dose but pt developed hypoglycemia (with hypothermia) again on 08/30, hence all insulin was stopped
Now BG trending up again, restarted low dose Lantus at 3 units HS
cover with sliding scale
OK with metformin
DM DESK EDITOR on board
# Acute Kidney Injury, resolved
# Metabolic Acidosis, resolved
s/p IVF
Hold Valsartan and Lasix
SCr at 1.1 today
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
# Groin pain recently with blood seen on wiping
# History of Urinary Incontinence
Per linoleum tile layer, patient was living in [facility] and was seen at [facility], where she was getting pessary cleaning every three months until the past two years. Despite pessary, patient continued to have urinary incontinence. She was evaluated for [place] sling. She had consented to Botox, but had minimal improvement of her symptoms.
Pessary removed by PEDIGREE RESEARCHER
Per PEDIGREE RESEARCHER, prolapse issue can be followed up outpt with Dr Sandoval
# Hard of Hearing
# Chronic wound on left 2nd toe digit and left dorsal forefoot
Wound care consult
# Hypomagnesemia, resolved
# Chronic mild hyperkalemia
monitor
# Essential hypertension
resumed metoprolol
PRUNE WASHER valsartan on hold
# Hyperlipidemia
Continue statin
# Diabetic neuropathy
Neurontin as tolerated
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
Continue Pepcid
# Severe discogenic DJD lumbar spine
# Sacrum Stage 1 Pressure Injury, POA
DVT Prophylaxis: low dose Eliquis
Code Status: Full Code
Dispo: SNF
DW CM
DW daughter on the phone
total time 51 min
Anticipated Discharge: 24 - 48 hours
Subjective/Interval History
-
Date of Service: August 31, 2025
Objective Data
-
Labs:
Laboratory Results
08/31/25
05:55
WBC 6.2
Hgb 9.8 L
Hct 30.7 L
Plt Count 273
Sodium 133 L
Potassium 5.3 H
Chloride 108 H
Carbon Dioxide 20 L
BUN 40 H
Creatinine 1.1 H
Glucose 97
Calcium 8.6
Vital Signs:
Vital Signs
Temp Pulse Resp BP Pulse Ox
35.8 C L 76 16 107/62 95
08/31/25 08:37 08/31/25 07:00 08/31/25 07:00 08/31/25 07:00 08/31/25 07:00
I&O
08/30/25 08/31/25 09/01/25
06:59 06:59 06:59
Intake Total 960 / 960 480 / 480
Balance 960 / 960 480 / 480
Review of Systems
-
History Source: Patient
All other systems: Reviewed and negative
Physical Exam
-
General: Well Developed, Well Nourished, No Apparent Distress, Comfortable, Conversant and Appears Chronically Ill; Negative Respiratory Distress
HEENT: Normocephalic, Atraumatic, Nose Appears Normal, Ears Appear Normal and Hearing Impaired; Negative Oxygen
Respiratory: Clear to Auscultation and Non Labored Respirations; Negative Accessory Resp Muscle Use
Cardiac: Regular Rhythm and S1/S2
GI: Soft, Nontender, Nondistended and Normal Bowel Sounds
Skin: Warm and Dry
Neuro: Awake and Alert
Psych: Calm and Intact Judgement/Insight (somewhat)
Data Reviewed
-
Diagnostic Radiology: Report Reviewed by me
Labs: Labs Reviewed by me, Discussed with Nurse and Discussed with Family
[2025-08-31 11:46] LABS: Glucose - Point of Care 350 mg/dl (70-99)
[2025-08-31] MEDS: NOVOLOG FLEXPEN-LOW RESISTANCE 5 UNITS SC (13:15)
[2025-08-31] MEDS: FLUSH (NSS) IV ×2 (13:17)
[2025-08-31] MEDS: FEOSOL 325 MG PO (13:19)
[2025-08-31] MEDS: STERILE WATER FOR INJECTION IV (13:22)
[2025-08-31 15:00] VITALS: BP 113/58
--- NOTE | 2025-08-31 15:18 | CM ---
tt hospitalist - stable for dc tomorrow if bs is better
spoke with dtr Court who prefers [facility]
PT/OT eval rec SNF
Spoke with Leonela liaison can accept over weekend
IMM Explained & signed. In chart
Zaira NPI #[id number]
Dr. Robert Long NPI #: [id number]
CM called [facility] [phone] and spoke with Shasta
Faxed clinicals to [phone]
start 09/01/25 Pending reference #: [id number]
PLAN: [facility] SNF, once authorization is approved
Report #: [id number]
Fax #: [phone]
transportation forms on chart
[2025-08-31 16:48] LABS: Glucose - Point of Care 222 mg/dl (70-99)
[2025-08-31] MEDS: LIPITOR 10 MG PO (18:16)
[2025-08-31] MEDS: NOVOLOG FLEXPEN-LOW RESISTANCE 2 UNITS SC (18:21)
[2025-08-31 18:22] LABS: Glucose - Point of Care 210 mg/dl (70-99)
[2025-08-31] MEDS: PEPCID 10 MG PO (21:10)
[2025-08-31] MEDS: LANTUS 0.03 UNITS SC (21:10)
[2025-08-31] MEDS: FLOMAX 0.4 MG PO (21:10)
[2025-08-31] MEDS: NEURONTIN 200 MG PO (21:11)
[2025-08-31 21:27] LABS: Glucose - Point of Care 118 mg/dl (70-99)
[2025-08-31 23:00] VITALS: BP 116/66
[2025-09-01 01:15] LABS: Hematocrit 30.6 % (37.0-47.0); Hemoglobin 10.1 g/dL (12.0-16.0)
[2025-09-01 03:09] VITALS: BMI 19.2
--- NOTE | 2025-09-01 03:42 | W.PN.UPDATE ---
Update Note
Progress Note Update
Notified by RN patient had blood stains on gown and when urinated on bedpan.
Rx H&H - stable, VS stable. Nursing to continue monitor.
[2025-09-01 07:30] VITALS: BP 107/64
[2025-09-01 08:15] LABS: Glucose - Point of Care 99 mg/dl (70-99)
[2025-09-01 08:36] LABS: Hematocrit 29.2 % (37.0-47.0); Hemoglobin 9.5 g/dL (12.0-16.0); Mean Corp Hgb Conc. 32.5 g/dL (33.0-37.0); Mean Corpuscular Volume 84.1 fL (81.0-99.0); Platelet Count 222 10^3/uL (130-400); Red Cell Dist. Width 15.8 % (11.5-14.5)
[2025-09-01 08:42] LABS: Blood Urea Nitrogen 42 mg/dl (7-17); Calcium 8.3 mg/dl (8.4-10.2); Carbon Dioxide 21 mmol/L (22-30); Chloride 109 mmol/L (98-107); Estimated Creatinine Clearance 25 ml/min; Glucose 90 mg/dl (70-99); Potassium 5.3 mmol/L (3.5-5.1); Sodium 133 mmol/L (135-145); eGFR 48.33
[2025-09-01] MEDS: GLUCOPHAGE 1000 MG PO (09:33)
[2025-09-01] MEDS: NEURONTIN 100 MG PO (09:33)
[2025-09-01] MEDS: TOPROL XL 12.5 MG PO (09:33)
[2025-09-01] MEDS: VITAMIN D3 (cholecalciferol) 50 MCG PO (09:33)
[2025-09-01] MEDS: TYLENOL 650 MG PO (09:34)
[2025-09-01] MEDS: DESITIN MAXIMUM STRENGTH PASTE 1 APPLIC TOPICAL ×2 (09:34→21:14)
[2025-09-01] MEDS: ELIQUIS PO ×2 (09:34→09:56)
[2025-09-01] MEDS: NOVOLOG FLEXPEN-LOW RESISTANCE SC ×2 (09:34→17:01)
[2025-09-01] MEDS: THERAGRAN 1 TABLET PO (09:34)
--- NOTE | 2025-09-01 11:25 | W.PN.OBG.DWH ---
Addendum entered and electronically signed by Concha Moran MD 09/01/25 11:32:
Given hx of CKD, will adjust Valtrex dose to 1g qD x7d.
Original Note:
Today's Communication / Plan
-
Reviewed that patient is likely not having vaginal bleeding given thin EMS and no bleeding on prior spec exam.
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 Valtrex 1g BID x7d.
Recommend outpatient follow up with [facility] and Urogyn.
Will continue to follow peripherally.
Assessment/Plan
-
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
Reviewed that patient is likely not having vaginal bleeding given thin EMS and no bleeding on prior spec exam.
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 Valtrex 1g BID x7d.
Recommend outpatient follow up with [facility] and Urogyn.
Will continue to follow peripherally.
Subjective Data
-
Court has no complaints today. Denies pain. Pt report vulva improving. Per rn, patient urinating blood tinged urine. Patient denies blood from the vagina.
Objective Data
-
Laboratory Results
09/01/25 07:53
09/01/25 07:53
Vital Signs
Temp Pulse Resp BP Pulse Ox
97.6 F 73 16 107/64 97
09/01/25 07:30 09/01/25 07:30 09/01/25 07:30 09/01/25 07:30 09/01/25 07:30
[2025-09-01 12:16] LABS: Glucose - Point of Care 371 mg/dl (70-99)
[2025-09-01] MEDS: FEOSOL 325 MG PO (12:37)
[2025-09-01] MEDS: VALTREX 1000 MG PO (12:37)
[2025-09-01] MEDS: NOVOLOG FLEXPEN-LOW RESISTANCE 5 UNITS SC (12:37)
--- NOTE | 2025-09-01 14:41 | W.PN.HOSP.TC ---
Today's Communication/Plan
-
Discuss anticoagulation with cardiology. Follow K closely.
Assessment / Plan
Assessment / Plan
89-year-old female with past medical history of:
DM2,
chronic HFmrEF,
essential HTN,
MR,
AI,
PVD
who presented with encephalopathy, found unresponsive at home. Patient was in her usual state of health up until 1 week prior to presentation, when she became less responsive and more sleepy. Her pre-meal insulin was changed from 3 units to 5 units
AC with her first dose on 08/23/25. Blood glucose on 08/24/25 morning was in mid-20s. Pt has been experiencing groin pain recently with blood seen upon wiping - she does have a pessary in place. Patient was found to have abnormal urinalysis and
leukocytosis. Found to have hypothermia to 93.3F initially - lakshmi hugger placed. She was somnolent and responded to voice . Given her low sugar, she was started on D5 NS, and also given ceftriaxone given abnormal urinalysis. She initially
required Levophed given hypotension and admitted to the ICU for further care.
A/P:
1. Septic Shock due to possible UTI and possible pneumonia
Pneumonia has been the probable diagnosis
Now Off Levophed
blood cultures negative, Legionella/Strep pneumoniae urine antigens negative, Urine culture with mixed tanmay
CXR 08/24 showed no evidence of pneumonia or congestive heart failure.
s/p doxycycline for 5 days,
pt has received Rocephin for 7 days, adequate for pt.
Stopped further Ceftriaxone
WBC stable
2. Diarrhea, improved
C diff negative, Norovirus negative
follow stool culture
3. Acute Blood Loss Anemia, Blood Clots with Hematuria/Vaginal Bleeding/Rectal Bleeding? on 08/26/25
Likely hemorrhagic cystitis per Uro
s/p 1 unit PRBC transfusion
Monitor for further bleeding
Monitor Hgb, at 9.5 today
kidney US unrevealing, Pelvis US unrevealing
SEARCH ENGINEER and Uro on board
Team d/w case with urogyn
OBGYN note:
'Reviewed that patient is likely not having vaginal bleeding given thin EMS and no bleeding on prior spec exam.
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 Valtrex 1g BID x7d.
Recommend outpatient follow up with DW and Urogyn.
Will continue to follow peripherally.'
Given acute bleeding and after reviewing chart for reasons for the eliquis, it is best to hold the eliquis while actively bleeding.
Ask cardiology about stopping the eliquis
It likely was started for new afib
4. Acute Metabolic Encephalopathy Secondary to Infection, Hypoglycemia, Hypothermia, resolved
5. Hypothermia, suspected from hypoglycemia.
TSH WNL at 2.22 on admission
Lakshmi Hugger for hypothermiano longer needed
6. New onset A-fib, asymptomatic, converted following 2.5 mg of IV Lopressor
Resumed home metoprolol, decreased to 12.5 mg daily with hold parameter in setting of low blood pressure
pt was started with low dose Eliquis 2.5 mg BID
Given bleeding, this needs to be reviewed
Cardiology on board
7. Chronic HFMrEF
Echo 01/01/2025:
EF 40 to 45%.
Basal to mid inferolateral hypokinesis.
Stage II diastolic dysfunction.
Moderate MR.
Mild AI.
Mild to moderate TR.
PASP 40 mmHg.
Hold Lasix
Strict I's and O's, Daily Weights
8. Type II Diabetes Mellitus (uncontrolled)
with hypoglycemia likely due to exogenous insulin
Insulin was restarted at lower dose but pt developed hypoglycemia (with hypothermia) again on 08/30,
hence all insulin was stopped
Now BG trending up again,
restarted low dose Lantus at 3 units HS
cover with sliding scale
OK with metformin
DM BILINGUAL SALES ASSISTANT on board
9. Acute Kidney Injury, resolved
10. Metabolic Acidosis, resolved
s/p IVF
Hold Valsartan and Lasix
SCr at 1.1 today
11. 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
Groin pain recently with blood seen on wiping
History of Urinary Incontinence
Per experimental welder, patient was living in [facility] and was seen at [facility],
where she was getting pessary cleaning every three months until the past two years.
Despite pessary, patient continued to have urinary incontinence.
She was evaluated for [facility] sling.
She had consented to Botox, but had minimal improvement of her symptoms.
Pessary removed by SEARCH ENGINEER
Per SEARCH ENGINEER, prolapse issue can be followed up outpt with Dr Sandoval
12. Hard of Hearing
13. 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
Wound care consult
14. Hypomagnesemia, resolved
15. Chronic mild hyperkalemia
monitor
16. Essential hypertension
resumed metoprolol
METAL INSPECTOR valsartan on hold
17. Hyperlipidemia
Continue statin
18. Diabetic neuropathy
Neurontin as tolerated
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
Continue Pepcid
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
21. Sacrum Stage 1 Pressure Injury, POA
22. High K - today 5.3
Follow closely
DVT Prophylaxis: low dose Eliquis
Code Status: Full Code
Dispo: SNF
total time 51 min
Anticipated Discharge: > 48 hours
Subjective/Interval History
-
Date of Service: September 01, 2025
No pain, no new complaints.
Objective Data
-
Labs:
Laboratory Results
09/01/25
07:53
WBC 5.8
Hgb 9.5 L
Hct 29.2 L
Plt Count 222
Sodium 133 L
Potassium 5.3 H
Chloride 109 H
Carbon Dioxide 21 L
BUN 42 H
Creatinine 1.1 H
Glucose 90
Calcium 8.3 L
Vital Signs:
Vital Signs
Temp Pulse Resp BP Pulse Ox
97.6 F 73 16 107/64 97
09/01/25 07:30 09/01/25 07:30 09/01/25 07:30 09/01/25 07:30 09/01/25 07:30
I&O
08/31/25 09/01/25 09/02/25
06:59 06:59 06:59
Intake Total 480 / 480 620 / 620
Balance 480 / 480 620 / 620
Review of Systems
-
History Source: Patient
Constitutional: Reports No Symptoms
Physical Exam
-
General: Well Developed, Well Nourished, No Apparent Distress and Comfortable
HEENT: Normocephalic, Atraumatic, Moist Mucous Membranes, Nose Appears Normal and Ears Appear Normal
Respiratory: Clear to Auscultation
Cardiac: Regular Rhythm and S1/S2
GI: Soft, Nontender and Nondistended
Musculoskeletal: No Clubbing and No Cyanosis
Skin: Warm and Dry
Neuro: Awake and Alert
Psych: Calm
Data Reviewed
-
Labs: Labs Reviewed by me
--- NOTE | 2025-09-01 14:46 | PTCARENOTE ---
PT aaox3 pleasant, ORUTSARARMIUT, able to make her needs known. Pt denies any pain at this time. PT in bed and is a q 2 turn. skin with multiple bruises throuthout each extremity with mulitple skin tears throughout, all covered with foam dressing. Right
elbow with a small third spaced edema, elevated on pillow. BLE =1 edema +PP elevated on pillow., heel bows on for protective measures pt with bloody urine x2 today. her hg 9.6, PLT 222. last PT Inr 14 105 on 08/24. was made aware and eliquis
was asked to be held by K 5.3 Md aware. PT does not make any attempts to get out of bed, but is a fall risk, yellow magnet on door. . is seeing patient now
--- NOTE | 2025-09-01 15:40 | CM ---
Chart reviewed and patient is for possible skilled placement when stable, referral was sent to [facility] and Auth submitted to insurance, patient has not been cleared for discharge.
Plan; Skilled placement at [facility] when stable.
[2025-09-01 16:00] VITALS: BP 96/55
[2025-09-01 17:01] LABS: Glucose - Point of Care 65 mg/dl (70-99)
[2025-09-01] MEDS: LIPITOR 10 MG PO (17:01)
[2025-09-01] MEDS: GLUCOPHAGE PO (17:01)
[2025-09-01 17:23] LABS: Glucose - Point of Care 71 mg/dl (70-99)
[2025-09-01 18:41] LABS: Glucose - Point of Care 135 mg/dl (70-99)
[2025-09-01] MEDS: MELATONIN 5 MG PO (21:08)
[2025-09-01] MEDS: PEPCID 10 MG PO (21:08)
[2025-09-01] MEDS: ELIQUIS 2.5 MG PO (21:08)
[2025-09-01] MEDS: NEURONTIN 200 MG PO (21:09)
[2025-09-01] MEDS: LANTUS 0.03 UNITS SC (21:12)
[2025-09-01 21:14] LABS: Glucose - Point of Care 118 mg/dl (70-99)
[2025-09-01] MEDS: FLOMAX 0.4 MG PO (21:16)
[2025-09-01 23:54] VITALS: BP 94/52
[2025-09-02 03:25] LABS: Glucose - Point of Care 65 mg/dl (70-99)
[2025-09-02 04:02] LABS: Glucose - Point of Care 72 mg/dl (70-99)
[2025-09-02 06:00] VITALS: BMI 19.7
[2025-09-02 06:20] LABS: Glucose - Point of Care 45 mg/dl (70-99)
[2025-09-02 06:40] LABS: Glucose - Point of Care 57 mg/dl (70-99)
[2025-09-02 07:01] LABS: Glucose - Point of Care 109 mg/dl (70-99)
[2025-09-02 07:30] VITALS: BP 116/70
[2025-09-02 07:36] LABS: INR 1.23; PT 15.8 Sec (11.4-14.6)
[2025-09-02 07:36] LABS: Hematocrit 33.0 % (37.0-47.0); Hemoglobin 10.4 g/dL (12.0-16.0); Mean Corp Hgb Conc. 31.5 g/dL (33.0-37.0); Mean Corpuscular Volume 86.8 fL (81.0-99.0); Platelet Count 255 10^3/uL (130-400); Red Cell Dist. Width 16.0 % (11.5-14.5)
[2025-09-02 08:02] LABS: Blood Urea Nitrogen 41 mg/dl (7-17); Calcium 8.5 mg/dl (8.4-10.2); Carbon Dioxide 22 mmol/L (22-30); Chloride 107 mmol/L (98-107); Estimated Creatinine Clearance 23 ml/min; Glucose 98 mg/dl (70-99); Magnesium 1.4 mg/dl (1.6-2.3); Potassium 5.3 mmol/L (3.5-5.1); Sodium 134 mmol/L (135-145); eGFR 43.54
[2025-09-02 08:34] LABS: Glucose - Point of Care 105 mg/dl (70-99)
[2025-09-02] MEDS: THERAGRAN 1 TABLET PO (08:47)
[2025-09-02] MEDS: DESITIN MAXIMUM STRENGTH PASTE 1 APPLIC TOPICAL ×2 (08:47→23:02)
[2025-09-02] MEDS: GLUCOPHAGE PO (08:47)
[2025-09-02] MEDS: ELIQUIS PO (08:47)
[2025-09-02] MEDS: NOVOLOG FLEXPEN-LOW RESISTANCE SC (08:47)
[2025-09-02] MEDS: VALTREX 1000 MG PO (08:48)
[2025-09-02] MEDS: TOPROL XL 12.5 MG PO (08:48)
[2025-09-02] MEDS: VITAMIN D3 (cholecalciferol) 50 MCG PO (08:48)
[2025-09-02] MEDS: NEURONTIN 100 MG PO (08:48)
[2025-09-02] MEDS: TYLENOL 650 MG PO (08:48)
[2025-09-02 11:28] LABS: Glucose - Point of Care 340 mg/dl (70-99)
--- NOTE | 2025-09-02 11:39 | W.PN.HOSP.TC ---
Today's Communication/Plan
-
Insulin coverage needs to be reduced to avoid low blood sugars. Resume gris collins
Assessment / Plan
Assessment / Plan
89-year-old female with past medical history of:
DM2,
chronic HFmrEF,
essential HTN,
MR,
AI,
PVD
who presented with encephalopathy, found unresponsive at home. Patient was in her usual state of health up until 1 week prior to presentation, when she became less responsive and more sleepy. Her pre-meal insulin was changed from 3 units to 5 units
AC with her first dose on 08/23/25. Blood glucose on 08/24/25 morning was in mid-20s. Pt has been experiencing groin pain recently with blood seen upon wiping - she does have a pessary in place. Patient was found to have abnormal urinalysis and
leukocytosis. Found to have hypothermia to 93.3F initially - lakshmi hugger placed. She was somnolent and responded to voice . Given her low sugar, she was started on D5 NS, and also given ceftriaxone given abnormal urinalysis. She initially
required Levophed given hypotension and admitted to the ICU for further care.
A/P:
1. Septic Shock due to possible UTI and possible pneumonia - resolved
Pneumonia has been the probable diagnosis
Now Off Levophed
blood cultures negative, Legionella/Strep pneumoniae urine antigens negative, Urine culture with mixed tanmay
CXR 08/24 showed no evidence of pneumonia or congestive heart failure.
s/p doxycycline for 5 days,
pt has received Rocephin for 7 days, adequate for pt.
Stopped further Ceftriaxone
WBC stable
2. Diarrhea, improved
C diff negative, Norovirus negative
follow stool culture
3. Acute Blood Loss Anemia, Blood Clots with Hematuria/Vaginal Bleeding/Rectal Bleeding? on 08/26/25
Likely hemorrhagic cystitis per Uro
s/p 1 unit PRBC transfusion
Monitor for further bleeding
Monitor Hgb, at 9.5 today
kidney US unrevealing, Pelvis US unrevealing
NUTRITION INTERNSHIP and Uro on board
Team d/w case with urogyn
Given acute bleeding and after reviewing chart for reasons for the eliquis, it is best to hold the eliquis while actively bleeding.
Eliquis was stopped for a day and the bleeding stopped
Re-start Eliquis tonight
4. Acute Metabolic Encephalopathy Secondary to Infection, Hypoglycemia, Hypothermia, resolved
5. Hypothermia, suspected from hypoglycemia.
TSH WNL at 2.22 on admission
Lakshmi Hugger for hypothermia no longer needed
6. New onset A-fib, asymptomatic, converted following 2.5 mg of IV Lopressor
Resumed home metoprolol, decreased to 12.5 mg daily with hold parameter in setting of low blood pressure
pt was started with low dose Eliquis 2.5 mg BID
Given bleeding, this needs to be reviewed
Cardiology on board
7. Chronic HFMrEF
Echo 01/01/2025:
EF 40 to 45%.
Basal to mid inferolateral hypokinesis.
Stage II diastolic dysfunction.
Moderate MR.
Mild AI.
Mild to moderate TR.
PASP 40 mmHg.
Hold Lasix
Strict I's and O's, Daily Weights
8. Type II Diabetes Mellitus (uncontrolled)
with hypoglycemia likely due to exogenous insulin
Insulin was restarted at lower dose but pt developed hypoglycemia (with hypothermia) again on 08/30,
hence all insulin was stopped
Now BG trending up again,
restarted low dose Lantus at 3 units HS
cover with sliding scale
DM EVALUATOR on board
9. Acute Kidney Injury, resolved
10. Metabolic Acidosis, resolved
s/p IVF
Hold Valsartan and Lasix
SCr at 1.1 today
11. 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
Groin pain recently with blood seen on wiping
History of Urinary Incontinence
Per oracle data warehouse developer, patient was living in [facility] and was seen at [facility],
where she was getting pessary cleaning every three months until the past two years.
Despite pessary, patient continued to have urinary incontinence.
She was evaluated for [place] sling.
She had consented to Botox, but had minimal improvement of her symptoms.
Pessary removed by NUTRITION INTERNSHIP
Per NUTRITION INTERNSHIP, prolapse issue can be followed up outpt with Dr Sandoval
12. Hard of Hearing
13. 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
Wound care consult
14. Hypomagnesemia, resolved
15. Chronic mild hyperkalemia
monitor
16. Essential hypertension
resumed metoprolol
WEAVING PROFESSOR valsartan on hold
17. Hyperlipidemia
Continue statin
18. Diabetic neuropathy
Neurontin as tolerated
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
Continue Pepcid
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
21. Sacrum Stage 1 Pressure Injury, POA
22. High K - today 5.3
Follow closely
DVT Prophylaxis: low dose Eliquis
Code Status: Full Code
Dispo: SNF
total time 51 min
Anticipated Discharge: 24 - 48 hours
Subjective/Interval History
-
Date of Service: September 02, 2025
Blood in urine no longer seen.
Objective Data
-
Labs:
Laboratory Results
09/02/25 09/02/25
06:34 06:35
WBC 7.1
Hgb 10.4 L
Hct 33.0 L
Plt Count 255
PT 15.8 H
INR 1.23
Sodium 134 L
Potassium 5.3 H
Chloride 107
Carbon Dioxide 22
BUN 41 H
Creatinine 1.2 H
Glucose 98
Calcium 8.5
Vital Signs:
Vital Signs
Temp Pulse Resp BP Pulse Ox
97.4 F 75 16 116/70 95
09/02/25 07:30 09/02/25 07:30 09/02/25 07:30 09/02/25 07:30 09/02/25 07:30
I&O
09/01/25 09/02/25 09/03/25
06:59 06:59 06:59
Intake Total 620 / 620 720 / 720
Balance 620 / 620 720 / 720
Review of Systems
-
History Source: Patient
All other systems: Reviewed and negative
Physical Exam
-
General: Well Developed, Well Nourished, No Apparent Distress and Comfortable
HEENT: Normocephalic, Atraumatic, Moist Mucous Membranes, Nose Appears Normal and Ears Appear Normal
Respiratory: Clear to Auscultation
Cardiac: Regular Rhythm and S1/S2
GI: Soft, Nontender and Nondistended
Musculoskeletal: No Clubbing and No Cyanosis
Skin: Warm and Dry
Neuro: Awake
Psych: Calm
Data Reviewed
-
Labs: Labs Reviewed by me
[2025-09-02] MEDS: FEOSOL 325 MG PO (13:01)
[2025-09-02] MEDS: NOVOLOG FLEXPEN-LOW RESISTANCE 5 UNITS SC (13:01)
[2025-09-02 15:38] LABS: Glucose - Point of Care 356 mg/dl (70-99)
[2025-09-02 16:00] VITALS: BP 112/70
[2025-09-02] MEDS: NOVOLOG FLEXPEN-LOW RESISTANCE 4 UNITS SC (17:37)
[2025-09-02] MEDS: GLUCOPHAGE 1000 MG PO (17:38)
[2025-09-02] MEDS: LIPITOR 10 MG PO (17:39)
--- NOTE | 2025-09-02 18:45 | PTCARENOTE ---
PT with two episodes of large liquid stool incontence. Md made aware, stool for Cdiff ordered and sent, enhanced precautions placed
--- NOTE | 2025-09-02 19:19 | PTCARENOTE ---
aware of mag and diarrhea no new orders
[2025-09-02 22:03] LABS: Glucose - Point of Care 446 mg/dl (70-99)
[2025-09-02 22:37] LABS: Glucose 208 mg/dl (70-99)
[2025-09-02] MEDS: ELIQUIS 2.5 MG PO (22:54)
[2025-09-02] MEDS: MAGNESIUM OXIDE 400 MG PO (22:55)
[2025-09-02] MEDS: NEURONTIN 200 MG PO (22:55)
[2025-09-02] MEDS: FLOMAX 0.4 MG PO (22:55)
[2025-09-02] MEDS: MELATONIN 5 MG PO (22:56)
[2025-09-02] MEDS: PEPCID 10 MG PO (22:56)
[2025-09-02] MEDS: LANTUS 0.03 UNITS SC (23:08)
[2025-09-02 23:43] VITALS: BP 131/78
[2025-09-03 03:44] LABS: Glucose - Point of Care 140 mg/dl (70-99)
[2025-09-03 05:59] LABS: Hematocrit 27.1 % (37.0-47.0); Hemoglobin 9.0 g/dL (12.0-16.0); Mean Corp Hgb Conc. 33.2 g/dL (33.0-37.0); Mean Corpuscular Volume 85.8 fL (81.0-99.0); Platelet Count 218 10^3/uL (130-400); Red Cell Dist. Width 15.7 % (11.5-14.5)
[2025-09-03 06:00] VITALS: BMI 19.6
[2025-09-03 06:13] LABS: Blood Urea Nitrogen 35 mg/dl (7-17); Calcium 8.0 mg/dl (8.4-10.2); Carbon Dioxide 20 mmol/L (22-30); Chloride 109 mmol/L (98-107); Estimated Creatinine Clearance 28 ml/min; Glucose 98 mg/dl (70-99); Potassium 5.0 mmol/L (3.5-5.1); Sodium 133 mmol/L (135-145); eGFR 54.19
[2025-09-03 07:29] VITALS: BP 106/61
--- NOTE | 2025-09-03 07:35 | PN.DE.MGMTRT ---
Addendum entered and electronically signed by ROXY Cool 09/03/25 13:24:
Pt did not received Lantus 3 units this AM. Pt ate all of her breakfast. Pre-lunch glucose is 201.
Discussed with Pharmacy and Nurse. Pt will receive 3 units of Lantus NOW and none at HS.
Will cont to monitor
Original Note:
Insulin Management
- -
09/03/2025: Diabetes Management Follow up
89 year old female who presented with encephalopathy, found unresponsive at home, likely due to septic shock in setting of UTI
PMH: Chronic HFmrEF, HTN, HLD, MR, AI, Anemia, PVD, CKD and T2DM
Patient was noted to have elevated blood sugar during her routine blood work as outpatient. Her levers lace machine operator increased her insulin from 3 units to 5 units with her first dose on 08/23/25 and Lantus 11 units to 13 units. Blood glucose on 08/24/25
morning was in mid-20s. She usually does not take her regular insulin at home and she is does not eat very well. she only takes her insulin, when she is eating regular food. Yesterday her daughter gave her increased dose of insulin 3 times a day as
well as Lantus. As per daughter, she has been sleeping more than usual for past 1 week and has seemed more confused.
Found to have hypoglycemia on admission and was started on D5 NS, and also given ceftriaxone given abnormal urinalysis. States her Dtr manages all her diabetes care, including checking her blood sugar and administering her insulin. Per chart
review, she takes Lantus 13 units @ HS, Humalog 5 units AC and Metformin 1000mg BID. A1C 9.8%, Cr 1.2, eGFR 43.54.
Pt awake, alert, oriented, severely KLUTI KAAH, sitting up in chair, eating breakfast, offers no complaints. No family at bedside.
Dr. Pedersen resumed low dose Lantus 3 units @ HS. Noted for an episode of hypoglycemia of 45 @6A on 09/02. Fasting glucose 98 V, 131 POC today.
09/02 Premeal glucose trended up to 356 and HS glucose up to 446.
Will change Lantus administration time to AM. Give 3 units NOW. Continue Metformin 1000 mg BID and low corrective AC
Discussed with Nurse. Will cont to monitor
Diabetes History
- -
Type of Diabetes: 2 requiring insulin
Pre-Admission Diabetes Regimen
09/02/25 09/03/25
06:34 05:27
Creatinine 1.2 H 1.0
Lab Results
Hemoglobin A1c 9.8 % (4.0-5.6) H 08/25/25 03:55
Insulin Pump Settings
IP Diabetes Regimen
09/02/25 09/02/25 09/02/25
06:34 08:27 11:20
Glucose 98
POC Glucose 105 H 340 H
09/02/25 09/02/25 09/02/25
15:37 22:01 22:14
Glucose 208 H
POC Glucose 356 H 446 H
09/03/25 09/03/25
03:42 05:27
Glucose 98
POC Glucose 140 H
Patient Education
[2025-09-03 07:38] LABS: Glucose - Point of Care 131 mg/dl (70-99)
--- NOTE | 2025-09-03 08:50 | W.PN.HOSP.TC ---
Today's Communication/Plan
-
Discharge today
Assessment / Plan
Assessment / Plan
Physical Exam
General: Not in acute distress
HEENT: Normocephalic, Atraumatic
Respiratory: Clear to Auscultation Bilaterally
Cardiac: Regular Rhythm and S1/S2
GI: Soft, Nontender and Nondistended. Positive bowel sounds.
Musculoskeletal: No Cyanosis
Skin: Warm and Dry
Neuro: Awake
Psych: Calm
Assessment/Plan
89-year-old female with past medical history of:
Type 2 Diabetes Mellitus,
chronic HFmrEF,
essential HTN,
MR,
AI,
PVD
who presented with encephalopathy, found unresponsive at home. Patient was in her usual state of health up until 1 week prior to presentation, when she became less responsive and more sleepy. Her pre-meal insulin was changed from 3 units to 5 units
AC with her first dose on 08/23/25. Blood glucose on 08/24/25 morning was in mid-20s. Patient had been experiencing groin pain recently with blood seen upon wiping - she does have a pessary in place. Patient was found to have abnormal urinalysis and
leukocytosis. Found to have hypothermia to 93.3F initially - lakshmi hugger placed. She was somnolent and responded to voice . Given her low sugar, she was started on D5 NS, and also given ceftriaxone given abnormal urinalysis. She initially
required Levophed given hypotension and admitted to the ICU for further care.
A/P:
1. Septic Shock due to possible UTI and possible pneumonia - resolved
Pneumonia has been the probable diagnosis
Previously transitioned off Levophed
blood cultures negative, Legionella/Strep pneumoniae urine antigens negative, Urine culture with mixed tanmay
CXR 08/24 showed no evidence of pneumonia or congestive heart failure.
s/p doxycycline for 5 days,
pt has received Rocephin for 7 days, adequate for pt.
Further Ceftriaxone was previously stopped
WBC stable
2. Diarrhea, improved
Stool studies negative
C diff negative, Norovirus negative
3. Acute Blood Loss Anemia, Blood Clots with Hematuria/Vaginal Bleeding/Rectal Bleeding? on 08/26/25
Likely hemorrhagic cystitis per Uro
s/p 1 unit PRBC transfusion on 08/26/25
Monitor for further bleeding
Monitor Hgb, at 9.0 today
kidney US unrevealing, Pelvis US unrevealing
PEST CONTROL SERVICE SALES AGENT and Uro on board
Team d/w case with urogyn
Given acute bleeding and after reviewing chart for reasons for the Eliquis, it was best to hold the Eliquis while actively bleeding.
Eliquis was stopped for a day and the bleeding stopped, Eliquis was later resumed
4. Acute Metabolic Encephalopathy Secondary to Infection, Hypoglycemia, Hypothermia, resolved
5. Hypothermia, suspected from hypoglycemia.
TSH WNL at 2.22 on admission
Lakshmi Hugger for hypothermia no longer needed
6. New onset A-fib, asymptomatic, converted following 2.5 mg of IV Lopressor
Resumed home metoprolol, decreased to 12.5 mg daily with hold parameter in setting of low blood pressure
pt was started with low dose Eliquis 2.5 mg BID
Aspirin stopped as per cardiology
Cardiology on board
7. Chronic HFrEF
Echo 01/01/2025:
EF 40 to 45%.
Basal to mid inferolateral hypokinesis.
Stage II diastolic dysfunction.
Moderate MR.
Mild AI.
Mild to moderate TR.
PASP 40 mmHg.
Continue current dose of metoprolol succinate; unable to optimize with further GDMT (no SGLT2I due to UTI's, ARB/ARNI/MRA with hyperkalemia at this time)
Strict I's and O's, Daily Weights
8. Type II Diabetes Mellitus (uncontrolled)
with hypoglycemia likely due to exogenous insulin
Insulin was restarted at lower dose but pt developed hypoglycemia (with hypothermia) again on 08/30,
hence all insulin was previously stopped
Now BG trending up again,
restarted low dose Lantus at 3 units HS --> change to 3 units in the morning (given hypoglycemia overnight 09/02/25)
I confirmed on the day of discharge with Diabetes Nurse Practitioner that Insulin regimen on discharge should be Lantus 3 units in Am and Metformin 1000 mg BID
cover with sliding scale
DM SPRAY PAINTING MACHINE OPERATOR on board
9. Acute Kidney Injury, resolved
10. Metabolic Acidosis, resolved
s/p IVF
Hold Valsartan and Lasix
SCr at 1.0 today
11. 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
Groin pain recently with blood seen on wiping
History of Urinary Incontinence
Per bank reconciliator, patient was living in [facility] and was seen at [facility],
where she was getting pessary cleaning every three months until the past two years.
Despite pessary, patient continued to have urinary incontinence.
She was evaluated for [place] sling.
She had consented to Botox, but had minimal improvement of her symptoms.
Pessary removed by PEST CONTROL SERVICE SALES AGENT
Per PEST CONTROL SERVICE SALES AGENT, prolapse issue can be followed up outpt with Dr Sandoval
12. Hard of Hearing
13. 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
Wound care consult
14. Hypomagnesemia
15. Chronic mild hyperkalemia
monitor
16. Essential hypertension
resumed metoprolol
FARMWORKER RICE valsartan on hold
17. Hyperlipidemia
Continue statin
18. Diabetic neuropathy
Neurontin as tolerated
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
Continue Pepcid
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
21. Sacrum Stage 1 Pressure Injury, POA
22. High K - today 5.3
Follow closely
23. Positive HSV 1 PCR
- Valtrex dose to 1gram daily x7 days (as per human anatomy teacher)
- Outpatient follow up with [facility] and Urogyn Dr. Sandoval
DVT Prophylaxis: low dose Eliquis
Code Status: Full Code
Dispo: SNF
More than 30 minutes spent in discharge including
Final examination of the patient
Summarizing hospital stay
Instructions for continuing care to all relevant caregivers
Preparation of discharge records, prescriptions, and referral forms
Total time spent (in minutes): 41
Anticipated Discharge: Today
Subjective/Interval History
-
Date of Service: September 03, 2025
Patient was seen and examined. She reported muscle aches at the back of her neck, and she requested lidocaine patch.
Objective Data
-
Labs:
Laboratory Results
09/02/25 09/03/25
22:14 05:27
WBC 7.1
Hgb 9.0 L
Hct 27.1 L
Plt Count 218
Sodium 133 L
Potassium 5.0
Chloride 109 H
Carbon Dioxide 20 L
BUN 35 H
Creatinine 1.0
Glucose 208 H 98
Calcium 8.0 L
Vital Signs:
Vital Signs
Temp Pulse Resp BP Pulse Ox
97.5 F 75 15 106/61 98
09/03/25 07:29 09/03/25 07:29 09/03/25 07:29 09/03/25 07:29 09/03/25 07:29
I&O
09/02/25 09/03/25 09/04/25
06:59 06:59 06:59
Intake Total 720 / 720 600 / 600
Balance 720 / 720 600 / 600
[2025-09-03] MEDS: VITAMIN D3 (cholecalciferol) 50 MCG PO (09:16)
[2025-09-03] MEDS: ELIQUIS 2.5 MG PO (09:16)
[2025-09-03] MEDS: GLUCOPHAGE 1000 MG PO ×2 (09:16→17:49)
[2025-09-03] MEDS: NEURONTIN 100 MG PO (09:16)
[2025-09-03] MEDS: THERAGRAN 1 TABLET PO (09:17)
[2025-09-03] MEDS: TOPROL XL 12.5 MG PO (09:17)
[2025-09-03] MEDS: MAGNESIUM OXIDE 400 MG PO (09:17)
[2025-09-03] MEDS: VALTREX 1000 MG PO (09:18)
[2025-09-03] MEDS: DESITIN MAXIMUM STRENGTH PASTE 1 APPLIC TOPICAL ×2 (09:18→09:19)
[2025-09-03] MEDS: NOVOLOG FLEXPEN-LOW RESISTANCE SC (09:19)
--- NOTE | 2025-09-03 09:59 | CM ---
Addendum entered by Sravani Lujan 09/03/25 14:55:
transport 1900 - updated Leonela quintero
Original Note:
received voicemail from [facility] ([facility])
Approval for [facility]
start 09/02/25 NRD 09/05/25
pended ref #:[id number]
AUTH APPROVAL #: [id number]
Vibrator Operator Jose De Jesus Hill
fax updates to #:[phone]
Notified Leonela liadudley & all auth information given to her
tt hospitalist
notified daughter Court
PLAN: [facility]
Report #: [phone]
Fax #: [phone]
transportation forms on chart
[2025-09-03 10:43] LABS: Albumin 2.3 g/dl (3.5-5.0)
[2025-09-03] MEDS: TYLENOL 650 MG PO ×2 (10:52→17:51)
[2025-09-03 12:09] LABS: Glucose - Point of Care 207 mg/dl (70-99)
[2025-09-03] MEDS: FEOSOL 325 MG PO (12:56)
[2025-09-03] MEDS: NOVOLOG FLEXPEN-LOW RESISTANCE 2 UNITS SC (12:56)
[2025-09-03] MEDS: LANTUS 0.03 UNITS SC (13:20)
--- NOTE | 2025-09-03 14:48 | PTCARENOTE ---
Pt c/o neck pain, requested patch, made aware, new order provided, see MAR. Will continue to monitor.
[2025-09-03] MEDS: LIDOCAINE 4% PATCH 1 PATCH TOPICAL (14:51)
[2025-09-03 15:24] VITALS: BP 106/63
[2025-09-03 16:51] LABS: Glucose - Point of Care 197 mg/dl (70-99)
[2025-09-03] MEDS: LIPITOR 10 MG PO (17:49)
[2025-09-03] MEDS: FLUZONE HIGH-DOSE 2025-26 0.5 ML IM (17:49)
[2025-09-03] MEDS: NOVOLOG FLEXPEN-LOW RESISTANCE 1 UNITS SC (17:50)
[2025-09-03 19:51] VITALS: BP 109/63
== END 2025-09-03 20:00 | DRG 871 ==
LOC: 3 WEST ACU 13:28
PROVIDERS: Internal Medicine; Nurse Practitioner; Nurse Practitioner Family; Nurse Practitioner Gerontology; Obstetrics & Gynecology; Registered Nurse; ADMITTING PHYSICIAN Internal Medicine; ATTENDING PHYSICIAN Hospitalist; CONSULT PHYSICIAN Internal Medicine Critical Care Medicine; CONSULT PHYSICIAN Obstetrics & Gynecology; CONSULT PHYSICIAN Student in an Organized Health Care Education/Training Program; EMERGENCY PHYSICIAN Emergency Medicine; OTHER PHYSICIAN Specialist
PROC: 30233N1 Transfusion of Nonautologous Red Blood Cells into Peripheral Vein, Percutaneous Approach (ICD-10-PCS; 2025-08-24)
PROC: 3E02340 Introduction of Influenza Vaccine into Muscle, Percutaneous Approach (ICD-10-PCS; 2025-09-03)
DX: A41.9 Sepsis, unspecified organism (principal); G92.8 Other toxic encephalopathy; R65.21 Severe sepsis with septic shock; J18.9 Pneumonia, unspecified organism; N17.9 Acute kidney failure, unspecified; I50.22 Chronic systolic (congestive) heart failure; I13.0 Hypertensive heart and chronic kidney disease with heart failure and stage 1 through stage 4 chronic kidney disease, or unspecified chronic kidney disease; E87.20 Acidosis, unspecified; D62 Acute posthemorrhagic anemia; N30.81 Other cystitis with hematuria; E11.22 Type 2 diabetes mellitus with diabetic chronic kidney disease; N18.32 Chronic kidney disease, stage 3b; E11.40 Type 2 diabetes mellitus with diabetic neuropathy, unspecified; D63.1 Anemia in chronic kidney disease; E78.00 Pure hypercholesterolemia, unspecified; K44.9 Diaphragmatic hernia without obstruction or gangrene; E11.649 Type 2 diabetes mellitus with hypoglycemia without coma; R68.0 Hypothermia, not associated with low environmental temperature; Z87.440 Personal history of urinary (tract) infections; M47.816 Spondylosis without myelopathy or radiculopathy, lumbar region; N81.10 Cystocele, unspecified; E83.42 Hypomagnesemia; Z96.642 Presence of left artificial hip joint; I48.91 Unspecified atrial fibrillation; Z79.899 Other long term (current) drug therapy; N76.2 Acute vulvitis; R32 Unspecified urinary incontinence; H91.90 Unspecified hearing loss, unspecified ear; E87.5 Hyperkalemia; E86.0 Dehydration; Z23 Encounter for immunization; Z79.4 Long term (current) use of insulin; Z79.82 Long term (current) use of aspirin; Z79.84 Long term (current) use of oral hypoglycemic drugs
CPT/HCPCS: 71045; 76770; 76830; 76856; 80048; 80053; 81003; 81015; 82040; 82805; 82947; 82962; 83036; 83605; 83735; 84100; 84443; 85014; 85018; 85025; 85027; 85610; 85730; 86850; 86900; 86901; 86920; 87040; 87045; 87046; 87077; 87086; 87324; 87427; 87449; 87529; 87798; 87899; 90662; 93005; 96365; 96366; 96375; 97116; 97163; 97167; 97530; 97535; 99285; G0008; P9016; P9047

== ENCOUNTER 2025-10-03 09:55 | Emergency (ER) | payer OTHER, SELFPAY ==
--- NOTE | 2025-10-03 10:23 | ED.GENMED ---
Addendum entered and electronically signed by Quan Good MD 10/03/25 12:59:
Patient pronounced at that time was 9:55 AM on October 03, 2025
Original Note:
History of Present Illness
General
Chief Complaint: CODE
Source: family and ambulance crew
Exam Limitations: clinical condition
Time Seen by Provider: 10/03/25 09:59
History of Present Illness
History of Present Illness:
89-year-old female apparently started feeling off yesterday. Some shortness of breath. Family was at [facility] this morning. They were apparently going to have her evaluated when she went into cardiac arrest. Went unresponsive. Initially
ventricular fibrillation. CPR was not done by the family. On medic arrival ventricular fibrillation. Shocked to asystole. 5 rounds of epi. Intubated. Prolonged pulselessness of 40 minutes with appropriate ALS.
Past History
Past History
ED Past Medical History: Arrthythmia, CHF and IDDM
Phy Exam
Physical Exam
Physical Exam:
CODE EXAM:
VITAL SIGNS: No palpable blood pressure, no pulses, no respiration.
GENERAL EXAM: Mottled
EYES: Pupils fixed
ENT: Patient intubated
NECK: No venous distention
RESPIRATORY: Equal breath sounds
CARDIAC: Absent heart sounds
VASCULAR: Absent pulses
ABDOMEN: Soft no masses
GUAIAC: Not done
MUSCULOSKELETAL: Unable to evaluate strength
EXTREMITIES: No edema or contractures
SKIN: No rash
PSYCH: Mood, affect unable to evaluate
Course
Vital Signs
Initial and Last Documented VS:
Initial Vital Signs
Pulse Pulse Ox
0 98
10/03/25 09:59 10/03/25 09:59
Last Documented Vital Signs
Pulse Pulse Ox
0 98
10/03/25 09:59 10/03/25 10:26
MDM/Problems Addressed
Differential Diagnosis Includes:
Patient with approximately 45 minutes of appropriate ALS with no pulses. Code called. Family updated.
*Pulse Oximetry
SaO2: 98
Oxygen Mode of Delivery: Resuscitation bag
Patient hypoxic: no (98)
*Utilization Manager Interpretation
Rate: other
Rhythm: other (Asystole)
*Critical Care Note
Total Time (30-74mins, 75-104mins- exclusive of procedures): 15
ED Attending Note
-
Portions of this chart may have been created with voice recognition software.� Occasional wrong word or��sound alike� substitutions may have occurred due to the inherent limitations of voice recognition software.
Discharge Plan
Departure
Patient Disposition:
Date of Disposition: 10/03/25
Time of Disposition: 10:35
Discharge Problem:
Cardiopulmonary arrest
Prescriptions:
No Action
therapeutic multivitamin Tablet
1 tab PO DAILY
gabapentin 100 mg Capsule
100 mg PO DAILY
gabapentin 100 mg Tablet
200 mg PO HS
melatonin 5 mg Tablet
5 mg PO HSPRN PRN (Reason: sleep)
acetaminophen [Tylenol] 325 mg Tablet
650 mg PO Q6HPRN PRN (Reason: mild pain)
lovastatin 40 mg Tablet
40 mg PO QPM
ferrous sulfate [FeroSul] 325 mg (65 mg iron) tablet
325 mg PO NOON
famotidine 20 mg Tablet
20 mg PO HS Qty: 30 0RF
tamsulosin 0.4 mg Capsule
0.4 mg PO HS Qty: 30 0RF
furosemide [Lasix] 20 mg Tablet
20 mg PO Q48H Qty: 0 0RF
cholecalciferol (vitamin D3) [Vitamin D3] 50 mcg (2,000 unit) capsule
50 mcg PO DAILY Qty: 30 0RF
metformin 1,000 mg Tablet
1,000 mg PO BID
Eliquis 2.5 mg Tablet
2.5 mg PO BID Qty: 60 1RF
lidocaine 4 % Adhesive Patch,Medicated
1 patch topical DAILY Qty: 5 0RF
Rx Instructions:
Remove Lidocaine patch daily at 8 pm
Insulin Glargine Lantus [Lantus] 3 UNITS
Subcutaneous Insulin Syringe [Syringe-Insulin] 0 UNIT
As Directed mls/hr SC DAILY@0800
Ordered By: Lucio Peralta MD
Last Taken: Unknown
magnesium oxide 400 mg (241.3 mg magnesium) Tablet
400 mg PO BID Qty: 14 0RF
metoprolol succinate 25 mg Tablet Extended Release 24 Hr
12.5 mg PO DAILY Qty: 30 1RF
valacyclovir 500 mg Tablet
1,000 mg PO DAILY 4 Days Qty: 8 0RF
Rx Instructions:
Please take from September 04, 2025 to September 07, 2025
Referrals:
UNKNOWN,NO INTERVIEW [Family Provider]
Interventions
Interventions:
ED- Cardiac Assessment Last Done: 10/03/25 09:59
Discharge Date and Time
Print Language: AZERI
--- NOTE | 2025-10-03 12:25 | EDRN ---
[facility] called at 1222 spoke with Vernon Pink and patient is not a candidate for any donation.
== END 2025-10-03 12:20 | disposition expired ==
LOC: EMR 09:55
PROVIDERS: EMERGENCY PHYSICIAN Emergency Medicine
DX: I46.9 Cardiac arrest, cause unspecified (principal); I50.9 Heart failure, unspecified; I49.01 Ventricular fibrillation; E11.9 Type 2 diabetes mellitus without complications
CPT/HCPCS: 99285; 92950